=== PATIENT | female | born 1975 | race Caucasian/White ===

== ENCOUNTER 2023-08-17 16:34 | Inpatient (IN) | payer OTHER, SELFPAY ==
--- NOTE | ~2023-08-17 | US_ITS ---
EXAMINATION: NONINVASIVE ASSESSMENT OF THE ARTERIES OF BOTH LOWER EXTREMITIES WITH PVR EXAM AND BILATERAL LOWER EXTREMITY DUPLEX Kenyetta Arroyo MD CLINICAL INFORMATION: Nonhealing foot ulcer TECHNIQUE: Ankle pulse volume recordings, ankle pressure measurements and ankle brachial indices were obtained of the lower extremity arterial system bilaterally in addition to duplex Doppler techniques with wave form analysis and measurement of velocities in the common femoral, profunda femoral, superficial femoral, popliteal and tibial arteries. The study was performed only at rest. COMPARISON: None FINDINGS: a) AT REST: RIGHT LEG: * The right ankle-brachial index is:NONCOMPRESSIBLE 2. Right ankle pressure: Abnormal 3. Right ankle PVR waveform: Abnormal 4. Right direct duplex Doppler findings: Common femoral artery: 85 cm/s, Multiphasic Profunda femoris artery: 73 cm/s, Multiphasic Superficial femoral artery (proximal): 67 cm/s, Multiphasic Superficial femoral artery (mid): 63 cm/s, Multiphasic Superficial femoral artery (distal): 46 cm/s, Multiphasic Proximal Popliteal artery: 78 cm/s, Multiphasic Mid posterior tibial artery: 30 cm/s, Multiphasic LEFT LEG: The left ankle-brachial index is: NONCOMPRESSIBLE 2. Left ankle pressure: Abnormal 3. Left ankle PVR waveform: Abnormal 4. Left direct duplex Doppler findings: Common femoral artery: 95 cm/s, Multiphasic Profunda femoris artery: 57 cm/s, Multiphasic Superficial femoral artery (proximal): 95 cm/s, Multiphasic Superficial femoral artery (mid): 68 cm/s, Multiphasic Superficial femoral artery (distal): 66 cm/s, Multiphasic Proximal Popliteal artery: 84 cm/s, Multiphasic Mid posterior tibial artery: 105 cm/s, Multiphasic US/US arterial duplex LE BI IMPRESSION: RIGHT LEG: No hemodynamically significant stenosis in the right lower extremity by duplex. CHEN cannot be calculated secondary to noncompressible vessels suggesting atherosclerotic calcification. LEFT LEG: No hemodynamically significant stenosis in the right lower extremity by duplex. CHEN cannot be calculated secondary to noncompressible vessels suggesting atherosclerotic calcification.
--- NOTE | ~2023-08-17 | XR_ITS ---
EXAMINATION: XR FOOT, LEFT CLINICAL INFORMATION: Left foot pain COMPARISON: None available. TECHNIQUE: AP, lateral, and oblique views of the left foot. FINDINGS: There is mild pectus cavum. No fractures or dislocations are seen. Vascular calcifications are noted. No soft tissue swelling, fractures or subluxations. XR/XR foot LT 2V IMPRESSION: Mild pectus cavum. No acute finding.
--- NOTE | ~2023-08-17 | US_ITS ---
EXAMINATION: NONINVASIVE ASSESSMENT OF THE ARTERIES OF BOTH LOWER EXTREMITIES WITH PVR EXAM AND BILATERAL LOWER EXTREMITY DUPLEX Kenyetta Arroyo MD CLINICAL INFORMATION: Nonhealing foot ulcer TECHNIQUE: Ankle pulse volume recordings, ankle pressure measurements and ankle brachial indices were obtained of the lower extremity arterial system bilaterally in addition to duplex Doppler techniques with wave form analysis and measurement of velocities in the common femoral, profunda femoral, superficial femoral, popliteal and tibial arteries. The study was performed only at rest. COMPARISON: None FINDINGS: a) AT REST: RIGHT LEG: * The right ankle-brachial index is:NONCOMPRESSIBLE 2. Right ankle pressure: Abnormal 3. Right ankle PVR waveform: Abnormal 4. Right direct duplex Doppler findings: Common femoral artery: 85 cm/s, Multiphasic Profunda femoris artery: 73 cm/s, Multiphasic Superficial femoral artery (proximal): 67 cm/s, Multiphasic Superficial femoral artery (mid): 63 cm/s, Multiphasic Superficial femoral artery (distal): 46 cm/s, Multiphasic Proximal Popliteal artery: 78 cm/s, Multiphasic Mid posterior tibial artery: 30 cm/s, Multiphasic LEFT LEG: The left ankle-brachial index is: NONCOMPRESSIBLE 2. Left ankle pressure: Abnormal 3. Left ankle PVR waveform: Abnormal 4. Left direct duplex Doppler findings: Common femoral artery: 95 cm/s, Multiphasic Profunda femoris artery: 57 cm/s, Multiphasic Superficial femoral artery (proximal): 95 cm/s, Multiphasic Superficial femoral artery (mid): 68 cm/s, Multiphasic Superficial femoral artery (distal): 66 cm/s, Multiphasic Proximal Popliteal artery: 84 cm/s, Multiphasic Mid posterior tibial artery: 105 cm/s, Multiphasic US/US CHEN complete IMPRESSION: RIGHT LEG: No hemodynamically significant stenosis in the right lower extremity by duplex. CHEN cannot be calculated secondary to noncompressible vessels suggesting atherosclerotic calcification. LEFT LEG: No hemodynamically significant stenosis in the right lower extremity by duplex. CHEN cannot be calculated secondary to noncompressible vessels suggesting atherosclerotic calcification.
--- NOTE | 2023-08-17 17:13 | ED_ITS ---
HPI - General Adult General Chief complaint: Skin/Abscess/Foreign Body Stated complaint: ?Cellulitis on toe, on L foot/Sent by provider Time Seen by Provider: 08/17/23 19:42 Source: patient Mode of arrival: ambulatory History of Present Illness HPI narrative: 47-year-old female eating and drinking soda and food from [facility] who presents with having been on 10 days of antibiotics for left 5th toe infection and she saw her primary care doctor today, Dr. Martinez, who states that the infection is not improving and patient was instructed to come in to the emergency room. She otherwise denies any fevers or chills. Related Data Home Medications Medication Instructions Recorded Confirmed aripiprazole 10 mg tablet 10 mg PO BEDTIME 08/17/23 aspirin 81 mg tablet,delayed 81 mg PO DAILY 08/17/23 release atomoxetine 40 mg capsule 40 mg PO DAILY 08/17/23 atorvastatin 80 mg tablet 80 mg PO DAILY 08/17/23 carvedilol 6.25 mg tablet 6.25 mg PO BID 08/17/23 cephalexin 500 mg capsule 500 mg PO TID 08/17/23 clonidine HCl 0.1 mg tablet 0.1 - 0.2 mg PO BEDTIME PRN 08/17/23 insomnia dapagliflozin propanediol 10 mg 10 mg PO DAILY 08/17/23 tablet (Farxiga) doxycycline monohydrate 100 mg 100 mg PO BID 08/17/23 tablet furosemide 20 mg tablet 20 mg PO DAILY 08/17/23 mirtazapine 15 mg tablet 15 mg PO BEDTIME 08/17/23 omeprazole 20 mg capsule,delayed 20 mg PO DAILY 08/17/23 release pregabalin 75 mg capsule 75 mg PO TID 08/17/23 sacubitril 24 mg-valsartan 26 mg 1 tab PO BID 08/17/23 tablet (Entresto) Allergies Allergy/AdvReac Type Severity Reaction Status Date / Time Penicillins [PCN] Allergy Hives Verified 08/17/23 17:15 Review of Systems 2 Review of Systems: Pertinent positives and negatives as stated in HPI [facility] Past Medical History Source: nursing notes reviewed Medical History Mixed hyperlipidemia Mood disorder HFrEF (heart failure with reduced ejection fraction) Non-insulin dependent type 2 diabetes mellitus Social History Social History Advance Directives: No Advance Directives Information Provided: No Physical Exam ED Vital Signs: Vital Signs - 24 hr 08/17/23 17:15 08/17/23 19:42 Temperature 98.0 F 98.0 F Pulse Rate 92 91 Respiratory Rate 16 18 Blood Pressure 118/75 125/81 Pulse Oximetry 100 100 Oxygen Delivery Method Room Air Room Air BMI result Body Mass Index 29.0 VITAL SIGNS: Reviewed. GENERAL: Well developed, well nourished, in no acute distress. HEAD: Normocephalic/atraumatic EYES: PERRLA, EOMI EARS: Ext canals without abnormality NOSE: Nares patent bilateral OROPHARYNX: no oral lesions noted, posterior pharynx clear NECK: Supple, no adenopathy LUNGS: Normal breath sounds. No adventitious sounds or accessory muscle use. SpO2<100> CARDIOVASCULAR: Regular rate and rhythm without noted murmurs ABDOMEN: Soft, non-tender, non-distended with bowel sounds. MUSCULOSKELETAL: No tenderness, deformities, or effusions noted on gross inspection. EXTREMITIES: No cyanosis, clubbing or edema. LEFT FOOT: There is discoloration over the left 5th toe, no obvious nonhealing ulcer, there is mild moisture noted between the toes, there is palpable DP/PT, the foot is otherwise warm SKIN: Inspection of the skin reveals no rashes NEUROLOGIC: Alert and oriented x 4. Strength and sensation to light touch were grossly intact x 4. Course Course Course Narrative: This is an RME: Additional HPI, ROS, PE not included below will be deferred to primary provider. 47 year old female presents w/ left foot pain not improving despite PO atbx ( finished yesterday forgot what she was taking) Plan- labs, imaing Medical Decision Making Medical Decision Making MDM Narrative: 194: 47-year-old female with history and clinical presentation failure of oral antibiotics in the outpatient setting for diabetic left 5th toe infection. 2015: I reviewed all investigations and hematologic indices do not demonstrate a leukocytosis or left shift but patient does have a minor microcytic anemia without any report or evidence bleeding. There is no thrombocytopenia. Chemistry indices are significant for a pseudohyponatremia, otherwise there is no GANGA or electrolyte derangements. There is a hyperglycemia that is likely secondary to patient's current consumption of [employer] meal. CRP is elevated at 1.65. There is no evidence of DKA or HHS. Patient is receiving cefepime and vancomycin. My prelim over review of x-ray is not significant for evidence of osteomyelitis but official read is pending and inpatient hospitalist will follow-up on this official read. I discussed the case with inpatient hospitalist who accepts admission. Differential Diagnosis Differential Diagnoses: The differential diagnosis associated with the presentation includes Please see the discussion above Admission/Observation Consideration of admission/observation: Escalation of care including admission/observation considered Please see the discussion above Consult Healthcare Provider Management of the patient was discussed with: Hospitalist Please see the discussion above Lab Data MDM Lab Attestation statement: I reviewed the patient's lab results. Please see the discussion above 08/17/23 17:43 08/17/23 17:43 Labs: Lab Results 08/17/23 Range/Units 17:43 WBC 5.9 (4.8-10.8) X10*3/uL RBC 4.03 L (4.20-5.50) X10*6/uL Hgb 9.7 L (12.0-16.0) g/dl Hct 30.6 L (37.0-47.0) % MCV 75.9 L (80.0-98.0) fL MCH 24.1 L (27.0-33.0) pg MCHC 31.7 (31.0-35.0) g/dl RDW 17.6 H (11.0-16.0) % Plt Count 263 (160-400) X10*3/uL MPV 10.9 (9.4-12.3) fL Immature Gran % (Auto) 0.2 (0.0-0.4) % Neut % (Auto) 53.0 (45-73) % Lymph % (Auto) 39.8 (20-40) % [place] % (Auto) 5.6 (2-11) % Eos % (Auto) 1.2 (0-4) % Baso % (Auto) 0.2 (0-2) % Lymph # (Auto) 2.3 (1.2-4.9) X10*3/uL [place] # (Auto) 0.3 (0.1-1.2) X10*3/uL Eos # (Auto) 0.1 (0.0-0.4) X10*3/uL Baso # (Auto) 0.0 (0.0-0.2) X10*3/uL Abs Immat Gran (auto) 0.01 (0.00-0.03) X10*3/uL Absolute Neuts (auto) 3.1 (2.0-8.3) x10*3/uL Absolute Nucleated RBC 0.000 (0.0-0.012) X10*3/uL Nucleated RBC % (auto) 0.0 (0.0-0.2) /100WBC ESR 53 H (0-20) MM/HR Sodium 133 L (135-145) mmol/L Potassium 3.6 (3.3-5.1) mmol/L Chloride 102 (96-108) mmol/L Carbon Dioxide 22 (22-29) mmol/L Anion Gap 13 (12-20) BUN 11 (9-16) mg/dL Creatinine 1.03 (0.5-1.4) mg/dL Estim Creat Clear Calc 63.7 Estimated GFR 57 Random Glucose 466 H* (60-115) mg/dL Lactic Acid 3.3 H* (0.5-2.0) mmol/L Calcium 9.4 (8.4-10.2) mg/dL Magnesium 2.1 (1.6-2.6) mg/dL Total Bilirubin 0.3 (0.0-1.0) mg/dL AST 14 (5-31) U/L ALT 11 (0-31) U/L Alkaline Phosphatase 190 H (39-117) U/L C-Reactive Protein 1.65 H (< or = 0.50) mg/dL Total Protein 7.6 (6.5-8.0) g/dL Albumin 3.4 L (3.5-5.0) g/dL Radiology Impression Discussion of test interpretation with radiology: I have reviewed the radiologist's reading. Radiologist Impression: Please see the discussion above External Record Review External record reviewed: Outpatient record, Prior outpatient labs and Prior outpatient radiology Chronic Conditions Patient?s care impacted by: Diabetes and Hypertension Critical Care Time Critical Care Time Critical Care Time: Yes Total Critical Care Time: 45 Attestation: I personally attest to this time spent taking care of the patient. Discharge Plan Discharge Clinical Impression: Osteomyelitis, Infection of toe, Hyperglycemia due to diabetes mellitus Patient Disposition: Admitted As Inpatient
[2023-08-17 17:15] VITALS: BP 118/75; PULSE 92; RESP 16; TEMP 36.7; O2SAT 100; BMI 29.0
[2023-08-17 17:53] LABS: MANUAL DIFF FLAG NO
[2023-08-17 18:03] LABS: Basophils Percent Auto 0.2 % (0-2); Eosinophils Absolute Auto 0.1 X10*3/uL (0.0-0.4); Eosinophils Percent Auto 1.2 % (0-4); Hematocrit 30.6 % (37.0-47.0); Hemoglobin 9.7 g/dl (12.0-16.0); Imm Gran Abs Auto 0.01 X10*3/uL (0.00-0.03); Imm Gran Pct Auto 0.2 % (0.0-0.4); Lymphocytes Absolute Auto 2.3 X10*3/uL (1.2-4.9); Lymphocytes Percent Auto 39.8 % (20-40); Mean Corpuscular HGB Conc 31.7 g/dl (31.0-35.0); Mean Corpuscular Hemoglobin 24.1 pg (27.0-33.0); Mean Corpuscular Volume 75.9 fL (80.0-98.0); Mean Platelet Volume 10.9 fL (9.4-12.3); Monocytes Absolute Auto 0.3 X10*3/uL (0.1-1.2); Monocytes Percent Auto 5.6 % (2-11); Neutrophils Absolute Auto 3.1 x10*3/uL (2.0-8.3); Platelet Count 263 X10*3/uL (160-400); Red Blood Count 4.03 X10*6/uL (4.20-5.50); Red Cell Distribution Width 17.6 % (11.0-16.0); White Blood Count 5.9 X10*3/uL (4.8-10.8)
[2023-08-17 18:11] LABS: Alanine Aminotransferase 11 U/L (0-31); Albumin Level 3.4 g/dL (3.5-5.0); Alkaline Phosphatase 190 U/L (39-117); Anion Gap 13 (12-20); Aspartate Amino Transferase 14 U/L (5-31); Bilirubin Total 0.3 mg/dL (0.0-1.0); Blood Urea Nitrogen 11 mg/dL (9-16); C Reactive Protein 1.65 mg/dL (< or = 0.50); Calcium 9.4 mg/dL (8.4-10.2); Carbon Dioxide 22 mmol/L (22-29); Chloride 102 mmol/L (96-108); Creatinine Clr Calc Pharmacy 63.7; Estimated Glomerular Filt Rate 57; Glucose Random 466 mg/dL (60-115); Lactic Acid 3.3 mmol/L (0.5-2.0); Magnesium 2.1 mg/dL (1.6-2.6); Potassium 3.6 mmol/L (3.3-5.1); Sodium 133 mmol/L (135-145); Total Protein 7.6 g/dL (6.5-8.0)
[2023-08-17 18:40] LABS: Erythrocyte Sedimentation Rate 53 MM/HR (0-20)
[2023-08-17 19:42] VITALS: BP 125/81; PULSE 91; RESP 18; TEMP 36.7; O2SAT 100
[2023-08-17 19:51] LABS: Reflex Lactate? Lactic Acid Added
--- NOTE | 2023-08-17 20:04 | P.HPHOSP_ITS ---
History of Present Illness Date of Service: 08/17/23 Chief Complaint: Foot infection This is a 47-year-old female with pertinent history of congestive heart failure with reduced ejection fraction, mood disorder, pvk-aivsnov-lnjvuhhpy diabetes mellitus who presents to the emergency department for evaluation of left 5th toe infection. Patient states she noticed swelling and redness of her left 5th toe about 10 days prior to presentation. She went to her PCP and was prescribed oral antibiotics. No improvement with oral antibiotics. Continues to be swollen, red. Also has pain when walking. Does report intermittent purulent drainage. No fever or chills. No chest discomfort, palpitations, shortness of breath, abdominal pain, changes in urinary or bowel habits. In the emergency department, x-ray without any acute abnormalities Review of Systems 2 Constitutional: Constitutional: Reports no additional constitutional complaints Cardiovascular: Cardiovascular: Reports no additional cardiovascular complaints Respiratory: Respiratory: Reports no additional respiratory complaints Gastrointestinal: Gastrointestinal: Reports no additional gastrointestinal complaints Genitourinary: Genitourinary: Reports no additional female genitourinary complaints Musculoskeletal: Musculoskeletal: Reports arthralgias and Reports joint swelling [facility] Medical History Mixed hyperlipidemia Mood disorder HFrEF (heart failure with reduced ejection fraction) Non-insulin dependent type 2 diabetes mellitus Pertinent family history: No family history of early CAD Social History Advance Directives: No Advance Directives Information Provided: No Meds Allergies Allergy/AdvReac Type Severity Reaction Status Date / Time Penicillins [PCN] Allergy Hives Verified 08/17/23 17:15 Active Medications: Current Medications Sodium Chloride (Ns) 1,000 mls @ 999 mls/hr IV .Q1H1M SARAH Stop: 08/17/23 20:45 Cefepime HCl 1 gm/ Sodium (Chloride) 50 mls @ 100 mls/hr IV ONCE ONE Stop: 08/17/23 20:17 Vancomycin HCl 1,500 mg/ (Sodium Chloride) 500 mls @ 333.333 mls/hr IV ONCE ONE Stop: 08/17/23 21:31 Pharmacy Consult (Consult Rx Vancomycin Dosing) 1 each MISCELLANE DAILY PRN PRN Reason: Consult order Home Medications Medication Instructions Recorded Confirmed Last Taken Type aripiprazole 10 mg tablet 10 mg PO BEDTIME 08/17/23 08/17/23 08/17/23 History aspirin 81 mg tablet,delayed 81 mg PO DAILY 08/17/23 08/17/23 08/17/23 History release atomoxetine 40 mg capsule 40 mg PO DAILY 08/17/23 08/17/23 08/17/23 History atorvastatin 80 mg tablet 80 mg PO DAILY 08/17/23 08/17/23 08/17/23 History carvedilol 6.25 mg tablet 6.25 mg PO BID 08/17/23 08/17/23 08/17/23 History clonidine HCl 0.1 mg tablet 0.1 - 0.2 mg PO BEDTIME PRN 08/17/23 08/17/23 08/17/23 History insomnia dapagliflozin propanediol 10 mg 10 mg PO DAILY 08/17/23 08/17/23 08/17/23 History tablet (Farxiga) furosemide 20 mg tablet 20 mg PO DAILY 08/17/23 08/17/23 08/17/23 History mirtazapine 15 mg tablet 15 mg PO BEDTIME 08/17/23 08/17/23 08/17/23 History omeprazole 20 mg capsule,delayed 20 mg PO DAILY 08/17/23 08/17/23 08/17/23 History release pregabalin 75 mg capsule 75 mg PO TID 08/17/23 08/17/23 08/17/23 History sacubitril 24 mg-valsartan 26 mg 1 tab PO BID 08/17/23 08/17/23 08/17/23 History tablet (Entresto) Physical Exam 2 Vital Signs and Narrative: Vital Signs: Last Vital Signs Temp 98.0 F 08/17/23 19:42 Pulse 91 08/17/23 19:42 Resp 18 08/17/23 19:42 BP 125/81 08/17/23 19:42 Pulse Ox 100 08/17/23 19:42 O2 Del Method Room Air 08/17/23 19:42 BMI result Body Mass Index 29.0 Middle-aged female lying in bed in no distress Neck supple, no JVD Regular rate and rhythm, S1-S2 heard Regular breath sounds bilaterally, no wheezing or crackles appreciated Abdomen soft nontender, no guarding, no rigidity Patient is awake, alert and oriented to self, place, time and person ; no focal motor deficit Left 5th toe with erythema, warmth and tenderness, nonhealing wound seen Psych: Normal mood No pedal edema Results Labs 08/17/23 17:43 08/17/23 17:43 Labs: Laboratory Results - last 24 hr 08/17/23 17:43 MCV 75.9 L MCH 24.1 L MCHC 31.7 RDW 17.6 H Plt Count 263 MPV 10.9 Immature Gran % (Auto) 0.2 Neut % (Auto) 53.0 Lymph % (Auto) 39.8 [place] % (Auto) 5.6 Eos % (Auto) 1.2 Baso % (Auto) 0.2 Lymph # (Auto) 2.3 [place] # (Auto) 0.3 Eos # (Auto) 0.1 Baso # (Auto) 0.0 Abs Immat Gran (auto) 0.01 Absolute Neuts (auto) 3.1 Absolute Nucleated RBC 0.000 Nucleated RBC % (auto) 0.0 ESR 53 H Anion Gap 13 Estim Creat Clear Calc 63.7 Estimated GFR 57 Random Glucose 466 H* Lactic Acid 3.3 H* Calcium 9.4 Magnesium 2.1 Total Bilirubin 0.3 AST 14 ALT 11 Alkaline Phosphatase 190 H C-Reactive Protein 1.65 H Total Protein 7.6 Albumin 3.4 L Assessment and Plan (1) Infection of toe: Status: Acute (2) Hyperglycemia due to diabetes mellitus: Status: Acute Plan This is a 47-year-old female with pertinent history of congestive heart failure with reduced ejection fraction, mood disorder, kdw-vhyhrye-hwkkcxrhs diabetes mellitus who presents to the emergency department for evaluation of left 5th toe infection. #. Left foot toe cellulitis with nonhealing wound: Will admit patient and initiate empiric IV antibiotics as she failed p.o. antibiotics. Consulting vascular surgery, appreciate assistance. No sepsis. #. Ejm-ayhqiyv-umgklncdc diabetes mellitus with hyperglycemia: Initiating basal plus insulin regimen #. Mood disorder: Continue home mood stabilizers #. congestive heart failure with reduced ejection fraction: Continue Entresto, Lasix and beta-mari. No decompensation during admission. DVT prophylaxis: Lovenox Admit as inpatient and will require two night minimum hospital stay for IV antibiotics Time Spent With Patient Time: Total time managing care of this patient today ____ minutes. Quality Stroke Does the patient have a stroke diagnosis?: No VTE Prior VTE?: No VTE Risk Level:: Medical - moderate - high VTE Device Contraindication: Treatment Not Indicated VTE Drug Contraindication: N/A - Med Ordered
--- NOTE | 2023-08-17 20:26 | PHA.MEDREC ---
Pharmacy Consult ? Medication Reconciliation Pharmacy has completed the medication reconciliation. Patient confirmed medications based on claim history. Luis McwilliamsD
[2023-08-17 20:36] LABS: Beta-Hydroxybutyrate 0.04 mmol/L (0.02-0.27)
[2023-08-17] MEDS: 0.9 % Sodium Chloride 1,000 ML 999 ML IV (20:56)
[2023-08-17] MEDS: cefEPime HCl 1 GM in 0.9 % Sodium Chloride 50 ML IV (20:56)
[2023-08-17] MEDS: Insulin Regular, Human 100 UNIT/ML 3 ML VIAL IVPUSH (20:57)
[2023-08-17 21:05] LABS: ~Lactic Acid-LAB USE ONLY 2.3 mmol/L (0.5-2.0)
--- NOTE | 2023-08-17 21:06 | PC.NURSE ---
critical lab lactic 2.3. MD aware.
[2023-08-17 21:40] VITALS: BP 131/79; PULSE 85; RESP 16; TEMP 36.8; O2SAT 100
[2023-08-17] MEDS: vancomycin HCL 1,000 MG, vancomycin HCL 750 MG in 0.9 % Sodium Chloride 500 ML 267.5 MG IV (21:46)
[2023-08-17] MEDS: Enoxaparin Sodium 40 MG/0.4 ML SYRINGE SUBCUT (21:47)
[2023-08-17] MEDS: Insulin Glargine,Hum.rec.anlog 100 UNIT/ML 10 ML VIAL 15 UNIT SUBCUT (21:48)
--- NOTE | 2023-08-17 21:55 | PHA.PROG ---
Admission Date/Time: August 17, 2023 20:28 Indication: Cellulitis Weight in k.2 kg Adjusted body weight in K.1 kg [place] body weight in K.4 kg Obesity Dosing Indication % IBW: Serum Creatinine - Last 168 Hours 08/17/23 17:43 Creatinine 1.03 Estimated CrCl and GFR - Last 168 Hours 08/17/23 17:43 Estim Creat Clear Calc 63.7 Estimated GFR 57 Vancomycin Loading Dose: 1750 mg (23 mg/kg) Current Vancomycin Dosing Regimen: 750 mg Q12H Date and Time for next Vancomycin Level to be drawn: 08/19 @ 0800 Pharmacist Comments on Vancomycin Plan: Patient received an adequate load dose in the ER on 08/17 @ 2146 Maintenance dose vancomycin 750 mg Q12H is scheduled to start 08/18 @ 1000. Expected AUC 469 with a trough of 15.4 Level is scheduled for prior to the 4th dose Pharmacy will monitor renal function daily Martha Pappas, Nichole Vancomycin dosing will take advantage of [employer] as a clinical decision support tool that uses Bayesian modeling to calculate individual patient's pharmacokinetic parameters and forecast the patient's drug concentration time course with the target goal AUC 24 range of 400 - 600 mg/L/hr.
[2023-08-17] MEDS: Insulin Lispro 100 UNIT/ML 3 ML VIAL SUBCUT (22:00)
[2023-08-17] MEDS: Pregabalin 75 MG CAPSULE PO (22:01)
[2023-08-17] MEDS: ARIPiprazole 10 MG TABLET PO (22:01)
[2023-08-17] MEDS: Mirtazapine 15 MG TABLET PO (22:01)
[2023-08-17 22:06] LABS: Glucose, Whole Blood 156 mg/dL (60-115)
[2023-08-17 22:46] LABS: Reflex Lactate? 2 Y
--- NOTE | 2023-08-17 23:00 | PC.NURSE ---
Patient alert and oriented. Brought in from waiting room. PT was at pcp office and instructed to be seen at ED due to ineffective abx treatment. PT reports being diagnosed with cellutitis and was prescribed 10 days of abx treatment with no resolve. Pt placed on cafeteria monitor. PT is a difficult stick delaying administration of medication. 22 gauge IV access gained in right wrist. Fluids infusing slowly. Call hollis within reach. Plan of care ongoing.
[2023-08-17 23:54] LABS: ~Lactic Acid-LAB USE ONLY 1.9 mmol/L (0.5-2.0)
[2023-08-18] VITALS (9 sets, daily range): BP systolic 137–162; BP diastolic 79–100; PULSE 86–95; RESP 14–20; TEMP 36.2–36.9; O2SAT 99–100
[2023-08-18] MEDS: 0.9 % Sodium Chloride 1,000 ML 999 ML IV (00:28)
[2023-08-18 06:09] LABS: MANUAL DIFF FLAG NO
[2023-08-18 06:12] LABS: Basophils Percent Auto 0.4 % (0-2); Eosinophils Absolute Auto 0.1 X10*3/uL (0.0-0.4); Eosinophils Percent Auto 1.9 % (0-4); Hematocrit 33.6 % (37.0-47.0); Hemoglobin 10.3 g/dl (12.0-16.0); Imm Gran Abs Auto 0.01 X10*3/uL (0.00-0.03); Imm Gran Pct Auto 0.2 % (0.0-0.4); Lymphocytes Absolute Auto 2.7 X10*3/uL (1.2-4.9); Lymphocytes Percent Auto 50.8 % (20-40); Mean Corpuscular HGB Conc 30.7 g/dl (31.0-35.0); Mean Corpuscular Hemoglobin 23.5 pg (27.0-33.0); Mean Corpuscular Volume 76.7 fL (80.0-98.0); Mean Platelet Volume 10.4 fL (9.4-12.3); Monocytes Absolute Auto 0.3 X10*3/uL (0.1-1.2); Monocytes Percent Auto 6.5 % (2-11); Neutrophils Absolute Auto 2.1 x10*3/uL (2.0-8.3); Neutrophils Percent Auto 40.2 % (45-73); Platelet Count 252 X10*3/uL (160-400); Red Blood Count 4.38 X10*6/uL (4.20-5.50); Red Cell Distribution Width 17.4 % (11.0-16.0); White Blood Count 5.3 X10*3/uL (4.8-10.8)
[2023-08-18 06:29] LABS: Creatinine Clr Calc Pharmacy 93.8; Estimated Glomerular Filt Rate > 60
[2023-08-18 06:33] LABS: Anion Gap 13 (12-20); Blood Urea Nitrogen 7 mg/dL (9-16); Calcium 8.6 mg/dL (8.4-10.2); Carbon Dioxide 19 mmol/L (22-29); Chloride 110 mmol/L (96-108); Creatinine Clr Calc Pharmacy 96.6; Estimated Glomerular Filt Rate > 60; Glucose Random 127 mg/dL (60-115); Potassium 3.5 mmol/L (3.3-5.1); Sodium 138 mmol/L (135-145)
[2023-08-18 07:06] LABS: Glucose, Whole Blood 127 mg/dL (60-115)
[2023-08-18] MEDS: Omeprazole 20 MG CAPSULE.DR PO (07:09)
--- NOTE | 2023-08-18 07:21 | HE.PHANOTE ---
RE: jewelo Patient's creatinine improved, changed dose to 1000mg Q12H with predicted AUC 454mg/L, trough of 13.6
--- NOTE | 2023-08-18 08:30 | HO.PM.IMPN ---
Subjective Subjective Date of Service: 08/18/23 Interval History: no changes Physical Exam Vital Signs: Vital Signs: Last Vital Signs Temp 97.7 F 08/18/23 04:10 Pulse 86 08/18/23 04:10 Resp 17 08/18/23 04:19 BP 153/93 H 08/18/23 04:10 Pulse Ox 100 08/18/23 04:10 O2 Del Method Room Air 08/18/23 04:10 BMI result Body Mass Index 29.0 Left 5th toe with erythema, warmth and tenderness, nonhealing wound seen General: AO X 3, no acute distress Resp: CTA bilateral, no accessory muscles used CVS: S1,S2,RRR GI: soft, non tender, non distended Neuro: motor grossly intact, alert Psych: appropriate affect, appropriate insight Objective Data Active Medications Acetaminophen (Acetaminophen 325 Mg Tablet) 650 mg PO Q6H PRN PRN Reason: Pain, Mild (Pain Scale 1-3) Aripiprazole (Aripiprazole 10 Mg Tablet) 10 mg PO BEDTIME [facility] Last Admin: 08/17/23 22:01 Dose: 10 mg Documented By: CANELO Aspirin (Aspirin Enteric Coated 81 Mg Tablet.) 81 mg PO DAILY [facility] Atorvastatin Calcium (Atorvastatin Calcium 80 Mg Tablet) 80 mg PO DAILY [facility] Carvedilol (Carvedilol 6.25 Mg Tablet) 6.25 mg PO BID [facility]; Protocol Clonidine HCl (Clonidine Hcl 0.2 Mg Tablet) 0.2 mg PO BEDTIME PRN; Protocol PRN Reason: insomnia Dextrose (Dextrose 50 % 25 Gm/50 Ml Syringe) 25 gm IVPUSH Q15M PRN; Protocol PRN Reason: per Hypoglycemia Standing Ord. Empagliflozin (Empagliflozin 10 Mg Tablet) 10 mg PO DAILY [facility] Enoxaparin Sodium (Enoxaparin Sodium 40 Mg/0.4 Ml Syringe) 40 mg SUBCUT Q24H [facility] Last Admin: 08/17/23 21:47 Dose: 40 mg Documented By: CANELO Furosemide (Furosemide 20 Mg Tablet) 20 mg PO DAILY [facility]; Protocol Glucose (Glucose Gel 15 Gm Gel..Gram.) 15 gm PO Q15M PRN; Protocol PRN Reason: per Hypoglycemia Standing Ord. Vancomycin HCl 1,000 mg/ (Sodium Chloride) 270 mls @ 270 mls/hr IV Q12H [facility] Insulin Glargine (Insulin Glargine,Hum.Rec.Anlog 100 Unit/Ml 10 Ml Vial) 15 unit SUBCUT BEDTIME [facility] Last Admin: 08/17/23 21:48 Dose: 15 unit Documented By: CANELO Insulin Human Lispro (Insulin Lispro 100 Unit/Ml 3 Ml Vial) 0 unit SUBCUT QIDACHS [facility]; Protocol Last Admin: 08/18/23 07:11 Dose: Not Given Documented By: SOLITARIO Non-Admin Reason: poc 127 Melatonin (Melatonin 3 Mg Tablet) 6 mg PO BEDTIME PRN PRN Reason: Insomnia Mirtazapine (Mirtazapine 15 Mg Tablet) 15 mg PO BEDTIME [facility] Last Admin: 08/17/23 22:01 Dose: 15 mg Documented By: CANELO Non-Formulary Medication (Atomoxetine) 40 mg PO DAILY [facility] Omeprazole (Omeprazole 20 Mg Capsule.Dr) 20 mg PO DAILY@0630 [facility] Last Admin: 08/18/23 07:09 Dose: 20 mg Documented By: CANELO Ondansetron HCl (Ondansetron Hcl 4 Mg/2 Ml Vial) 4 mg IVPUSH Q8H PRN PRN Reason: Nausea and Vomiting Pharmacy Consult (Consult Rx Vancomycin Dosing) 1 each MISCELLANE DAILY PRN PRN Reason: Consult order Pregabalin (Pregabalin 75 Mg Capsule) 75 mg PO TID [facility] Last Admin: 08/17/23 22:01 Dose: 75 mg Documented By: CANELO Sacubitril/Valsartan (Sacubitril/Valsartan 1 Tab Tablet) 1 tab PO BID [facility]; Protocol Sodium Chloride (0.9 % Sodium Chloride Flush 3 Ml Syringe) 3 ml IVFLUSH QSHIFT [facility] Last Admin: 08/18/23 00:29 Dose: Not Given Documented By: CANELO Non-Admin Reason: IV Running Labs 08/18/23 06:02 08/18/23 06:02 Labs: Laboratory Results - last 24 hr 08/17/23 08/17/23 08/17/23 17:43 20:42 21:50 MCV 75.9 L MCH 24.1 L MCHC 31.7 RDW 17.6 H Plt Count 263 MPV 10.9 Immature Gran % (Auto) 0.2 Neut % (Auto) 53.0 Lymph % (Auto) 39.8 [place] % (Auto) 5.6 Eos % (Auto) 1.2 Baso % (Auto) 0.2 Lymph # (Auto) 2.3 [place] # (Auto) 0.3 Eos # (Auto) 0.1 Baso # (Auto) 0.0 Abs Immat Gran (auto) 0.01 Absolute Neuts (auto) 3.1 Absolute Nucleated RBC 0.000 Nucleated RBC % (auto) 0.0 ESR 53 H Anion Gap 13 Estim Creat Clear Calc 63.7 Estimated GFR 57 POC Glucose 156 H Random Glucose 466 H* Lactic Acid 3.3 H* Lactic Acid F/U @ 2Hr 2.3 H* Lactic Acid F/U @ 4Hr Calcium 9.4 Magnesium 2.1 Total Bilirubin 0.3 AST 14 ALT 11 Alkaline Phosphatase 190 H C-Reactive Protein 1.65 H Total Protein 7.6 Albumin 3.4 L Beta-Hydroxybutyrate 0.04 08/17/23 08/18/23 08/18/23 23:40 06:02 06:02 MCV 76.7 L MCH 23.5 L MCHC 30.7 L RDW 17.4 H Plt Count 252 MPV 10.4 Immature Gran % (Auto) 0.2 Neut % (Auto) 40.2 L Lymph % (Auto) 50.8 H [place] % (Auto) 6.5 Eos % (Auto) 1.9 Baso % (Auto) 0.4 Lymph # (Auto) 2.7 [place] # (Auto) 0.3 Eos # (Auto) 0.1 Baso # (Auto) 0.0 Abs Immat Gran (auto) 0.01 Absolute Neuts (auto) 2.1 Absolute Nucleated RBC 0.000 Nucleated RBC % (auto) 0.0 ESR Anion Gap 13 Estim Creat Clear Calc 96.6 93.8 Estimated GFR > 60 POC Glucose Random Glucose Lactic Acid Lactic Acid F/U @ 2Hr Lactic Acid F/U @ 4Hr 1.9 Calcium Magnesium Total Bilirubin AST ALT Alkaline Phosphatase C-Reactive Protein Total Protein Albumin Beta-Hydroxybutyrate 08/18/23 08/18/23 06:02 07:02 MCV MCH MCHC RDW Plt Count MPV Immature Gran % (Auto) Neut % (Auto) Lymph % (Auto) [place] % (Auto) Eos % (Auto) Baso % (Auto) Lymph # (Auto) [place] # (Auto) Eos # (Auto) Baso # (Auto) Abs Immat Gran (auto) Absolute Neuts (auto) Absolute Nucleated RBC Nucleated RBC % (auto) ESR Anion Gap Estim Creat Clear Calc Estimated GFR > 60 POC Glucose 127 H Random Glucose 127 H Lactic Acid Lactic Acid F/U @ 2Hr Lactic Acid F/U @ 4Hr Calcium 8.6 D Magnesium Total Bilirubin AST ALT Alkaline Phosphatase C-Reactive Protein Total Protein Albumin Beta-Hydroxybutyrate Assessment and Plan (1) Hyperglycemia due to diabetes mellitus: Status: Acute Plan 47F PMH DM, chf with reduced ef, mood disorder, presented with non healing left 5th toe infection Left foot toe cellulitis with nonhealing wound due to diabetes Failed outpatient antibiotics IV vanco, vascular eval Diabetes with hyperglycemia Basal bolus insulin Chronic systolic CHF Lasix, Entresto, carvedilol DVT prophylaxis with Lovenox Full code Reason for continued hospitalization: IV antibiotics for infection that failed p.o. antibiotics as outpatient. Time Spent With Patient Time: Total time managing care of this patient today ____ minutes. Quality Stroke Does the patient have a stroke diagnosis?: No VTE Prior VTE?: No VTE Risk Level:: Medical - moderate - high VTE Device Contraindication: Treatment Not Indicated VTE Drug Contraindication: N/A - Med Ordered
[2023-08-18] MEDS: Furosemide 20 MG TABLET PO (09:30)
[2023-08-18] MEDS: Aspirin Enteric Coated 81 MG TABLET.DR PO (09:30)
[2023-08-18] MEDS: 0.9 % Sodium Chloride Flush 3 ML SYRINGE IVFLUSH ×3 (09:30→20:45)
[2023-08-18] MEDS: carvediloL 6.25 MG TABLET PO ×2 (09:30→20:44)
[2023-08-18] MEDS: Atorvastatin Calcium 80 MG TABLET PO (09:30)
[2023-08-18] MEDS: Pregabalin 75 MG CAPSULE PO ×3 (09:30→20:44)
--- NOTE | 2023-08-18 09:30 | PC.NURSE ---
pt is alert and oriented, skin appropriate for ethnicity, respirations even and unlabored, pt presents with a small wound on her left pinky toe, toe is swollen and slightly red in color, pt denies pain at this time, ns on the monitor and and vs stable
[2023-08-18] MEDS: Empagliflozin 10 MG TABLET PO (10:15)
[2023-08-18] MEDS: Sacubitril/Valsartan 24/26 1 TAB TABLET PO ×2 (10:15→20:44)
[2023-08-18] MEDS: vancomycin HCL 1,000 MG in 0.9 % Sodium Chloride 250 ML 270 MG IV ×2 (10:25→22:17)
--- NOTE | 2023-08-18 11:14 | MHC.CM.PN ---
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
--- NOTE | 2023-08-18 12:17 | PC.NURSE ---
report given to biomedical engineering supervisor
--- NOTE | 2023-08-18 12:40 | PM.CNGS ---
History of Present Illness Consult details Consult date: 08/18/23 Reason for consult: wound care Narrative: Very pleasant 47-year-old female presents with nonhealing left 5th toe infection. She had noticed redness and swelling approximately 2 weeks prior. She had presented to her primary care physician and was started on oral antibiotics. She did not note any significant improvement. She became quite concerned about this and it was a source of pain and discomfort for her. She presented to the hospital for evaluation and further treatment. She has a past medical history significant for diabetes and she is a nonsmoker. Review of Systems Review of Systems: Yes all other systems are reviewed and are negative Constitutional: Constitutional: Reports no additional constitutional complaints ENT: Reports Normal hearing present Cardiovascular: Cardiovascular: Denies chest pain, Denies chest pain at rest, Denies chest pain with activity and Denies pedal edema Respiratory: Respiratory: Denies cough Gastrointestinal: Gastrointestinal: Denies abdominal pain Musculoskeletal: Musculoskeletal: Denies abnormal gait, Denies muscle cramps and Denies radiating pain into limb Integumentary/Breasts: Skin/Breast: Denies skin ulcer and Denies wounds Neurologic: Reports Normal hearing present and Denies abnormal gait Psychiatric: Psychiatric: Reports no additional psychiatric complaints PMFSH Past Medical History Medical History Mixed hyperlipidemia Mood disorder HFrEF (heart failure with reduced ejection fraction) Non-insulin dependent type 2 diabetes mellitus Social History Social History Patient Tobacco Use Status: Never used Tobacco Smoked in Last 30 Days: No Use of substances other than those prescribed or required for medical reasons: No Advance Directives: Yes Advance Directives on File: Yes Advance Directives Date on File: 08/18/23 Nutrition Risks: No Nutritional Risk Patient : No service: No Meds Allergies Allergy/AdvReac Type Severity Reaction Status Date / Time Penicillins [PCN] Allergy Hives Verified 08/17/23 17:15 Active Medications: Current Medications Acetaminophen (Acetaminophen 325 Mg Tablet) 650 mg PO Q6H PRN PRN Reason: Pain, Mild (Pain Scale 1-3) Aripiprazole (Aripiprazole 10 Mg Tablet) 10 mg PO BEDTIME [facility] Last Admin: 08/17/23 22:01 Dose: 10 mg Aspirin (Aspirin Enteric Coated 81 Mg Tablet.) 81 mg PO DAILY [facility] Last Admin: 08/18/23 09:30 Dose: 81 mg Atorvastatin Calcium (Atorvastatin Calcium 80 Mg Tablet) 80 mg PO DAILY [facility] Last Admin: 08/18/23 09:30 Dose: 80 mg Carvedilol (Carvedilol 6.25 Mg Tablet) 6.25 mg PO BID [facility]; Protocol Last Admin: 08/18/23 09:30 Dose: 6.25 mg Clonidine HCl (Clonidine Hcl 0.2 Mg Tablet) 0.2 mg PO BEDTIME PRN; Protocol PRN Reason: insomnia Dextrose (Dextrose 50 % 25 Gm/50 Ml Syringe) 25 gm IVPUSH Q15M PRN; Protocol PRN Reason: per Hypoglycemia Standing Ord. Empagliflozin (Empagliflozin 10 Mg Tablet) 10 mg PO DAILY [facility] Last Admin: 08/18/23 10:15 Dose: 10 mg Enoxaparin Sodium (Enoxaparin Sodium 40 Mg/0.4 Ml Syringe) 40 mg SUBCUT Q24H [facility] Last Admin: 08/17/23 21:47 Dose: 40 mg Furosemide (Furosemide 20 Mg Tablet) 20 mg PO DAILY [facility]; Protocol Last Admin: 08/18/23 09:30 Dose: 20 mg Glucose (Glucose Gel 15 Gm Gel..Gram.) 15 gm PO Q15M PRN; Protocol PRN Reason: per Hypoglycemia Standing Ord. Vancomycin HCl 1,000 mg/ (Sodium Chloride) 270 mls @ 270 mls/hr IV Q12H [facility] Last Infusion: 08/18/23 12:12 Dose: Infused Insulin Glargine (Insulin Glargine,Hum.Rec.Anlog 100 Unit/Ml 10 Ml Vial) 15 unit SUBCUT BEDTIME [facility] Last Admin: 08/17/23 21:48 Dose: 15 unit Insulin Human Lispro (Insulin Lispro 100 Unit/Ml 3 Ml Vial) 0 unit SUBCUT QIDACHS [facility]; Protocol Last Admin: 08/18/23 07:11 Dose: Not Given Melatonin (Melatonin 3 Mg Tablet) 6 mg PO BEDTIME PRN PRN Reason: Insomnia Mirtazapine (Mirtazapine 15 Mg Tablet) 15 mg PO BEDTIME [facility] Last Admin: 08/17/23 22:01 Dose: 15 mg Non-Formulary Medication (Atomoxetine) 40 mg PO DAILY [facility] Omeprazole (Omeprazole 20 Mg Capsule.) 20 mg PO DAILY@0630 [facility] Last Admin: 08/18/23 07:09 Dose: 20 mg Ondansetron HCl (Ondansetron Hcl 4 Mg/2 Ml Vial) 4 mg IVPUSH Q8H PRN PRN Reason: Nausea and Vomiting Pharmacy Consult (Consult Rx Vancomycin Dosing) 1 each MISCELLANE DAILY PRN PRN Reason: Consult order Pregabalin (Pregabalin 75 Mg Capsule) 75 mg PO TID [facility] Last Admin: 08/18/23 09:30 Dose: 75 mg Sacubitril/Valsartan (Sacubitril/Valsartan 1 Tab Tablet) 1 tab PO BID [facility]; Protocol Last Admin: 08/18/23 10:15 Dose: 1 tab Sodium Chloride (0.9 % Sodium Chloride Flush 3 Ml Syringe) 3 ml IVFLUSH QSHIFT [facility] Last Admin: 08/18/23 09:30 Dose: 3 ml Home Medications Medication Instructions Recorded Confirmed Last Taken Type aripiprazole 10 mg tablet 10 mg PO BEDTIME 08/17/23 08/17/23 08/17/23 History aspirin 81 mg tablet,delayed 81 mg PO DAILY 08/17/23 08/17/23 08/17/23 History release atomoxetine 40 mg capsule 40 mg PO DAILY 08/17/23 08/17/23 08/17/23 History atorvastatin 80 mg tablet 80 mg PO DAILY 08/17/23 08/17/23 08/17/23 History carvedilol 6.25 mg tablet 6.25 mg PO BID 08/17/23 08/17/23 08/17/23 History clonidine HCl 0.1 mg tablet 0.1 - 0.2 mg PO BEDTIME PRN 08/17/23 08/17/23 08/17/23 History insomnia dapagliflozin propanediol 10 mg 10 mg PO DAILY 08/17/23 08/17/23 08/17/23 History tablet (Farxiga) furosemide 20 mg tablet 20 mg PO DAILY 08/17/23 08/17/23 08/17/23 History mirtazapine 15 mg tablet 15 mg PO BEDTIME 08/17/23 08/17/23 08/17/23 History omeprazole 20 mg capsule,delayed 20 mg PO DAILY 08/17/23 08/17/23 08/17/23 History release pregabalin 75 mg capsule 75 mg PO TID 08/17/23 08/17/23 08/17/23 History sacubitril 24 mg-valsartan 26 mg 1 tab PO BID 08/17/23 08/17/23 08/17/23 History tablet (Entresto) Physical Exam Vital Signs: Vital Signs: Last Vital Signs Temp 97.9 F 08/18/23 09:28 Pulse 89 08/18/23 12:06 Resp 14 08/18/23 12:06 BP 137/83 08/18/23 12:06 Pulse Ox 100 08/18/23 12:06 O2 Del Method Room Air 08/18/23 12:06 BMI result Body Mass Index 29.0 Const: General: cooperative, healthy appearing and comfortable Orientation/consciousness: oriented to person, oriented to place and oriented to time HEENT: Head: Yes normal to inspection Neck: Neck: Yes normal visual inspection Carotids: no bruits Chest: Chest palpation & inspection: normal inspection of the chest Resp: Effort & Inspection: normal respiratory effort and able to speak in complete sentences Auscultation: clear to auscultation bilaterally, no crackles, no rales, no rhonchi and no wheezes Cardio: Rate: regular rate Rhythm: regular rhythm Heart sounds: S1 normal heart sound present and S2 normal heart sound present Bruits: no carotid bruits Peripheral pulses: Peripheral pulses 2+ throughout GI: Inspection: Yes normal to inspection Skin: Other: Left 5th toe nonhealing ulcer with surrounding cellulitis Wounds: no wounds Hair: normal Neuro: General: oriented to person, oriented to place and oriented to time Cranial nerves: Yes CN's II-XII intact bilaterally and Yes Normal hearing present Cognition (Neuro): normal cognition Motor exam (neuro): 5/5 motor strength present throughout Extrem: Other: venous exam: No significant superficial varicosities or spider telangiectasias, minimal edema General: No clubbing, No cyanosis and No edema Psych: Appearance: grossly normal Mental Status: mental status grossly normal Speech and movement: Normal speech and movement present Results Labs 08/18/23 06:02 08/18/23 06:02 Labs: Abnormal lab results 08/17/23 08/17/23 08/17/23 Range/Units 17:43 20:42 21:50 RBC 4.03 L (4.20-5.50) X10*6/uL Hgb 9.7 L (12.0-16.0) g/dl Hct 30.6 L (37.0-47.0) % MCV 75.9 L (80.0-98.0) fL MCH 24.1 L (27.0-33.0) pg MCHC (31.0-35.0) g/dl RDW 17.6 H (11.0-16.0) % Neut % (Auto) (45-73) % Lymph % (Auto) (20-40) % ESR 53 H (0-20) MM/HR Sodium 133 L (135-145) mmol/L Chloride (96-108) mmol/L Carbon Dioxide (22-29) mmol/L BUN (9-16) mg/dL POC Glucose 156 H (60-115) mg/dL Random Glucose 466 H* (60-115) mg/dL Lactic Acid 3.3 H* (0.5-2.0) mmol/L Lactic Acid F/U @ 2Hr 2.3 H* (0.5-2.0) mmol/L Alkaline Phosphatase 190 H (39-117) U/L C-Reactive Protein 1.65 H (< or = 0.50) mg/dL Albumin 3.4 L (3.5-5.0) g/dL 08/18/23 08/18/23 Range/Units 06:02 07:02 RBC (4.20-5.50) X10*6/uL Hgb 10.3 L (12.0-16.0) g/dl Hct 33.6 L (37.0-47.0) % MCV 76.7 L (80.0-98.0) fL MCH 23.5 L (27.0-33.0) pg MCHC 30.7 L (31.0-35.0) g/dl RDW 17.4 H (11.0-16.0) % Neut % (Auto) 40.2 L (45-73) % Lymph % (Auto) 50.8 H (20-40) % ESR (0-20) MM/HR Sodium (135-145) mmol/L Chloride 110 H (96-108) mmol/L Carbon Dioxide 19 L (22-29) mmol/L BUN 7 L (9-16) mg/dL POC Glucose 127 H (60-115) mg/dL Random Glucose 127 H (60-115) mg/dL Lactic Acid (0.5-2.0) mmol/L Lactic Acid F/U @ 2Hr (0.5-2.0) mmol/L Alkaline Phosphatase (39-117) U/L C-Reactive Protein (< or = 0.50) mg/dL Albumin (3.5-5.0) g/dL Short CBC 08/17/23 08/18/23 Range/Units 17:43 06:02 WBC 5.9 5.3 (4.8-10.8) X10*3/uL Hgb 9.7 L 10.3 L (12.0-16.0) g/dl Hct 30.6 L 33.6 L (37.0-47.0) % Plt Count 263 252 (160-400) X10*3/uL BMP 08/17/23 08/18/23 08/18/23 17:43 06:02 06:02 Sodium 133 L 138 Potassium 3.6 3.5 Chloride 102 110 H Carbon Dioxide 22 19 L BUN 11 7 L Creatinine 1.03 0.68 0.70 Calcium 9.4 8.6 D Liver Function 08/17/23 Range/Units 17:43 Total Bilirubin 0.3 (0.0-1.0) mg/dL AST 14 (5-31) U/L ALT 11 (0-31) U/L Alkaline Phosphatase 190 H (39-117) U/L Albumin 3.4 L (3.5-5.0) g/dL All other labs normal. Assessment and Plan (1) Diabetic ulcer of left foot: Qualifiers: Diabetic foot ulcer location: toe Diabetes mellitus type: type 2 Non-pressure ulcer stage: unspecified non-pressure ulcer stage Qualified Code(s): E11.621 - Type 2 diabetes mellitus with foot ulcer; L97.529 - Non-pressure chronic ulcer of other part of left foot with unspecified severity Status: Acute Plan In short patient has nonhealing diabetic foot ulcer. I was unable to appreciate palpable arterial pulses. I have taken the liberty of ordering noninvasive arterial testing. In addition the patient will require antibiotics and further evaluation of that toe. We will continue to follow with you. Thank you for allowing us to assist in her care. If there are any questions or concerns please do not hesitate to contact us. Time Spent With Patient Time: Total time managing care of this patient today ____ minutes. Procedures Date of Service Date of Service: 08/18/23
[2023-08-18 13:11] LABS: Glucose, Whole Blood 116 mg/dL (60-115)
[2023-08-18] MEDS: Acetaminophen 325 MG TABLET 650 MG PO (14:39)
[2023-08-18 16:18] LABS: Glucose, Whole Blood 99 mg/dL (60-115)
[2023-08-18] MEDS: Enoxaparin Sodium 40 MG/0.4 ML SYRINGE SUBCUT (20:44)
[2023-08-18] MEDS: Mirtazapine 15 MG TABLET PO (20:44)
[2023-08-18] MEDS: ARIPiprazole 10 MG TABLET PO (20:44)
[2023-08-18 20:49] LABS: Glucose, Whole Blood 135 mg/dL (60-115)
[2023-08-18] MEDS: Insulin Glargine,Hum.rec.anlog 100 UNIT/ML 10 ML VIAL 15 UNIT SUBCUT (20:53)
[2023-08-19 04:00] VITALS: BP 158/96; PULSE 105; RESP 18; TEMP 36.1; O2SAT 98
[2023-08-19] MEDS: Omeprazole 20 MG CAPSULE.DR PO (05:43)
[2023-08-19 07:51] LABS: Glucose, Whole Blood 96 mg/dL (60-115)
[2023-08-19 08:00] VITALS: BP 123/77; PULSE 96; RESP 18; TEMP 36.3; O2SAT 98
[2023-08-19 09:26] LABS: Hematocrit 33.5 % (37.0-47.0); Hemoglobin 10.5 g/dl (12.0-16.0); Mean Corpuscular HGB Conc 31.3 g/dl (31.0-35.0); Mean Corpuscular Hemoglobin 23.9 pg (27.0-33.0); Mean Corpuscular Volume 76.3 fL (80.0-98.0); Mean Platelet Volume 10.5 fL (9.4-12.3); Platelet Count 283 X10*3/uL (160-400); Red Blood Count 4.39 X10*6/uL (4.20-5.50); Red Cell Distribution Width 17.7 % (11.0-16.0); White Blood Count 6.2 X10*3/uL (4.8-10.8)
[2023-08-19 09:39] LABS: Vancomycin Trough 18.2 mcg/mL (10.0-20.0)
[2023-08-19 09:41] LABS: Anion Gap 15 (12-20); Blood Urea Nitrogen 5 mg/dL (9-16); Calcium 9.4 mg/dL (8.4-10.2); Carbon Dioxide 22 mmol/L (22-29); Chloride 106 mmol/L (96-108); Creatinine Clr Calc Pharmacy 96.6; Estimated Glomerular Filt Rate > 60; Glucose Fasting 85 mg/dL (60-99); Potassium 3.9 mmol/L (3.3-5.1); Sodium 139 mmol/L (135-145)
[2023-08-19] MEDS: carvediloL 6.25 MG TABLET PO (09:42)
[2023-08-19] MEDS: Pregabalin 75 MG CAPSULE PO (09:42)
[2023-08-19] MEDS: Furosemide 20 MG TABLET PO (09:42)
[2023-08-19] MEDS: Aspirin Enteric Coated 81 MG TABLET.DR PO (09:42)
[2023-08-19] MEDS: Sacubitril/Valsartan 24/26 1 TAB TABLET PO (09:42)
[2023-08-19] MEDS: Empagliflozin 10 MG TABLET PO (09:42)
[2023-08-19] MEDS: 0.9 % Sodium Chloride Flush 3 ML SYRINGE IVFLUSH (09:43)
--- NOTE | 2023-08-19 09:57 | HE.PHANOTE ---
RE MALINAO TROUGH WAS 18.2 AFTER THREE DOSES. WILL LOWER DOSE TO 750MG Q12 AND GET A LEVEL AFTER 2 DOSES TO MAKE SURE PT IS NOT SUPRATHERAPUETIC. NEXT LEVEL DUE 08/20 @0800. SUSPECTED AUC 407, TROUGH 12.7 Josh
[2023-08-19] MEDS: vancomycin HCL 750 MG in 0.9 % Sodium Chloride 250 ML 265 MG IV (10:50)
[2023-08-19] MEDS: ondansetron HCL 4 MG/2 ML VIAL IVPUSH (11:01)
--- NOTE | 2023-08-19 11:36 | P.DS_ITS ---
DS: Providers Provider Date of Service: 08/19/23 Date of admission: 08/17/23 20:28 Date of discharge: 08/19/23 Primary care physician: Michael Martinez MD Consults: 08/17/23 20:07 Consult to Vascular Surgery Routine Consulting Provider: [facility] V[facility] Services Reason for consultation: Left 5th toe nonhealing wound Attending physician on discharge: Jake Singer Discharging clinician: Vernell Stephens DS: Diagnosis Discharge Diagnosis (1) Diabetic ulcer of left foot: Status: Acute DS: Summary Hospital Course Hospital Course: From H&P on day of admission This is a 47-year-old female with pertinent history of congestive heart failure with reduced ejection fraction, mood disorder, kwz-dvcllqw-[id number] diabetes mellitus who presents to the emergency department for evaluation of left 5th toe infection. Patient states she noticed swelling and redness of her left 5th toe about 10 days prior to presentation. She went to her PCP and was prescribed oral antibiotics. No improvement with oral antibiotics. Continues to be swollen, red. Also has pain when walking. Does report intermittent purulent drainage. No fever or chills. No chest discomfort, palpitations, shortness of breath, abdominal pain, changes in urinary or bowel habits. In the emergency department, x-ray without any acute abnormalities Left foot toe cellulitis with nonhealing wound: Was started on IV vancomycin. xray showed no evidence of osteomyelitis, ESR was 52. Erythema is improving, there is no leukocytosis and she has remained afebrile. Blood cultures negative. Seen by vascular surgery, lower extremity arterial testing without hemodynamically significant stenosis, no intervention required by vascular, recommend outpatient follow up in two weeks. She will be discharged home to complete 10 days of po antibiotics. Bed-ommnqer-uhjrebvch diabetes mellitus with hyperglycemia: blood sugar was elevated around 400 on arrival. Hba1c was checked and was >14. she states that her PCP has sent two new medications to add to her diabetic regimen but she has not yet picked them up, but she plans to do so upon discharge. Starting insulin was discussed, but she prefers to follow up with her PCP to avoid starting insulin if possible. The importance of good blood sugar control was discussed. she was encouraged to continue checking blood sugar and she will follow up with PCP. Time Spent with Patient Time attestation: Total time managing care of this patient today ____ minutes. Discharge coordination time: Greater than 30 minutes Quality: Safe Use of Opioids Does Pt have an Active Cancer Diagnosis on the Problem List?: No Quality: Stroke Does the patient have a stroke diagnosis?: No Physical Exam 2 Vital Signs: Vital Signs: Last Vital Signs Temp 97.4 F 08/19/23 08:00 Pulse 96 08/19/23 08:00 Resp 18 08/19/23 08:00 BP 123/77 08/19/23 08:00 Pulse Ox 98 08/19/23 08:00 O2 Del Method Room Air 08/19/23 08:00 BMI result Body Mass Index 29.0 Const: General: cooperative, comfortable, no acute distress, alert and awake Nutritional Appearance: average body habitus Orientation/consciousness: p atient oriented x3 Resp: Effort & Inspection: normal respiratory effort, able to speak in complete sentences, no respiratory distress and no use of accessory muscles Cardio: Rate: regular rate GI: Inspection: No distended Palpation (GI): Soft to palpation and nontender Skin: Other: Neuro: General: patient oriented x3, moves all extremities and CN's II-XI intact bilaterally DS: Data Data Completed and Pending Labs on day of discharge: Laboratory Results - last 24 hr 08/18/23 08/18/23 08/18/23 13:07 16:06 20:44 WBC RBC Hgb Hct MCV MCH MCHC RDW Plt Count MPV Absolute Nucleated RBC Nucleated RBC % (auto) Sodium Potassium Chloride Carbon Dioxide Anion Gap BUN Creatinine Estim Creat Clear Calc Estimated GFR POC Glucose 116 H 99 135 H Fasting Glucose Calcium Vancomycin Trough 08/19/23 08/19/23 07:26 08:19 WBC 6.2 RBC 4.39 Hgb 10.5 L Hct 33.5 L MCV 76.3 L MCH 23.9 L MCHC 31.3 RDW 17.7 H Plt Count 283 MPV 10.5 Absolute Nucleated RBC 0.000 Nucleated RBC % (auto) 0.0 Sodium 139 Potassium 3.9 Chloride 106 Carbon Dioxide 22 Anion Gap 15 BUN 5 L Creatinine 0.68 Estim Creat Clear Calc 96.6 Estimated GFR > 60 POC Glucose 96 Fasting Glucose 85 Calcium 9.4 D Vancomycin Trough 18.2 Preliminary micro results at discharge 08/17/23 17:43 Blood Culture - Preliminary Blood - Venous No growth after 24 hours. 08/17/23 17:43 Blood Culture - Preliminary Blood - Venous No growth after 24 hours. Discharge Plan Discharge Anticipated Discharge Date/Time: 08/19/23 12:00 Patient Disposition: Home, Self-Care Discharge Diagnosis: cellulitis toe Referrals: Flaquito Sanchez MD [Physician] - 2 Weeks Michael Martinez MD [Primary Care Provider] - 1 Week Discharge Medications: New doxycycline hyclate 100 mg tablet 100 mg PO BID 8 Days Qty: 16 0RF Continued atorvastatin 80 mg tablet 80 mg PO DAILY clonidine HCl 0.1 mg tablet 0.1 - 0.2 mg PO BEDTIME PRN (Reason: insomnia) carvedilol 6.25 mg tablet 6.25 mg PO BID aspirin 81 mg tablet,delayed release (DR/EC) 81 mg PO DAILY omeprazole 20 mg capsule,delayed release(DR/EC) 20 mg PO DAILY furosemide 20 mg tablet 20 mg PO DAILY mirtazapine 15 mg tablet 15 mg PO BEDTIME aripiprazole 10 mg tablet 10 mg PO BEDTIME atomoxetine 40 mg capsule 40 mg PO DAILY pregabalin 75 mg capsule 75 mg PO TID Farxiga 10 mg tablet 10 mg PO DAILY Entresto 24-26 mg tablet 1 tab PO BID Discharge Orders: Discharge Order (Routine); Ordered 08/19/23 Ordered By: Vernell Stephens Activity on Discharge: As tolerated Stand Alone Forms: Patient Portal Discharge page Care Plan Goals: see below Health Concerns: left 5th toe cellulitis Plan of Treatment: complete course of antibiotics as prescribed Call to schedule follow-up appointment with PCP in the next week or two call to schedule 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
[2023-08-19 11:59] LABS: Glucose, Whole Blood 85 mg/dL (60-115)
[2023-08-19 12:03] LABS: Hemoglobin A1c % > 14.0 % (<6.0)
--- NOTE | 2023-08-19 13:19 | MHC.CM.PN ---
Pt is medically cleared for DC, she is going home, self care.
== END 2023-08-19 13:58 | disposition home or self-care (01) | DRG 383 ==
LOC: HO.ED 20:18 → HO.EDOVER 20:28 → HO.S3 08-18 11:30
PROVIDERS: Internal Medicine; Physician Assistant; Admitting Provider Student in an Organized Health Care Education/Training Program; Emergency Provider Student in an Organized Health Care Education/Training Program; PCP Family Medicine; Visit Provider Physician Assistant Medical
DX: L03.116 Cellulitis of left lower limb (principal); E11.621 Type 2 diabetes mellitus with foot ulcer; L97.529 Non-pressure chronic ulcer of other part of left foot with unspecified severity; I50.22 Chronic systolic (congestive) heart failure; E11.69 Type 2 diabetes mellitus with other specified complication; F39 Unspecified mood [affective] disorder; E11.65 Type 2 diabetes mellitus with hyperglycemia; E78.2 Mixed hyperlipidemia; Z23 Encounter for immunization; Z88.0 Allergy status to penicillin; Z79.82 Long term (current) use of aspirin; Z79.899 Other long term (current) drug therapy
CPT/HCPCS: 36415; 73620; 80048; 80053; 80202; 82010; 82565; 82947; 83036; 83605; 83735; 85025; 85027; 85652; 86140; 87040; 93923; 93925; 99285; J0692; J1650; J2405; J3370

== ENCOUNTER → 2023-08-17 20:28 | Outpatient (BNV) | payer OTHER, SELFPAY | PROVIDERS: Admitting Provider Student in an Organized Health Care Education/Training Program; Emergency Provider Student in an Organized Health Care Education/Training Program; PCP Internal Medicine; Visit Provider Surgery Vascular Surgery | DX: E11.621 Type 2 diabetes mellitus with foot ulcer (principal); L97.529 Non-pressure chronic ulcer of other part of left foot with unspecified severity | CPT/HCPCS: 99222 ==

== ENCOUNTER → 2023-08-17 20:28 | Outpatient (BNV) | payer OTHER, SELFPAY | PROVIDERS: Admitting Provider Student in an Organized Health Care Education/Training Program; Emergency Provider Student in an Organized Health Care Education/Training Program; PCP Internal Medicine; Visit Provider Student in an Organized Health Care Education/Training Program | DX: L08.9 Local infection of the skin and subcutaneous tissue, unspecified (principal); E11.65 Type 2 diabetes mellitus with hyperglycemia | CPT/HCPCS: 99222; 99232; 99239 ==

== ENCOUNTER 2023-09-16 10:49 | Outpatient (AMB) | payer OTHER, SELFPAY ==
--- NOTE | 2023-09-16 10:49 | MHC.OFFVIS ---
Intake Vital Signs 09/16/23 10:53 Height 5 ft 3 in Weight 159 lb BMI 28.2 Intake Visit Reasons: Follow Up Left Foot Ulcer Intake Note: FU left foot ulcer Pt says foot is doing ok she says that she feels like its healing ok. 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 She actually was seen in the hospital where she had this left 5th toe infection. She underwent noninvasive arterial testing was treated with antibiotics. She appears to be doing significantly better. She does have a past medical history significant for diabetes and is a nonsmoker. 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) Patient Tobacco Use Status: Never used Tobacco Advance Directives Date on File: 08/18/23 service: No Review of Systems Const All systems reviewed & are unremarkable except as noted in HPI and below Reports no additional complaints ENT Reports Normal hearing present Card Denies chest pain, Denies chest pain at rest, Denies chest pain with activity and Denies pedal edema Resp Denies cough GI Denies abdominal pain Musc Denies abnormal gait, Denies muscle cramps and Denies radiating pain into limb Skin/Breast Denies skin ulcer and Denies wounds Neuro Reports Normal hearing present and Denies abnormal gait Psych Reports no additional complaints Physical Exam Vital Signs: BMI result Body Mass Index 28.2 Const General: cooperative, healthy appearing and comfortable Orientation/consciousness: oriented to person, oriented to place and oriented to time HEENT Head: Yes normal to inspection Neck Neck: Yes normal visual inspection Carotids: no bruits Chest Chest palpation & inspection: normal inspection of the chest Resp Effort & Inspection: normal respiratory effort and able to speak in complete sentences Auscultation: clear to auscultation bilaterally, no crackles, no rales, no rhonchi and no wheezes Cardio Rate: regular rate Rhythm: regular rhythm Heart sounds: S1 normal heart sound present and S2 normal heart sound present Bruits: no carotid bruits Peripheral pulses: Peripheral pulses 2+ throughout GI Inspection: Yes normal to inspection Skin Other: Left 5th toe ulcer at the base Wounds: no wounds Hair: normal Neuro General: oriented to person, oriented to place and oriented to time Cranial nerves: Yes CN's II-XII intact bilaterally and Yes Normal hearing present Cognition (Neuro): normal cognition Motor exam (neuro): 5/5 motor strength present throughout Extrem Other: venous exam: No significant superficial varicosities or spider telangiectasias, minimal edema General: No clubbing, No cyanosis and No edema Psych Appearance: grossly normal Mental Status: mental status grossly normal Speech and movement: Normal speech and movement present Results Reviewed Results Reviewed: Arterial ultrasound dated 08/18/2023 demonstrates no significant evidence of arterial disease. Assessment & Plan Assessment & Plan (1) Diabetic ulcer of left foot: Code(s): E11.621 - Type 2 diabetes mellitus with foot ulcer; L97.529 - Non-pressure chronic ulcer of other part of left foot with unspecified severity Qualifiers: Diabetic foot ulcer location: toe Diabetes mellitus type: type 2 Non-pressure ulcer stage: unspecified non-pressure ulcer stage Qualified Code(s): E11.621 - Type 2 diabetes mellitus with foot ulcer; L97.529 - Non-pressure chronic ulcer of other part of left foot with unspecified severity Plan: In short patient is doing significantly better in terms of her left foot ulcer. The base of it has some serous drainage and will dress this with alginate. [facility] She will follow up with us in approximately 2-3 weeks time to ensure that the wound continues to progress in the right direction. Thank you for allowing us to assist in her care. If there are questions or concerns please do not hesitate to contact us Coding Level of Care Code Est Pt Level 3 (66341) Diagnoses Diabetic ulcer of toe of left foot associated with type 2 diabetes mellitus, unspecified ulcer stage E11.621; L97.529 Diabetic foot ulcer location: toe Diabetes mellitus type: type 2 Non-pressure ulcer stage: unspecified non-pressure ulcer stage
[2023-09-16 10:53] VITALS: BMI 28.2
== END 2023-09-16 11:15 | disposition home or self-care (01) ==
PROVIDERS: PCP Family Medicine; Visit Provider Surgery Vascular Surgery
DX: E11.621 Type 2 diabetes mellitus with foot ulcer (principal); L97.529 Non-pressure chronic ulcer of other part of left foot with unspecified severity
CPT/HCPCS: 99213

== ENCOUNTER → 2023-09-16 10:49 | Outpatient (BNVA) | payer OTHER, SELFPAY | PROVIDERS: PCP Family Medicine; Visit Provider Surgery Vascular Surgery | DX: E11.621 Type 2 diabetes mellitus with foot ulcer (principal); L97.529 Non-pressure chronic ulcer of other part of left foot with unspecified severity | CPT/HCPCS: 99212 ==

== ENCOUNTER 2023-09-22 15:17 | Emergency (ER) | payer OTHER, SELFPAY ==
--- NOTE | ~2023-09-22 | XR_ITS ---
EXAMINATION: XR FOOT, LEFT CLINICAL INFORMATION: There is a wound fifth toe. Evaluate for osteomyelitis. COMPARISON: X-rays of left foot August 2023 TECHNIQUE: AP, lateral, and oblique views of the left foot. FINDINGS: Fifth toe: mild soft tissue prominence over the distal portion of the fifth toe. No ulceration detected. No bony abnormality. Probable soft tissue dressing over the lateral aspect of the forefoot. There is arterial calcification. The bones joints and soft tissues are otherwise unremarkable. XR/XR foot LT 2V IMPRESSION: 1. Soft tissue prominence over the distal portion of the fifth toe. This could reflect normal variation or mild edema/cellulitis no discrete soft tissue defect/ulceration No radiographic evidence for osteomyelitis. 2. Calcific atherosclerotic disease.
[2023-09-22 15:26] VITALS: BP 145/84; PULSE 112; RESP 16; TEMP 36.5; O2SAT 100; BMI 27.5
--- NOTE | 2023-09-22 15:28 | ED_ITS ---
HPI - Wound/Laceration General Chief Complaint: General Medical Stated Complaint: cellulitis Time Seen by Provider: 09/22/23 17:14 Source: patient and old records reviewed Mode of arrival: ambulatory Limitations: no limitations History of Present Illness HPI narrative: 48 yo female with PMH of DM, CHF, HLD, non healing intermittent L 5th toe ulcer infection followed by vascular surgery - has had arterial testing no hemodynamic testing showing no significant stenosis. Just saw Laura 09/16 wound looked well. Last antibiotics from admission 08/19 and was treated with doxy - she did well with antibiotics. Two days ago she noted a pustule to the left 5th toe. She denies systemic symptoms. The area popped on its own. The toe is mildly red and drained. She states it does look better. Onset (ago): day(s) (2) Extremity Location: left: foot (little toe) Place: home Patient tetanus UTD: Yes Context: other Associated symptoms: none Treatments prior to arrival: bandage Related Data Home Medications Medication Instructions Recorded Confirmed aripiprazole 10 mg tablet 10 mg PO BEDTIME 08/17/23 08/17/23 aspirin 81 mg tablet,delayed 81 mg PO DAILY 08/17/23 08/17/23 release atomoxetine 40 mg capsule 40 mg PO DAILY 08/17/23 08/17/23 atorvastatin 80 mg tablet 80 mg PO DAILY 08/17/23 08/17/23 carvedilol 6.25 mg tablet 6.25 mg PO BID 08/17/23 08/17/23 clonidine HCl 0.1 mg tablet 0.1 - 0.2 mg PO BEDTIME PRN 08/17/23 08/17/23 insomnia dapagliflozin propanediol 10 mg 10 mg PO DAILY 08/17/23 08/17/23 tablet (Farxiga) furosemide 20 mg tablet 20 mg PO DAILY 08/17/23 08/17/23 mirtazapine 15 mg tablet 15 mg PO BEDTIME 08/17/23 08/17/23 omeprazole 20 mg capsule,delayed 20 mg PO DAILY 08/17/23 08/17/23 release pregabalin 75 mg capsule 75 mg PO TID 08/17/23 08/17/23 sacubitril 24 mg-valsartan 26 mg 1 tab PO BID 08/17/23 08/17/23 tablet (Entresto) Previous Rx's Medication Instructions Recorded doxycycline hyclate 100 mg tablet 100 mg PO BID 8 days #16 tabs 08/19/23 cephalexin 500 mg capsule 500 mg PO QID 7 days #28 caps 09/22/23 doxycycline hyclate 100 mg capsule 100 mg PO BID 7 days #14 caps 09/22/23 Allergies Allergy/AdvReac Type Severity Reaction Status Date / Time Penicillins [PCN] Allergy Hives Verified 09/16/23 10:53 Review of Systems 2 Review of Systems: Constitutional : No Fever, No Chills ENT/Mouth : No sore throat, No Rhinorrhea Eyes: No Eye Pain, No Swelling, No Redness Cardiovascular : No Chest Pain, No SOB Respiratory : No Cough, No Sputum Gastrointestinal : No Nausea, No Vomiting, No Diarrhea, No abdominal Pain Genitourinary : No Dysuria, No Hematuria Musculoskeletal : No joint pain, No Myalgias, No Joint Swelling Skin : No Skin Lesions, positive skin rash Neuro : No Weakness, No Numbness, No Headache Psych : No Anxiety, No Depression Heme/Lymph: No Bruising, No Bleeding,No Lymphadenopathy Endocrine : No Polyuria, No Polydipsia All other systems reviewed and are negative [facility] Past Medical History Source: old records reviewed Medical History Mixed hyperlipidemia Mood disorder HFrEF (heart failure with reduced ejection fraction) Non-insulin dependent type 2 diabetes mellitus Social History Household Members: Children Housing: Apartment 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 Oriented X3. No acute distress. Eyes: Pupils equal, round and reactive to light. ENT: Pharynx normal. Neck: Normal inspection. Neck supple. CVS: Normal heart rate and rhythm. Pulses normal. Respiratory: No respiratory distress. Breath sounds normal. Abdomen: Soft and nontender. Skin: Skin warm and dry. Normal skin color. Normal skin turgor. Extremities: No lower extremity edema. L great toe very mildly erythematous 5th toe but there is mild swelling, on dorsum of toe there is very mild yellow ulcer but no fluctuance or drainage noted no purulence area is flat and drained. Neuro: Oriented X 3. No motor deficit. No sensory deficit. Course Course Course Narrative: This is a rapid medical exam. Deferred additional HPI, ROS, PE to primary provider. 48yo female with history of DM, CHF here with complaints of 2 days of redness/swelling to left 5th toe. Not currently on antibiotics. Will obtain labs, x-rays VSS Medications Administered Discontinued Medications Generic Name Dose Route Start Last Admin Trade Name Freq PRN Reason Stop Dose Admin Cefepime HCl 1 gm/ Sodium 50 mls @ 100 mls/hr 09/22/23 17:26 09/22/23 18:44 Chloride IV 09/22/23 17:55 Infused ONCE ONE Infusion Vancomycin HCl 1,000 mg/ 535 mls @ 267.5 mls/hr 09/22/23 17:26 09/22/23 18:45 Vancomycin HCl 750 mg/ Sodium IV 09/22/23 19:25 267.5 mls/hr Chloride ONCE ONE Administration Medical Decision Making Medical Decision Making [facility] Narrative: 48 yo female with PMH of DM, CHF, HLD, non healing intermittent L 5th toe ulcer infection followed by vascular surgery here with mild cellulitis of L 5th toe - no streaking of foot, no systemic symptoms, area that was pustule has since drained. Her inflammatory markers are up at this time will obtain xray and start on IV antibiotics. She is not toxic no systemic symptoms if xray negative will start on oral antibiotics vs admit - patient is not toxic and the toe itself is overall not impressive. Differential Diagnosis Differential Diagnoses: The differential diagnosis associated with the presentation includes cellulitis, osteo, infected ulcer Admission/Observation Consideration of admission/observation: Escalation of care including admission/observation considered does not want to stay in the hospital wants to try oral antibiotics Lab Data [facility] Lab Attestation statement: I reviewed the patient's lab results. 09/22/23 15:52 09/22/23 15:52 Labs: Lab Results 09/22/23 09/22/23 Range/Units 15:50 15:52 WBC 9.8 (4.8-10.8) X10*3/uL RBC 4.38 (4.20-5.50) X10*6/uL Hgb 10.5 L (12.0-16.0) g/dl Hct 34.2 L (37.0-47.0) % MCV 78.1 L (80.0-98.0) fL MCH 24.0 L (27.0-33.0) pg MCHC 30.7 L (31.0-35.0) g/dl RDW 17.0 H (11.0-16.0) % Plt Count 301 (160-400) X10*3/uL MPV 9.5 (9.4-12.3) fL Immature Gran % (Auto) 0.3 (0.0-0.4) % Neut % (Auto) 78.3 H (45-73) % Lymph % (Auto) 18.1 L (20-40) % [place] % (Auto) 2.8 (2-11) % Eos % (Auto) 0.4 (0-4) % Baso % (Auto) 0.1 (0-2) % Lymph # (Auto) 1.8 (1.2-4.9) X10*3/uL [place] # (Auto) 0.3 (0.1-1.2) X10*3/uL Eos # (Auto) 0.0 (0.0-0.4) X10*3/uL Baso # (Auto) 0.0 (0.0-0.2) X10*3/uL Abs Immat Gran (auto) 0.03 (0.00-0.03) X10*3/uL Absolute Neuts (auto) 7.6 (2.0-8.3) x10*3/uL Absolute Nucleated RBC 0.000 (0.0-0.012) X10*3/uL Nucleated RBC % (auto) 0.0 (0.0-0.2) /100WBC ESR 77 H (0-20) MM/HR Sodium 138 (135-145) mmol/L Potassium 4.4 (3.3-5.1) mmol/L Chloride 107 (96-108) mmol/L Carbon Dioxide 22 (22-29) mmol/L Anion Gap 13 (12-20) BUN 9 (9-16) mg/dL Creatinine 0.93 (0.5-1.4) mg/dL Estim Creat Clear Calc 68.0 Estimated GFR > 60 Random Glucose 204 H (60-115) mg/dL Lactic Acid 1.6 (0.5-2.0) mmol/L Calcium 9.3 (8.4-10.2) mg/dL C-Reactive Protein 5.64 H (< or = 0.50) mg/dL Independent Interpretation I performed an independent interpretation of an: Plain X-Ray (no osteo) Radiology Impression Discussion of test interpretation with radiology: I have reviewed the radiologist's reading. External Record Review External record reviewed: Inpatient record Prescription Management I considered prescription management with: Antibiotic Chronic Conditions Patient?s care impacted by: Diabetes Discharge Plan Discharge Clinical Impression: Cellulitis Qualifiers: Site of cellulitis: extremity Site of cellulitis of extremity: lower extremity Laterality: left Qualified Code(s): L03.116 - Cellulitis of left lower limb Patient Disposition: Home, Self-Care Instructions: Cellulitis (ED) Additional Instructions: return for worsening pain, fevers, redness, swelling, yellow drainage or any other concerns. take a probiotic while on antibiotics On doxycycline, do not take pills immediately before going to bed and swallow pills with plenty of water. Avoid direct sunlight, iron, antacids, and Pepto Bismol. Call your provider if you develop new ringing in your ears, new problems hearing, dizziness, difficulty swallowing, rash, abdominal discomfort, nausea, or diarrhea.? On a cephalosporin?antibiotic, softer bowel movements are to be expected. Call your provider if you move your bowels more than 4 times a day, your bowel movements are almost all liquid, or you get a rash.?? Prescriptions: New doxycycline hyclate 100 mg capsule 100 mg PO BID 7 Days Qty: 14 0RF cephalexin 500 mg capsule 500 mg PO QID 7 Days Qty: 28 0RF No Action atorvastatin 80 mg tablet 80 mg PO DAILY clonidine HCl 0.1 mg tablet 0.1 - 0.2 mg PO BEDTIME PRN (Reason: insomnia) carvedilol 6.25 mg tablet 6.25 mg PO BID aspirin 81 mg tablet,delayed release (DR/EC) 81 mg PO DAILY omeprazole 20 mg capsule,delayed release(DR/EC) 20 mg PO DAILY furosemide 20 mg tablet 20 mg PO DAILY mirtazapine 15 mg tablet 15 mg PO BEDTIME aripiprazole 10 mg tablet 10 mg PO BEDTIME atomoxetine 40 mg capsule 40 mg PO DAILY pregabalin 75 mg capsule 75 mg PO TID Farxiga 10 mg tablet 10 mg PO DAILY Entresto 24-26 mg tablet 1 tab PO BID doxycycline hyclate 100 mg tablet 100 mg PO BID 8 Days Qty: 16 0RF
[2023-09-22 15:59] LABS: MANUAL DIFF FLAG NO
[2023-09-22 16:01] LABS: Basophils Percent Auto 0.1 % (0-2); Eosinophils Percent Auto 0.4 % (0-4); Hematocrit 34.2 % (37.0-47.0); Hemoglobin 10.5 g/dl (12.0-16.0); Imm Gran Abs Auto 0.03 X10*3/uL (0.00-0.03); Imm Gran Pct Auto 0.3 % (0.0-0.4); Lymphocytes Absolute Auto 1.8 X10*3/uL (1.2-4.9); Lymphocytes Percent Auto 18.1 % (20-40); Mean Corpuscular HGB Conc 30.7 g/dl (31.0-35.0); Mean Corpuscular Volume 78.1 fL (80.0-98.0); Mean Platelet Volume 9.5 fL (9.4-12.3); Monocytes Absolute Auto 0.3 X10*3/uL (0.1-1.2); Monocytes Percent Auto 2.8 % (2-11); Neutrophils Absolute Auto 7.6 x10*3/uL (2.0-8.3); Neutrophils Percent Auto 78.3 % (45-73); Platelet Count 301 X10*3/uL (160-400); Red Blood Count 4.38 X10*6/uL (4.20-5.50); White Blood Count 9.8 X10*3/uL (4.8-10.8)
[2023-09-22 16:10] LABS: Lactic Acid 1.6 mmol/L (0.5-2.0)
[2023-09-22 16:19] LABS: Anion Gap 13 (12-20); Blood Urea Nitrogen 9 mg/dL (9-16); C Reactive Protein 5.64 mg/dL (< or = 0.50); Calcium 9.3 mg/dL (8.4-10.2); Carbon Dioxide 22 mmol/L (22-29); Chloride 107 mmol/L (96-108); Estimated Glomerular Filt Rate > 60; Glucose Random 204 mg/dL (60-115); Potassium 4.4 mmol/L (3.3-5.1); Sodium 138 mmol/L (135-145)
[2023-09-22 16:38] LABS: Erythrocyte Sedimentation Rate 77 MM/HR (0-20)
[2023-09-22 17:23] VITALS: BP 133/85; PULSE 108; RESP 18; O2SAT 100
[2023-09-22] MEDS: cefEPime HCl 1 GM in 0.9 % Sodium Chloride 50 ML IV (18:08)
--- NOTE | 2023-09-22 18:09 | PC.NURSE ---
delay in vanco administration due to pt only have one access.
--- NOTE | 2023-09-22 18:14 | PC.NURSE ---
pt a&ox4, respirations even and unlabored. pt reports having cellulites to the left 5th toe. pt reports being admitted for 4 days for treatment of the cellulitis and being discharged without any change in infection. pt reports being seen at pcp today who told her to come to the ED for evaluation. IV established and antibiotics administered.
[2023-09-22] MEDS: vancomycin HCL 1,000 MG, vancomycin HCL 750 MG in 0.9 % Sodium Chloride 500 ML 267.5 MG IV (18:45)
[2023-09-22 20:38] VITALS: BP 130/76; PULSE 95; RESP 18; O2SAT 98
[2023-09-22 21:32] VITALS: BP 133/81; PULSE 98; RESP 18; O2SAT 99
== END 2023-09-22 21:51 | disposition home or self-care (01) ==
PROVIDERS: Nurse Practitioner Family; Emergency Provider Emergency Medicine; PCP Family Medicine
DX: L03.032 Cellulitis of left toe (principal); E78.2 Mixed hyperlipidemia; I50.20 Unspecified systolic (congestive) heart failure; E11.8 Type 2 diabetes mellitus with unspecified complications
CPT/HCPCS: 36415; 73620; 80048; 83605; 85025; 85652; 86140; 87040; 96365; 96366; 96367; 99284; J0692; J3370

== ENCOUNTER 2023-10-07 11:27 | Outpatient (AMB) | payer OTHER, SELFPAY ==
[2023-10-07 11:37] VITALS: BMI 27.5
--- NOTE | 2023-10-07 11:37 | MHC.OFFVIS ---
Intake Vital Signs 10/07/23 11:37 Height 5 ft 3 in Weight 155 lb BMI 27.5 Intake Visit Reasons: 3 week wound check Intake Note: 3 week wound check for left foot non-healing ulcer. Pt states that redness and swelling has decreased, pt states for the past 2 days, she has not had to wrap or dress her wound and has no drainage. Left 5th toe was infected and pt was in hospital originally Accompanied by: Self / Same As Patient Allergies Penicillins [PCN] Allergy (Verified 10/07/23 11:40) Hives HPI 3 week wound check HPI Details Very pleasant 48-year-old female presents for follow-up regarding nonhealing left foot ulcer. She actually has been seen in the hospital for left 5th toe infection it appears to have gone on to heal. At that time she had undergone noninvasive testing which was essentially negative. She now presents for routine wound check. 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) Patient Tobacco Use Status: Never used Tobacco Advance Directives Date on File: 08/18/23 service: No Review of Systems Const All systems reviewed & are unremarkable except as noted in HPI and below Reports no additional complaints ENT Reports Normal hearing present Card Denies chest pain, Denies chest pain at rest, Denies chest pain with activity and Denies pedal edema Resp Denies cough GI Denies abdominal pain Musc Denies abnormal gait, Denies muscle cramps and Denies radiating pain into limb Skin/Breast Denies skin ulcer and Denies wounds Neuro Reports Normal hearing present and Denies abnormal gait Psych Reports no additional complaints Physical Exam Vital Signs: BMI result Body Mass Index 27.5 Const General: cooperative, healthy appearing and comfortable Orientation/consciousness: oriented to person, oriented to place and oriented to time HEENT Head: Yes normal to inspection Neck Neck: Yes normal visual inspection Carotids: no bruits Chest Chest palpation & inspection: normal inspection of the chest Resp Effort & Inspection: normal respiratory effort and able to speak in complete sentences Auscultation: clear to auscultation bilaterally, no crackles, no rales, no rhonchi and no wheezes Cardio Rate: regular rate Rhythm: regular rhythm Heart sounds: S1 normal heart sound present and S2 normal heart sound present Bruits: no carotid bruits Peripheral pulses: Peripheral pulses 2+ throughout GI Inspection: Yes normal to inspection Skin Other: Left 5th toe is healed Wounds: no wounds Hair: normal Neuro General: oriented to person, oriented to place and oriented to time Cranial nerves: Yes CN's II-XII intact bilaterally and Yes Normal hearing present Cognition (Neuro): normal cognition Motor exam (neuro): 5/5 motor strength present throughout Extrem Other: venous exam: No significant superficial varicosities or spider telangiectasias, minimal edema General: No clubbing, No cyanosis and No edema Psych Appearance: grossly normal Mental Status: mental status grossly normal Speech and movement: Normal speech and movement present Assessment & Plan Assessment & Plan (1) PAD (peripheral artery disease): Code(s): I73.9 - Peripheral vascular disease, unspecified Plan: Arterial disease seems to be stable. Will schedule for annual surveillance. We did discuss routine risk factor modification. (2) Diabetic ulcer of left foot: Code(s): E11.621 - Type 2 diabetes mellitus with foot ulcer; L97.529 - Non-pressure chronic ulcer of other part of left foot with unspecified severity Qualifiers: Diabetic foot ulcer location: toe Diabetes mellitus type: type 2 Non-pressure ulcer stage: unspecified non-pressure ulcer stage Qualified Code(s): E11.621 - Type 2 diabetes mellitus with foot ulcer; L97.529 - Non-pressure chronic ulcer of other part of left foot with unspecified severity Plan: Wound has gone on to heal. We did discuss foot protection. We also did discuss diabetes control. She will follow up with us and about a year for arterial surveillance. Should there be any interval issues or new wounds appear happy to see her back sooner Orders: Orders US arterial duplex LE BI 364 Days I73.9 - Peripheral vascular disease, unspecified Coding Level of Care Code Est Pt Level 4 (16466) Diagnoses PAD (peripheral artery disease) I73.9 Diabetic ulcer of toe of left foot associated with type 2 diabetes mellitus, unspecified ulcer stage E11.621; L97.529 Diabetic foot ulcer location: toe Diabetes mellitus type: type 2 Non-pressure ulcer stage: unspecified non-pressure ulcer stage
== END 2023-10-07 11:57 | disposition home or self-care (01) ==
PROVIDERS: PCP Family Medicine; Visit Provider Surgery Vascular Surgery
DX: I73.9 Peripheral vascular disease, unspecified (principal); E11.621 Type 2 diabetes mellitus with foot ulcer; L97.529 Non-pressure chronic ulcer of other part of left foot with unspecified severity
CPT/HCPCS: 99213

== ENCOUNTER → 2023-10-07 11:27 | Outpatient (BNVA) | payer OTHER, SELFPAY | PROVIDERS: PCP Family Medicine; Visit Provider Surgery Vascular Surgery | DX: E11.621 Type 2 diabetes mellitus with foot ulcer (principal); L97.529 Non-pressure chronic ulcer of other part of left foot with unspecified severity; I73.9 Peripheral vascular disease, unspecified | CPT/HCPCS: 99212 ==

== ENCOUNTER 2025-03-20 11:02 | Outpatient (AMB) | payer OTHER, SELFPAY ==
--- NOTE | 2025-03-20 07:39 | A.OFFVIS_ITS ---
Vital Signs 03/20/25 11:06 Height 5 ft 3 in Weight 198 lb 6.656 oz BMI 35.1 BP 148/72 H Blood Pressure Location Rt brachial Position Sitting Pulse 91 Pulse Source Pulse Oximeter Pulse Oximetry (%) 98 Oxygen Delivery Method Room Air Intake Visit Reasons: T2DM Intake Note: NEW Patient presents today to established treatment for Type 2 Diabetes Mellitus: Last Diabetic eye exam was on: DUE Last Podiatry exam was on: Patient does not see a Clinical Trainer Most recent HbA1c: >14.8%, 02/22/2025 Referral Notes Random Glucose- 479 mg/dL, 11:14 AM, re-check 427 mg/dL 12:43 PM, 290 mg/dL, re-checked 13:40 PM URINE Ketone Dip Negative Application Technical Designer Required: No Accompanied by: Self / Same As Patient Allergies Penicillins [PCN] Allergy (Verified 03/20/25 11:26) Hives Medication List - Last Reconciled 03/20/25 by Brigid Albarran NP aripiprazole 10 mg PO BEDTIME aspirin 81 mg PO DAILY atomoxetine 40 mg PO DAILY atorvastatin 80 mg PO DAILY blood-glucose sensor (FreeStyle Ramakrishna 3 Plus Sensor device) As directed every 15 days carvedilol 6.25 mg PO BID cephalexin 500 mg PO QID 7 days clonidine HCl 0.1 - 0.2 mg PO BEDTIME PRN dapagliflozin propanediol (Farxiga) 10 mg PO DAILY doxycycline hyclate 100 mg PO BID 8 days doxycycline hyclate 100 mg PO BID 7 days FreeStyle Ramakrishna 3 [place] (blood-glucose,mold breaker,cont) As directed for use with freestyle sensors NS furosemide 20 mg PO DAILY insulin glargine (Lantus Solostar U-100 Insulin) 20 units (0.2 mL) subcut QPM 30 days insulin lispro (Humalog KwikPen (U-100) Insulin) 6 units (0.06 mL) subcut TID 30 days mirtazapine 15 mg PO BEDTIME omeprazole 20 mg PO DAILY pen needle, diabetic As directed four times daily pregabalin 75 mg PO TID sacubitril-valsartan 24-26 mg (Entresto) 1 tab PO BID sitagliptin phosphate (Januvia) 100 mg PO DAILY HPI Comments Details: 49 YO female who is seen in consultation for T2DM at the request of PCP. Her most recent A1c was 12.6% 06/24/2025. She was previously followed by endocrinology in another practice but had not been seen for awhile. At the time of PCP referral 1 month ago she had run out of her medications. Glucose today is 479 and she declines ketone testing of urine. She declines transfer to ER via 911 against medical advise but is willing to take 10 units of short acting insulin. She has agreed to stay in the clinic for observation for two hours. She had had 4 cups of water during I H & P and had insulin given at 11:40 am had 10 units humalog. Over the two hours she drank approx 10 cups of water. She had a bar host with her who was driving her to get her insulin. She was discharged home with a glucose of 290 2 hours later. Initially diagnosed with T2DM: Trulicity caused stomach pain Metformin: was ineffective no side effects that she can recall Was initially started on treatment with: current medication: Glipizide xl 10mg bid Lantus 15 units Farxiga 10 mg Januvia 100 mg She does not test her sugars.Her last home glucose reading a month ago was in t he high 200's. Reports low sugars none Most recent A1C Greater than 14% 2024 Family history of T2DM in mother and father Has retinopathy Has eyes checked yearly, last eye exam was seen and had f/u in one year Has neuropathy on Lyrica, symptoms tingling, burning last foot exam today needs referral for podiatry Has nephropathy, on ARB 09/2023 eGFR>60 Has HLD, on statin. Has CAD. History of non STEMI status post CABG history of AFib sen regularly Followed by vascular surgery in the past for diabetic foot ulcer and currently followed by wound center [facility] Wound care has appt tomorrow ulcer is improving per patient Diet: Had lap band surgery 2002 and is eating pureed food does not have top teeth trys to eat three balanced meals daily she declines consult for bariatric surgeon Weight:stable weight for several months weight before lap band was 155 diabetes education. [facility] Medical History Mixed hyperlipidemia Mood disorder HFrEF (heart failure with reduced ejection fraction) Non-insulin dependent type 2 diabetes mellitus Surgical History (Updated 03/20/25 @ 11:26 by MARISOL Ramos) Hx of heart surgery Family History (Updated 03/20/25 @ 11:29 by MARISOL Ramos) Father Diabetes mellitus HTN (hypertension) Acute respiratory failure with hypoxia Mother Diabetes mellitus Social History Household Members: Children Housing: Apartment Do you presently have 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 or other home services: Yes (KETTLE WORKER) Patient Tobacco Use Status: Never used Tobacco Advance Directives Date on File: 08/18/23 service: No Physical Exam Vital Signs: Last Vital Signs Pulse 91 03/20/25 11:06 BP 148/72 H 03/20/25 11:06 Pulse Ox 98 03/20/25 11:06 Oxygen Delivery Method Room Air 03/20/25 11:06 BMI result Body Mass Index 35.1 Absence of Cushingoid features. Absence of acromegalic features. Neck exam reveals nl size thyroid about 15 gms. No thyroid nodules palpable. No carotid bruits present. Lungs CTA. Heart S1 S2, Reg R/R. No M/R/ G. Skin exam reveals absence of vitiligo or acanthosis nigricans. Abdominal exam reveals Soft NT/ND with NA BS. No organomegaly present. Const Other: Absence of Cushingoid features. Absence of acromegalic features. Neck exam reveals nl size thyroid about 15 gms. No thyroid nodules palpable. Heart S1 S2, Reg R/R. No M/R G. Skin exam reveals absence of vitiligo or acanthosis nigricans. no edema Foot exam deferred. She has extensive wrapping and we will be seeing Wound Center tomorrow. Neck Other: . Extrem Other: Visual exam of foot performed. No ulcerations or open lesions. No onchomycosis, no callouses.Pulses 2 + distally Sensation intact to monofilament exam. Vibratory sensation sensed is intact with 128 Hz tuning fork Office Meds Humalog U-100 Insulin 100 unit/mL subcutaneous solution Performing Provider: Brigid Albarran NP Performing Location: [facility] Endocrinology Administered by: Jessica Ramirez RN on 03/20/25 11:40 Dose Route Admin Location Dispensed Lot Number Expiration Date [facility] Senior Linux Systems Administrator 10 unit subcut Right upper arm 0.1 mL [id number] 10/12/25 1286-4425-55 [employer] Comments: Water provided for pt, encouraged to push fluids. Verbal order given by Brigid Sanchez to give 10 units of insulin lispro. Visually confirmed dosage with Brigid Albarran. Spoke with Elidia and advised insulin given at 1140 and to recheck blood sugar at 1240. Results UR Ketone Dip UR Ketone Dip Negative Last Edit by MARISOL Ramos on 03/20/25 12:16 Results Reviewed Results Reviewed: Laboratory Last Values Glucose (Clinic) 427 mg/dL (60-115) H* 03/20/25 12:43 Ur Ketones (Stick) Negative 03/20/25 12:15 Assessment & Plan Assessment & Plan (1) Non-insulin dependent type 2 diabetes mellitus: Code(s): E11.9 - Type 2 diabetes mellitus without complications Category: Medical Plan: Type 2 diabetic with poor control. She has been taking Lantus we will increase that to 20 units. Start bolus insulin 6 units Humalog before each meal. She was counseled if she skips the meal to skip the insulin Continue Farxiga Continue Januvia Stop glipizide The patient had an opportunity to ask questions regarding treatment plan. The patient expressed understanding and agreement with the above treatment plan. The patient is aware they should contact our office by phone for worsening glucose readings or for any low blood sugars which may warrant a change in diabetes medication. Compliance is encouraged with medications and any followup testing/consults which may have been ordered. She is currently on basal insulin and is aware she needs to rotate sites, use a new needle and do a 2 unit prior. The patient had an opportunity to ask questions regarding treatment plan. The patient expressed understanding and agreement with the above treatment plan. The patient is aware they should contact our office by phone for worsening glucose readings or for any low blood sugars which may warrant a change in diabetes medication. Compliance is encouraged with medications and any followup testing/consults which may have been ordered. The patient was trained on how to insert sensor, how to read arrows, how to respond to alarms, when to test glucose, how to insert. Insertion was done by provider with her permission. She was asked to follow up with Tarsha MARQUES for full training Orders: Orders AMB Ketone Urine Dipstick Today E11.9 - Type 2 diabetes mellitus without complications AMB Insulin Lispro Injection Practice Supplied Today E11.9 - Type 2 diabetes mellitus without complications Referrals Diabetes Education Referral E11.9 - Type 2 diabetes mellitus without complications Medications: New insulin glargine (Lantus Solostar U-100 Insulin) 20 units (0.2 mL) subcut QPM 30 days 6 mL 6RF insulin lispro (Humalog KwikPen (U-100) Insulin) 6 units (0.06 mL) subcut TID 30 days 6 mL 6RF pen needle, diabetic As directed four times daily 200 ea 6RF blood-glucose sensor (FreeStyle Ramakrishna 3 Plus Sensor device) As directed every 15 days 2 ea 11RF Patient Instructions: The patient was counseled to achieve a target A1C of 7% (154 avg). Fasting blood sugars should be 90-130 in the morning and less than 180 two hours after meals. Reviewed the relationship between poor diabetic control and the development of complications. Take 15 carb carbohydrate grams to treat a low sugar (3-4 glucose tablets, half a glass of juice or 15 carbohydrate grams of soft candy such as gummie snacks). Recheck your sugar in 15 minutes and re-treat again with 15 carbohydrate grams if low or still with symptoms. Do not drive a car or operate machinery if you do not know what your blood sugar is, if it is low or in excess of 300. Coding Level of Care Code Est Pt Level 4 (30602) Complex EM visit Add On G2211 Diagnoses Non-insulin dependent type 2 diabetes mellitus E11.9 Time Spent (min) 50 Comment Time spent reviewing labs/provider notes, face to face, chart doc
[2025-03-20 11:06] VITALS: BP 148/72; PULSE 91; O2SAT 98; BMI 35.1
[2025-03-20 11:18] LABS: Glucose, Whole Blood 479 mg/dL (60-115)
--- OUTSIDE RECORDS SUMMARY | 2025-03-20 12:21 | XMS_ITS | Encounter Summary ---
Author Organization [facility] Address [address] [place] [address] Care Team Providers Care Award Clerk Name Role Phone Mandi Newsome MD Primary [...] ed Within the last 3 months, ho sandi many times did you visit the emergency [...] for your loved ones. For example, children's program coordinator or elderly care for an older adult? [...] Care Team (Late st Contact Info) Description 03/21/2025 9:00 AM EDT Clinical Support [facility] [address] [place] [phone] 05/18/2025 10:00 AM EDT Office Visit Adult Medicine [address] [phone] Jennifer Gray PA [address] [place] [address] 05/25/2025 10:45 AM EDT Office Visit [address] [phone] Jennifer Gray PA [address] [place] [address] documented as of this encounter Visit Diagnoses Not on filedocumented in this encounter Additional Health Concerns Infection Onset Date Last Indicated Resolved Time MRSA 01/30/2025 01/30/2025 documented as of this encounter Care Teams Award Clerk Relationship Specialty Start Date End Date Mandi Newsome MD [address] [place] [address] PCP - General Internal Medicine 05/18/22 documented as of this encounter
--- OUTSIDE RECORDS SUMMARY | 2025-03-20 12:21 | XMS_ITS | Encounter Summary ---
Author Organization [facility] Address [address] [place] [address] Care Team Providers Care Children'S Lunchroom Supervisor Name Role Phone Mandi Newsome MD Primary Care Pr ovider Encounter Details Date Type Department Care Team (Late st Contact Info) Description 08/04/2024 10:45 AM EDT Hospital Encounter TH HISTORIC ENCOUNTERS EASTERN CONVERSION ONLY Karuna Ramires MD [address] [place] [address] Social History Tobacco Use Types Packs/Day Years [...] for your loved ones. For example, children's entertainer or elderly care for an older adult? [...] Description 03/21/2025 9:00 AM EDT Clinical Support [facility] [address] [place] [address] 05/18/2025 10:00 AM EDT Office Visit Adult Medicine [address] [phone] Jennifer Gray PA [address] [place] [address] 05/25/2025 10:45 AM EDT Office Visit Adult Medicine [address] [phone] Jennifer Gray PA [address] [place] [address] documented as of this encounter Visit Diagnoses Not on filedocumented in this encounter Additional Health Concerns Infection Onset Date Last Indicated Resolved Time MRSA 01/30/2025 01/30/2025 documented as of this encounter Care Teams Children'S Lunchroom Supervisor Relationship Specialty Start Date End Date Mandi Newsome MD [address] [facility], [place] PCP - General Internal Medicine 05/18/22 documented as of this encounter
--- OUTSIDE RECORDS SUMMARY | 2025-03-20 12:21 | XMS_ITS | Clinical Summary ---
Author Organization [facility] Address [address] [place] [address] Phone Care Team Providers Care Treating And Pumping Supervisor Name Role Phone Mandi Newsome MD Primary Care Pr ovider Allergies Active Allergy Reactions Criticality Noted Date Comments Penicillins 08/19/2024 Dulaglutide 08/19/2024 Medications simethicone (MYLICON) 80 mg chewable tablet Chew 1 tablet (80 mg total) every 6 (six) hours if needed. 024 Active mirtazapine (REMERON) 15 mg tablet Take 1 tablet (15 mg total) by mouth at bedtime. 024 Active cloNIDine (CATAPRES) 0.1 mg tablet Take 1 tablet (0.1 mg total) by mouth. 020 Active atomoxetine (STRATTERA) 40 mg capsule Take 1 capsule (40 mg total) by mouth 1 (one) time each day. 020 Active ammonium lactate (LAC-HYDRIN) 12 % lotion Apply 1 g topically if needed for dry skin or irritation. 023 Active levonorgestreL (MIRENA) 21 mcg/24hr (up to 8 yrs) 52 mg IUD by intrauterine route. In place per patient 12/05/2024 Active alcohol swabs pads, medicated USE ONE PAD THREE TIMES DAILY PRIOR TO CHECKING BLOOD SUGAR 300 each 1 024 Active aspirin 81 mg EC tabletIndications :Atherosclerotic heart disease of [place] coronary artery without angina pectoris TAKE 1 TABLET BY MOUTH EVERY DAY 90 tablet 1 024 Active carvediloL (COREG) 6.25 mg tablet TAKE 1 TABLET BY MOUTH TWICE A DAY WITH MEALS 180 tablet 1 024 Active sacubitriL-valsar angelo (Entresto) 24-26 mg per tablet Take 1 tablet by mouth 2 (two) times a day. 180 tablet 2 025 Active furosemide (LASIX) 20 mg tablet Take 1 tablet (20 mg total) by mouth 1 (one) time each day. 90 tablet 1 025 Active atorvastatin (LIPITOR) 80 mg tabletIndications :Pure hypercholesterole arsenio, unspecified TAKE 1 TABLET BY MOUTH EVERY DAY 90 tablet 025 Active dapagliflozin propanediol (FARXIGA) 10 mg tabletIndications :DM (diabetes mellitus), type 2 with neurological complications (CMS/HCC V24, CMS/HCC V28),Type 2 diabetes mellitus with diabetic microalbuminuria, with long-term current use of insulin (CMS/[facility] V24, CMS/[facility] V28) Take 1 tablet (10 mg total) by mouth 1 (one) time each day. 90 tablet 1 025 Active omeprazole (PriLOSEC) [address] capsuleIndication s:Gastroesophagea l reflux disease without esophagitis Take 1 capsule (20 mg total) by mouth 1 (one) time each day. 90 each 1 025 Active SITagliptin phosphate (Januvia) 100 mg tabletIndications :DM (diabetes mellitus), type 2 with neurological complications (CMS/HCC V24, CMS/HCC V28),Type 2 diabetes mellitus with diabetic microalbuminuria, with long-term current use of insulin (CMS/HCC V24, CMS/HCC V28) Take 1 tablet (100 mg total) by mouth 1 (one) time each day. 90 each 1 025 2024 Active pregabalin (LYRICA) 75 mg capsuleIndication s:Diabetic polyneuropathy associated with type 2 diabetes mellitus (CMS/HCC V24, CMS/HCC V28) Take 1 capsule (75 mg total) by mouth 3 (three) times a day. Max Daily Amount: 225 mg 270 each 025 2024 Active glipiZIDE (GLUCOTROL XL) 10 mg 24 hr tabletIndications :DM (diabetes mellitus), type 2 with neurological complications ([facility] V24, [facility] V28),Type 2 diabetes mellitus with diabetic microalbuminuria, with long-term current use of insulin ([facility] V24, [facility] V28) Take 1 tablet (10 mg total) by mouth 2 (two) times a day. 180 each 1 2024 Active insulin glargine (LANTUS SoloStar) 100 unit/mL (3 mL) injection pen Inject 15 Units under the skin at bedtime. 15 mL 1 Active insulin glargine (Basaglar Tempo Pen U-100 Insulin) 100 unit/mL (3 mL) injection pen Inject 10 Units under the skin. 2024 Discontinued(R eorder) ferrous sulfate 325 mg (65 mg iron) EC tablet Take 1 tablet (325 mg total) by mouth 2 (two) times a day. 2024 Discontinued(T herapy completed) dapagliflozin propanediol (FARXIGA) 10 mg tablet Take 1 tablet (10 mg total) by mouth 1 (one) time each day. 2024 Discontinued(R eorder) atorvastatin (LIPITOR) 80 mg tablet Take 1 tablet (80 mg total) by mouth 1 (one) time each day. 2024 Discontinued omeprazole (PriLOSEC) [address] capsule Take 1 capsule (20 mg total) by mouth 1 (one) time each day. 90 each 1 024 2024 Discontinued(R eorder) glipiZIDE (GLUCOTROL XL) 10 mg 24 hr tabletIndications :Type 2 diabetes mellitus with other diabetic neurological complication ([facility] V24, [facility] V28) TAKE 1 TABLET BY MOUTH EVERY DAY 90 tablet 1 2024 Discontinued(R eorder) pregabalin (LYRICA) 75 mg capsule Take 1 capsule (75 mg total) by mouth 3 (three) times a day. Max Daily Amount: 225 mg 270 each 2024 Discontinued(R eorder) insulin glargine (Basaglar Tempo Pen U-100 Insulin) 100 unit/mL (3 mL) injection penIndications:DM (diabetes mellitus), type 2 with neurological complications ([facility] [place], [facility] V28),Type 2 diabetes mellitus with diabetic microalbuminuria, with long-term current use of insulin ([facility] V24, [facility] V28) Inject 15 Units under the skin at bedtime. 15 mL 1 025 2024 Discontinued glipiZIDE (GLUCOTROL XL) 10 mg 24 hr tabletIndications :DM (diabetes mellitus), type 2 with neurological complications ([facility] V24, [facility] V28),Type 2 diabetes mellitus with diabetic microalbuminuria, with long-term current use of insulin ([facility] V24, [facility] V28) Take 1 tablet (10 mg total) by mouth 2 (two) times a day. 180 each 1 025 2024 Discontinued(R eorder) insulin detemir (Levemir FlexPen) 100 unit/mL (3 mL) injection pen Inject 15 Units under the skin at bedtime. 15 mL 2 025 2024 Discontinued insulin glargine (Lantus U-100 Insulin) 100 unit/mL injection Inject 15 Units under the skin at bedtime. 45 mL 1 025 2024 Discontinued Active Problems Problem Noted Date Diagnosed Date Chronic venous hypertension (idiopathic) with ulcer of left lower extremity (CODE) ([facility], [facility] V28) 03/13/2025 Non-pressure chronic ulcer o f 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 ([facility] V24, [facility] V28) 03/13/2025 Type 2 diabetes mellitus wit h other skin ulcer (CODE) ([facility] V24, [facility] V28) 12/05/2024 Non-pressure chronic ulcer o f left lower leg with fat layer exposed ([facility] V24, [facility] V28) 12/05/2024 Weakness 09/13/2024 Overview (09/13/2024): Patient complains of weakness in the lower extremities with ambulation. It still could be claudication since the [facility] evaluations for lower extremities he could be at the bifurcation of the abdominal aorta. I will check a CPK to ensure that is not a side effect of the statin therapy that she is on Assessment & Plan (09/13/2024 1:47 PM EST): Iron deficiency anemia 06/08/2024 Assessment & Plan (02/22/2025 11:58 AM EDT): Last iron infusion was in August. Not using oral iron supplements. Will update labs Orders: CBC and differential; Future Ferritin; Future Iron and TIBC; Future Adult ADHD 06/05/2024 Diabetic polyneuropathy asso ciated with type 2 diabetes mellitus ([facility] V24, [facility] V28) 06/05/2024 Assessment & Plan (02/22/2025 11:58 AM EDT): Interested in podiatry evaluation for diabetic footcare. Continue pregabalin Orders: Ambulatory referral to Podiatry; Future pregabalin (LYRICA) 75 mg capsule; Take 1 capsule (75 mg total) by mouth 3 (three) times a day. Max Daily Amount: 225 mg Heart failure with improved ejection fraction (HFimpEF) ([facility] V24, [facility] V28) 06/05/2024 Assessment & Plan (09/13/2024 1:47 PM EST): On medical management the patient has good control of the previous ischemic cardiomyopathy. Peripheral artery disease ([facility] V24) 06/05/20 Assessment & Plan (02/22/2025 11:58 AM EDT): She has leg claudication. Not followed by vascular surgery and is referred Orders: Ambulatory referral to Vascular Surgery; Future Cardiomyopathy ([facility] V24, [facility] V28) 2022 Overview (08/19/2024): Last Assessment & Plan: Patient with perioperative congestive heart failure with a marked improvement in overall left ventricular systolic function near normal on most recent echocardiography secondary to both coronary intervention and medical management Urinary incontinence 05/14/2023 Proliferative diabetic retin opathy ([facility] [place], [facility] V28) 09/15/2022 Overview (08/19/2024): Bilateral, Dr. Roper CAD (coronary artery disease) 07/22/2021 Overview (08/19/2024): 06/21 CABG x 3 Last Assessment & Plan: Patient status post multivessel coronary bypass asymptomatic at this time risk factor modification in place. Assessment & Plan (09/13/2024 1:47 PM EST): Patient is status post remote coronary bypass. Asymptomatic. Hypertension is under control. Will going to send her for a lipid profile since I cannot find a recent 1. Orders: Lipid panel with reflex to direct LDL; Future CK; Future PAF (paroxysmal atrial fibri llation) ([facility] V24, [facility] V28) 07/22/2021 Overview (08/19/2024): Last Assessment & Plan: There is a concern of postoperative paroxysmal atrial fibrillation. She has had an event monitor which she had during this episode of presumed syncope she is not returned if we do not have any results we will await those results before any determination of the need for chronic anticoagulation is made. Assessment & Plan (02/22/2025 11:58 AM EDT): Continue carvedilol Assessment & Plan (09/13/2024 1:47 PM EST): Patient had some perioperative atrial fibrillation prolonged monitoring was not performed because she refused to wear the monitor she is no longer anticoagulated no longer on antiarrhythmic Orders: ECG 12 lead Lipid panel with reflex to direct LDL; Future Peripheral neuropathy 06/13/2021 Asthma 06/13/2021 History of non-ST elevation myocardial infarctio n (NSTEMI) 06/04/2021 Gastroesophageal reflux disease 06/22/2019 Assessment & Plan (02/22/2025 11:58 AM EDT): Stable. Continue omeprazole Orders: omeprazole (PriLOSEC) [address] capsule; Take 1 capsule (20 mg total) by mouth 1 (one) time each day. Hyperlipidemia 11/25/2017 Overview (08/19/2024): Last Assessment & Plan: Patient's last LDL cholesterol was 37. This is at goal. Continue with statin as prescribed. Assessment & Plan (02/22/2025 11:58 AM EDT): Continue atorvastatin 80 mg Orders: Lipid panel with reflex to direct LDL; Future Assessment & Plan (09/13/2024 1:47 PM EST): History of hyperlipidemia on high-dose statin therapy will check lipid profile and also CPK Insomnia 04/09/2015 Papanicolaou smear of cervix with low grade squamous intraepithelial lesion (LGSIL) 03/27/2015 Overview (08/19/2024): But negative HPV. Colposcopy biopsies neg 2014, repeat Pap and HPV 12 months. Vitamin D deficiency 08/31/2012 Depression 11/11/2011 Microalbuminuria 01/01/2011 Carpal tunnel syndrome 10/03/2010 DM (diabetes mellitus), type 2 with neurological complications ([facility] V24, [facility] V28) 10/03/2010 Assessment & Plan (02/22/2025 11:58 AM EDT): Her last A1c was 12.6 in June. Her diabetes remains poorly controlled. Currently not following with endocrinology. She does not want to continue coming to [place] for her endocrinology care. She is referred to [facility] per her preference-Dr. Madrigal Will update labs She is to resume Januvia, farxiga daily Increase glipizide to 10 mg twice daily Increase insulin glargine to 15 units nightly Follow-up in 3 months Orders: POC glucose manually resulted dapagliflozin propanediol (FARXIGA) 10 mg tablet; Take 1 tablet (10 mg total) by mouth 1 (one) time each day. Ambulatory referral to Endocrinology; Future SITagliptin phosphate (Januvia) 100 mg tablet; Take 1 tablet (100 mg total) by mouth 1 (one) time each day. insulin glargine (Basaglar Tempo Pen U-100 Insulin) 100 unit/mL (3 mL) injection pen; Inject 15 Units under the skin at bedtime. glipiZIDE (GLUCOTROL XL) 10 mg 24 hr tablet; Take 1 tablet (10 mg total) by mouth 2 (two) times a day. Hemoglobin A1c; Future Microalbumin creatinine urine ratio; Future DM (diabetes mellitus), type 2 with renal complications ([facility] V24, [facility] V28) 10/02/2010 Assessment & Plan (02/22/2025 11:58 AM EDT): Continue medications as above. No microalbuminuria on testing done in June Orders: POC glucose manually resulted dapagliflozin propanediol (FARXIGA) 10 mg tablet; Take 1 tablet (10 mg total) by mouth 1 (one) time each day. Ambulatory referral to Endocrinology; Future SITagliptin phosphate (Januvia) 100 mg tablet; Take 1 tablet (100 mg total) by mouth 1 (one) time each day. insulin glargine (Basaglar Tempo Pen U-100 Insulin) 100 unit/mL (3 mL) injection pen; Inject 15 Units under the skin at bedtime. glipiZIDE (GLUCOTROL XL) 10 mg 24 hr tablet; Take 1 tablet (10 mg total) by mouth 2 (two) times a day. Hemoglobin A1c; Future Microalbumin creatinine urine ratio; Future Sleep apnea 01/23/2010 Essential hypertension, benign 01/12/2007 Overview (08/19/2024): Last Assessment & Plan: Patient's blood pressure today is acceptable with a reading of 132/82. We will continue to monitor this closely. Assessment & Plan (02/22/2025 11:58 AM EDT): Blood pressure is well-controlled. Continue carvedilol 6.25 mg twice daily and Lasix 20 mg daily Orders: Comprehensive metabolic panel; Future Resolved Problems Problem Noted Date Diagnosed Date Resolved Date Non-pressure chronic ulcer o f 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 ([facility] V24, [facility] V28) 01/02/2025 02/22/2025 Absolute anemia 08/04/2024 02/22/2025 Assessment & Plan (02/22/2025 11:58 AM EDT): Orders: CBC and differential; Future Ferritin; Future Iron and TIBC; Future DM type 2 causing eye diseas e ([facility] V24, [facility] V28) 09/15/2022 02/22/2025 Encounters Date Type Department Care Team Description 03/13/2025 10:30 AM EDT Office Visit [facility] [address] [place] [address] [phone] Bautista Aguirre PA Chronic venous hypertension (idiopathic) with ulcer of left lower extremity (CODE) ([facility] V24, [facility] V28) (Primary Dx); Non-pressure chronic ulcer of 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 ([facility] V24, [facility] V28); Type 2 diabetes mellitus with other skin ulcer (CODE) ([facility] V24, [facility] V28) 03/04/2025 Telephone Adult Medicine [address] [phone] Mandi Newsome MD 02/27/2025 3:16 PM EDT - 02/27/2025 11:59 PM EDT Hospital Encounter Radiology Department - [address] [phone] Abnormal mammogram Discharge Disposition: Home or Self Care 02/27/2025 3:16 PM EDT - 02/27/2025 11:59 PM EDT Hospital Encounter Radiology Department - [address] [phone] Abnormal mammogram Discharge Disposition: Home or Self Care 02/27/2025 10:30 AM EDT Office Visit [facility] [address] [place] [address] [phone] Bautista Aguirre PA Type 2 diabetes mellitus with other skin ulcer (CODE) ([facility] V24, [facility] V28) (Primary Dx); Non-pressure chronic ulcer of 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 ([facility] V24, [facility] V28) 02/23/2025 2:59 PM EDT - 02/23/2025 11:59 PM EDT Hospital Encounter Radiology [address] [phone] Breast cancer screening by mammogram Discharge Disposition: Home or Self Care 02/22/2025 9:45 AM EDT Office Visit Adult Medicine [address] [phone] Mandi Newsome MD DM (diabetes mellitus), type 2 with neurological complications ([facility], [facility] V28) (Primary Dx); Type 2 diabetes mellitus with diabetic microalbuminuria, with long-term current use of insulin ([facility] V24, [facility] V28); Diabetic polyneuropathy associated with type 2 diabetes mellitus ([facility] V24, [facility] V28); Essential hypertension, benign; Mixed hyperlipidemia; Iron deficiency anemia, unspecified iron deficiency anemia type; PAF (paroxysmal atrial fibrillation) ([facility] V24, [facility] V28); Need for hepatitis C screening test; Other iron deficiency anemia; Breast cancer screening by mammogram; Peripheral artery disease ([facility] V24); Gastroesophageal reflux disease without esophagitis 02/13/2025 11:00 AM EDT Office Visit [facility] [address] [place] [phone] Bautista Aguirre PA Type 2 diabetes mellitus with other skin ulcer (CODE) ([facility], [facility] V28) (Primary Dx); Non-pressure chronic ulcer of 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 ([facility] V24, [facility] V28) 02/06/2025 11:15 AM EDT Office Visit [facility] [address] [place] [phone] Bautista Aguirre PA Type 2 diabetes mellitus with other skin ulcer (CODE) ([facility], [facility] V28) (Primary Dx); Non-pressure chronic ulcer of 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 ([facility] V24, [facility] V28) 01/30/2025 9:00 AM EDT Office Visit [facility] [address] [place] [phone] Bautista Aguirre PA Type 2 diabetes mellitus with other skin ulcer (CODE) ([facility] V24, [facility] V28) (Primary Dx); Non-pressure chronic ulcer of 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 ([facility] V24, [facility] V28) 01/23/2025 10:00 AM EDT Office Visit [facility] [address] [place] [phone] Bautista Aguirre PA Type 2 diabetes mellitus with other skin ulcer (CODE) ([facility] V24, [facility] V28) (Primary Dx); Non-pressure chronic ulcer of 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 ([facility] V24, [facility] V28) 01/16/2025 10:00 AM EDT Office Visit [facility] [address] [place] [phone] Bautista Aguirre PA Type 2 diabetes mellitus with other skin ulcer (CODE) ([facility] V24, [facility] V28) (Primary Dx); Non-pressure chronic ulcer of 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 ([facility] V24, CMS/HCC V28) 01/15/2025 1:24 PM EDT - 01/15/2025 11:59 PM EDT Hospital Encounter [facility] Ultrasound [address] [place] [phone] Type 2 diabetes mellitus with other skin ulcer (CODE) ([facility], [facility] V28); Non-pressure chronic ulcer of 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 ([facility] V24, [facility] V28) Discharge Disposition: Home or Self Care 01/03/[address] [facility] [address] [place] [phone] Olesya Perkins LPN 01/03/[address] [facility] [address] [place] [phone] Olesya Perkins LPN Arterial ultrasound [facility] appointment 01/02/2025 8:00 AM EST Office Visit [facility] [address] [place] [phone] Bautista Aguirre PA Type 2 diabetes mellitus with other skin ulcer (CODE) ([facility], [facility] V28) (Primary Dx); Non-pressure chronic ulcer of 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 ([facility] V24, [facility] V28) 12/27/2024 10:15 AM EST Office Visit [facility] [address] [place] [phone] Bautista Aguirre PA Type 2 diabetes mellitus with other skin ulcer (CODE) ([facility] V24, [facility] V28) (Primary Dx); Non-pressure chronic ulcer of 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 ([facility] V24, [facility] V28) from Last 3 Months Immunizations Name Administration Dates Next Due H1N1 Inj Preservative Free 10/07/2009 Influenza Quadravalent, MDCK , 0.5ml, preservative free (Flucelvax) 6mo and older 08/17/2023,07/22/2021,07/06/2019 Influenza Quadravalent, MDCK , 0.5ml, with preservative (Flucelvax) 6mo and older 09/14/2022,06/17/2015 Influenza trivalent, 0.5mL, preservative free (Fluarix; FluLaval; Fluzone) ages 6mo and older (Afluria) 3 years and older 08/11/2016,08/25/2013,07/13/2012,08/08,07/31/2008,09/30/2007 Influenza, Unspecified 07/09/2014 PPD Test 11/23/2017,01/12/2012 Pfizer (ages 12 & older) Biv alent, COVID-19 01/28/2024,09/14/2022 Pneumococcal conjugate 20 va lent (Prevnar 20, PCV 20) 2mo and older 09/18/2024 Pneumococcal polysaccharide 23 valent (Pneumovax 23) 2yo and older 09/01/2012 Tdap Tetanus diptheria acell ular pertussis (Boostrix; Adacel) 7yo and older 01/28/2024,03/09/2022,08/22/2009 Zoster recombinant (Shingrix ) 19yo and older 01/28/2024 Surgical History Surgery Date Site/Laterality Comments CORONARY ARTERY BYPASS GRAFT TONSILLECTOMY BREAST UZMA Right COLONOSCOPY 02/14/2024 hemorrhoids; repeat in [address] BREAST REDUCTION Medical History Medical History Date Comments Asthma 2020 CHF (congestive heart failure) [place] [place] [facility]) 2020 DM type 2 causing eye disease [place] [place], [facility] V[facility]) 2021 HFrEF (heart failure with re duced ejection fraction) [place] [place] [facility] [place]) 2020 Non-ST elevation (NSTEMI) my ocardial infarction [place] [place] [facility] [place] 2020 Peripheral neuropathy 2020 Retinopathy due to secondary diabetes [place] [place], [facility] [place] Family History Medical History Relation Name Comments Diabetes Maternal Grandmother Heart disease Maternal Grandmother Diabetes Mother Hypertension Mother hld Mother Diabetes Sister Blindness Neg Hx Breast cancer Neg Hx Cataracts Neg Hx Colon cancer Neg Hx Glaucoma Neg Hx Strabismus Neg Hx Relation Name Status Comments Father Maternal Grandmother Mother Sister Social History Tobacco Use Types Packs/Day Years Used Date Smoking Tobacco: Never Passive Smoke Exposure: Never Smokeless Tobacco: Never Tobacco Cessation:Counseling Given: Not Answered Alcohol Use Standard Drinks/Week Comments Never 0 [...] ed Within the last 3 months, gagandeep w many times did you visit the [...] your loved ones. For example, child care team lead or elderly care for an older adult? [...] AM EDT Sexual Orientation Not on file Obstetrics History Para Term AB IAB SAB Ectopic Multiple Livin g Live Births 3 3 3 3 Date Outcome GA Total Labor Labor/2nd/3rd Weight Sex Type Anes PTL Zahra A1 A5 Name Clin Term Term Term Last Filed Vital Signs Vital Sign Reading Time Taken Comments Blood Pressure 126/69 03/13/2025 10:41 AM EDT Pulse 84 03/13/2025 10:41 AM EDT Temperature 36.1 ??C (97 ??F) 03/13/2025 10:41 AM EDT Respiratory Rate 18 03/13/2025 10:41 AM EDT Oxygen Saturation 100% 03/13/2025 10:41 AM EDT Inhaled Oxygen Concentration - - Weight 89.4 kg (197 lb) 02/22/2025 9:45 AM EDT Height 160 cm (5' 3 ) 02/22/2025 9:45 AM EDT Body Mass Index 34.9 02/22/2025 9:45 AM EDT Plan of Treatment Upcoming Encounters Date Type Department Care Team (Late st Contact Info) Description 03/21/2025 9:00 AM EDT Clinical Support [facility] [address] [place] [address] 05/18/2025 10:00 AM EDT Office Visit Adult Medicine [address] [phone] Jennifer Gray, MARY [address] [place] [address] 05/25/2025 10:45 AM EDT Office Visit Adult Medicine [address] [phone] Jennifer Gray, MARY [address] [place] [address] Health Maintenance Due Date Last Done Comments Diabetes: Annual Foot Exam 1983 Diabetes: Annual Retina Eye Exam 1983 Hepatitis B Vaccines (1 of 3 - 19+ 3-dose series) 1992 HIV Screening 10/09/2022 Zoster Vaccines (2 of 2) 03/24/2024 01/28/2024 Cervical Cancer Screening: Pap Smear 05/22/2024 05/22/2021, 11/10/2019 COVID-19 Vaccine ( season) 2024 01/28/2024, 09/14/2022, 04/01/2021, Additional history exists Influenza Vaccine (Season Ended) 2025 08/17/2023, 09/14/2022, 07/22/2021, Additional history exists Diabetes: Blood Sugar Control Test (HGBA1C) 08/24/2025 02/22/2025, 06/05/2024 Social Influencers of Health Screening 11/21/2025 11/21/2024 Depression Screening 12/05/2025 12/05/2024 Diabetes: Annual Urine Albumin-Creatinine Ratio (uACR) 02/22/2026 02/22/2025 Diabetes: Annual GFR (Glomerular Filtration Rate) 02/22/2026 02/22/2025, 06/05/2024 Hypertension/CHF/CAD Annual BMP Blood Test 02/22/2026 02/22/2025, 06/05/2024 Breast Cancer Screening 02/27/2027 02/28/20, 02/23/2025, 03/27/2023, Additional history exists Cholesterol Screening (Lipid Panel) 02/22/2030 02/22/2025, 09/14/2024 DTaP,Tdap,and Td Vaccines (4 - Td or Tdap) 01/27/2034 01/28/2024, 03/09/2022, 08/22/2009 Colorectal Cancer Screening: Colonoscopy 02/13/2034 02/14/2024 Pneumococcal Vaccine: 50+ Years Completed 09/18/2024, 09/01/2012 Pneumococcal Vaccine: Pediatrics (0 to 5 Years) and At-Risk Patients (6 to 64 Years) Completed 09/18/2024, 09/01/2012 Hepatitis C Screening Completed 02/22/2025 HIB Vaccines Aged Out No longer eligi ble based on patient's age to complete this topic HPV Vaccines Aged Out No longer eligi ble based on patient's age to complete this topic Hepatitis A Vaccines Aged Out No long er eligible based on patient's age to complete this topic IPV Vaccines Aged Out No longer eligi ble based on patient's age to complete this topic MMR Vaccines Aged Out No longer eligi ble based on patient's age to complete this topic Meningococcal ACWY Vaccine Aged Out N o longer eligible based on patient's age to complete this topic Meningococcal B Vaccine Aged Out No l onger eligible based on patient's age to complete this topic RSV Immunization Patients Under 20 months Aged Out No longer eligible based on patient's age to complete this topic Varicella Vaccines Aged Out No longer eligible based on patient's age to complete this topic Goals Goal Patient Goal Type Associated Problems Recent Progress Patient-Stated? Author Decrease Wound Volume by X% by date (in notes) Care Plan Impaired Tissue No change(2024 11:11 AM EDT) Bibiana Alonso RN Patient and Caregiver Understand Wound Care Education Care Plan Impaired Tissue On track( 11:11 AM EDT) Bibiana Alonso RN Wound volume breakdown reduced by X% by week 4 Care Plan Impaired Tissue Bibiana Alonso RN Wound volume breakdown reduced by X% by week 8 Care Plan Impaired Tissue No Bibiana Bryant RN Wound volume breakdown reduced by X% by week 12 Care Plan Impaired Tissue Bibiana Alonso RN Quit using tobacco (cigarettes, smokeless, etc) Care Plan Education needed on impact of smoking on wound No Bibiana Bryant RN Reduce tobacco use (cigarettes, smokeless, etc) Care Plan Education needed on impact of smoking on wound No Bibiana Bryant RN Decrease Wound Volume by X% by date (in notes) Care Plan Education needed on impact of smoking on wound No Bibiana Bryant RN Patient and Caregiver Understand Wound Care Education Care Plan Education needed related to ulceration/compr omised skin integrity. No Bibiana Bryant RN Procedures Procedure Name Priority Date/Time Associated Diagnosis Comments WOUND CARE PROCEDURE Routine 03/13/2025 11:06 AM EDT Chronic venous hypertension (idiopathic) with ulcer of left lower extremity (CODE) ([facility] V24, CMS/[facility] V28) Non-pressure chronic ulcer of 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 (CMS/[facility] V24, CMS/HCC V28) DEBRIDEMENT Routine 03/13/2025 10:30 AM EDT Chronic venous hypertension (idiopathic) with ulcer of left lower extremity (CODE) (CMS/[facility] V24, CMS/[facility] V28) Non-pressure chronic ulcer of 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 (CMS/HCC V24, CMS/HCC V28) US BREAST LIMITED RIGHT Routine 02/27/2025 3:40 PM EDT Abnormal mammogram MG MAMMO DIGITAL DIAGNOSTIC W NETO RIGHT Routine 02/27/2025 3:30 PM EDT Abnormal mammogram DEBRIDEMENT Routine 02/27/2025 10:30 AM EDT Type 2 diabetes mellitus with other skin ulcer (CODE) (CMS/HCC V24, CMS/HCC V28) Non-pressure chronic ulcer of 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 (CMS/HCC V24, CMS/HCC V28) MG MAMMO DIGITAL SCREENING W NETO BILAT Routine 02/23/2025 3:14 PM EDT Breast cancer screening by mammogram MICROALBUMIN CREATININE URINE RATIO Routine 02/22/2025 12:29 PM EDT DM (diabetes mellitus), type 2 with neurological complications (CMS/HCC V24, CMS/HCC V28) Type 2 diabetes mellitus with diabetic microalbuminuria, with long-term current use of insulin (CMS/HCC V24, CMS/HCC V28) CBC WITH AUTO DIFFERENTIAL Routine 02/22/2025 10:45 AM EDT Other iron deficiency anemia HEMOGLOBIN A1C Routine 02/22/2025 10:45 AM EDT DM (diabetes mellitus), type 2 with neurological complications (CMS/HCC V24, CMS/HCC V28) Type 2 diabetes mellitus with stage 3a chronic kidney disease, with long-term current use of insulin (CMS/HCC V24, CMS/HCC V28) HEPATITIS C ANTIBODY Routine 02/22/2025 10:45 AM EDT Need for hepatitis C screening test CBC AND DIFFERENTIAL Routine 02/22/2025 10:45 AM EDT Other iron deficiency anemia FERRITIN Routine 02/22/2025 10:45 AM EDT Other iron deficiency anemia IRON AND TIBC Routine 02/22/2025 10:45 AM EDT Other iron deficiency anemia LIPID PANEL WITH REFLEX TO DIRECT LDL Routine 02/22/2025 10:45 AM EDT Mixed hyperlipidemia COMPREHENSIVE METABOLIC PANEL Routine 02/22/2025 10:45 AM EDT Essential hypertension, benign POC GLUCOSE Routine 02/22/2025 10:36 AM EDT DM (diabetes mellitus), type 2 with neurological complications (CMS/HCC V24, CMS/HCC V28) Type 2 diabetes mellitus with diabetic microalbuminuria, with long-term current use of insulin (CMS/HCC V24, CMS/HCC V28) DEBRIDEMENT Routine 02/13/2025 11:00 AM EDT Type 2 diabetes mellitus with other skin ulcer (CODE) (CMS/HCC V24, CMS/HCC V28) Non-pressure chronic ulcer of 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 (CMS/HCC V24, CMS/HCC V28) DEBRIDEMENT Routine 02/06/2025 11:15 AM EDT Type 2 diabetes mellitus with other skin ulcer (CODE) (CMS/HCC V24, CMS/HCC V28) Non-pressure chronic ulcer of 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 (CMS/HCC V24, CMS/HCC V28) CULTURE WOUND WITH GRAM STAIN Routine 01/30/2025 9:45 AM EDT Type 2 diabetes mellitus with other skin ulcer (CODE) (CMS/HCC V24, CMS/HCC V28) Non-pressure chronic ulcer of 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 (CMS/HCC V24, CMS/HCC V28) DEBRIDEMENT Routine 01/30/2025 9:00 AM EDT Type 2 diabetes mellitus with other skin ulcer (CODE) (CMS/HCC V24, CMS/HCC V28) Non-pressure chronic ulcer of 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 (CMS/HCC V24, CMS/HCC V28) DEBRIDEMENT Routine 01/23/2025 10:00 AM EDT Type 2 diabetes mellitus with other skin ulcer (CODE) (CMS/HCC V24, CMS/HCC V28) Non-pressure chronic ulcer of 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 (CMS/HCC V24, CMS/HCC V28) DEBRIDEMENT Routine 01/16/2025 10:00 AM EDT Type 2 diabetes mellitus with other skin ulcer (CODE) (CMS/HCC V24, CMS/HCC V28) Non-pressure chronic ulcer of 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 (CMS/HCC V24, CMS/HCC V28) VAS US DUPLEX LOWER EXT ARTERY BILAT Routine 01/15/2025 2:32 PM EDT Type 2 diabetes mellitus with other skin ulcer (CODE) (CMS/HCC V24, CMS/HCC V28) Non-pressure chronic ulcer of 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 (CMS/HCC V24, CMS/HCC V28) DEBRIDEMENT Routine 01/02/2025 8:00 AM EST Type 2 diabetes mellitus with other skin ulcer (CODE) (CMS/HCC V24, CMS/HCC V28) Non-pressure chronic ulcer of 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 (CMS/HCC V24, CMS/HCC V28) DEBRIDEMENT Routine 12/27/2024 10:15 AM EST Type 2 diabetes mellitus with other skin ulcer (CODE) (CMS/HCC V24, CMS/HCC V28) Non-pressure chronic ulcer of 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 (CMS/HCC V24, CMS/HCC V28) PAP SMEAR Routine 05/22/2021 from Last 3 Months or Most Recently Relevant to Health Maintenance Results * Wound Care Procedure Diabetic Ulcer Left Pretibial (03/13/2025 11:06 AM EDT) Narrative Edgardo Luo MD - 03/13/2025 11:06 AM EDT MARY Winslow ? 03/13/2025 11:17 AM Wound Care Procedure Diabetic Ulcer Left Pretibial Date/Time: 03/13/2025 11:06 AM Performed by: Ana Brown RN Authorized by: MARY Winslow ??Associated wounds: Wound Venous Ulcer 12/05/24 Pretibial Left Consent: ??Consent obtained: ??Verbal ??Consent given by: ??Patient ??Risks, benefits, and alternatives were discussed: yes ?Risks discussed: ??Pain ??Alternatives discussed: ??Delayed treatment [place] protocol: ??Procedure explained and questions answered to patient or proxy's satisfaction: yes ?Relevant documents present and verified: yes ?Test results available: yes ?Imaging studies available: yes ?Patient identity confirmed: ??Verbally with patient Sedation: ??Sedation type: ??None Anesthesia: ??Anesthesia method: ??None Procedure details: ??Indications: open wounds ?Wound location: ??Leg ??Leg location: ??L lower leg ??Wound age (days): ??>14 Dressing: ??Dressing applied: ??Unna's boot Post-procedure details: ??Procedure completion: ??Tolerated us Bautista HERNANDEZ IN CLINIC/BEDSIDE ORDERABLE S Final Result * Debridement Venous Ulcer Left Pretibial (03/13/2025 10:30 AM EDT) Narrative Edgardo Luo MD - 03/13/2025 10:30 AM EDT MARY Winslow ? 03/13/2025 11:17 AM Debridement Venous Ulcer Left Pretibial Performed by: MARY Winslow Authorized by: MARY Winslow ??Associated wounds: Wound Venous Ulcer 12/05/24 Pretibial Left Consent: ??Consent obtained: ??Verbal ??Consent given by: ??Patient ??Risks discussed: Yes ?? Time out: Immediately prior to the procedure a time out was called ?? Debridement Details: ??Performed by: ??PA ??Type: surgical ?Level: subcutaneous tissue ?Pain control: ??Lidocaine 4% ??Severity of Tissue Pre Debridement: ??Fat layer exposed ??Severity of Tissue Post Debridement: ??Fat layer exposed ??Time taken: ??03/13/2025 10:47 AM ??Length (cm): ??1.1 ??Width (cm): ??0.9 ??Depth (cm): ??0.1 ??Area (cm^2): ??0.99 ??Time taken: ??03/13/2025 10:48 AM ??Length (cm): ??1.1 ??Width (cm): ??0.9 ??Depth (cm): ??0.1 ??Percent Debrided (%): ??100 ??Surface Area (cm^2): ??0.99 ??Area Debrided (cm^2): ??0.99 ??Volume (cm^3): ??0.1 ??Tissue and other material debrided: dermis, epidermis and subcutaneous tissue ?Devitalized tissue debrided: biofilm, exudate, fibrin and slough ?Instrument: ??Curette ??Amount of bleeding: small ?Hemostasis obtained with: ??Pressure and silver nitrate ??Procedural pain: ??0 ??Post-procedural pain: ??0 ??Response to treatment: ??Procedure was tolerated well us Bautista HERNANDEZ IN CLINIC/BEDSIDE ORDERABLE S Final Result * US Breast Limited Right (02/27/2025 3:40 PM EDT) Anatomical Region Laterality Modality Breast Right Ultrasound 02/27/2025 3:32 PM EDT Impressions 02/27/2025 3:56 PM EDT 1. No mammographic evidence of malignancy 2. Scattered fibroglandular tissue ?? Findings and recommendations were conveyed to the patient. ? BI-RADS CATEGORY: 2 - BENIGN RECOMMENDATION: Return to annual mammography. Return to annual mammography. Mammo Location: [facility], [address] [place] [address], [phone], . -------- FINAL REPORT -------- Dictated By: Mandi Desai Dictated Date: 02/27/2025 15:32 ET Assigned Physician: Mandi Desai Reviewed and Electronically Signed By: Mandi Desai Signed Date: 02/27/2025 15:56 ET Workstation ID: [id number] Transcribed By: Self Edit Transcribed Date: 02/27/2025 15:50 ET Narrative 02/27/2025 3:56 PM EDT RIGHTDIGITAL DIAGNOSTIC 3D MAMMOGRAPHY HISTORY: Workup for MLO above the nipple posterior depth asymmetry COMPARISON: Mammogram from 02/23/2025 Technique: Full-field ML, MLO spot compression 3-D FINDINGS: Right breast MLO above the nipple posterior depth asymmetry becomes equal in density on spot compression and is consistent with benign summation of fibroglandular tissue. ??Stable superior breast thickening is present. ??Sonographic evaluation demonstrates no focal abnormality. BREAST DENSITY: B - There are scattered areas of fibroglandular density. EXAM: RIGHT BREAST TARGETED ULTRASOUND EVALUATION TECHNIQUE: Ultrasonographic examination is performed using a ??linear array transducer. Targeted right breast ultrasound from 3:00 to 9:00 of the superior breast to evaluate for area of mammographic concern. Real-time sonographic scanning was also performed by the radiologist FINDINGS: From 3:00 to 9:00, no sonographic evidence of malignancy or other focal abnormalities were identified at the right breast in area of mammographic concern Procedure Note Mandi Desai MD - 02/27/2025 RIGHTDIGITAL DIAGNOSTIC 3D MAMMOGRAPHY HISTORY: Workup for MLO above the nipple posterior depth asymmetry COMPARISON: Mammogram from 02/23/2025 Technique: Full-field ML, MLO spot compression 3-D FINDINGS: Right breast MLO above the nipple posterior depth asymmetry becomes equalin density on spot compression and is consistent with benign summation offibroglandular tissue. Stable superior breast thickening is present.Sonographic evaluation demonstrates no focal abnormality. BREAST DENSITY: B - There are scattered areas of fibroglandular density. EXAM: RIGHT BREAST TARGETED ULTRASOUND EVALUATION TECHNIQUE: Ultrasonographic examination is performed using a linear arraytransducer. Targeted right breast ultrasound from 3:00 to 9:00 of thesuperior breast to evaluate for area of mammographic concern. Real-timesonographic scanning was also performed by the radiologist FINDINGS: From 3:00 to 9:00, no sonographic evidence of malignancy or other focalabnormalities were identified at the right breast in area of mammographicconcern IMPRESSION: 1. No mammographic evidence of malignancy 2. Scattered fibroglandular tissue Findings and recommendations were conveyed to the patient. BI-RADS CATEGORY: 2 - BENIGN RECOMMENDATION: Return to annual mammography. Return to annual mammography. Mammo Location: [facility], [address] [place] [address], [phone], . -------- FINAL REPORT -------- Dictated By: Mandi Desai Dictated Date: 02/27/2025 15:32 ET Assigned Physician: Mandi Desai Reviewed and Electronically Signed By: Mandi Desai Signed Date: 02/27/2025 15:56 ET Workstation ID: [id number] Transcribed By: Self Edit Transcribed Date: 02/27/2025 15:50 ET us Mandi Newsome MD IMG US PROCEDURE S Final Result * MG Mammo Digital Diagnostic w Neto Right (02/27/2025 3:30 PM EDT) Anatomical Region Laterality Modality Breast Right Mammography 02/27/2025 3:32 PM EDT Impressions 02/27/2025 3:56 PM EDT 1. No mammographic evidence of malignancy 2. Scattered fibroglandular tissue ?? Findings and recommendations were conveyed to the patient. ? BI-RADS CATEGORY: 2 - BENIGN RECOMMENDATION: Return to annual mammography. Return to annual mammography. Mammo Location: [facility], [address] [place] [address], [phone], . -------- FINAL REPORT -------- Dictated By: Mandi Desai Dictated Date: 02/27/2025 15:32 ET Assigned Physician: Mandi Desai Reviewed and Electronically Signed By: Mandi Desai Signed Date: 02/27/2025 15:56 ET Workstation ID: [id number] Transcribed By: Self Edit Transcribed Date: 02/27/2025 15:50 ET Narrative 02/27/2025 3:56 PM EDT RIGHTDIGITAL DIAGNOSTIC 3D MAMMOGRAPHY HISTORY: Workup for MLO above the nipple posterior depth asymmetry COMPARISON: Mammogram from 02/23/2025 Technique: Full-field ML, MLO spot compression 3-D FINDINGS: Right breast MLO above the nipple posterior depth asymmetry becomes equal in density on spot compression and is consistent with benign summation of fibroglandular tissue. ??Stable superior breast thickening is present. ??Sonographic evaluation demonstrates no focal abnormality. BREAST DENSITY: B - There are scattered areas of fibroglandular density. EXAM: RIGHT BREAST TARGETED ULTRASOUND EVALUATION TECHNIQUE: Ultrasonographic examination is performed using a ??linear array transducer. Targeted right breast ultrasound from 3:00 to 9:00 of the superior breast to evaluate for area of mammographic concern. Real-time sonographic scanning was also performed by the radiologist FINDINGS: From 3:00 to 9:00, no sonographic evidence of malignancy or other focal abnormalities were identified at the right breast in area of mammographic concern Procedure Note Mandi Desai MD - 02/27/2025 RIGHTDIGITAL DIAGNOSTIC 3D MAMMOGRAPHY HISTORY: Workup for MLO above the nipple posterior depth asymmetry COMPARISON: Mammogram from 02/23/2025 Technique: Full-field ML, MLO spot compression 3-D FINDINGS: Right breast MLO above the nipple posterior depth asymmetry becomes equalin density on spot compression and is consistent with benign summation offibroglandular tissue. Stable superior breast thickening is present.Sonographic evaluation demonstrates no focal abnormality. BREAST DENSITY: B - There are scattered areas of fibroglandular density. EXAM: RIGHT BREAST TARGETED ULTRASOUND EVALUATION TECHNIQUE: Ultrasonographic examination is performed using a linear arraytransducer. Targeted right breast ultrasound from 3:00 to 9:00 of thesuperior breast to evaluate for area of mammographic concern. Real-timesonographic scanning was also performed by the radiologist FINDINGS: From 3:00 to 9:00, no sonographic evidence of malignancy or other focalabnormalities were identified at the right breast in area of mammographicconcern IMPRESSION: 1. No mammographic evidence of malignancy 2. Scattered fibroglandular tissue Findings and recommendations were conveyed to the patient. BI-RADS CATEGORY: 2 - BENIGN RECOMMENDATION: Return to annual mammography. Return to annual mammography. Mammo Location: [facility], [address] [place] [address], [phone], . -------- FINAL REPORT -------- Dictated By: Mandi Desai Dictated Date: 02/27/2025 15:32 ET Assigned Physician: Mandi Desai Reviewed and Electronically Signed By: Mandi Desai Signed Date: 02/27/2025 15:56 ET Workstation ID: [id number] Transcribed By: Self Edit Transcribed Date: 02/27/2025 15:50 ET Mandi Newsome MD IMG BI PROCEDURE S Final Result * Debridement Diabetic Ulcer Left Pretibial (02/27/2025 10:30 AM EDT) Narrative Edgardo Luo MD - 02/27/2025 10:30 AM EDT MARY Winslow ? 02/27/2025 10:56 AM Debridement Diabetic Ulcer Left Pretibial Performed by: MARY Winslow Authorized by: MARY Winslow ??Associated wounds: Wound Diabetic Ulcer 12/05/24 Pretibial Left Consent: ??Consent obtained: ??Verbal ??Consent given by: ??Patient ??Risks discussed: Yes ?? Time out: Immediately prior to the procedure a time out was called ?? Debridement Details: ??Performed by: ??PA ??Type: surgical ?Level: subcutaneous tissue ?Pain control: ??Lidocaine 4% ??Severity of Tissue Pre Debridement: ??Fat layer exposed ??Severity of Tissue Post Debridement: ??Fat layer exposed ??Time taken: ??02/27/2025 10:41 AM ??Length (cm): ??1.1 ??Width (cm): ??0.9 ??Depth (cm): ??0.1 ??Area (cm^2): ??0.99 ??Time taken: ??02/27/2025 10:42 AM ??Length (cm): ??1.1 ??Width (cm): ??0.9 ??Depth (cm): ??0.1 ??Percent Debrided (%): ??100 ??Surface Area (cm^2): ??0.99 ??Area Debrided (cm^2): ??0.99 ??Volume (cm^3): ??0.1 ??Tissue and other material debrided: dermis, epidermis and subcutaneous tissue ?Devitalized tissue debrided: biofilm, exudate, fibrin and slough ?Instrument: ??Curette ??Amount of bleeding: none ?Hemostasis obtained with: ??Not applicable ??Procedural pain: ??0 ??Post-procedural pain: ??0 ??Response to treatment: ??Procedure was tolerated well us Bautista HERNANDEZ IN CLINIC/BEDSIDE ORDERABLE S Final Result * (ABNORMAL) MG Mammo Digital Screening w Neto bilat (02/23/2025 3:14 PM EDT) Anatomical Region Laterality Modality Breast Bilateral Mammography 02/24/2025 4:01 PM EDT Impressions 02/24/2025 4:08 PM EDT Focal asymmetry in the right upper breast. ??Additional evaluation is recommended with spot compression MLO, 4. ??Straight lateral view as well as with ultrasound. ??We will contact the patient for the arrangements. BI-RADS CATEGORY: 0 - INCOMPLETE - NEED ADDITIONAL IMAGING EVALUATION RECOMMENDATION: Additional right breast imaging recommended. Mammo Location: [facility], [address] [place] [address], [phone], . -------- FINAL REPORT -------- Dictated By: Mariah Natarajan Dictated Date: 02/24/2025 16:01 ET Assigned Physician: Mariah Natarajan Reviewed and Electronically Signed By: Mairah Natarajan Signed Date: 02/24/2025 16:08 ET Workstation ID: [id number] Transcribed By: Self Edit Transcribed Date: 02/24/2025 16:01 ET Narrative 02/24/2025 4:08 PM EDT Bilateral screening mammogram. CLINICAL: 49 years old, Female, routine annual exam. COMPARISON: Prior studies, latest from 03/27/2023. ?? TECHNIQUE: Bilateral MLO and CC views were obtained digitally with the 2D C views and 3-D mammogram (digital breast tomosynthesis). Computer-aided detection was utilized in evaluation of this exam (CAD). FINDINGS: There is focal asymmetry in the right upper breast posterior 3rd depth visualized on MLO view only. There is no evidence of other suspicious mass or architectural distortion. ??No worrisome calcifications are evident. ?? BREAST DENSITY: B - There are scattered areas of fibroglandular density. Procedure Note Mariah Naatrajan MD - 02/24/2025 Bilateral screening mammogram. CLINICAL: 49 years old, Female, routine annual exam. COMPARISON: Prior studies, latest from 03/27/2023. TECHNIQUE: Bilateral MLO and CC views were obtained digitally with the 2DC views and 3-D mammogram (digital breast tomosynthesis). Computer-aideddetection was utilized in evaluation of this exam (CAD). FINDINGS: There is focal asymmetry in the right upper breast posterior 3rd depthvisualized on MLO view only. There is no evidence of other suspicious mass or architectural distortion.No worrisome calcifications are evident. BREAST DENSITY: B - There are scattered areas of fibroglandular density. IMPRESSION: Focal asymmetry in the right upper breast. Additional evaluation isrecommended with spot compression MLO, 4. Straight lateral view as wellas with ultrasound. We will contact the patient for the arrangements. BI-RADS CATEGORY: 0 - INCOMPLETE - NEED ADDITIONAL IMAGING EVALUATION RECOMMENDATION: Additional right breast imaging recommended. Mammo Location: [facility], [address] [place] [address], [id number], . -------- FINAL REPORT -------- Dictated By: Mariah Natarajan Dictated Date: 02/24/2025 16:01 ET Assigned Physician: Mariah Natarajan Reviewed and Electronically Signed By: Mariah Natarajan Signed Date: 02/24/2025 16:08 ET Workstation ID: [id number] Transcribed By: Self Edit Transcribed Date: 02/24/2025 16:01 ET Mandi Newsome MD IMG BI PROCEDURE S Final Result * Microalbumin creatinine urine ratio (02/22/2025 12:29 PM EDT) Creatinine, Urine 68.0 mg/dL LAB CHEMISTRY METHOD 02/22/2025 4:12 PM EDT [facility] Microalb, Ur 11.2 0.0 - 29.0 mg/L LAB CHEMISTRY METHOD 02/22/2025 4:12 PM EDT [facility] Microalb/Creat Ratio 16 <30 mg/g creat LAB CHEMISTRY METHOD 02/22/2025 4:12 PM EDT [facility] Urine Urine specimen obtained by clean catch procedure / Unknown Non-blood Collection / Unknown 02/22/2025 12:29 PM EDT 02/22/2025 12:29 PM EDT Mandi Newsome MD LAB URINE ORDERA BLES Final Result Performing Organization Address City/[facility]/ZIP Co de Phone Number [facility] [address] [place] [address], [place] [phone] * Hepatitis C antibody (02/22/2025 10:45 AM EDT) Pathologist [facility] Hepatitis C Antibody Negative Negative LAB CHEMISTRY METHOD 02/22/2025 3:20 PM EDT [facility] Blood Venous blood specimen / Unknown Venipuncture / Unknown 02/22/2025 10:45 AM EDT 02/22/2025 10:45 AM EDT Mandi Newsome MD LAB BLOOD ORDERA BLES Final Result Performing Organization Address City/[facility]/ZIP Co de Phone Number [facility] [address] [place] [address], [place] [phone] * Lipid panel with reflex to direct LDL (02/22/2025 10:45 AM EDT) Cholesterol 137 0 - 200 mg/dL LAB CHEMISTRY METHOD 02/22/2025 1:35 PM EDT [facility] Triglycerides 106 0 - 150 mg/dL LAB CHEMISTRY METHOD 02/22/2025 1:35 PM EDT [facility] HDL 40 >=40 mg/dL LAB CHEMISTRY METHOD 02/22/2025 1:35 PM EDT [facility] LDL Calculated 76 0 - 100 mg/dL LAB CHEMISTRY METHOD 02/22/2025 1:35 PM EDT [facility] VLDL Cholesterol Jonel 21.2 mg/dL LAB CHEMISTRY METHOD 02/22/2025 1:35 PM EDT [facility] Non HDL Chol. (LDL+VLDL) 97 <145 mg/dL LAB CHEMISTRY METHOD 02/22/2025 1:35 PM EDT [facility] Chol/HDL Ratio 3.4 0.0 - 4.4 LAB CHEMISTRY METHOD 02/22/2025 1:35 PM EDT [facility] Blood Venous blood specimen / Unknown Venipuncture / Unknown 02/22/2025 10:45 AM EDT 02/22/2025 10:45 AM EDT Mandi Newsome MD LAB BLOOD ORDERA BLES Final Result [facility] [address] [place] [address], * (ABNORMAL) CBC auto differential (02/22/2025 10:45 AM EDT) WBC 6.4 4.8 - 10.8 K/mcL LAB HEMETOLOGY METHOD 02/22/2025 1:04 PM EDT [facility] RBC 4.50 3.80 - 4.80 M/mcL LAB HEMETOLOGY METHOD 02/22/2025 1:04 PM [facility] Hemoglobin 12.9 11.5 - 16.0 g/dL LAB HEMETOLOGY METHOD 02/22/2025 1:04 PM [facility] Hematocrit 39.0 35.0 - 47.0 % LAB HEMETOLOGY METHOD 02/22/2025 1:04 PM [facility] MCV 86.5 79.0 - 98.0 FL LAB HEMETOLOGY METHOD 02/22/2025 1:04 PM [facility] MCH 28.6 27.0 - 32.0 pcg LAB HEMETOLOGY METHOD 02/22/2025 1:04 PM [facility] MCHC 33.1 32.0 - 37.0 g/dL LAB HEMETOLOGY METHOD 02/22/2025 1:04 [facility] RDW 13.7 11.0 - 15.0 % LAB HEMETOLOGY METHOD 02/22/2025 1:04 [facility] Platelets 191 130 - 400 K/mcL LAB HEMETOLOGY METHOD 02/22/2025 1:04 [facility] MPV 11.5(H) 7.0 - 11.0 FL LAB HEMETOLOGY METHOD 02/22/2025 1:04 [facility] NRBC 0.0 <1.0 % LAB HEMETOLOGY METHOD 02/22/2025 1:04 [facility] NRBC Absolute 0.00 <0.10 K/mcL LAB HEMETOLOGY METHOD 02/22/2025 1:04 [facility] Neutrophils Relative 69.2 % LAB HEMETOLOGY METHOD 02/22/2025 1:04 [facility] Lymphocytes Relative 24.6 % LAB HEMETOLOGY METHOD 02/22/2025 1:04 PM [facility] Monocytes Relative 4.1 % LAB HEMETOLOGY METHOD 02/22/2025 1:04 PM [facility] Eosinophils Relative 1.6 % LAB HEMETOLOGY METHOD 02/22/2025 1:04 PM [facility] Basophils Relative 0.2 % LAB HEMETOLOGY METHOD 02/22/2025 1:04 PM [facility] Immature Granulocytes Relative 0.3 % LAB HEMETOLOGY METHOD 02/22/2025 1:04 PM [facility] Neutrophils Absolute 4.42 1.50 - 7.00 K/mcL LAB HEMETOLOGY METHOD 02/22/2025 1:04 PM [facility] Lymphocytes Absolute 1.57 1.00 - 5.00 K/mcL LAB HEMETOLOGY METHOD 02/22/2025 1:04 PM [facility] Monocytes Absolute 0.26 0.20 - 1.00 K/mcL LAB HEMETOLOGY METHOD 02/22/2025 1:04 PM [facility] Eosinophils Absolute 0.10 0.00 - 0.50 K/mcL LAB HEMETOLOGY METHOD 02/22/2025 1:04 PM [facility] Basophils Absolute 0.01 0.00 - 0.20 K/mcL LAB HEMETOLOGY METHOD 02/22/2025 1:04 PM [facility] Immature Granulocytes Absolute 0.02 0.00 - 0.03 K/mcL LAB HEMETOLOGY METHOD 02/22/2025 1:04 PM [facility] Blood Venous blood specimen / Unknown Venipuncture / Unknown 02/22/2025 10:45 AM EDT 02/22/2025 10:45 AM EDT Mandi Newsome MD LAB BLOOD ORDERA BLES Final Result [facility] [address] [place] [address], * Iron and TIBC (02/22/2025 10:45 AM EDT) Pathologist [facility] Iron 86 40 - 150 mcg/dL LAB CHEMISTRY METHOD 02/22/2025 1:31 PM EDT [facility] TIBC 263 250 - 450 mcg/dL LAB CHEMISTRY METHOD 02/22/2025 1:31 PM EDT [facility] Iron Saturation 33 15 - 50 % LAB CHEMISTRY METHOD 02/22/2025 1:31 PM EDT [facility] Blood Venous blood specimen / Unknown Venipuncture / Unknown 02/22/2025 10:45 AM EDT 02/22/2025 10:45 AM EDT Mandi Newsome MD LAB BLOOD ORDERA BLES Final Result Performing Organization Address [facility] Co de Phone Number [facility] [address] [place] [address], * (ABNORMAL) Hemoglobin A1c (02/22/2025 10:45 AM EDT) [facility] Hemoglobin A1C >14.8(H) <6.5 % LAB CHEMISTRY METHOD 02/22/2025 3:34 PM EDT [facility] Mean Bld Glu Estim. LAB CHEMISTRY METHOD 02/22/2025 3:34 PM EDT [facility] Comment:Unable to calculate due to HgB A1C being outside of the reportable range Blood Venous blood specimen / Unknown Venipuncture / Unknown 02/22/2025 10:45 AM EDT 02/22/2025 10:45 AM EDT Narrative [facility] - 02/22/2025 3:34 PM EDT Verified by repeat analysis us Mandi Newsome MD LAB BLOOD ORDERA BLES Final Result [facility] [address] [place] [address], [place] [phone] * Ferritin (02/22/2025 10:45 AM EDT) [facility] Ferritin 122 8 - 252 ng/mL LAB CHEMISTRY METHOD 02/22/2025 1:31 PM EDT [facility] Blood Venous blood specimen / Unknown Venipuncture / Unknown 02/22/2025 10:45 AM EDT 02/22/2025 10:45 AM EDT Mandi Newsome MD LAB BLOOD ORDERA BLES Final Result Performing Organization Address City/[facility]/ZIP Co de Phone Number [facility] [address] [place] [address], [place] [phone] * (ABNORMAL) Comprehensive metabolic panel (02/22/2025 10:45 AM EDT) [facility] Sodium 137 133 - 145 mmol/L LAB CHEMISTRY METHOD 02/22/2025 1:35 PM EDT [facility] Potassium 4.3 3.5 - 5.5 mmol/L LAB CHEMISTRY METHOD 02/22/2025 1:35 PM EDT [facility] Chloride 105 96 - 110 mmol/L LAB CHEMISTRY METHOD 02/22/2025 1:35 PM EDT [facility] CO2 25 21 - 32 mmol/L LAB CHEMISTRY METHOD 02/22/2025 1:35 PM EDT [facility] Anion Gap 7 3 - 11 LAB CHEMISTRY METHOD 02/22/2025 1:35 PM EDT [facility] Glucose 267(H) 70 - 100 mg/dL LAB CHEMISTRY METHOD 02/22/2025 1:35 PM EDT [facility] BUN 6 5 - 25 mg/dL LAB CHEMISTRY METHOD 02/22/2025 1:35 PM [facility] Creatinine 0.85 0.50 - 1.10 mg/dL LAB CHEMISTRY METHOD 02/22/2025 1:35 PM [facility] eGFR 83 >=60 mL/min/1. 73m2 LAB CHEMISTRY METHOD 02/22/2025 1:35 PM [facility] Comment:Calculation based on the??Chronic Kidney Disease Epidemiology Collaboration (CKD-EPI) equation refit??without adjustment for race. BUN/Creatinine Ratio 7.1 LAB CHEMISTRY METHOD 02/22/2025 1:35 PM [facility] Calcium 8.8 8.5 - 10.5 mg/dL LAB CHEMISTRY METHOD 02/22/2025 1:35 PM [facility] AST (SGOT) 40 10 - 42 unit/L LAB CHEMISTRY METHOD 02/22/2025 1:35 PM [facility] ALT (SGPT) 55 10 - 60 unit/L LAB CHEMISTRY METHOD 02/22/2025 1:35 PM [facility] Alkaline Phosphatase 155(H) 42 - 121 unit/L LAB CHEMISTRY METHOD 02/22/2025 1:35 PM [facility] Total Protein 7.4 6.0 - 8.0 g/dL LAB CHEMISTRY METHOD 02/22/2025 1:35 PM [facility] Albumin 3.4 3.2 - 5.0 g/dL LAB CHEMISTRY METHOD 02/22/2025 1:35 PM [facility] Total Bilirubin 0.7 0.0 - 1.4 mg/dL LAB CHEMISTRY METHOD 02/22/2025 1:35 PM [facility] Blood Venous blood specimen / Unknown Venipuncture / Unknown 02/22/2025 10:45 AM EDT 02/22/2025 10:45 AM EDT Mandi Newsome MD LAB BLOOD ORDERA BLES Final Result [facility] [address] [place] [address], [place] [phone] * (ABNORMAL) POC glucose manually resulted (02/22/2025 10:36 AM EDT) Glucose POC 297(A) 70 - 100 mg/dL Blood Capillary blood specimen / Unknown 02/22/2025 10:36 AM EDT Mandi Newsome MD POINT OF CARE TEST ENTER/EDIT ORDERABLES Final Result * Debridement Diabetic Ulcer Left Pretibial (02/13/2025 11:00 AM EDT) Narrative Edgardo Luo MD - 02/13/2025 11:00 AM EDT MARY Winslow ? 02/13/2025 11:33 AM Debridement Diabetic Ulcer Left Pretibial Performed by: MARY Winslow Authorized by: MARY Winslow ??Associated wounds: Wound Diabetic Ulcer 12/05/24 Pretibial Left Consent: ??Consent obtained: ??Verbal ??Consent given by: ??Patient ??Risks discussed: Yes ?? Time out: Immediately prior to the procedure a time out was called ?? Debridement Details: ??Performed by: ??PA ??Type: surgical ?Level: subcutaneous tissue ?Pain control: ??Lidocaine 4% ??Severity of Tissue Pre Debridement: ??Fat layer exposed ??Severity of Tissue Post Debridement: ??Fat layer exposed ??Time taken: ??02/13/2025 11:11 AM ??Length (cm): ??1.4 ??Width (cm): ??1 ??Depth (cm): ??0.1 ??Area (cm^2): ??1.4 ??Time taken: ??02/13/2025 11:12 AM ??Length (cm): ??1.4 ??Width (cm): ??1 ??Depth (cm): ??0.1 ??Percent Debrided (%): ??100 ??Surface Area (cm^2): ??1.4 ??Area Debrided (cm^2): ??1.4 ??Volume (cm^3): ??0.14 ??Tissue and other material debrided: dermis, epidermis and subcutaneous tissue ?Devitalized tissue debrided: biofilm, fibrin and slough ?Instrument: ??Curette ??Amount of bleeding: none ?Hemostasis obtained with: ??Not applicable ??Procedural pain: ??0 ??Post-procedural pain: ??0 ??Response to treatment: ??Procedure was tolerated well us Bautista HERNANDEZ IN CLINIC/BEDSIDE ORDERABLE S Final Result * Debridement Diabetic Ulcer Left Pretibial (02/06/2025 11:15 AM EDT) Narrative Edgardo Luo MD - 02/06/2025 11:15 AM EDT MARY Winslow ? 02/06/2025 11:48 AM Debridement Diabetic Ulcer Left Pretibial Performed by: MARY Winslow Authorized by: MARY Winslow ??Associated wounds: Wound Diabetic Ulcer 12/05/24 Pretibial Left Consent: ??Consent obtained: ??Verbal ??Consent given by: ??Patient ??Risks discussed: Yes ?? Time out: Immediately prior to the procedure a time out was called ?? Debridement Details: ??Performed by: ??PA ??Type: surgical ?Level: subcutaneous tissue ?Pain control: ??Lidocaine 4% ??Severity of Tissue Pre Debridement: ??Fat layer exposed ??Severity of Tissue Post Debridement: ??Fat layer exposed ??Time taken: ??02/06/2025 11:26 AM ??Length (cm): ??1.9 ??Width (cm): ??1.2 ??Depth (cm): ??0.1 ??Area (cm^2): ??2.28 ??Time taken: ??02/06/2025 11:27 AM ??Length (cm): ??1.9 ??Width (cm): ??1.2 ??Depth (cm): ??0.1 ??Percent Debrided (%): ??100 ??Surface Area (cm^2): ??2.28 ??Area Debrided (cm^2): ??2.28 ??Volume (cm^3): ??0.23 ??Tissue and other material debrided: dermis, epidermis and subcutaneous tissue ?Devitalized tissue debrided: biofilm, exudate, fibrin and slough ?Instrument: ??Curette ??Amount of bleeding: none ?Hemostasis obtained with: ??Not applicable ??Procedural pain: ??0 ??Post-procedural pain: ??0 ??Response to treatment: ??Procedure was tolerated well us Bautista HERNANDEZ IN CLINIC/BEDSIDE ORDERABLE S Final Result * (ABNORMAL) Culture wound with gram stain (01/30/2025 9:45 AM EDT) Culture, Wound Methicillin-Resista nt Staphylococcus aureus(A) KERVIN 02/05/2025 10:42 AM EDT [facility] Comment: The organism value for this result has been updated. These results have been appended to the previously preliminary verified report. Edited result: Previously reported as Staphylococcus aureus on 02/01/2025 at 1025 EDT. Gram Stain Result No polymorphonuclear leukocytes, No epithelial cells, and No organisms noted 02/05/2025 10:42 AM EDT [facility] Swab Structure of left lower limb / Unknown Non-blood Collection / Unknown 01/30/2025 9:45 AM EDT 01/30/2025 4:10 PM EDT Narrative Organism Antibiotic Method Susceptibility Methicillin-Resistant Staphylococcus aureus Benzylpenicillin KERVIN >=0.5 ug/ml: Resistant Methicillin-Resistant Staphylococcus aureus Oxacillin KERVIN >=4 ug/ml: Resistant Methicillin-Resistant Staphylococcus aureus Gentamicin KERVIN <=0.5 ug/ml: Susceptible Methicillin-Resistant Staphylococcus aureus Ciprofloxacin KERVIN >=8 ug/ml: Resistant Methicillin-Resistant Staphylococcus aureus Levofloxacin KERVIN 4 ug/ml: Resistant Methicillin-Resistant Staphylococcus aureus Erythromycin KERVIN >=8 ug/ml: Resistant Methicillin-Resistant Staphylococcus aureus Clindamycin KERVIN <=0.25 ug/ml: Susceptible Methicillin-Resistant Staphylococcus aureus Linezolid KERVIN 2 ug/ml: Susceptible Methicillin-Resistant Staphylococcus aureus Vancomycin KERVIN <=0.5 ug/ml: Susceptible Methicillin-Resistant Staphylococcus aureus Tetracycline KERVIN <=1 ug/ml: Susceptible Methicillin-Resistant Staphylococcus aureus Rifampin KERVIN <=0.5 ug/ml: Susceptible Methicillin-Resistant Staphylococcus aureus Trimethoprim/Sulfamethoxazo le KERVIN >=320 ug/ml: Resistant Bautista HERNANDEZ LAB MICROBIOLOGY - GENERAL ORDERABLES Final Result [facility] [address] [place] [address], * Debridement Diabetic Ulcer Left Pretibial (01/30/2025 9:00 AM EDT) Bautista Reid PA - 01/30/2025 9:00 AM EDT MARY Winslow ? 01/30/2025 10:01 AM Debridement Diabetic Ulcer Left Pretibial Performed by: MARY Winslow Authorized by: MARY Winslow ??Associated wounds: Wound Diabetic Ulcer 12/05/24 Pretibial Left Consent: ??Consent obtained: ??Verbal ??Consent given by: ??Patient ??Risks discussed: Yes ?? Time out: Immediately prior to the procedure a time out was called ?? Debridement Details: ??Performed by: ??PA ??Type: surgical ?Level: subcutaneous tissue ?Pain control: ??Lidocaine 4% ??Severity of Tissue Pre Debridement: ??Fat layer exposed ??Severity of Tissue Post Debridement: ??Fat layer exposed ??Time taken: ??01/30/2025 9:07 AM ??Length (cm): ??1.9 ??Width (cm): ??1.4 ??Depth (cm): ??0.1 ??Area (cm^2): ??2.66 ??Time taken: ??01/30/2025 9:08 AM ??Length (cm): ??1.9 ??Width (cm): ??1.4 ??Depth (cm): ??0.1 ??Percent Debrided (%): ??100 ??Surface Area (cm^2): ??2.66 ??Area Debrided (cm^2): ??2.66 ??Volume (cm^3): ??0.27 ??Tissue and other material debrided: dermis, epidermis and subcutaneous tissue ?Devitalized tissue debrided: biofilm, necrotic debris and slough ?Instrument: ??Curette and forceps ??Amount of bleeding: small ?Hemostasis obtained with: ??Pressure ??Procedural pain: ??0 ??Post-procedural pain: ??0 ??Response to treatment: ??Procedure was tolerated well us Bautista HERNANDEZ IN CLINIC/BEDSIDE ORDERABLE S Final Result * Debridement Diabetic Ulcer Left Pretibial (01/23/2025 10:00 AM EDT) Narrative Edgardo Luo MD - 01/23/2025 10:00 AM EDT MARY Winslow ? 01/23/2025 10:30 AM Debridement Diabetic Ulcer Left Pretibial Performed by: MARY Winslow Authorized by: MARY Winslow ??Associated wounds: Wound Diabetic Ulcer 12/05/24 Pretibial Left Consent: ??Consent obtained: ??Verbal ??Consent given by: ??Patient ??Risks discussed: Yes ?? Time out: Immediately prior to the procedure a time out was called ?? Debridement Details: ??Performed by: ??PA ??Type: surgical ?Level: subcutaneous tissue ?Pain control: ??Lidocaine 4% ??Pain control administration: topical anesthesia ?Severity of Tissue Pre Debridement: ??Fat layer exposed ??Severity of Tissue Post Debridement: ??Fat layer exposed ??Time taken: ??01/23/2025 10:14 AM ??Length (cm): ??1.2 ??Width (cm): ??1.2 ??Depth (cm): ??0.1 ??Area (cm^2): ??1.44 ??Time taken: ??01/23/2025 10:15 AM ??Length (cm): ??1.2 ??Width (cm): ??1.2 ??Depth (cm): ??0.1 ??Percent Debrided (%): ??100 ??Surface Area (cm^2): ??1.44 ??Area Debrided (cm^2): ??1.44 ??Volume (cm^3): ??0.14 ??Tissue and other material debrided: dermis, epidermis and subcutaneous tissue ?Devitalized tissue debrided: biofilm, exudate, fibrin and slough ?Instrument: ??Curette ??Amount of bleeding: small ?Hemostasis obtained with: ??Pressure ??Procedural pain: ??0 ??Post-procedural pain: ??0 ??Response to treatment: ??Procedure was tolerated well us Bautista HERNANDEZ IN CLINIC/BEDSIDE ORDERABLE S Final Result * Debridement Diabetic Ulcer Left Pretibial (01/16/2025 10:00 AM EDT) Narrative Edgardo Luo MD - 01/16/2025 10:00 AM EDT MARY Winslow ? 01/16/2025 10:41 AM Debridement Diabetic Ulcer Left Pretibial Performed by: MAYR Winslow Authorized by: MARY Winslow ??Associated wounds: Wound Diabetic Ulcer 12/05/24 Pretibial Left Consent: ??Consent obtained: ??Verbal ??Consent given by: ??Patient ??Risks discussed: Yes ?? Time out: Immediately prior to the procedure a time out was called ?? Debridement Details: ??Performed by: ??PA ??Type: surgical ?Level: subcutaneous tissue ?Pain control: ??Lidocaine 4% ??Severity of Tissue Pre Debridement: ??Fat layer exposed ??Severity of Tissue Post Debridement: ??Fat layer exposed ??Time taken: ??01/16/2025 9:56 AM ??Length (cm): ??1.5 ??Width (cm): ??1.4 ??Depth (cm): ??0.1 ??Area (cm^2): ??2.1 ??Time taken: ??01/16/2025 9:57 AM ??Length (cm): ??1.5 ??Width (cm): ??1.4 ??Depth (cm): ??0.1 ??Percent Debrided (%): ??100 ??Surface Area (cm^2): ??2.1 ??Area Debrided (cm^2): ??2.1 ??Volume (cm^3): ??0.21 ??Tissue and other material debrided: dermis, epidermis and subcutaneous tissue ?Devitalized tissue debrided: biofilm, exudate, fibrin and slough ?Instrument: ??Curette ??Amount of bleeding: none ?Hemostasis obtained with: ??Not applicable ??Procedural pain: ??0 ??Post-procedural pain: ??0 ??Response to treatment: ??Procedure was tolerated well us Bautista HERNANDEZ IN CLINIC/BEDSIDE ORDERABLE S Final Result * Vascular US duplex lower extremity arteries bilateral (01/15/2025 2:32 PM EDT) Anatomical Region Laterality Modality Vascular, Abdomen Ultrasound 01/16/2025 9:01 AM EDT Impressions 01/16/2025 9:20 AM EDT Heavily calcified calf arteries. ??No significant stenosis or occlusion in the lower extremity arteries. -------- FINAL REPORT -------- Dictated By: TU ACOSTA Dictated Date: 01/16/2025 09:01 ET Assigned Physician: TU ACOSTA Reviewed and Electronically Signed By: TU ACOSTA Signed Date: 01/16/2025 09:20 ET Workstation ID: [id number] Transcribed By: Self Edit Transcribed Date: 01/16/2025 09:01 ET Narrative 01/16/2025 9:20 AM EDT PROCEDURE: VAS US DUPLEX LOWER EXT ARTERY BILAT INDICATION: Nonhealing wound, peripheral vascular disease, diabetes TECHNIQUE: 2-D and color Doppler imaging of the bilateral lower extremity arterial vasculature. COMPARISON: No priors available. FINDINGS: Right lower extremity peak systolic arterial velocities in cm/s as follows: INSPECTOR SHELLS: 81 Prox SFA: 71 Mid SFA: 71 Distal SFA: 59 Popliteus: 85 Anterior tibial: 66 Posterior tibial: 48 Dorsalis pedis: 49 Heavily calcified arteries in the lower leg is limited assessment of the calf arteries. ??Monophasic flow within some of the calf arteries most likely related to intrinsic arterial disease. Left lower extremity peak systolic arterial velocities in cm/s as follows: INSPECTOR SHELLS: 72 Prox SFA: 68 Mid SFA: 63 Distal SFA: 80 Popliteus: 110 Anterior tibial: 92 Posterior tibial: 70 Dorsalis pedis: 85 Heavily calcified arteries in the lower leg is limited assessment of the calf arteries. ??Monophasic flow within some of the calf arteries most likely related to intrinsic arterial disease. Procedure Note Tu Acosta MD - 01/16/2025 PROCEDURE: VAS US DUPLEX LOWER EXT ARTERY BILAT INDICATION: Nonhealing wound, peripheral vascular disease, diabetes TECHNIQUE: 2-D and color Doppler imaging of the bilateral lower extremityarterial vasculature. COMPARISON: No priors available. FINDINGS: Right lower extremity peak systolic arterial velocities in cm/s asfollows: INSPECTOR SHELLS: 81 Prox SFA: 71 Mid SFA: 71 Distal SFA: 59 Popliteus: 85 Anterior tibial: 66 Posterior tibial: 48 Dorsalis pedis: 49 Heavily calcified arteries in the lower leg is limited assessment of thecalf arteries. Monophasic flow within some of the calf arteries mostlikely related to intrinsic arterial disease. Left lower extremity peak systolic arterial velocities in cm/s asfollows: INSPECTOR SHELLS: 72 Prox SFA: 68 Mid SFA: 63 Distal SFA: 80 Popliteus: 110 Anterior tibial: 92 Posterior tibial: 70 Dorsalis pedis: 85 Heavily calcified arteries in the lower leg is limited assessment of thecalf arteries. Monophasic flow within some of the calf arteries mostlikely related to intrinsic arterial disease. IMPRESSION: Heavily calcified calf arteries. No significant stenosis or occlusion inthe lower extremity arteries. -------- FINAL REPORT -------- Dictated By: TU ACOSTA Dictated Date: 01/16/2025 09:01 ET Assigned Physician: TU ACOSTA Reviewed and Electronically Signed By: TU ACOSTA Signed Date: 01/16/2025 09:20 ET Workstation ID: [id number] Transcribed By: Self Edit Transcribed Date: 01/16/2025 09:01 ET us Bautista HERNANDEZ CV VASCULAR PROCEDURES Jannette kraft Result * Debridement Diabetic Ulcer Left Pretibial (01/02/2025 8:00 AM EST) Narrative Edgardo Luo MD - 01/02/2025 8:00 AM EST MARY Winslow ? 01/02/2025 ??9:00 AM Debridement Diabetic Ulcer Left Pretibial Performed by: MARY Winslow Authorized by: MARY Winslow ??Associated wounds: Wound Diabetic Ulcer 12/05/24 Pretibial Left Consent: ??Consent obtained: ??Verbal ??Consent given by: ??Patient ??Risks discussed: Yes ?? Time out: Immediately prior to the procedure a time out was called ?? Debridement Details: ??Performed by: ??PA ??Type: surgical ?Level: subcutaneous tissue ?Pain control: ??Lidocaine 4% ??Severity of Tissue Pre Debridement: ??Fat layer exposed ??Severity of Tissue Post Debridement: ??Fat layer exposed ??Time taken: ??01/02/2025 8:29 AM ??Length (cm): ??1.6 ??Width (cm): ??1.4 ??Depth (cm): ??0.1 ??Area (cm^2): ??2.24 ??Time taken: ??01/02/2025 8:30 AM ??Length (cm): ??1.6 ??Width (cm): ??1.4 ??Depth (cm): ??0.1 ??Percent Debrided (%): ??100 ??Surface Area (cm^2): ??2.24 ??Area Debrided (cm^2): ??2.24 ??Volume (cm^3): ??0.22 ??Tissue and other material debrided: dermis, epidermis and subcutaneous tissue ?Devitalized tissue debrided: biofilm and slough ?Instrument: ??Curette ??Amount of bleeding: small ?Hemostasis obtained with: ??Pressure ??Procedural pain: ??0 ??Post-procedural pain: ??0 ??Response to treatment: ??Procedure was tolerated well us Bautista HERNANDEZ IN CLINIC/BEDSIDE ORDERABLE S Final Result * Debridement Diabetic Ulcer Left Pretibial (12/27/2024 10:15 AM EST) Narrative Edgardo Luo MD - 12/27/2024 10:15 AM EST MARY Winslow ? 12/27/2024 10:41 AM Debridement Diabetic Ulcer Left Pretibial Performed by: MARY Winslow Authorized by: MARY Winslow ??Associated wounds: Wound Diabetic Ulcer 12/05/24 Pretibial Left Consent: ??Consent obtained: ??Verbal ??Consent given by: ??Patient ??Risks discussed: Yes ?? Time out: Immediately prior to the procedure a time out was called ?? Debridement Details: ??Performed by: ??PA ??Type: surgical ?Level: subcutaneous tissue ?Pain control: ??Lidocaine 4% ??Severity of Tissue Pre Debridement: ??Fat layer exposed ??Severity of Tissue Post Debridement: ??Fat layer exposed ??Time taken: ??12/27/2024 10:22 AM ??Length (cm): ??1.4 ??Width (cm): ??1.4 ??Depth (cm): ??0.1 ??Area (cm^2): ??1.96 ??Time taken: ??12/27/2024 10:23 AM ??Length (cm): ??1.4 ??Width (cm): ??1.4 ??Depth (cm): ??0.1 ??Percent Debrided (%): ??100 ??Surface Area (cm^2): ??1.96 ??Area Debrided (cm^2): ??1.96 ??Volume (cm^3): ??0.2 ??Tissue and other material debrided: dermis, epidermis and subcutaneous tissue ?Devitalized tissue debrided: biofilm, exudate, fibrin and slough ?Instrument: ??Curette ??Amount of bleeding: none ?Hemostasis obtained with: ??Not applicable ??Procedural pain: ??0 ??Post-procedural pain: ??0 ??Response to treatment: ??Procedure was tolerated well us Bautista HERNANDEZ IN CLINIC/BEDSIDE ORDERABLE S Final Result * Pap smear (05/22/2021) 05/22/2021 Narrative HISTORICAL TESTING LAB RESULTING AGENCY - 05/26/2021 12:40 PM EDT [id number] THINPREP PAP, IMAGED: NEGATIVE FOR SQUAMOUS INTRAEPITHELIAL LESION AND MALIGNANCY . CLAUDE AMBROSE(ASCP) (CASE ELECTRONICALLY SIGNED 05 26 2021) RESULT OF APTIMA HIGH RISK HPV ASSAY: HIGH RISK HPV: ??NEGATIVE (SEROTYPES 16,18,31,33,35,39,45,51,52,56,58,59,66,68) COMPLETED ON 2021-05-26 ADEQUACY: SATISFACTORY ENDOCERVICAL/TRANSFORMATION ZONE COMPONENT PRESENT. SOURCE: THINPREP PAP HPV ANY DX: ??REFLEX 16 AND 18, CERVICAL, IMAGED CLINICAL INFORMATION: HPV ANY DIAGNOSIS. PAP HX NEG [Z12.4, Z01.419] Millie Ramirez [facility] CYTOLOGY ORDERABLES Final R esult HISTORICAL TESTING LAB RESULTING AGENCY from Last 3 Months or Most Recently Relevant to Health Maintenance Additional Health Concerns Active Problems Noted Date Diagnosed Date Impaired Tissue 12/05/2024 Education needed on impact of smoking on wound 0 12/05/2024 Education needed related to ulceration/compromised skin integrity. 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 Health Care Decision (hx) 04/21/2021 AD LAM DIRECTIVE Health Care Decision (hx) 04/21/2021 AD LAM DIRECTIVE Health Care Decision (hx) 04/21/2021 AD LAM DIRECTIVE Health Care Decision (hx) 04/21/2021 AD LAM DIRECTIVE Health Care Decision (hx) 04/21/2021 AD LAM DIRECTIVE Health Care Decision (hx) 04/21/2021 AD LAM DIRECTIVE Health Care Decision (hx) 04/21/2021 AD LAM DIRECTIVE Health Care Decision (hx) 04/21/2021 AD LAM DIRECTIVE Health Care Decision (hx) 04/21/2021 AD LAM DIRECTIVE Health Care Decision (hx) 04/21/2021 AD LAM DIRECTIVE Health Care Decision (hx) 04/21/2021 AD LAM DIRECTIVE Health Care Decision (hx) 04/21/2021 AD LAM DIRECTIVE Health Care Decision (hx) 04/21/2021 AD LAM DIRECTIVE Health Care Decision (hx) 04/21/2021 AD LAM DIRECTIVE Health Care Decision (hx) 04/21/2021 AD LAM DIRECTIVE Health Care Decision (hx) 04/21/2021 AD LAM DIRECTIVE Health Care Decision (hx) 04/21/2021 AD LAM DIRECTIVE Health Care Decision (hx) 04/21/2021 AD LAM DIRECTIVE Health Care Decision (hx) 04/21/2021 AD LAM DIRECTIVE Health Care Decision (hx) 04/21/2021 AD LAM DIRECTIVE Health Care Decision (hx) 04/21/2021 AD LAM DIRECTIVE Health Care Decision (hx) 04/21/2021 AD LAM DIRECTIVE Health Care Decision (hx) 04/21/2021 AD LAM DIRECTIVE Care Teams Treating And Pumping Supervisor Relationship Specialty Start Date End Date Mandi Newsome MD [address] [place] [address] PCP - General Internal Medicine 05/18/22
--- OUTSIDE RECORDS SUMMARY | 2025-03-20 12:21 | XMS_ITS | Encounter Summary ---
Author Organization [facility] Address [address] [place] [address] Care Team Providers Care Headwaiter/Headwaitress Name Role Phone Mandi Newsome MD Primary [...] for your loved ones. For example, director of child welfare services or elderly care for an older adult? [...] two doses of Feraheme. Patient is primarily [place] speaking but, also speaks good Slovak. Oriented to unit and unit policies/procedures upon [...] Description 03/21/2025 9:00 AM EDT Clinical Support [facility] [address] [place] [address] 05/18/2025 10:00 AM EDT Office Visit Adult Medicine [address] [phone] Jennifer Gray PA [address] [place] [address] 05/25/2025 10:45 AM EDT Office Visit [address] [phone] Jennifer Gray PA [address] [place] [address] documented as of this encounter Visit Diagnoses Diagnosis Other iron deficiency anemias documented in this encounter Additional Health Concerns Infection Onset Date Last Indicated Resolved Time MRSA 01/30/2025 01/30/2025 documented as of this encounter Care Teams Headwaiter/Headwaitress Relationship Specialty Start Date End Date Mandi Newsome MD [address] [place], [place] PCP - General Internal Medicine 05/18/22 documented as of this encounter
--- OUTSIDE RECORDS SUMMARY | 2025-03-20 12:21 | XMS_ITS | Clinical Summary ---
Author Organization [facility] Address [address] [place] [address] Care Team Providers Care Nephrology Nurse Name Role Phone Mandi Newsome MD Primary Care Pr ovider Allergies Active Allergy Reactions Criticality Noted Date Comments Penicillins Hives 08/04/2024 Medications Medication Sig Dispensed Refills Start Date End Date Status aspirin EC 81 MG tablet Take 1 tablet (81 mg total) by mouth daily. 0 Active pregabalin (LYRICA) 75 MG capsule Take 1 capsule (75 mg total) by mouth 2 (two) times a day. 0 Active insulin glargine (LANTUS) injection 100 units/mL Inject 10 Units under the skin every night at bedtime. 0 Active omeprazole (PriLOSEC) 20 MG capsule Take 1 capsule (20 mg total) by mouth daily. 0 Active glipiZIDE (GLUCOTROL) tablet 10 mg Take 1 tablet (10 mg total) by mouth 2 (two) times a day before breakfast and dinner. 0 Active furosemide (LASIX) 20 MG tablet Take 1 tablet (20 mg total) by mouth 2 (two) times a day. 0 Active carvedilol (COREG) 6.25 MG tablet Take by mouth 2 (two) times a day with meals. 0 Active atorvastatin (LIPITOR) tablet 80 mg Take 1 tablet (80 mg total) by mouth daily. 0 Active sacubitril-valsartan (Entresto) 24-26 MG per tablet Take 1 tablet by mouth 2 (two) times a day. 0 Active cloNIDine (CATAPRES) tablet 0.1 mg Take 1 tablet (0.1 mg total) by mouth 2 (two) times a day. 0 Active atomoxetine (STRATTERA) 40 MG capsule Take 1 capsule (40 mg total) by mouth daily. 0 Active mirtazapine (REMERON) 30 MG tablet Take 0.5 tablets (15 mg total) by mouth every night at bedtime. 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 Family History Medical History Relation Name Comments Cardiomyopathy Maternal Aunt Cardiomyopathy Maternal Grandmother Diabetes Maternal Grandmother Hypertension Maternal Grandmother Relation Name Status Comments Maternal Aunt Maternal Grandmother Social History Tobacco Use Types Packs/Day Years Used Date Smoking Tobacco: Never Smokeless Tobacco: Never Alcohol Use Standard Drinks/Week Comments Not Currently 0 (1 standard drink = 0.6 oz pur e alcohol) Sex and Gender Information Value Date Recorded Sex Assigned at Female 08/12/2024 9:07 AM EDT Gender Identity Not on file Sexual Orientation Not on file Job Start Date Occupation Industry Not on file Not on file Not on file Last Filed Vital Signs Vital Sign Reading Time Taken Comments Blood Pressure 111/57 08/22/2024 11:14 AM EDT Pulse 84 08/22/2024 11:14 AM EDT Temperature 36.3 ??C (97.4 ??F) 08/22/2024 11:14 AM E DT Respiratory Rate 16 08/22/2024 11:14 AM EDT Oxygen Saturation 98% 08/22/2024 11:14 AM EDT Inhaled Oxygen Concentration - - Weight 90.3 kg (199 lb) 08/04/2024 11:11 AM EDT Height 160 cm (5' 3 ) 08/04/2024 11:11 AM EDT Body Mass Index 35.25 08/04/2024 11:11 AM EDT Plan of Treatment Health Maintenance Due Date Last Done Comments Hepatitis B Vaccines (1 of 3 - 3-dose series) 1973 Hepatitis C Screening 1973 COVID-19 Vaccine (#1) 03/22/1974 Depression Screening 1985 BMI Counseling 1991 Preventative Health Evaluation 1991 Cervical Cancer Screening (Pap Smear) 1994 Colon Cancer Screening (Colonoscopy) 2018 Breast Cancer Screening (Mammogram) 2023 Shingrix-Zoster Vaccine (2 of 2) 03/24/2024 01/28/2024 Influenza Vaccine (#1) 2024 3, 09/14/2022, 07/22/2021, Additional history exists DTap / Tdap / Td (4 - Td or Tdap) 01/27/2034 01/28/2024, 03/09/2022, 08/22/2009 Pneumococcal Vaccine Aged Out 09/01/2012 No long er eligible based on patient's age to complete this topic RSV Ped < 20 months Aged Out No longe r eligible based on patient's age to complete this topic Care Teams Nephrology Nurse Relationship Specialty Start Date End Date Mandi Newsome MD [address] [place] [address] PCP - General 06/16/24
--- OUTSIDE RECORDS SUMMARY | 2025-03-20 12:21 | XMS_ITS ---
Care Plan Created on: March 20, 2025 Nika Rodriguez : 1975 Sex: Female Author Organization [facility] Address [address] [facility] [place], [place] [address] Phone Care Team Providers Care Outdoor Adventure Guides Name Role Phone Mandi Newsome MD Primary Care Pr ovider Active Problems Problem Noted Date Diagnosed Date Chronic venous hypertension (idiopathic) with ulcer of left lower extremity (CODE) ([facility] V24, [facility] V28) 03/13/2025 Non-pressure chronic ulcer o f 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 ([facility] V24, [facility] V28) 03/13/2025 Type 2 diabetes mellitus wit h other skin ulcer (CODE) ([facility] V24, [facility] V28) 12/05/2024 Non-pressure chronic ulcer o f left lower leg with fat layer exposed ([facility] V24, [facility] V28) 12/05/2024 Weakness 09/13/2024 Overview (09/13/2024): Patient [...] asso ciated with type 2 diabetes mellitus [place] [place] [facility] V28) 06/05/2024 Assessment & Plan (02/22/2025 11:58 AM EDT): Interested in podiatry evaluation for diabetic footcare. Continue pregabalin Orders: Ambulatory referral to Podiatry; Future pregabalin (LYRICA) 75 mg capsule; Take 1 capsule (75 mg total) by mouth 3 (three) times a day. Max Daily Amount: 225 mg Heart failure with improved ejection fraction (HFimpEF) [place] [place] [facility] V28) 06/05/2024 Assessment & Plan (09/13/2024 1:47 PM EST): On medical management the patient has good control of the previous ischemic cardiomyopathy. Peripheral artery disease ([facility] V24) 06/05/20 Assessment & Plan (02/22/2025 11:58 AM EDT): She has leg claudication. Not followed by vascular surgery and is referred Orders: Ambulatory referral to Vascular Surgery; Future Cardiomyopathy [place] [place] [facility] V28) 2022 Overview (08/19/2024): Last Assessment & Plan: Patient with perioperative congestive heart failure with a marked improvement in overall left ventricular systolic function near normal on most recent echocardiography secondary to both coronary intervention and medical management Urinary incontinence 05/14/2023 Proliferative diabetic retin opathy [place] [place] [facility] V28) 09/15/2022 Overview (08/19/2024): Dr. Judson Escobar CAD (coronary artery disease) 07/22/2021 Overview (08/19/2024): [...] CK; Future PAF (paroxysmal atrial fibri llation) ([facility] V24, [facility] V28) 07/22/2021 Overview (08/19/2024): Last Assessment & [...] (diabetes mellitus), type 2 with neurological complications ([facility] V24, [facility] V28) 10/03/2010 Assessment & Plan (02/22/2025 11:58 AM EDT): Her last A1c was 12.6 in June. Her diabetes remains poorly controlled. Currently not following with endocrinology. She does not want to continue coming to [place] for her endocrinology care. She is referred to [facility] per her preference-Dr. Madrigal Will update [...] (diabetes mellitus), type 2 with renal complications ([facility] V24, [facility] V28) 10/02/2010 Assessment & Plan (02/22/2025 [...] left lower leg with fat layer exposed ([facility] V24, 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 V24, [facility] V28) 09/15/2022 02/22/2025 Additional Health Concerns Active Problems Noted Date Diagnosed Date Impaired Tissue 12/05/2024 Education needed on impact of smoking on wound 0 12/05/2024 Education needed related to ulceration/compromised skin integrity. 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 01/30/2025 Goals Goal Patient Goal Type Associated Problems [...] by week 8 Care Plan Impaired Tissue Bibiana Alonso RN Wound volume breakdown reduced by X% by week 12 Care Plan Impaired Tissue Bibiana Alonso RN Quit using tobacco (cigarettes, smokeless, etc) Care Plan Education needed on impact of smoking on wound Bibiana Alonso RN Reduce tobacco use (cigarettes, smokeless, etc) Care Plan Education needed on impact of smoking on wound No Bibiana Bryant RN Decrease Wound Volume by X% by date (in notes) Care Plan Education needed on impact of smoking on wound Bibiana Alonso RN Patient and Caregiver Understand Wound Care Education Care Plan Education needed related to ulceration/compr omised skin integrity. Bibiana Alonso RN Interventions Care Plan Interventions Intervention Entry Date Outcome Provide caregiver with wound care procedure information 12/05/2024 Educate caregiver on proper wound care procedures 12/05/2024 Give provider list of wound care supplies 12/05/2024 Refill wound care supplies 12/05/2024 Send Wound Care Supplies 12/05/2024 Give provider list of wound care supplies 12/05/2024 Refill wound care supplies 12/05/2024 Send Wound Care Supplies 12/05/2024 Provide caregiver with wound care procedure information 12/05/2024 Educate caregiver on proper wound care procedures 12/05/2024 Document patient eligibility for HBO 12/05/2024 Assess patient for HBO treatment 12/05/2024 Record wound depth 12/05/2024 Record total wound area 12/05/2024 Measure wound progress 12/05/2024 Create an action plan identifying patient strengths and supports 12/05/2024 Establish quit date with patient 12/05/2024 Discuss prior cessation attempts 12/05/2024 Discuss preferred method of cessation and plan 12/05/2024 Discuss barriers to smoking cessation 12/05/2024 Discuss smoking status with patient 12/05/2024 Create an action plan identifying patient strengths and supports 12/05/2024 Establish quit date with patient 12/05/2024 Discuss prior cessation attempts 12/05/2024 Discuss preferred method of cessation and plan 12/05/2024 Discuss barriers to smoking cessation 12/05/2024 Discuss smoking status with patient 12/05/2024 Provide caregiver with wound care procedure information 12/05/2024 Educate caregiver on proper wound care procedures 12/05/2024 Document patient eligibility for HBO 12/05/2024 Assess patient for HBO treatment 12/05/2024 Record wound depth 12/05/2024 Record total wound area 12/05/2024 Measure wound progress 12/05/2024 Provide caregiver with wound care procedure information 12/05/2024 Educate caregiver on proper wound care procedures 12/05/2024 Document patient eligibility for HBO 12/05/2024 Assess patient for HBO treatment 12/05/2024 Record wound depth 12/05/2024 Record total wound area 12/05/2024 Measure wound progress 12/05/2024 Provide caregiver with wound care procedure information 12/05/2024 Educate caregiver on proper wound care procedures 12/05/2024 Document patient eligibility for HBO 12/05/2024 Assess patient for HBO treatment 12/05/2024 Record wound depth 12/05/2024 Record total wound area 12/05/2024 Measure wound progress 12/05/2024 Provide caregiver with wound care procedure information 12/05/2024 Educate caregiver on proper wound care procedures 12/05/2024 Give provider list of wound care supplies 12/05/2024 Refill wound care supplies 12/05/2024 Give provider list of wound care supplies 12/05/2024 Refill wound care supplies 12/05/2024 Provide caregiver with wound care procedure information 12/05/2024 Educate caregiver on proper wound care procedures 12/05/2024 Record wound depth 12/05/2024 Record total wound area 12/05/2024 Measure wound progress 12/05/2024 Related Goals and Interventions Goal Associated Intervent ions Decrease Wound Volume by X% by date (in notes) Give provider list of wound care supplie s; Refill wound care supplies; Provide caregiver with wound care procedure information; Educate caregiver on proper wound care procedures; Record wound depth; Record total wound area; Measure wound progress Patient and Caregiver Unders tand Wound Care Education Provide caregiver with wound care proced ure information; Educate caregiver on proper wound care procedures; Give provider list of wound care supplies; Refill wound care supplies Wound volume breakdown reduc ed by X% by week 4 Provide caregiver with wound care proced ure information; Educate caregiver on proper wound care procedures; Document patient eligibility for HBO; Assess patient for HBO treatment; Record wound depth; Record total wound area; Measure wound progress Wound volume breakdown reduc ed by X% by week 8 Provide caregiver with wound care proced ure information; Educate caregiver on proper wound care procedures; Document patient eligibility for HBO; Assess patient for HBO treatment; Record wound depth; Record total wound area; Measure wound progress Wound volume breakdown reduc ed by X% by week 12 Provide caregiver with wound care proced ure information; Educate caregiver on proper wound care procedures; Document patient eligibility for HBO; Assess patient for HBO treatment; Record wound depth; Record total wound area; Measure wound progress Quit using tobacco (cigarett es, smokeless, etc) Create an action plan identifying patien t strengths and supports; Establish quit date with patient; Discuss prior cessation attempts; Discuss preferred method of cessation and plan; Discuss barriers to smoking cessation; Discuss smoking status with patient Reduce tobacco use (cigarett es, smokeless, etc) Create an action plan identifying patien t strengths and supports; Establish quit date with patient; Discuss prior cessation attempts; Discuss preferred method of cessation and plan; Discuss barriers to smoking cessation; Discuss smoking status with patient Decrease Wound Volume by X% by date (in notes) Give provider list of wound care supplie s; Refill wound care supplies; Send Wound Care Supplies; Provide caregiver with wound care procedure information; Educate caregiver on proper wound care procedures; Document patient eligibility for HBO; Assess patient for HBO treatment; Record wound depth; Record total wound area; Measure wound progress Patient and Caregiver Unders tand Wound Care Education Provide caregiver with wound care proced ure information; Educate caregiver on proper wound care procedures; Give provider list of wound care supplies; Refill wound care supplies; Send Wound Care Supplies
[2025-03-20 12:48] LABS: Glucose, Whole Blood 427 mg/dL (60-115)
[2025-03-21 08:24] LABS: Glucose, Whole Blood 290 mg/dL (60-115)
== END 2025-03-20 13:29 | disposition home or self-care (01) ==
LOC: HO.ENCR 11:03
PROVIDERS: PCP Family Medicine; Visit Provider Nurse Practitioner Adult Health
DX: E11.9 Type 2 diabetes mellitus without complications (principal)
CPT/HCPCS: 99214; G2211

== ENCOUNTER → 2025-03-20 11:02 | Outpatient (BNVA) | payer OTHER, SELFPAY | PROVIDERS: PCP Family Medicine; Visit Provider Nurse Practitioner Adult Health | DX: E11.9 Type 2 diabetes mellitus without complications (principal); Z79.4 Long term (current) use of insulin; Z79.899 Other long term (current) drug therapy | CPT/HCPCS: 81002; 82947; 96372; 99212; J1815 ==

== ENCOUNTER 2025-03-23 11:36 | Outpatient (AMB) | payer OTHER, SELFPAY ==
--- NOTE | 2025-03-23 08:54 | A.OFFVIS_ITS ---
Vital Signs 03/23/25 11:41 Height 5 ft 3 in Weight 200 lb 9.93 oz BMI 35.5 BP 138/70 Blood Pressure Location Rt brachial Position Sitting Pulse 102 H Pulse Source Pulse Oximeter Pulse Oximetry (%) 98 Oxygen Delivery Method Room Air Intake Visit Reasons: T2DM Intake Note: NEW Patient presents today to established treatment for Type 2 Diabetes Mellitus: Last Diabetic eye exam was on: DUE Last Podiatry exam was on: Patient does not see a Invasive Cardiovascular Technologist Most recent HbA1c: >14.8%, 02/22/2025 Referral Notes Random Glucose- 151 mg/dL, Today Vibrator Equipment Tester Required: No Accompanied by: Self / Same As Patient Allergies Penicillins (PCN) Allergy (Verified 03/20/25 11:26) Hives HPI Comments Details: 49 YO female who is seen in follow up for T2DM. She was seen as a consult earlier this week with the an elevated glucose to 479. She declined referral to ER by 911 and we treated her with 10 units of insulin. Glucose dropped to 290 several hours later and she was sent home with a prescription for basal bolus insulin. Her most recent A1c was 12.6% 06/24/2025. She was previously followed by endocrinology in another practice but had not been seen for awhile. At the time of PCP referral 1 month ago she had run out of her medications. Initially diagnosed with T2DM: Trulicity caused stomach pain Metformin: was ineffective no side effects that she can recall current medication: Lantus 20 units at HS NovoLog 6 units t.i.d. trys to eat 3 times per day Farxiga 10 mg Januvia 100 mg She does not test her sugars.Her last home glucose reading a month ago was in the high 200's. Reports low sugars none freestyle ramakrishna ordered for patient Most recent A1C Greater than 14% 2024 Family history of T2DM in mother and father Has retinopathy Has eyes checked yearly, last eye exam was seen over past year and had f/u in one year Has neuropathy on Lyrica, symptoms tingling, burning last foot exam today needs referral for podiatry Has nephropathy, on ARB 09/2023 eGFR>60 Has HLD, on statin. Has CAD. History of non STEMI status post CABG history of AFib sen regularly Followed by vascular surgery in the past for diabetic foot ulcer and currently followed by wound center [facility] has appt tomorrow ulcer is improving per patient Diet: Had lap band surgery 2002 and is eating pureed food does not have top teeth trys to eat three balanced meals daily she declines consult for bariatric surgeon Weight:stable weight for several months weight before lap band was 155 No recent diabetes education. [facility] Medical History Mixed hyperlipidemia Mood disorder HFrEF (heart failure with reduced ejection fraction) Non-insulin dependent type 2 diabetes mellitus Surgical History (Updated 03/20/25 @ 11:26 by MARISOL Ramos) Hx of heart surgery Family History (Updated 03/20/25 @ 11:29 by MARISOL Ramos) Father Diabetes mellitus HTN (hypertension) Acute respiratory failure with hypoxia Mother Diabetes mellitus Social History Household Members: Children Housing: Apartment Do you presently have 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 or other home services: Yes (BEHAVIORIST) Patient Tobacco Use Status: Never used Tobacco Advance Directives Date on File: 08/18/23 service: No Physical Exam Vital Signs: Last Vital Signs Pulse 102 H 03/23/25 11:41 BP 138/70 03/23/25 11:41 Pulse Ox 98 03/23/25 11:41 Oxygen Delivery Method Room Air 03/23/25 11:41 BMI result Body Mass Index 35.5 Const Other: Absence of Cushingoid features. Absence of acromegalic features. Neck exam reveals nl size thyroid about 15 gms. No thyroid nodules palpable. Heart S1 S2, Reg R/R. No M/R G. Skin exam reveals absence of vitiligo or acanthosis nigrica ns. No edema Results Reviewed Results Reviewed: Laboratory Last Values Glucose (Clinic) 151 mg/dL (60-115) H 03/23/25 11:44 Assessment & Plan Assessment & Plan (1) Hyperglycemia due to diabetes mellitus: Code(s): E11.65 - Type 2 diabetes mellitus with hyperglycemia Category: Medical Plan: 49-year-old diabetic with poorly controlled diabetes recently started on MDI. She is also on Farxiga and Januvia. She has not been testing her sugars. Her glucose in the office today is 151. This is down from substantial elevation last week. A freestyle Ramakrishna 3 was ordered for the patient. She will follow up with Tarsha MARQUES. Medications: Discontinued doxycycline hyclate Discontinued Reason: No Longer Medically Relevant 100 mg PO BID 8 days 16 tabs 0RF cephalexin Discontinued Reason: No Longer Medically Relevant 500 mg PO QID 7 days 28 caps 0RF doxycycline hyclate Discontinued Reason: No Longer Medically Relevant 100 mg PO BID 7 days 14 caps 0RF Coding Level of Care Code Est Pt Level 4 (51241) Complex EM visit Add On G2211 Diagnoses Hyperglycemia due to diabetes mellitus E11.65 Time Spent (min) 30 Comment Time spent reviewing labs/provider notes, face to face, chart doc
--- OUTSIDE RECORDS SUMMARY | 2025-03-23 11:38 | XMS_ITS | Encounter Summary ---
Author Organization [facility] Address [address] [place] [address] Care Team Providers Care Plant Reliability Engineer Name Role Phone Mandi Newsome MD Primary Care Pr ovid Encounter Details Date Type Department Care Team ([facility] st Contact Info) Description 03/20/2025 Telephone Adult Medicine [facility] [address] [place] [address] Mandi Newsome MD [address] [place] [address] Social History Tobacco Use Types Packs/Day Years [...] on file documented as of this encounter Progress Notes * Lien Davies RN - 03/20/2025 5:29 PM EDT Called and spoke with pt advised of message from pcp * Mandi Newsome MD - 03/20/2025 5:18 PM EDT She can discuss this with the tax associate since they are managing her diabetes, thank you documented in this encounter Plan of Treatment Upcoming Encounters Date Type Department Care Team (Late st Contact Info) Description 03/28/2025 11:30 AM EDT Clinical Support [facility] [address] [place] [address] 05/18/2025 10:00 AM EDT Office Visit Adult Medicine [address] [phone] Jennifer Gray PA [address] [place] [address] 05/25/2025 10:45 AM EDT Office Visit Adult Medicine [address] [phone] Jennifer Gray PA [address] [place] [address] 09/14/2025 11:10 AM EST Office Visit [facility] [address] [place] [address] Dr Padgett [address] [place] [address] Haydee Cates NP [address] [place] [address] Dr Avila [address] [place] [address] documented as of this encounter Goals Goal Patient Goal Type Associated Problems Recent Progress Patient-Stated? Author Decrease Wound Volume by X% by date (in notes) Care Plan Impaired Tissue On track( 9:25 AM EDT) Bibiana Alonso RN Patient and Caregiver Understand Wound Care Education Care Plan Impaired Tissue On track( 025 9:25 AM EDT) No Bibiana Bryant hatchery attendant volume breakdown reduced by X% by week 4 Care Plan Impaired Tissue No Siriat, Bibiana E, hatchery attendant volume breakdown reduced by X% by week [...] of smoking on wound Bibiana Alonso RN Decrease Wound Volume by X% by date (in notes) Care Plan Education needed on impact of smoking on wound Bibiana Alonso RN Patient and Caregiver Understand Wound Care Education Care Plan Education needed related to ulceration/compr omised skin integrity. No Bibiana Bryant RN documented as of this encounter Visit Diagnoses Not on filedocumented in this encounter Additional Health Concerns Active Problems Noted Date Diagnosed Date Impaired Tissue 12/05/2024 Education needed on impact of smoking on wound 0 12/05/2024 Education needed related to ulceration/compromised skin integrity. 12/05/2024 Infection Onset Date Last Indicated Resolved Time MRSA 01/30/2025 01/30/2025 Assessment Noted Time PHQ-9 Depression Total Score: 2 12/05/19 25 12:48 PM EST documented as of this encounter Care Teams Plant Reliability Engineer Relationship Specialty Start Date End Date Mandi Newsome MD [address] [place] [address] PCP - General Internal Medicine 05/18/22 documented as of this encounter
[2025-03-23 11:41] VITALS: BP 138/70; PULSE 102; O2SAT 98; BMI 35.5
[2025-03-23 11:48] LABS: Glucose, Whole Blood 151 mg/dL (60-115)
== END 2025-03-23 12:04 | disposition home or self-care (01) ==
LOC: HO.ENCR 11:36
PROVIDERS: PCP Family Medicine; Visit Provider Nurse Practitioner Adult Health
DX: E11.65 Type 2 diabetes mellitus with hyperglycemia (principal)
CPT/HCPCS: 99214; G2211

== ENCOUNTER → 2025-03-23 11:36 | Outpatient (BNVA) | payer OTHER, SELFPAY | PROVIDERS: PCP Family Medicine; Visit Provider Nurse Practitioner Adult Health | DX: E11.65 Type 2 diabetes mellitus with hyperglycemia (principal); E11.9 Type 2 diabetes mellitus without complications; Z79.4 Long term (current) use of insulin | CPT/HCPCS: 82947; 99212 ==

== ENCOUNTER 2025-04-17 14:46 | Outpatient (AMB) | payer OTHER, SELFPAY ==
--- NOTE | 2025-04-17 15:49 | MHC.AMDMED ---
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 Required: No Accompanied by: Daughter Allergies Penicillins (PCN) Allergy (Verified 03/20/25 11:26) [facility] Comprehensive Diabetes Asmnt Most Recent Diabetes Results: Creatinine, (0.5-1.4) 0.93 mg/dL 09/22/23 BUN, (9-16) 9 mg/dL 09/22/23 Sodium, (135-145) 138 mmol/L 09/22/23 Potassium, (3.3-5.1) 4.4 mmol/L 09/22/23 Chloride, (96-108) 107 mmol/L 09/22/23 Carbon Dioxide, (22-29) 22 mmol/L 09/22/23 Calcium, (8.4-10.2) 9.3 mg/dL 09/22/23 AST, (5-31) 14 U/L 08/17/23 ALT, (0-31) 11 U/L 08/17/23 Total Protein, (6.5-8.0) 7.6 g/dL 08/17/23 Albumin, (3.5-5.0) 3.4 g/dL L 08/17/23 [facility] Medical History Mixed hyperlipidemia Mood disorder HFrEF (heart failure with reduced ejection fraction) Non-insulin dependent type 2 diabetes mellitus Surgical History (Updated 03/20/25 @ 11:26 by MARISOL Ramos) Hx of heart surgery Family History (Updated 03/20/25 @ 11:29 by MARISOL Ramos) Father Diabetes mellitus HTN (hypertension) Acute respiratory failure with hypoxia Mother Diabetes mellitus Social History Household Members: Children Housing: Apartment Do you presently have 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 or other home services: Yes (PERIANESTHESIA NURSE) Patient Tobacco Use Status: Never used Tobacco Advance Directives Date on File: 08/18/23 service: No Assessment & Plan Assessment & Plan (1) Non-insulin dependent type 2 diabetes mellitus: Code(s): E11.9 - Type 2 diabetes mellitus without complications Plan: Diabetes self-management education and support participation record Assessment/scale: 1= needs instructed? 2= needs review? 3= comprehend keep point? 4= demonstrates understanding/ competent? NC= Not Covered Topics Learning Objective: Initial visit Initial or post srvc Initial or post srvc Initial or post srvc Initial or post srvc Initial or post srvc Post srvc Comments Pre Edu-assessment/plan Outcome or reassess Outcome or reassess Outcome or reassess Outcome or reassess Outcome or reassess Outcome or reassess Diabetes pathophysiology 1 Healthy eating 1 Being active 1 Taking medication 1 Monitoring glucose 2 Acute complication 1 Chronic complicated 1 Lifestyle and healthy coping 1 Diabetes distress in support 1 ?Diabetes pathophysiology: ?Defined diabetes med identify own type of diabetes; list 3 options for treating diabetes Healthy eating: ?Described effect of type, amount and ?timing of food on blood glucose; list 3 methods for planning meal Being active: ?State effect of exercise on blood glucose level Taking medication: ?State effect of diabetes medications on diabetes; name diabetes medications taking, action and side effects Monitoring glucose: ?Identify recommended blood glucose targets and personal target Acute complication: ?List symptoms and treatment of hyper and hypoglycemia, DKA, sick day guidelines and guidelines for severe weather or situations of crisis and diabetes supply manage Chronic complication: ?To find the relationship of blood glucose levels to long-term complications of diabetes in screening and preventative measures Lifestyle and healthy coping: ?Described lifestyle and healthy coping strategies to rule out diabetes self-management Diabetes to stress and support: ?Recognize Diabetes to stress and be able to identified support options Learning objectives: The patient was provided with verbal and written education on the following topics as outlined below. The patient met all learning objectives and was able to verbalize understanding and provide teach back of education topics discussed . The patient was provided with the opportunity to ask questions and all questions were answered. Patient Assessment Assess patient education level/literacy/barriers, patient's last A1c on 02/18/2025 14.8 % Patient reports that she eats mostly pureed foods because she is missing top row of teeth. She has gastric band so is unable to take GLP-1s Medications: Farxiga 10 mg daily Januvia 100 mg daily Lantus 20 units daily Humalog 6 units 3 times a day Patient denies missing medications. Patient requested referral to nutrition, message sent to REPORTER to place referral. Patient questions/concerns What is Diabetes? Pathophysiology How the body produces and uses insulin Identify type of DM Risk factors Signs of Diabetes Brief overview of Diabetes Management Monitoring blood sugar Following a meal plan Regular exercise Maintaining a healthy weight Taking medication as needed Members of the care team (PCP, RN, MA, RD, CDE, marketing education teacher) Blood glucose monitoring When/how often to test Target blood sugar ranges Patient uses freestyle Ramakrishna 3+ to review glucose Patient has 8 days worth of glucose data Introduction to Nutrition Importance of healthy diet in managing DM Diet is personalized to individual preference Review patient?s regular diet/food preferences Who prepares meals/does food shopping/ Dining out?/ Barriers? How diet effects glucose Eating 3 balanced meals a day with small, healthy snacks between meals Review food groups Carbohydrates: What is a carbohydrate/Which food/food groups are considered carbohydrates Effect of carbohydrates on blood glucose Portion sizes Reading food labels Basic carb counting (if applicable per nursing assessment) Plate method Meal planning Recommendations: Follow plate method, consistent carbs and read nutritional labels. Smart Goal: Patient will adjust carbohydrate portion to 30-45 g per meal until next visit Educational Materials: The patient was provided with the following written educational materials: Planning Healthy Meals Handout Patient Response to instructions: Comprehension of Instructions: Fair Readiness to make changes: Contemplation How confident they feel about making changes: Positive Portions of this note were created using voice recognition software, please excuse any words or phrases that may have been misinterpreted. Patient Instructions: Include regular daily activity. ADA recommends 30 minutes of exercise 5 days a week. Weight loss talk to PCP or Employment Specialist before starting new plan. Test blood sugar as directed; Fasting and 2hpp largest meal. Watch trends in results. Utilize results and to assess how food, physical activity and medications affect blood sugar results. Bring glucometer or CGM to next visit. Be knowledgeable about diabetes medication, its action, side effects, efficacy, toxicity, prescribed dosage, appropriate timing and frequency of administration, effect of missed and delayed doses and instructions for storage, travel and safety. Problem solving techniques to monitor hypo/hyperglycemia episodes and treatments. Reduce risk reduction behaviors, smoking cessation, regular eye, foot and dental examinations. Coding Level of Care Code Est Pt Level 1 (47811) Diagnoses Non-insulin dependent type 2 diabetes mellitus E11.9
--- OUTSIDE RECORDS SUMMARY | 2025-04-17 17:06 | XMS_ITS | Encounter Summary ---
Author Organization [facility] Address [address] [place] [address] Care Team Providers Care Motor Expert Name Role Phone Mandi Newsome MD Primary Care Pr ovider Encounter Details Date Type Department Care Team (Late st Contact Info) Description 08/04/2024 10:45 AM EDT Hospital Encounter TH HISTORIC ENCOUNTERS EASTERN CONVERSION ONLY Karuna Ramiers MD [address] [place] [address] Social History Tobacco Use Types Packs/Day Years [...] for your loved ones. For example, child center assistant or elderly care for an older adult? [...] 05/18/2025 10:00 AM EDT Office Visit Adult [address] [phone] Jennifer Gray PA [address] [place] [address] 05/25/2025 10:45 AM EDT Office Visit Adult Medicine [address] [phone] Jennifer Gray PA [address] [place] [address] 06/28/2025 1:40 PM EDT Office Visit Obstetrics & Gynecology - [facility] [address] [place] [phone] Ruby Cuello, CNM [address] [place] [address] 09/14/2025 11:10 AM EST Office Visit [facility] [address]gett [address] [place] [address] Haydee Cates NP [address] [facility] [address] Avila [address] [place] [address] 02/28/2026 3:20 PM EDT Appointment Radiology Department - [address] [phone] documented as of this encounter Visit Diagnoses Not on filedocumented in this encounter Additional Health Concerns Infection Onset Date Last Indicated Resolved Time MRSA 01/30/2025 01/30/2025 documented as of this encounter Care Teams Motor Expert Relationship Specialty Start Date End Date Mandi Newsome MD [address] [place] PCP - General Internal Medicine 05/18/22 documented as of this encounter
== END 2025-04-17 15:52 | disposition home or self-care (01) ==
LOC: HO.ENCR 14:46
PROVIDERS: PCP Family Medicine; Visit Provider Registered Nurse Diabetes Educator
DX: E11.9 Type 2 diabetes mellitus without complications (principal)

== ENCOUNTER → 2025-04-17 14:46 | Outpatient (BNVA) | payer OTHER, SELFPAY | PROVIDERS: PCP Family Medicine; Visit Provider Registered Nurse Diabetes Educator | DX: E11.9 Type 2 diabetes mellitus without complications (principal); Z71.3 Dietary counseling and surveillance | CPT/HCPCS: 99211 ==

== ENCOUNTER 2025-04-20 12:46 | Outpatient (AMB) | payer OTHER, SELFPAY ==
--- OUTSIDE RECORDS SUMMARY | 2024-08-04 10:45 | XMS_ITS | Encounter Summary ---
Author Organization [facility] Address [address] [place] [address] Care Team Providers Care Front Desk Supervisor Name Role Phone Mandi Newsome MD Primary Care Pr ovider Encounter Details Date Type Department Care Team (Late st Contact Info) Description 08/04/2024 10:45 AM EDT Hospital Encounter TH HISTORIC ENCOUNTERS EASTERN CONVERSION ONLY Karuna Ramires MD [address] [place] [address] Social History Tobacco Use Types Packs/Day Years [...] care for your loved ones. For example, children's choir director or elderly care for an older [...] 05/18/2025 10:00 AM EDT Office Visit Adult [address] [phone] Jennifer Gray PA [address] [place] [address] 05/25/2025 10:45 AM EDT Office Visit Adult Medicine [address] [phone] Jennifer Gray PA [address] [place] [address] 06/28/2025 1:40 PM EDT Office Visit Obstetrics & Gynecology - [facility] [address] [place] [phone] Ruby Cuello, CNM [address] [place] [address] 09/14/2025 11:10 AM EST Office Visit [facility] - [facility] [address] [place] [address] Haydee Cates NP [address] [facility] [address] [place] [address] 02/28/2026 3:20 PM EDT Appointment Radiology Department - [address] [phone] documented as of this encounter Visit Diagnoses Not on filedocumented in this encounter Additional Health Concerns Infection Onset Date Last Indicated Resolved Time MRSA 01/30/2025 01/30/2025 documented as of this encounter Care Teams Front Desk Supervisor Relationship Specialty Start Date End Date [facility]ome [facility] [address] [facility] [place], [place] PCP - General Internal Medicine 05/18/22 documented as of this encounter
--- NOTE | 2025-04-20 08:40 | A.OFFVIS_ITS ---
Vital Signs 04/20/25 12:58 04/20/25 13:29 Height 5 ft 3 in Weight 220 lb 7.396 oz BMI 39.0 BP 142/82 H 128/78 Blood Pressure Location Rt brachial Rt brachial Position Sitting Sitting Pulse 92 Pulse Source Pulse Oximeter Pulse Oximetry (%) 92 Intake Visit Reasons: T2DM Intake Note: NEW Patient presents today to established treatment for Type 2 Diabetes Mellitus: Last Diabetic eye exam was on: DUE Last Podiatry exam was on: Patient does not see a Bag Bailer Most recent HbA1c: >14.8%, 02/22/2025 Referral Notes Random Glucose- 110 mg/dL, Today L International Trade Analyst Required: No Accompanied by: Self / Same As Patient Allergies Penicillins (PCN) Allergy (Verified 03/20/25 11:26) Hives HPI Comments Details: 49 YO female who is seen in follow up for T2DM. She was seen as an initial consult 03/20/25 with a glucose of 479. She was given point of care insulin and her glucose dropped to a safer level. A freestyle Ramakrishna sensor was ordered which she is now using. She was last seen 03/23/25 for a f/u visit. She was seen 04/17/2025 by Tarsha MARQUES who recommended 3 meals per day with carbs 30-45 g t.i.d. with meals. Her most recent A1c was 12.6% 06/24/2025. She was previously followed by e ndocrinology in another practice but had not been seen for awhile. At the time of PCP referral 1 month ago she had run out of her medications and her A1C was over 14%. She was last seen 04/17/2025 by Tarsha MARQUES who recommended 3 meals per day with carbs 30-45 g She was seen as a consult earlier this week with the an elevated glucose to 479. She declined referral to ER Initially diagnosed with T2DM: Trulicity caused stomach pain Metformin: was ineffective no side effects that she can recall was on trulicity had stomach pain current medication: Lantus 20 units at HS NovoLog 6 units t.i.d. trys to eat 3 times per day Farxiga 10 mg Januvia 100 mg Most recent A1C Greater than 14% 2024 Family history of T2DM in mother and father Has retinopathy but it is stable Has eyes checked yearly, last eye exam 2024 and has scheduled for next year Has neuropathy on Lyrica, symptoms tingling, burning last foot exam today she has referral for [facility]an [facility] instruction [facility] She was seen at the wound center at [facility] for an excoriation on her left leg which is resolving. Has nephropathy, on ARB 09/2023 eGFR>60 Has HLD, on statin. Has CAD. History of non STEMI status post CABG history of AFib sen regularly Followed by vascular surgery in the past for diabetic foot ulcer and currently followed by wound center [facility] Diet: Had lap band surgery 2002 and is eating pureed food does not have top teeth trys to eat three balanced meals daily she declines consult for bariatric surgeon Weight:stable weight for several months walks and uses hand weights at home No recent diabetes education. [facility] Medical History Mixed hyperlipidemia Mood disorder HFrEF (heart failure with reduced ejection fraction) Non-insulin dependent type 2 diabetes mellitus Surgical History (Updated 03/20/25 @ 11:26 by MARISOL Ramos) Hx of heart surgery Family History (Updated 03/20/25 @ 11:29 by MARISOL Ramos) Father Diabetes mellitus HTN (hypertension) Acute respiratory failure with hypoxia Mother Diabetes mellitus Social History Household Members: Children Housing: Apartment Do you presently have 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 or other home services: Yes (BRIGADIER) Patient Tobacco Use Status: Never used Tobacco Advance Directives Date on File: 08/18/23 service: No Physical Exam Vital Signs: Last Vital Signs Pulse 92 04/20/25 12:58 BP 128/78 04/20/25 13:29 Pulse Ox 92 04/20/25 12:58 BMI result Body Mass Index 39.0 Const Other: Absence of Cushingoid features. Absence of acromegalic features. Neck exam reveals nl size thyroid about 15 gms. No thyroid nodules palpable. Heart S1 S2, Reg R/R. No M/R G. Skin exam reveals absence of vitiligo or acanthosis nigricans. No edema Office Procedures Glucose Monitoring Details Details: see hpi 80346 - Glucose monitoring, continuous-physician I&R Procedure code (CPT) selection complete Results Reviewed Results Reviewed: Laboratory Last Values Glucose (Clinic) 110 mg/dL (60-115) 04/20/25 13:02 Assessment & Plan Assessment & Plan (1) Hyperglycemia due to diabetes mellitus: Code(s): E11.65 - Type 2 diabetes mellitus with hyperglycemia Category: Medical Plan: 49-year-old type 2 diabetic with the elevated glucose. Plan is to increase insulin see below for dosing. Add Mounjaro 2.5 mg. Side effects of GLP-1 agonist were reviewed: Nausea, vomiting, diarrhea, headache, dehydration or low blood sugar. Rare acute kidney injury which can result from dehydration. Pancreatitis and gallstones. Contraindicated in MEN or family history of thyroid medullary cancer. She has been on Trulicity in the past which caused stomach pain. She has been on metformin in the past which caused severe diarrhea. She was advised to trial this GLP 1 to see if she is able to tolerate. RTC 3 weeks with me to further adjust insulin Orders: Orders AMB Glucose Monitoring Today E11.9 - Type 2 diabetes mellitus without complications Medications: New tirzepatide (Mounjaro) 2.5 mg (0.5 mL) subcut QWEEK 2 mL 2RF 4 weeks Changed From insulin glargine (Lantus Solostar U-100 Insulin) 20 units (0.2 mL) subcut QPM 30 days 6 mL 6RF To insulin glargine (Lantus Solostar U-100 Insulin) 34 units (0.34 mL) subcut QPM 12 mL 6RF 30 days From insulin lispro (Humalog KwikPen (U-100) Insulin) 6 units (0.06 mL) subcut TID 30 days 6 mL 6RF To insulin lispro (Humalog KwikPen (U-100) Insulin) 10 units for breakfast and supper 6 units for lunch subcutaneously 3 times a day; 6 mL 6RF 30 days Patient Instructions: The patient was counseled to achieve a target A1C of 7% (154 avg). Fasting blood sugars should be 90-130 in the morning and less than 180 two hours after meals. Reviewed the relationship between poor diabetic control and the development of complications. Coding Level of Care Code Est Pt Level 4 (81031) Complex EM visit Add On G2211 Diagnoses Hyperglycemia due to diabetes mellitus E11.65 CPT Codes Details - CPT: 01909 - Glucose monitoring, continuous-physician I&R ([id number]) Time Spent (min) 30 Comment Time spent reviewing labs/provider notes, face to face, chart doc
[2025-04-20 12:58] VITALS: BP 142/82; PULSE 92; O2SAT 92; BMI 39.0
[2025-04-20 13:07] LABS: Glucose, Whole Blood 110 mg/dL (60-115)
[2025-04-20 13:29] VITALS: BP 128/78
== END 2025-04-20 13:32 | disposition home or self-care (01) ==
LOC: HO.ENCR 12:47
PROVIDERS: PCP Family Medicine; Visit Provider Nurse Practitioner Adult Health
DX: E11.65 Type 2 diabetes mellitus with hyperglycemia (principal); Z79.4 Long term (current) use of insulin
CPT/HCPCS: 95251; 99214

== ENCOUNTER → 2025-04-20 12:46 | Outpatient (BNVA) | payer OTHER, SELFPAY | PROVIDERS: PCP Family Medicine; Visit Provider Nurse Practitioner Adult Health | DX: E11.65 Type 2 diabetes mellitus with hyperglycemia (principal); Z79.4 Long term (current) use of insulin | CPT/HCPCS: 82947; 99212 ==

== ENCOUNTER 2025-05-02 12:50 | Outpatient (AMB) | payer OTHER, SELFPAY ==
--- OUTSIDE RECORDS SUMMARY | 2024-08-04 10:45 | XMS_ITS | Encounter Summary ---
Author Organization [facility] Address [address] [place] [address] Care Team Providers Care Assurance Assistant Name Role Phone Mandi Newsome MD Primary Care Pr ovider Encounter Details Date Type Department Care Team (Late st Contact Info) Description 08/04/2024 10:45 AM EDT Hospital Encounter TH HISTORIC ENCOUNTERS EASTERN CONVERSION ONLY Karuna Ramires MD [address] [place] [address] Social History Tobacco Use Types Packs/Day Years Used Date Smoking Tobacco: Never Passive Smoke Exposure: Never Smokeless Tobacco: Never Alcohol Use Standard Drinks/Week Comments Never 0 (1 standard drink = 0.6 oz pur e alcohol) Housing Instability Answer Date Recorde d Are you worried that in the next 2 months you may not have stable housing? No 11/21/2024 Food Access & Nutrition Answer Date Rec orded Do you have access to a vari ety of food including fruits and vegetables? Yes 11/21/2024 Access to Healthcare Answer Date Record ed Within the last 3 months, ho w many times did you visit the emergency department for your medical care? 0 11/21/2024 Health Literacy Answer Date Recorded How often do you need to hav e someone help you when you read instructions, pamphlets, or other written material from your doctor or pharmacy? Sometimes 11/21/2024 Caregiver: How often do you need to have someone help you when you read instructions, pamphlets, or other written material from your doctor or pharmacy? Not on file 11/21/2024 Financial Risk Answer Date Recorded How hard is it for you to pa y for the very basics like food, housing, medical care, and air conditioning / heating? Hard 11/21/2024 Transportation Answer Date Recorded Has the lack of transportati on kept you from meetings, work, or from getting things needed for daily living? No Has the lack of transportati on kept you from medical appointments or from getting medications? No 11/21/2024 Social Isolation Answer Date Recorded How often do you feel lonely or isolated from those around you? Sometimes 11/21/2024 Food Risk Answer Date Recorded Within the past 12 months we worried whether our food would run out before we got money to buy more. Sometimes true 025 Within the past 12 months th e food we bought just didn't last and we didn't have money to get more. Sometimes true 11/21/2024 Dependent Care Answer Date Recorded Do you need help finding or paying for care for your loved ones. For example, child protection specialist or elderly care for an older adult? No 11/21/2024 Education Answer Date Recorded Do you think completing more education or training, like finishing a GED, going to college, or learning a trade, would be helpful for you? Yes 11/21/2024 Employment and Income Answer Date Recor ded During the last four weeks, have you been actively looking for work? No 11/21/2024 Living Situation Answer Date Recorded What is your living situation? 0 11/21/2024 Comments No Sex and Gender Information Value Date Recorded Sex Assigned at Female 01/12/2025 10:09 AM EDT Legal Sex Female 1:56 PM EST Gender Identity Female 01/12/2025 10:09 AM EDT Sexual Orientation Not on file documented as of this encounter Plan of Treatment Upcoming Encounters Date Type Department Care Team (Late st Contact Info) Description 05/18/2025 10:00 AM EDT Office Visit Adult [address] [address] Jennifer Gray PA [address] [place] [address] 05/25/2025 10:45 AM EDT Office Visit Adult Medicine [address] [phone] Jennifer Gray PA [address] [place] [address] 09/14/2025 11:10 AM EST Office Visit [facility] - [facility] [address] [place] [address] Haydee Cates, EDWARD [address] [place] [address] Dr [address] [place] [address] 02/28/2026 3:20 PM EDT Appointment Radiology Department - [address] [phone] documented as of this encounter Visit Diagnoses Not on filedocumented in this encounter Additional Health Concerns Infection Onset Date Last Indicated Resolved Time MRSA 01/30/2025 01/30/2025 documented as of this encounter Care Teams Assurance Assistant Relationship Specialty Start Date End Date Mandi Newsome MD [address] [place], [place] PCP - General Internal Medicine 05/18/22 documented as of this encounter
--- NOTE | 2025-05-02 07:55 | MHC.OFFVIS ---
Vital Signs 05/02/25 13:04 Height 5 ft 3 in Weight 209 lb 7.026 oz BMI 37.1 BP 110/60 Blood Pressure Location Rt brachial Position Sitting Pulse 88 Pulse Source Pulse Oximeter Pulse Oximetry (%) 98 Oxygen Delivery Method Room Air Intake Visit Reasons: T2DM Allergies Penicillins (PCN) Allergy (Verified 03/20/25 11:26) Hives HPI Comments Details: 49 YO female who is seen in follow up for T2DM. She was seen as an initial consult 03/20/25 with a glucose of 479. She was given point of care insulin and her glucose dropped to a safer level. A freestyle Ramakrishna sensor was ordered which she is now using. At her last visit 04/20/25 she was given Mounjaro 2.5mg as a trial. This was not approved by her insurance and she has been taking Ozempic 0.25mg. She has taken tow doses and has had no side effects. She was last seen 03/23/25 for a f/u visit. She was seen 04/17/2025 by Tarsha MARQUES who recommended 3 meals per day with carbs 30-45 g t.i.d. with meals. Her most recent A1c was 12.6% 06/24/2025. She was previously followed by endocrinology in another practice but had not been seen for awhile. At the time of PCP referral 1 month ago she had run out of her medications and her A1C was over 14%. She was last seen 04/17/2025 by Tarsha MARQUES who recommended 3 meals per day with carbs 30-45 g She was seen as a consult earlier this week with the an elevated glucose to 479. She declined referral to ER Initially diagnosed with T2DM: Trulicity caused stomach pain Metformin: was ineffective no side effects that she can recall was on trulicity had stomach pain current medication: Lantus 34 units at HS NovoLog 10-10-6 units t.i.d. trys to eat 3 times per day Farxiga 10 mg Ozempic 2.5mg weekly Dexcom average glucose: 234 14 day continuous glucose monitor report reviewed Glucose Managment indicator 8.9 % Days with CGM data 97 % TIme in ranges: 45 % very high (above 250) 21 % high ?(181-250) 32 % in range ?(70-180] 2 % low (69-55) 0 % ?very low (below 54) Interpretation readings high from supper time through mid morning then dip to 70's pre lunch Most recent A1C Greater than 14% 2024 Family history of T2DM in mother and father Has retinopathy but it is stable Has eyes checked yearly, last eye exam 2024 and has scheduled for next year Has neuropathy on Lyrica, symptoms tingling, burning last foot exam today 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 Has nephropathy, on ARB 09/2023 eGFR>60 Has HLD, on statin. Has CAD. History of non STEMI status post CABG history of AFib sen regularly Followed by vascular surgery in the past for diabetic foot ulcer and was followed by wound center @[facility] for an open wound on her left leg which has almost healed. Diet: Had lap band surgery 2002 and is eating pureed food does not have top teeth trys to eat three balanced meals daily she declines consult for bariatric surgeon Weight:stable weight for several months walks and uses hand weights at home No recent diabetes education. [facility] Medical History Mixed hyperlipidemia Mood disorder HFrEF (heart failure with reduced ejection fraction) Non-insulin dependent type 2 diabetes mellitus Surgical History (Updated 03/20/25 @ 11:26 by MARISOL Ramos) Hx of heart surgery Family History (Updated 03/20/25 @ 11:29 by MARISOL Ramos) Father Diabetes mellitus HTN (hypertension) Acute respiratory failure with hypoxia Mother Diabetes mellitus Social History Household Members: Children Housing: Apartment Do you presently have 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 or other home services: Yes ([employer]) Patient Tobacco Use Status: Never used Tobacco Advance Directives Date on File: 08/18/23 service: No Physical Exam Vital Signs: Last Vital Signs Pulse 88 05/02/25 13:04 BP 110/60 05/02/25 13:04 Pulse Ox 98 05/02/25 13:04 Oxygen Delivery Method Room Air 05/02/25 13:04 BMI result Body Mass Index 37.1 Const Other: Absence of Cushingoid features. Absence of acromegalic features. Neck exam reveals nl size thyroid about 15 gms. No thyroid nodules palpable. Heart S1 S2, Reg R/R. No M/R G. Skin exam reveals absence of vitiligo or acanthosis nigricans. No edema. LEft lower leg wrapped Office Procedures Glucose Monitoring Details Details: See HPI [id number] - Glucose monitoring, continuous-physician I&R Procedure code (CPT) selection complete Assessment & Plan Assessment & Plan (1) Non-insulin dependent type 2 diabetes mellitus: Code(s): E11.9 - Type 2 diabetes mellitus without complications Category: Medical Plan: 49-year-old type 2 diabetic with historically poorly controlled diabetes with a retinopathy and neuropathy. She was recently started on Ozempic 2.5 mg and her sugar average is improving. GMI on sensors 8.9% with lows at lunch time New dosing: Lantus 36 units NovoLog 10 units for breakfast and supper Increase Ozempic to 0.5 mg weekly The patient had an opportunity to ask questions regarding treatment plan. The patient expressed understanding and agreement with the above treatment plan. The patient is aware they should contact our office by phone for worsening glucose readings or for any low blood sugars which may warrant a change in diabetes medication. Compliance is encouraged with medications and any followup testing/consults which may have been ordered. She will follow up with Denia HERNANDEZ in 6 weeks' time. If she needs additional adjustment of insulin she can call the office with her numbers on her freestyle. Orders: Orders AMB Glucose Monitoring Today E11.9 - Type 2 diabetes mellitus without complications Patient Instructions: The patient was counseled to achieve a target A1C of 7% (154 avg). Fasting blood sugars should be 90-130 in the morning and less than 180 two hours after meals. Reviewed the relationship between poor diabetic control and the development of complications. Check your feet daily looking for any signs of infection, drainage, redness, ulceration and seek medical attention if this occurs. Break in shoes gradually and do not wear open-toed shoes or walk stocking footed or barefooted. Coding Level of Care Code Est Pt Level 4 (89409) Complex EM visit Add On G2211 Diagnoses Non-insulin dependent type 2 diabetes mellitus E11.9 CPT Codes Details - CPT: 79600 - Glucose monitoring, continuous-physician I&R ([id number]) Time Spent (min) 30 Comment Time spent reviewing labs/provider notes, face to face, chart doc
[2025-05-02 13:04] VITALS: BP 110/60; PULSE 88; O2SAT 98; BMI 37.1
[2025-05-02 13:13] LABS: Glucose, Whole Blood 103 mg/dL (60-115)
--- OUTSIDE RECORDS SUMMARY | 2025-05-02 13:19 | XMS_ITS | Clinical Summary ---
Author Organization [facility] Address [address] [place] [address] Care Team Providers Care Art Education Professor Name Role Phone Mandi Newsome MD Primary [...] 84 08/22/2024 11:14 AM EDT Temperature 36.3 C (97.4 F) 08/22/2024 11:14 AM EDT Respiratory Rate 16 08/22/2024 11:14 AM EDT [...] of 2) 03/24/2024 01/28/2024 Influenza Vaccine (#1) 2025 3, 09/14/2022, 07/22/2021, Additional history exists DTap / Tdap / Td (4 - Td or Tdap) 01/27/2034 01/28/2024, 03/09/2022, 08/22/2009 Pneumococcal Vaccine Aged Out 09/01/2012 No long er eligible based on patient's age to complete this topic RSV Ped < 20 months Aged Out No longe r eligible based on patient's age to complete this topic Care Teams Art Education Professor Relationship Specialty Start Date End Date Mandi Newsome MD [address] [place] [address] PCP - General 06/16/24
== END 2025-05-02 13:25 | disposition home or self-care (01) ==
LOC: HO.ENCR 12:51
PROVIDERS: PCP Family Medicine; Visit Provider Nurse Practitioner Adult Health
DX: E11.9 Type 2 diabetes mellitus without complications (principal); Z79.4 Long term (current) use of insulin
CPT/HCPCS: 95251; 99214

== ENCOUNTER → 2025-05-02 12:50 | Outpatient (BNVA) | payer OTHER, SELFPAY | PROVIDERS: PCP Family Medicine; Visit Provider Nurse Practitioner Adult Health | DX: E11.9 Type 2 diabetes mellitus without complications (principal) | CPT/HCPCS: 82947; 99212 ==

== ENCOUNTER 2025-06-07 09:59 | Outpatient (AMB) | payer OTHER, SELFPAY ==
--- OUTSIDE RECORDS SUMMARY | 2024-08-04 10:45 | XMS_ITS | Encounter Summary ---
Author Organization [facility] Address [address] [place] [address] Care Team Providers Care Post Tensioning Ironworker Name Role Phone Mandi Newsome MD Primary Care Pr ovider Encounter Details Date Type Department Care Team (Late st Contact Info) Description 08/04/2024 10:45 AM EDT Hospital Encounter TH HISTORIC ENCOUNTERS EASTERN CONVERSION ONLY Karuna Ramires MD [address] [place] [address] Social History Tobacco Use Types Packs/Day Years [...] for your loved ones. For example, child nutrition director or elderly care for an older adult? [...] Care Team (Late st Contact Info) Description 09/14/2025 11:10 AM EST Office Visit [facility] [address] [place] [address] Haydee Cates NP [address] [place] [address] [address] [place] [address] 09/19/2025 11:30 AM EST Office Visit [facility] - [address] [phone] Jennifer Gray PA [address] [place] [address] 02/28/2026 3:20 PM EDT Appointment Radiology Department - [address] [phone] documented as of this encounter Visit Diagnoses Not on filedocumented in this encounter Additional Health Concerns Infection Onset Date Last Indicated Resolved Time MRSA 01/30/2025 01/30/2025 documented as of this encounter Care Teams Post Tensioning Ironworker Relationship Specialty Start Date End Date Mandi Newsome MD [address] [facility] [place], [place] PCP - General Internal Medicine 05/18/22 documented as of this encounter
--- NOTE | 2025-06-07 10:03 | A.OFFVIS_ITS ---
VS Expanded 06/07/25 10:06 06/07/25 14:37 Height 5 ft 3 in 5 ft 3 in Weight 223 lb 8.78 oz 224 lb BMI 39.6 39.7 Intake Visit Reasons: Type 2 dm Allergies Penicillins (PCN) Allergy (Verified 03/20/25 11:26) Hives Nutrition Presentation Details: Pt presents for MNT for T2DM Pt reports doing better with BG since on insulin, no BG download at the time of this appt Pt reports typically having 3 small meals per day but increased appetite at night time, choosing empty calorie options Typical meal intake B/l: boiled eggs, with giraldo/bread, sips on protein shake (premier shake) dinner: mashed potato made with eggs (ice tea flavor sugar free) 10 pm Popsicle darshana /chips food frequency fruits: 0-1/d vexwk protein: eggs/poultry/beef sometimes protein shake dairy: 1-2/d physical activity: ADL etoh/smoking--- NSQ-Fyoypjx-Fm.Jeor Equation Height: 5 ft 3 in Weight: 224 lb Resting Metabolic Rate: 1603.24 Calculated Activity Level: Sedentary Calories Needed to Maintain Weight: 1923.89 Diagnosis Nutrition problem #1: food nutri know defi As related to (etiology) #1: diagnosis As evidenced by (sign/symptom) #1: knowledge deficit of diet [facility] Medical History Mixed hyperlipidemia Mood disorder HFrEF (heart failure with reduced ejection fraction) Non-insulin dependent type 2 diabetes mellitus Surgical History (Updated 03/20/25 @ 11:26 by MARISOL Ramos) Hx of heart surgery Family History (Updated 03/20/25 @ 11:29 by MARISOL Ramos) Father Diabetes mellitus HTN (hypertension) Acute respiratory failure with hypoxia Mother Diabetes mellitus Social History Household Members: Children Housing: Apartment Do you presently have 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) Patient Tobacco Use Status: Never used Tobacco Advance Directives Date on File: 08/18/23 service: No Assessment & Plan Assessment & Plan (1) Hyperglycemia due to diabetes mellitus: Code(s): E11.65 - Type 2 diabetes mellitus with hyperglycemia Category: Medical Plan: Wt: 102 Kg ( 06/25 ) Est kcal needs as per MSJ: 1900 (40% carb, 30% protein/fat) Est fluid needs as per 25-30 ml/d: 3000 Est prot per day as per 1 g/kg bw: 100 Recommend fiber intake : 8-10 g per day and gradually increase to 25-28 g per day for women and 35-38 g for men or as tolerated Recommend sodium intake per day : less than 2300 mg Educated patient on: ( R = reviewed V = verbalizes understanding N/R = needs review N/A = not applicable * Food sources of carbohydrate, adequate serving sizes and its role in various health conditions: R * Differences between complex carbohydrates a simple carbohydrates, role of fiber in diet: R * Lean protein sources of foods: R * Differences between types of fats and role in diet (mono on saturated fat fatty acids, saturated fatty acids, trans fats): R V N/R * Food sources of sodium in salt and healthy modifications for heart health in kidney health: R V N/R * Vitamins and minerals: R V N/R * Healthy plate method concept: R * Physical activity: Benefits a precaution: R V N/R * Hypoglycemia protocol (rule of 15): R V N/R * Dietary prevention of Hyperglycemia: R Patient Instructions: Modify your bedtime snack , working on reducing carbs to 20 g and 20 g of protein as bedtime snack , have water, fruit/herb infused flavor water see list of low carb snack options Coding Level of Care Code Nutr Indiv Intake (02496) Diagnoses Hyperglycemia due to diabetes mellitus E11.65 Time Spent (min) 30
[2025-06-07 10:06] VITALS: BMI 39.6
--- OUTSIDE RECORDS SUMMARY | 2025-06-07 10:28 | XMS_ITS | Clinical Summary ---
Author Organization [facility] Address [address] [place] [address] Care Team Providers Care Blacktop Spreader Name Role Phone Mandi Newsome MD Primary [...] age to complete this topic Care Teams Blacktop Spreader Relationship Specialty Start Date End Date Mandi Newsome MD [address] [place] [address] PCP - General 06/16/24
--- OUTSIDE RECORDS SUMMARY | 2025-06-07 10:28 | XMS_ITS ---
Author Name [facility] Organization Unknown Care Team Organization Name Specialty Phone Email Start Date End Da te [facility] ALEISHA BLANCO Primary [email or web address] 03/08/2023 4 [facility] Jennifer Nicole Primary Care 09/08/2022 4
[2025-06-07 14:37] VITALS: BMI 39.7
== END 2025-06-07 10:59 | disposition home or self-care (01) ==
LOC: HO.ENCR 10:00
PROVIDERS: PCP Family Medicine; Visit Provider Dietitian, Registered
DX: E11.65 Type 2 diabetes mellitus with hyperglycemia (principal)

== ENCOUNTER → 2025-06-07 09:59 | Outpatient (BNVA) | payer OTHER, SELFPAY | PROVIDERS: PCP Family Medicine; Visit Provider Dietitian, Registered | DX: E11.65 Type 2 diabetes mellitus with hyperglycemia (principal) | CPT/HCPCS: 97802 ==

== ENCOUNTER 2025-06-12 13:55 | Outpatient (AMB) | payer OTHER, SELFPAY ==
--- OUTSIDE RECORDS SUMMARY | 2024-08-04 10:45 | XMS_ITS | Encounter Summary ---
Author Organization [facility] Address [address] [place] [address] Care Team Providers Care Boiler Technician Name Role Phone Mandi Newsome MD Primary Care Pr ovider Encounter Details Date Type Department Care Team (Late st Contact Info) Description 08/04/2024 10:45 AM EDT Hospital Encounter TH HISTORIC ENCOUNTERS EASTERN CONVERSION ONLY Karuna Ramires MD [address] [place] [address] Social History Tobacco Use Types Packs/Day Years [...] for your loved ones. For example, child protective investigator or elderly care for an older adult? [...] Care Team (Late st Contact Info) Description 07/05/2025 12:45 PM EDT Clinical Support [facility] [address] [place] [phone] 09/14/2025 11:10 AM EST Office Visit [facility] [address] [place] [address] Haydee Cates NP [address] [place] [address] Dr [address] [place] [address] 09/19/2025 11:30 AM EST Office Visit [facility] - [address] [phone] Jennifer Gray PA [address] [place] [address] 02/28/2026 3:20 PM EDT Appointment Radiology Department - [address] [phone] documented as of this encounter Visit Diagnoses Not on filedocumented in this encounter Additional Health Concerns Infection Onset Date Last Indicated Resolved Time MRSA 01/30/2025 01/30/2025 documented as of this encounter Care Teams Boiler Technician Relationship Specialty Start Date End Date Mandi Newsome MD [address] [place], [place] PCP - General Internal Medicine 05/18/22 documented as of this encounter
[2025-06-12 14:01] VITALS: BP 114/76; PULSE 86; O2SAT 98; BMI 39.0
--- NOTE | 2025-06-12 14:01 | A.OFFVIS_ITS ---
Vital Signs 06/12/25 14:01 Height 5 ft 3 in Weight 220 lb 7.396 oz BMI 39.0 BP 114/76 Blood Pressure Location Lt brachial Position Sitting Pulse 86 Pulse Source Pulse Oximeter Pulse Oximetry (%) 98 Oxygen Delivery Method Room Air Intake Visit Reasons: T2DM Intake Note: Patient present today to follow up on Type 2 Diabetes Mellitus. Last seen by Brigid Albarran on 05/02/2025. Last Diabetic Eye exam: Patient stated she had a visit but dont recal when, has a coming up appt next year Last Podiatry Visit: Does not see a Compliance Paralegal Random Glucose: 76 mg/dL HgA1C: Patient stated she had an A1c done at her PCP, number stated 10.9%, 05/25/2025 Tongue Binder Required: No Accompanied by: Daughter Allergies Penicillins (PCN) Allergy (Verified 06/12/25 14:07) Hives Medication List - Last Reconciled 06/12/25 by MARY Junior aripiprazole 10 mg PO BEDTIME aspirin 81 mg PO DAILY atomoxetine 40 mg PO DAILY atorvastatin 80 mg PO DAILY blood-glucose sensor (FreeStyle Ramakrishna 3 Plus Sensor device) As directed every 15 days carvedilol 6.25 mg PO BID clonidine HCl 0.1 - 0.2 mg PO BEDTIME PRN dapagliflozin propanediol (Farxiga) 10 mg PO DAILY dextrose (TRUEplus Glucose) 15 grams (32 mL) PO Q15M PRN furosemide 20 mg PO DAILY insulin glargine (Lantus Solostar U-100 Insulin) 36 units subcut QPM insulin lispro (Humalog KwikPen (U-100) Insulin) subcutaneously 2 times a day; 5 units before breakfast and supper mirtazapine 15 mg PO BEDTIME omeprazole 20 mg PO DAILY pen needle, diabetic As directed four times daily pregabalin 75 mg PO TID sacubitril-valsartan 24-26 mg (Entresto) 1 tab PO BID tirzepatide (Mounjaro) 2.5 mg (0.5 mL) subcut QWEEK HPI Comments Details: This is my 1st time seeing this 49-year-old female for diabetic management. She was last seen by my colleague on 05/02/2025. She is accompanied by her 2 daughters, Ameena and Janice. She has a family history of type 2 diabetes in her mother and father. My colleague's note reads that she was seen for an initial consult on 03/20/2025 with a POC of 479. She is followed by Tarsha MARQUES. She also saw Brooke Welsh dietitian, recently. Her hemoglobin A1c was 10.6% on 05/29/2025. She has been previously followed by endocrinology at another practice, but she had not been seen for awhile. When her PCP referred her she had run out of her medications, and her A1c was over 14%. I reviewed her CGM data for the past 14 days CGM active 67% Average glucose 175 G UT 7.5% Glucose variability 42.8% Very high 22% High 25% Target range 49% Low 4% Very low 0% She experiences hyperglycemia in the evening, overnight and morning and hypoglycemia in the morning, mid day and late night. She does not have glucose tablets or gel. She treats with juice or candy. She is going to implement some of the changes she discussed with the dietitian. She acknowledges that snacking at night is causing overnight hyperglycemia. Current medication: Lantus 36 units every evening, NovoLog 10 units for breakfast and dinner and Ozempic 0.5 mg weekly and Farxiga 10 mg daily She received a notification from insurance they will stop covering Ozempic in July. She has not lost weight with it. She has gained weight within the last couple of months. Past medication: Trulicity caused stomach pain. Metformin was ineffective but she had no side effects that she can recall. Complications: Retinopathy, neuropathy, nephropathy, coronary artery disease. History of non-STEMI status post CABG. Followed by Cardiology. History of AFib. Followed by vascular surgery in the past for diabetic foot ulcer and is followed by the [facility] for a wound on her right leg. Previous left lower extremity wound healed. History of lap band surgery in 2002. She has hyperlipidemia, on statin. ROS: Constitutional: No fevers or chills Cardiovascular: No chest pain Neurologic: No headache, dizziness, syncope Endocrine: Denies polyuria and polydipsia. Physical exam: Constitutional: Alert, in no distress. Neck: Supple, Full range of motion. No lymphadenopathy. No palpable thyroid masses. Respiratory: Clear to auscultation. Cardiovascular: S1 S2 regular. No murmurs. Extremities: Right lower extremity wrapped with wound dressing in place. Psychiatric: Normal mood and affect [facility] Medical History (Updated 06/12/25 @ 14:13 by MARY Junior) Uncontrolled type 2 diabetes mellitus with hyperglycemia Mixed hyperlipidemia Mood disorder HFrEF (heart failure with reduced ejection fraction) Non-insulin dependent type 2 diabetes mellitus Surgical History (Updated 03/20/25 @ 11:26 by MARISOL Ramos) Hx of heart surgery Family History (Updated 03/20/25 @ 11:29 by MARISOL Ramos) Father Diabetes mellitus HTN (hypertension) Acute respiratory failure with hypoxia Mother Diabetes mellitus Social History Household Members: Children Housing: Apartment Do you presently have 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 or 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) Patient Tobacco Use Status: Never used Tobacco Advance Directives Date on File: 08/18/23 service: No Physical Exam Vital Signs: Last Vital Signs Pulse 86 06/12/25 14:01 BP 114/76 06/12/25 14:01 Pulse Ox 98 06/12/25 14:01 Oxygen Delivery Method Room Air 06/12/25 14:01 BMI result Body Mass Index 39.0 Office Procedures Glucose Monitoring Details Details: See [facility] [address] - Glucose monitoring, continuous-physician I&R Procedure code (CPT) selection complete Results Reviewed Results Reviewed: Laboratory Last Values Glucose (Clinic) 76 mg/dL (60-115) 06/12/25 14:09 Assessment & Plan Assessment & Plan (1) Uncontrolled type 2 diabetes mellitus with hyperglycemia: Code(s): E11.65 - Type 2 diabetes mellitus with hyperglycemia Category: Medical (2) Mixed hyperlipidemia: Code(s): E78.2 - Mixed hyperlipidemia Category: Medical Plan In summary this is a 49-year-old female with uncontrolled type 2 diabetes currently struggling with hypoglycemia and diabetic complications. Ozempic has not resulted in weight loss, and her insurance informed her that they will no longer cover this in July. She does not tolerate Trulicity due to side effects. Trial of Mounjaro 2.5 mg weekly. Advised patient it will require a prior authorization. Reduce Humalog to 5 units before breakfast and supper to decrease hypoglycemia. Continue Lantus 36 units every evening for now. Continue Farxiga 10 mg daily which is also prescribed for her history of heart failure. Written instructions given and reviewed for treatment of hypoglycemia. Glucose gel sent to the pharmacy. Diabetic diet reviewed. Followed by CDE and dietitian. Follow up in 4 weeks for type 2 diabetes. Orders: Orders Alanine Aminotransferase Today MARY Junior E11.65 - Type 2 diabetes mellitus with hyperglycemia Aspartate Amino Transferase Today MARY Junior E11.65 - Type 2 diabetes mellitus with hyperglycemia Lipid Panel Today MARY Junior E11.65 - Type 2 diabetes mellitus with hyperglycemia, E78.5 - Hyperlipidemia, unspecified Creatinine Today MARY Junior E11.65 - Type 2 diabetes mellitus with hyperglycemia, E11.9 - Type 2 diabetes mellitus without complications Microalbumin, Random (w Creat) Today MARY Junior E11.65 - Type 2 diabetes mellitus with hyperglycemia, E11.9 - Type 2 diabetes mellitus without complications AMB Glucose Monitoring Today MARY Junior E11.9 - Type 2 diabetes mellitus without complications Medications: New dextrose (TRUEplus Glucose) until symptoms of low blood sugar are controlled 15 grams (32 mL) PO Q15M PRN 128 mL 3RF hypoglycemia MARY Junior tirzepatide (Mounjaro) for 4 weeks 2.5 mg (0.5 mL) subcut QWEEK 2 mL 0RF MARY Junior Changed From insulin lispro (Humalog KwikPen (U-100) Insulin) 10 units for breakfast and supper 6 units for lunch subcutaneously 3 times a day; 30 days 6 mL 6RF To insulin lispro (Humalog KwikPen (U-100) Insulin) subcutaneously 2 times a day; 5 units before breakfast and supper Brigid Albarran NP From insulin glargine (Lantus Solostar U-100 Insulin) 34 units (0.34 mL) subcut QPM 30 days 12 mL 6RF To insulin glargine (Lantus Solostar U-100 Insulin) 36 units subcut QPM Brigid Albarran NP Discontinued tirzepatide (Mounjaro) Discontinued Reason: Doctor's Order 2.5 mg (0.5 mL) subcut QWEEK 4 weeks 2 mL 2RF blood-glucose,chief innovation officer,cont (FreeStyle Ramakrishna 3 Blairs) Discontinued Reason: Doctor's Order As directed for use with sensor 1 ea 0RF semaglutide (Ozempic) for 4 weeks Discontinued Reason: Doctor's Order 0.25 mg (0.368 mL) subcut QWEEK 28 days 3 mL 3RF Patient Instructions: Start Mounjaro 2.5 mg one week after the last dose of ozempic 0.5 mg week. Reduce Humalog 5 units before breakfast and supper Continue Lantus 36 units every evening Continue Farxiga 10 mg daily If you experience low blood sugar (less than 70), treat this by eating a chewable fruit candy like skittles or jelly beans (about 8 pieces), 4 ounces (1/2 cup) of fruit juice or soda (not diet), 1 tablespoon of honey or 1 glucose gel packet. If your blood sugar is under 50, take double the amount of one of the above. Recheck your blood sugar in 15 minutes. Coding Level of Care Code Est Pt Level 4 (64900) Diagnoses Uncontrolled type 2 diabetes mellitus with hyperglycemia E11.65 Mixed hyperlipidemia E78.2 CPT Codes Details - CPT: 95436 - Glucose monitoring, continuous-physician I&R ([id number])
[2025-06-12 14:13] LABS: Glucose, Whole Blood 76 mg/dL (60-115)
--- OUTSIDE RECORDS SUMMARY | 2025-06-12 14:59 | XMS_ITS | Clinical Summary ---
Author Organization [facility] Address [address] [place] [address] Care Team Providers Care Patient Insurance Clerk Name Role Phone Mandi Newsome MD [...] age to complete this topic Care Teams Patient Insurance Clerk Relationship Specialty Start Date End Date Mandi Newsome MD [address] [place] [address] PCP - General 06/16/24
== END 2025-06-12 14:41 | disposition home or self-care (01) ==
LOC: HO.ENCR 13:56
PROVIDERS: PCP Family Medicine; Visit Provider Physician Assistant Medical
DX: E11.65 Type 2 diabetes mellitus with hyperglycemia (principal); E78.2 Mixed hyperlipidemia

== ENCOUNTER → 2025-06-12 13:55 | Outpatient (BNVA) | payer OTHER, SELFPAY | PROVIDERS: PCP Family Medicine; Visit Provider Physician Assistant Medical | DX: E11.65 Type 2 diabetes mellitus with hyperglycemia (principal); E78.2 Mixed hyperlipidemia; Z83.3 Family history of diabetes mellitus; Z79.4 Long term (current) use of insulin; Z79.84 Long term (current) use of oral hypoglycemic drugs | CPT/HCPCS: 82947; 99212 ==

== ENCOUNTER 2025-06-19 14:21 | Outpatient (AMB) | payer OTHER, SELFPAY ==
--- OUTSIDE RECORDS SUMMARY | 2024-08-04 10:45 | XMS_ITS | Encounter Summary ---
Author Organization [facility] Address [address] [place] [address] Care Team Providers Care Director Of Health Care Marketing Name Role Phone Mandi Newsome MD Primary Care Pr ovider Encounter Details Date Type Department Care Team (Late st Contact Info) Description 08/04/2024 10:45 AM EDT Hospital Encounter TH HISTORIC ENCOUNTERS EASTERN CONVERSION ONLY Karuna Ramires MD [address] [place] [address] Social History Tobacco Use Types Packs/Day Years [...] care for your loved ones. For example, director child abuse therapy or elderly care for an older adult? [...] Description 07/05/2025 12:45 PM EDT Clinical Support [facility] [address] [place] [phone] 09/14/2025 11:10 AM EST Office Visit [facility] [address] [place] [address] Haydee Cates NP [address] [place] [address] [address] [place] [address] 09/19/2025 11:30 AM EST Office Visit Adult [facility] South - [address] [phone] Jennifer Gray PA [address] [place] [address] 02/28/2026 3:20 PM EDT Appointment Radiology Department - [address] [phone] documented as of this encounter Visit Diagnoses Not on filedocumented in this encounter Additional Health Concerns Infection Onset Date Last Indicated Resolved Time MRSA 01/30/2025 01/30/2025 documented as of this encounter Care Teams Director Of Health Care Marketing Relationship Specialty Start Date End Date Mandi Newsome MD [address] [place], [place] PCP - General Internal Medicine 05/18/22 documented as of this encounter
--- NOTE | 2025-06-19 14:56 | A.OFFVIS_ITS ---
Intake Intake Visit Reasons: 60 mins Bridge Welder Required: No Accompanied by: Daughter Allergies Penicillins (PCN) Allergy (Verified 06/12/25 14:07) Blake MELVIN Comprehensive Diabetes Asmnt Most Recent Diabetes Results: 2 Creatinine, (0.5-1.4) 0.93 mg/dL 09/22/23 BUN, (9-16) 9 mg/dL 09/22/23 Sodium, (135-145) 138 mmol/L 09/22/23 Potassium, (3.3-5.1) 4.4 mmol/L 09/22/23 Chloride, (96-108) 107 mmol/L 09/22/23 Carbon Dioxide, (22-29) 22 mmol/L 09/22/23 Calcium, (8.4-10.2) 9.3 mg/dL 09/22/23 AST, (5-31) 14 U/L 08/17/23 ALT, (0-31) 11 U/L 08/17/23 Total Protein, (6.5-8.0) 7.6 g/dL 08/17/23 Albumin, (3.5-5.0) 3.4 g/dL L 08/17/23 [facility] Medical History (Updated 06/12/25 @ 14:13 by MARY Junior) Uncontrolled type 2 diabetes mellitus with hyperglycemia Mixed hyperlipidemia Mood disorder HFrEF (heart failure with reduced ejection fraction) Non-insulin dependent type 2 diabetes mellitus Surgical History (Updated 03/20/25 @ 11:26 by MARISOL Ramos) Hx of heart surgery Family History (Updated 03/20/25 @ 11:29 by MARISOL Ramos) Father Diabetes mellitus HTN (hypertension) Acute respiratory failure with hypoxia Mother Diabetes mellitus Social History Household Members: Children Housing: Apartment Do you presently have 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 or other home services: Yes ([employer]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 to 5 units b.i.d. Suggested to patient she reduce glargine from 36 units to 32 units daily, she continues to experiencing hypoglycemia contact provider or certified adapted physical educator. If hypoglycemia resolves and fasting glucose is greater than 150 mg/dL for 3 days in a row increase glargine to 34 units Patient has had an improvement in overnight glucose, she reports she has changed the type of snack she is eating to lower carb options. Patient was also given low carb snack list at today's visit We reviewed information below on how to treat hypoglycemia: Signs and symptoms of low blood sugar (happen quickly) Each person's reaction to low blood sugar is different. Learn your own signs and symptoms of when your blood sugar is low. Taking time to write these symptoms down may help you learn your own symptoms of when your blood sugar is low. From milder, more common indicators to most severe, signs and symptoms of low blood sugar include: Feeling shaky Being nervous or anxious Sweating, chills and clamminess Irritability or impatience Confusion Fast heartbeat Feeling lightheaded or dizzy Hunger Nausea Color draining from the skin (pallor) Feeling Sleepy Feeling weak or having no energy Blurred/impaired vision Tingling or numbness in the lips, tongue, or cheeks Headaches Coordination problems, clumsiness Hypoglycemia or blood glucose under 70 use the rule of 15's: If you have your blood glucose meter test your blood glucose, if you do not have your meter still follow below instruction: Keep quick-sugar foods with you at all times.? Take 15 grams of fast acting carbohydrates. Examples are 4 ounces of fruit juice or regular soda pop, 8 ounces fat-free milk, 1 tablespoon of table sugar, honey or corn syrup, jam, one miniature box of raisins, 7-8 gumdrops or Life Savers candy, 4 glucose tablets, and glucose gel.? Retest blood glucose in 15 minutes, if blood glucose is still under 80,repeat rule of 15's. If blood glucose is under 50, take 30 grams of fast acting carbohydrates If you are having hypoglycemia, or insulin reaction, more that a few times a week, call MD or certified adapted physical educator F/U BG check Reminded patient that to check finger sticks if symptoms do not match sensor reading. Patient able to insert sensor independently at home without issue.? Portions of this note were created using voice recognition software, please excuse any words or phrases that may have been misinterpreted. Patient Instructions: Contact certified adapted physical educator or provider if hypoglycemia continues Follow-up with certified adapted physical educator in 3 months Coding Level of Care Code Est Pt Level 1 (12021) Diagnoses Non-insulin dependent type 2 diabetes mellitus E11.9
--- OUTSIDE RECORDS SUMMARY | 2025-06-19 15:40 | XMS_ITS | Clinical Summary ---
Author Organization [facility] Address [address] [place] [address] Care Team Providers Care Moss Bleacher Name Role Phone Mandi Newsome MD Primary [...] age to complete this topic Care Teams Moss Bleacher Relationship Specialty Start Date End Date Mandi Newsome MD [address] [place] [address] PCP - General 06/16/24
== END 2025-06-19 15:00 | disposition home or self-care (01) ==
PROVIDERS: PCP Family Medicine; Visit Provider Registered Nurse Diabetes Educator
DX: E11.9 Type 2 diabetes mellitus without complications (principal)

== ENCOUNTER → 2025-06-19 14:21 | Outpatient (BNVA) | payer OTHER, SELFPAY | PROVIDERS: PCP Family Medicine; Visit Provider Registered Nurse Diabetes Educator | DX: E11.9 Type 2 diabetes mellitus without complications (principal) | CPT/HCPCS: 99211 ==

== ENCOUNTER 2025-06-30 11:21 | Emergency (ER) | payer OTHER, SELFPAY ==
--- OUTSIDE RECORDS SUMMARY | 2024-08-04 10:45 | XMS_ITS | Encounter Summary ---
Author Organization [facility] Address [address] [place] [address] Care Team Providers Care Pbx Wire Chief Name Role Phone Mandi Newsome MD Primary Care Pr ovider Encounter Details Date Type Department Care Team (Late st Contact Info) Description 08/04/2024 10:45 AM EDT Hospital Encounter TH HISTORIC ENCOUNTERS EASTERN CONVERSION ONLY Karuna Ramires MD [address] [place] [address] Social History Tobacco Use Types Packs/Day Years [...] for your loved ones. For example, child life therapist or elderly care for an older [...] Date Recorded What is your living situation? 0 05/18/2025 Comments No Sex and Gender Information Value Date Recorded Sex Assigned at Female 01/12/2025 10:09 AM EDT Legal Sex Female 1:56 PM EST Gender Identity Female 01/12/2025 10:09 AM EDT Sexual Orientation Not on file documented as of this encounter Plan of Treatment Upcoming Encounters Date Type Department Care Team (Late st Contact Info) Description 07/06/2025 8:45 AM EDT Clinical Support [facility] [address] [place] [phone] 09/14/2025 11:10 AM EST Office Visit [facility] [address] [place] [phone] Haydee Cates NP [address] [place] [address] [address] [place] [address] 09/19/2025 11:30 AM EST Office Visit [facility] - [address] [phone] Jennifer Gray PA [address] [place] [address] 02/28/2026 3:20 PM EDT Appointment Radiology Department - [address] [phone] documented as of this encounter Visit Diagnoses Not on filedocumented in this encounter Additional Health Concerns Infection Onset Date Last Indicated Resolved Time MRSA 01/30/2025 01/30/2025 documented as of this encounter Care Teams Pbx Wire Chief Relationship Specialty Start Date End Date Mandi Newsome MD [address] [place], [place] PCP - General Internal Medicine 05/18/22 documented as of this encounter
--- OUTSIDE RECORDS SUMMARY | 2024-08-14 14:00 | XMS_ITS | Encounter Summary ---
Author Organization [facility] Address [address] [place] [address] Care Team Providers Care Roundhouse Supervisor Name Role Phone Mandi Newsome MD [...] for your loved ones. For example, child care centre manager or elderly care for an older adult? [...] two doses of Feraheme. Patient is primarily Colombian speaking but, also speaks good Guamanian. Oriented to unit and unit policies/procedures upon [...] Description 07/06/2025 8:45 AM EDT Clinical Support [facility] [address] [place] [phone] 09/14/2025 11:10 AM EST Office Visit [facility] [address] [place] [phone] Haydee Cates NP [address] [place] [address] [address] [place] [phone] 09/19/2025 11:30 AM EST Office Visit [address] [place] [phone] Jennifer Gray PA [address] [place] [address] 02/28/2026 3:20 PM EDT Appointment Radiology Department - [address] [phone] documented as of this encounter Visit Diagnoses Diagnosis Other iron deficiency anemias documented in this encounter Additional Health Concerns Infection Onset Date Last Indicated Resolved Time MRSA 01/30/2025 01/30/2025 documented as of this encounter Care Teams Roundhouse Supervisor Relationship Specialty Start Date End Date Mandi Newsome MD [address] [place], [place] PCP - General Internal Medicine 05/18/22 documented as of this encounter
--- OUTSIDE RECORDS SUMMARY | 2024-08-22 10:47 | XMS_ITS | Encounter Summary ---
Author Organization [facility] Address [address] [place] [address] Care Team Providers Care Electrical Tech/Project Manager Name Role Phone Mandi Newsome MD Primary [...] Record ed Within the last 3 months, gagandeep junior many times did you visit the emergency [...] care for your loved ones. For example, summer child caregiver or elderly care for an older adult? [...] Description 07/06/2025 8:45 AM EDT Clinical Support [facility] [address] [place] [address] 09/14/2025 11:10 AM EST Office Visit [facility] [address] [place] [phone] Haydee Cates NP [address] [place] [address] [address] [place] [address] 09/19/2025 11:30 AM EST Office Visit Adult Medicine [facility] - [address] [phone] Jennifer Gray PA [address] [place] [address] 02/28/2026 3:20 PM EDT Appointment Radiology Department - [address] [phone] documented as of this encounter Visit Diagnoses Not on filedocumented in this encounter Additional Health Concerns Infection Onset Date Last Indicated Resolved Time MRSA 01/30/2025 01/30/2025 documented as of this encounter Care Teams Electrical Tech/Project Manager Relationship Specialty Start Date End Date Mandi Newsome MD [address] [facility], [place] PCP - General Internal Medicine 05/18/22 documented as of this encounter
--- OUTSIDE RECORDS SUMMARY | 2025-06-29 08:00 | XMS_ITS | Encounter Summary ---
Author Organization [facility] Address [address] [place] [address] Care Team Providers Care Document Preparation Specialist Name Role Phone Mandi Newsome MD Primary Care Pr ovider Reason for Visit * Reason Comments Wound Care Encounter Details Date Type Department Care Team (Late st Contact Info) Description 06/29/2025 8:00 AM EDT Office Visit [facility] [address] [place] [phone] Bautista Aguirre PA [address] [place] [address] Chronic venous hypertension (idiopathic) with ulcer of bilateral lower extremity (CMS/HCC V24, CMS/HCC V28) (Primary Dx); Non-pressure chronic ulcer of right lower leg with fat layer exposed (CMS/HCC V24, CMS/HCC V28); Non-pressure chronic ulcer of 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 (CMS/HCC V24, CMS/HCC V28) Social History Tobacco Use Types Packs/Day Years [...] for your loved ones. For example, child development consultant or elderly care for an older adult? [...] Sign Reading Time Taken Comments Blood Pressure 104/60 06/29/2025 8:10 AM EDT Pulse 97 06/29/2025 8:10 AM EDT Temperature 35.8 C (96.5 F) 06/29/2025 8:10 AM EDT Respiratory Rate 18 06/29/2025 8:10 AM EDT Oxygen Saturation 97% 06/29/2025 8:10 AM EDT Inhaled Oxygen Concentration - - Weight - - Height - - Body Mass Index - - documented in this encounter Progress Notes * Ana Brown RN - 06/29/2025 8:00 AM EDT PROVIDER ORDERS Go to ER if you are presenting with fever, chills, increased redness, pain, swelling, warmth aroundwound area and/or foul smelling odor. If you have any questions or concerns, please contact the [facility] at . Follow up(s)/ Referrals: N/A Usp: N/A Additional Orders: Increase protein in your diet to help promote wound healing, Maintain good blood sugar control Lidocaine Orders: Apply Lidocaine 5% Topical Ointment prior to debridements at Wound Care appointments Edema Control: (If your compression wrap(s) feel to tight, please elevate your leg(s) about heart level. If your wrap(s) are becoming painful and/or you loose sensation of toes/ are having toe discoloration (a change from your baseline), please remove / unwrap compression and notify [facility] at . ) Wear own home compression. Apply first thing in the morning prior to getting out of bed, OK to remove at bedtime., Elevate legs above heart level as much as possible, Avoid standing for extended periods of time, Compression Stocking Offloading: N/A Negative Pressure Wound Therapy: (If wound vac is off/non functioning for more than 2 hours, please remove vac dressing, apply a wetto dry dressing and notify your home care agency) N/A Cellular/Tissue Based Products: N/A Bathing / Showering / Hygiene: Ok to shower with dressing on, then change dressing right after. Non-wound Condition/ Other Skin Care: Moisturize skin daily, avoiding wound area Wound Location(s): Wound #1 (Left Anterior Lower Leg): Cleanser: Cleanse with Normal Saline Periwound: N/A Topical: N/A Primary dressing: Medihoney Alginate- cut to fit to wound bed Secondary dressing: Optilock Secure with: 4 conforming gauze roll , Spandage size 5, 1 paper tape Compression Therapy: Compression Stocking Dressing Change Frequency: Daily Wound #2 (Right Lateral Lower Leg): Cleanser: Cleanse with Normal Saline Periwound: N/A Topical: N/A Primary dressing: Medihoney Alginate- cut to fit to wound bed Secondary dressing: Optilock Secure with: 4 conforming gauze roll , Spandage size 5, 1 paper tape Compression Therapy: Compression Stocking Dressing Change Frequency: Daily Wound #3 (Right Medial Lower Leg): Cleanser: Cleanse with Normal Saline Periwound: N/A Topical: N/A Primary dressing: Medihoney Alginate- cut to fit to wound bed Secondary dressing: Optilock Secure with: 4 conforming gauze roll , Spandage size 5, 1 paper tape Compression Therapy: Compression Stocking Dressing Change Frequency: Daily * Shirley Andrew RN - 06/29/2025 8:00 AM EDT Discharge Patient directed to check out at front end alignment specialist and collect visit summary with wound care directions and book follow up as directed. Dressings applied: Wound #1 (Left Anterior Lower Leg): Cleanser: Cleanse with Normal Saline Periwound: N/A Topical: N/A Primary dressing: Medihoney Alginate- cut to fit to wound bed Secondary dressing: Optilock Secure with: 4 conforming gauze roll , Spandage size 5, 1 paper tape Compression Therapy: Compression Stocking Dressing Change Frequency: Daily Dressing technique was demonstrated and explained. Patient questions answered. Pt discharge from wound care center without issue or incidence. documented in this encounter Plan of Treatment Upcoming Encounters Date Type Department Care Team (Late st Contact Info) Description 07/06/2025 8:45 AM EDT Clinical Support [facility] [address] [place] [phone] 09/14/2025 11:10 AM EST Office Visit [facility] [address] [place] [phone] Haydee Cates, EDWARD [address] [facility] [address] [place] [address] 09/19/2025 11:30 AM EST [facility] [address] [phone] Jennifer Gray PA [facility] [place] [address] 02/28/2026 3:20 PM EDT Appointment Radiology Department - [address] [phone] Pending Results Name Type Priority Associated Diagnoses Date /Time Debridement Venous Ulcer Left;Anterior;Lower Leg Procedures Routine Chronic venous hypertension (idiopathic) with ulcer of bilateral lower extremity (CMS/HCC V24, CMS/HCC V28) Non-pressure chronic ulcer of 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 (CMS/HCC V24, CMS/HCC V28) 06/29/2025 8:00 AM EDT Debridement Venous Ulcer Right;Lateral;Lower Leg Procedures Routine Chronic venous hypertension (idiopathic) with ulcer of bilateral lower extremity (CMS/HCC V24, CMS/HCC V28) Non-pressure chronic ulcer of right lower leg with fat layer exposed (CMS/HCC V24, CMS/HCC V28) 06/29/2025 8:00 AM EDT Debridement Venous Ulcer Right;Medial;Lower Leg Procedures Routine Chronic venous hypertension (idiopathic) with ulcer of bilateral lower extremity (CMS/HCC V24, CMS/HCC V28) Non-pressure chronic ulcer of right lower leg with fat layer exposed (CMS/HCC V24, CMS/HCC V28) 06/29/2025 8:00 AM EDT documented as of this encounter Goals Goal Patient Goal Type Associated Problems Recent Progress Patient-Stated? Author Wound volume breakdown reduced by X% by [...] omised skin integrity. No Bibiana Bryant RN Decrease Wound Volume by X% by date (in notes) Care Plan Impaired Tissue Ana Albarado RN Patient and Caregiver Understand Wound Care Education Care Plan Impaired Tissue Ana Albarado RN Wound volume breakdown reduced by X% by week 4 Care Plan Impaired Tissue Ana Albarado RN Wound volume breakdown reduced by X% by week 8 Care Plan Impaired Tissue Ana Albarado RN Wound volume breakdown reduced by X% by week 12 Care Plan Impaired Tissue Ana Albarado RN Quit using tobacco (cigarettes, smokeless, etc) Care Plan Education needed on impact of smoking on wound Ana Albarado RN Reduce tobacco use (cigarettes, smokeless, etc) Care Plan Education needed on impact of smoking on wound Ana Albarado RN Decrease Wound Volume by X% by date (in notes) Care Plan Education needed on impact of smoking on wound Ana Albarado RN Patient and Caregiver Understand Wound Care Education Care Plan Education needed related to ulceration/compr omised skin integrity. No Ana Brown RN documented as of this encounter Procedures Procedure Name Priority Date/Time Associated Diagnosis Comments DEBRIDEMENT Routine 06/29/2025 8:00 AM EDT Chronic venous hypertension (idiopathic) with ulcer of bilateral lower extremity ([facility] V24, [facility]/HCC V28) Non-pressure chronic ulcer of right lower leg with fat layer exposed (CMS/HCC V24, CMS/HCC V28) DEBRIDEMENT Routine 06/29/2025 8:00 AM EDT Chronic venous hypertension (idiopathic) with ulcer of bilateral lower extremity (CMS/HCC V24, CMS/HCC V28) Non-pressure chronic ulcer of right lower leg with fat layer exposed (CMS/HCC V24, CMS/HCC V28) DEBRIDEMENT Routine 06/29/2025 8:00 AM EDT Chronic venous hypertension (idiopathic) with ulcer of bilateral lower extremity (CMS/HCC V24, CMS/HCC V28) Non-pressure chronic ulcer of 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 (CMS/HCC V24, CMS/HCC V28) documented in this encounter Visit Diagnoses Diagnosis Chronic venous hypertension (idiopathic) with ulcer of bilateral lower extremity (CMS/HCC V24, CMS/HCC V28)- Primary Non-pressure chronic ulcer of right lower leg with fat layer exposed (CMS/HCC V24, CMS/HCC V28) Non-pressure chronic ulcer of 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 (CMS/HCC V24, CMS/HCC V28) documented in this encounter Orders General Supply Count Last Ordered Date First Or dered Date WOUND CARE SUPPLIES 1 06/29/2025 documented in this encounter Additional Health Concerns Active Problems Noted Date Diagnosed Date Impaired Tissue 12/05/2024 Education needed on impact of smoking on wound 0 12/05/2024 Education needed related to ulceration/compromised skin integrity. 12/05/2024 Impaired Tissue 06/29/2025 Education needed on impact of smoking on wound 0 06/29/2025 Education needed related to ulceration/compromised skin integrity. 06/29/2025 Infection Onset Date Last Indicated Resolved Time MRSA 01/30/2025 01/30/2025 Assessment Noted Time PHQ-9 Depression Total Score: 0 06/29/20 25 8:09 AM EDT documented as of this encounter Care Teams Document Preparation Specialist Relationship Specialty Start Date End Date Mandi Newsome MD [address] [facility] [place], [place] PCP - General Internal Medicine 05/18/22 documented as of this encounter
--- NOTE | ~2025-06-30 | US_ITS ---
CLINICAL HISTORY: pain Venous duplex ultrasound bilateral lower extremity Comparison: None provided Findings: Examination limited secondary to edema and wounds. The visualized deep veins are fully compressible with normal Doppler color flow and spectral tracings. No popliteal cyst. IMPRESSION: 1. Limited negative for bilateral lower extremity deep vein thrombosis. This document has been electronically signed by: Jaida Wang MD on 06/30/2025 13:32:19
--- NOTE | ~2025-06-30 | XR_ITS ---
CLINICAL HISTORY: overlying wound r o osteo 2 view right tibia-fibula Comparison: None provided Findings No fractures or dislocations. No joint effusion. No significant arthritic change. No radiopaque foreign body. Arterial vascular calcifications are present. IMPRESSION: 1. Normal right tibia-fibula This document has been electronically signed by: Jaida Wang MD on 06/30/2025 14:19:37
[2025-06-30 11:22] VITALS: BP 144/70; PULSE 88; RESP 16; TEMP 36; O2SAT 99; BMI 36.6
--- NOTE | 2025-06-30 11:26 | ED_ITS ---
HPI - General Adult General Chief complaint: Wound/Laceration Stated complaint: both leg pain r more so Time Seen by Provider: 06/30/25 12:48 Source: patient Mode of arrival: ambulatory Limitations: no limitations History of Present Illness ED Provider: EKATERINA MCLEOD PA-C HPI narrative: 49-year-old female with pmhx significant for uncontrolled T2DM, PID, diabetic neuropathy, PAD, diabetic neuropathy, chronic LE wounds presents to the ED for evaluation of right lower leg pain x24 hours. Reports blister to right clemente x2 weeks. She is currently following with wound care at [facility] for this. Reports having debridement performed at clinic yesterday with medihoney dressing applied. Reports throbbing pain localized to area of wound since debridement. She states this typically resolves a few hours after her appointment however it has persisted. Pain is rated 9/10, not relieved with gabapentin or extra strength tylenol. She reports concern for deeper infection that may have been missed by provider yesterday. Denies any other concerns/ complaints. Denies fever, chills, numbness/tingling/weakness of the RLE, discharge or oozing from wound. She has a follow up appointment with wound care in 5 days. Related Data Home Medications ?Medication ?Instructions ?Recorded ?Confirmed aripiprazole 10 mg tablet 10 mg PO BEDTIME 08/17/23 aspirin 81 mg tablet,delayed 81 mg PO DAILY 08/17/23 0 06/12/25 release atomoxetine 40 mg capsule 40 mg PO DAILY 08/17/2306/01 atorvastatin 80 mg tablet 80 mg PO DAILY 08/17/2306/01 carvedilol 6.25 mg tablet 6.25 mg PO BID 08/17/2306/01 clonidine HCl 0.1 mg tablet 0.1 - 0.2 mg PO BEDTIME [place] N 08/17/23 06/12/25 insomnia dapagliflozin propanediol 10 mg 10 mg PO DAILY 3 06/12/25 tablet (Farxiga) furosemide 20 mg tablet 20 mg PO DAILY 08/17/2306/01 mirtazapine 15 mg tablet 15 mg PO BEDTIME 08/17/23 omeprazole 20 mg capsule,delayed 20 mg PO DAILY 10/17/ 23 08/12/25 release pregabalin 75 mg capsule 75 mg PO TID 08/17/23 sacubitril 24 mg-valsartan 26 mg 1 tab PO BID 08/17/23 06/12/25 tablet (Entresto) insulin glargine 100 unit/mL (3 36 unit subcut QPM 10/2506/12/25 mL) subcutaneous pen (Lantus Solostar U-100 Insulin) insulin lispro 100 unit/mL See Rx Instructions subcut BID 06/12/25 06/12/25 subcutaneous pen (Humalog KwikPen (U-100) Insulin) Previous Rx's ?Medication ?Instructions ?Recorded blood-glucose sensor (FreeStyle #2 ea 03/20/25 Ramakrishna 3 Plus Sensor device) pen needle, diabetic 32 gauge x #200 ea 03/20/25/32 dextrose 15 gram/32 mL oral gel 15 g (32 mL) PO Q15M P RN 06/12/25 packet (TRUEplus Glucose) hypoglycemia #128 mL tirzepatide 2.5 mg/0.5 mL 2.5 mg (0.5 mL) subcut QWEEK #2 mL 06/12/25 subcutaneous pen injector (Holaro) oxycodone 5 mg tablet 5 mg PO Q8H PRN pain (scale score 06/30/25 7-10) 2 days #6 tabs Allergies Allergy/AdvReac Type Severity Reaction Status Date / Time Penicillins (PCN) Allergy Hives Verified 06/30/25 11:22 Review of Systems 2 Review of Systems: Yes all other systems are reviewed and are negative PMFSH Past Medical History Attestation statement: The following information was validated with the patient. Source: old records reviewed and nursing notes reviewed Medical History Uncontrolled type 2 diabetes mellitus with hyperglycemia Mixed hyperlipidemia Mood disorder HFrEF (heart failure with reduced ejection fraction) Non-insulin dependent type 2 diabetes mellitus Surgical History Hx of heart surgery Family History Family History Father Diabetes mellitus HTN (hypertension) Acute respiratory failure with hypoxia Mother Diabetes mellitus Social History Social History Household Members: Children Housing: Apartment Do you presently have 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 or other home services: Yes ([employer]ER[employer]) Patient Tobacco Use Status: Never used Tobacco Advance Directives: Yes Advance Directives on File: Yes Advance Directives Date on File: 08/18/23 service: No Physical Exam ED Vital Signs: Vital Signs - 24 hr 06/30/25 11:22 06/30/25 15:11 06/30/25 15:15 Temperature 96.8 F 96.8 F 97.7 F Pulse Rate 88 88 78 Respiratory Rate 16 16 18 Blood Pressure 144/70 H 144/70 H 118/71 Pulse Oximetry 99 99 98 Oxygen Delivery Method Room Air Room Air Room Air BMI result Body Mass Index 36.6 hypertensive, vital signs stable General: Well appearing, in no acute distress. Skin: Warm, dry, intact Head: Normocephalic, atraumatic. EENT: Hearing is intact b/l. Conjunctiva clear. PERRLA. EOM intact. Moist mucous membranes.? Cardiac: Chest wall symmetric. RRR. Lungs: Normal respiratory effort without accessory muscle use. CTA bilaterally Ext: +see photos of anterior right lower leg below. well healing wounds noted to right clemente with good margins, no areas of necrosis, no significant warmth, no expressible discharge, no fluctuance. negative homans sign, no calf tenderness. Neuro: AOx3. Normal speech. Ambulating with steady gait. Course Course Course Narrative: RME, this is a rapid medical exam performed by Carl Childers please refer to primary provider for complete H&P- 49 year old female with a history of diabetes, hypertension, peripheral artery disease, heart failure presents for evaluation of bilateral leg pain. Denies any history of DVT. Plan for basic labs and inflammatory markers. Reevaluation(s) Reevaluation #1: CBC without leukocytosis or left shift. No anemia. H&H stable. Chemistry without acute electrolyte abnormality requiring intervention. No GANGA. Liver function at baseline. ESR consistently elevated however improved from priors. CRP WNL. Venous duplex of right lower extremity does not demonstrate DVT. X- ray of right tib-fib does not demonstrate acute osteomyelitis. > her wounds are well-appearing. There does not appear to be any overt signs of infection that would require treatment with antibiotics. I have suspicion that patient's pain/discomfort is secondary to recent debridement along with new [facility] treatment which is actively treating the wounds. She is provided with a dose of oxycodone in the ED today for pain management and I will send her home with a few tabs for break through pain. She has follow up with wound care later this week. Patient has remained stable throughout ED visit today. Discussed worrisome signs and symptoms and when to return to the ED. All questions answered at this time. Patient is agreeable with disposition and stable for discharge. Medications Administered Discontinued Medications Generic Name Dose Route Start Last Admin Trade Name Ryanq PRN Reason Stop Dose Admin Naloxone HCl 8 mg 06/30/25 15:00 06/30/25 15:16 Naloxone Hcl Nasal Take Home 4 Mg [place] NOSTRILALT 06/30/25 15:01 8 mg ONCE ONE Administration Oxycodone HCl 5 mg 06/30/25 14:58 06/30/25 15:15 Oxycodone Hcl Immed Release 5 Mg Tablet PO 06/30/25 14:59 5 mg ONCE ONE Administration Medical Decision Making Medical Decision Making [facility] Narrative: 49-year-old female with pmhx significant for uncontrolled T2DM, PID, diabetic neuropathy, PAD, diabetic neuropathy, chronic LE wounds presents to the ED for evaluation of right lower leg pain x24 hours. patient is hypertensive, afebrile, she is well appearing and in NAD. please refer to physical exam portion for findings. Differentials include well healing wound, cellulitis, DVT, osteomyelitis, cutaneous blister Plan for screening labs, ultrasound, xr, pain control, and re-evaluation. Differential Diagnosis Differential Diagnoses: The differential diagnosis associated with the presentation includes as above. Admission/Observation not indicated. Lab Data [facility] Lab Attestation statement: I reviewed the patient's lab results. as above. 06/30/25 11:41 06/30/25 11:41 Labs: Lab Results 06/30/25 Range/Units 11:41 WBC 7.1 (4.8-10.8) X10*3/uL RBC 4.68 (4.20-5.50) X10*6/uL Hgb 13.4 D (12.0-16.0) g/dl Hct 39.7 (37.0-47.0) % MCV 84.8 (80.0-98.0) fL MCH 28.6 (27.0-33.0) pg MCHC 33.8 (31.0-35.0) g/dl RDW 12.9 (11.0-16.0) % Plt Count 204 D (160-400) X10*3/uL MPV 10.2 (9.4-12.3) fL Immature Gran % (Auto) 0.3 (0.0-0.4) % Neut % (Auto) 69.1 (45-73) % Lymph % (Auto) 23.3 (20-40) % Anderson % (Auto) 4.7 (2-11) % Eos % (Auto) 2.3 (0-4) % Baso % (Auto) 0.3 (0-2) % Lymph # (Auto) 1.7 (1.2-4.9) X10*3/uL Anderson # (Auto) 0.3 (0.1-1.2) X10*3/uL Eos # (Auto) 0.2 (0.0-0.4) X10*3/uL Baso # (Auto) 0.0 (0.0-0.2) X10*3/uL Abs Immat Gran (auto) 0.02 (0.00-0.03) X10*3/uL Absolute Neuts (auto) 4.9 (2.0-8.3) x10*3/uL Absolute Nucleated RBC 0.000 (0.0-0.012) X10*3/uL Nucleated RBC % (auto) 0.0 (0.0-0.2) /100WBC ESR 29 H (0-20) MM/HR Sodium 141 (135-145) mmol/L Potassium 4.3 (3.3-5.1) mmol/L Chloride 109 H (96-108) mmol/L Carbon Dioxide 23 (22-29) mmol/L Anion Gap 13 (12-20) BUN 16 (9-16) mg/dL Creatinine 0.85 (0.5-1.4) mg/dL Estim Creat Clear Calc 91.5 Estimated GFR > 60 Random Glucose 88 (60-115) mg/dL Calcium 9.1 (8.4-10.2) mg/dL Total Bilirubin 0.5 (0.0-1.0) mg/dL AST 29 (5-31) U/L ALT 21 (0-31) U/L Alkaline Phosphatase 150 H (39-117) U/L C-Reactive Protein 0.45 (< or = 0.50) mg/dL Total Protein 7.6 (6.5-8.0) g/dL Albumin 4.0 (3.5-5.0) g/dL Independent Interpretation I performed an independent interpretation of an: Plain X-Ray Interpretation: xr right tib/fib without osseous erosions venous duplex RLE without dvt Radiology Impression Discussion of test interpretation with radiology: I have reviewed the radiologist's reading. Radiologist Impression: Procedure(s): XR tibia fibula RT 2V Accession Number(s): [id number] cc: Mandi Newsome MD; Ekaterina Mcleod~ CLINICAL HISTORY: overlying wound r o osteo 2 view right tibia-fibula Comparison: None provided Findings No fractures or dislocations. No joint effusion. No significant arthritic change. No radiopaque foreign body. Arterial vascular calcifications are present. IMPRESSION: 1. Normal right tibia-fibula This document has been electronically signed by: Jaida Wang MD on 06/30/2025 14:19:37 Procedure(s): US venous duplex LE BI Accession Number(s): [id number] cc: Ward Childers; Mandi Newsome MD~ CLINICAL HISTORY: pain Venous duplex ultrasound bilateral lower extremity Comparison: None provided Findings: Examination limited secondary to edema and wounds. The visualized deep veins are fully compressible with normal Doppler color flow and spectral tracings. No popliteal cyst. IMPRESSION: 1. Limited negative for bilateral lower extremity deep vein thrombosis. This document has been electronically signed by: Jaida Wang MD on 06/30/2025 13:32:19 External Record Review External record reviewed: Inpatient record Prescription Management I considered prescription management with: Pain Medication Chronic Conditions Patient?s care impacted by: Diabetes Social Determinants Patient?s care significantly limited by Social Determinants of Health including: Other Social Determinant of Health Critical Care Time Critical Care Time Critical Care Time: No Discharge Plan Discharge Clinical Impression: Chronic wound Patient Disposition: Home, Self-Care Additional Instructions: Your blood work today is reassuring. The ultrasound of your right lower leg does not demonstrate clot. The x-ray of your right lower leg does not demonstrate any infection within the bone. Your exam is quite reassuring. Your wound appears to be healing well. Has good margins. There is no active drainage or discharge or signs of active infection. You may take tylenol/motrin at home as needed. I am sending oxycodone, a controlled pain medication, to your pharmacy for you to take for breakthrough pain control. Please use this with caution as opioid pain medications have addictive properties. I have also provided you with Narcan as accidental overdoses on oxycodone can occur. Opioid pain medications can often cause constipation. I recommend taking this with an over the counter laxative and/or stool softener to help move your bowels. Follow up with wound care as scheduled on 06/05/25. Return with any new or worsening symptoms. In the case of an emergency call 911. Prescriptions: New oxycodone 5 mg tablet 5 mg PO Q8H PRN (Reason: pain (scale score 7-10)) 2 Days Qty: 6 0RF Rx Instructions: Partial Fill upon patient request. No Action atorvastatin 80 mg tablet 80 mg PO DAILY clonidine HCl 0.1 mg tablet 0.1 - 0.2 mg PO BEDTIME PRN (Reason: insomnia) carvedilol 6.25 mg tablet 6.25 mg PO BID aspirin 81 mg tablet,delayed release (DR/EC) 81 mg PO DAILY omeprazole 20 mg capsule,delayed release(DR/EC) 20 mg PO DAILY furosemide 20 mg tablet 20 mg PO DAILY mirtazapine 15 mg tablet 15 mg PO BEDTIME aripiprazole 10 mg tablet 10 mg PO BEDTIME atomoxetine 40 mg capsule 40 mg PO DAILY pregabalin 75 mg capsule 75 mg PO TID Farxiga 10 mg tablet 10 mg PO DAILY Entresto 24-26 mg tablet 1 tab PO BID (DME) pen needle, diabetic 32 gauge x /32 needle See Rx Instructions .ROUTE .MEDSUPPLY Qty: 200 6RF Rx Instructions: As directed four times daily (DME) FreeStyle Ramakrishna 3 Plus Sensor Device See Rx Instructions .ROUTE .MEDSUPPLY Qty: 2 11RF Rx Instructions: As directed every 15 days Mounjaro 2.5 mg/0.5 mL pen injector 2.5 mg subcut QWEEK Qty: 2 0RF Rx Instructions: for 4 weeks TRUEplus Glucose 15 gram/32 mL gel in packet 15 g PO Q15M PRN (Reason: hypoglycemia) Qty: 128 3RF Rx Instructions: until symptoms of low blood sugar are controlled insulin glargine [Lantus Solostar U-100 Insulin] 100 unit/mL (3 mL) insulin pen 36 unit subcut QPM insulin lispro [Humalog KwikPen Insulin] 100 unit/mL insulin pen See Rx Instructions subcut BID Rx Instructions: subcutaneously 2 times a day; 5 units before breakfast and supper Referrals: Mandi Newsome MD [Primary Care Provider, Family Practice] Interventions: ED Discharge Assessment Last Done: 06/30/25 15:11 Discharge Date/Time: 06/30/25 15:19 Print Language: Andorran
--- OUTSIDE RECORDS SUMMARY | 2025-06-30 11:41 | XMS_ITS | Clinical Summary ---
Author Organization [facility] [employer] Address [address] [facility] [place], [place] [address] Phone Care Team Providers Care Manager Mental Health Name Role Phone Mandi Newsome MD Primary Care Pr ovider Allergies Active Allergy Reactions Criticality Noted Date Comments Penicillins 08/19/2024 Dulaglutide 08/19/2024 Medications simethicone (MYLICON) 80 mg chewable tablet Chew 1 tablet (80 mg total) every 6 (six) hours if needed. 03/09/20 24 Active mirtazapine (REMERON) 15 mg tablet Take 1 tablet (15 mg total) by mouth at bedtime. 02/23/20 24 Active cloNIDine (CATAPRES) 0.1 mg tablet Take 1 tablet (0.1 mg total) by mouth. 01/25/20 20 Active atomoxetine (STRATTERA) 40 mg capsule Take 1 capsule (40 mg total) by mouth 1 (one) time each day. 12/28/19 20 Active ammonium lactate (LAC-HYDRIN) 12 % lotion Apply 1 g topically if needed for dry skin or irritation. 08/17/20 23 Active levonorgestreL (MIRENA) 21 mcg/24hr (up to 8 yrs) 52 mg IUD by intrauterine route. In place per patient 12/05/2024 Active sacubitriL-valsart an (Entresto) 24-26 mg per tablet Take 1 tablet by mouth 2 (two) times a day. 180 tablet 2 11/22/19 25 Active dapagliflozin propanediol (FARXIGA) 10 mg tabletIndications: DM (diabetes mellitus), type 2 with neurological complications [place] [place] [facility] [place]28),Type 2 diabetes mellitus with diabetic microalbuminuria, with long-term current use of insulin ([facility] [place], [facility] [place]) Take 1 tablet (10 mg total) by mouth 1 (one) time each day. 90 tablet 1 02/23/20 25 Active omeprazole (PriLOSEC) [address] capsuleIndications :Gastroesophageal reflux disease without esophagitis Take 1 capsule (20 mg total) by mouth 1 (one) time each day. 90 each 1 02/23/20 25 Active pregabalin (LYRICA) 75 mg capsuleIndications :Diabetic polyneuropathy associated with type 2 diabetes mellitus ([facility] [place], [facility] [place]) Take 1 capsule (75 mg total) by mouth 3 (three) times a day. 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 -Administer within 15 minutes of a meal Active insulin glargine (LANTUS SoloStar) 100 unit/mL (3 mL) injection pen Inject 36 Units under the skin at bedtime. 05/18/20 25 Active atorvastatin (LIPITOR) 80 mg tabletIndications: Pure hypercholesterolem ia, unspecified TAKE 1 TABLET BY MOUTH EVERY DAY 90 tablet 1 05/22/20 25 Active furosemide (LASIX) 20 mg tablet Take 1 tablet (20 mg total) by mouth 1 (one) time each day. 90 tablet 1 05/22/20 25 Active Active Problems Problem Noted Date Diagnosed Date Chronic venous hypertension (idiopathic) with ulcer of left lower extremity (CODE) ([facility] [place], [facility] [place]) 03/13/2025 Non-pressure chronic ulcer o f 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 ([facility] V24, [facility] V28) 03/13/2025 Type 2 diabetes mellitus wit h other skin ulcer (CODE) ([facility] V24, [facility] V28) 12/05/2024 Non-pressure chronic ulcer o f left lower leg with fat layer exposed ([facility] V24, [facility] V28) 12/05/2024 Weakness 09/13/2024 Overview (09/13/2024): Patient [...] asso ciated with type 2 diabetes mellitus ([facility] [place], [facility] V28) 06/05/2024 Assessment & Plan (02/22/2025 11:58 AM EDT): Interested in podiatry evaluation for diabetic footcare. Continue pregabalin Orders: Ambulatory referral to Podiatry; Future pregabalin (LYRICA) 75 mg capsule; Take 1 capsule (75 mg total) by mouth 3 (three) times a day. Max Daily Amount: 225 mg Heart failure with improved ejection fraction (HFimpEF) ([facility] [place], [facility] V28) 06/05/2024 Assessment & Plan (09/13/2024 1:47 PM EST): On medical management the patient has good control of the previous ischemic cardiomyopathy. Peripheral artery disease ([facility] V24) 06/05/20 Assessment & Plan (02/22/2025 11:58 AM EDT): She has leg claudication. Not followed by vascular surgery and is referred Orders: Ambulatory referral to Vascular Surgery; Future Cardiomyopathy ([facility] [place], [facility] V28) 2022 Overview (08/19/2024): Last Assessment & Plan: Patient with perioperative congestive heart failure with a marked improvement in overall left ventricular systolic function near normal on most recent echocardiography secondary to both coronary intervention and medical management Urinary incontinence 05/14/2023 Proliferative diabetic retin opathy ([facility] V24, [facility] V28) 09/15/2022 Overview (08/19/2024): Bilateral, Dr. Roper [...] CK; Future PAF (paroxysmal atrial fibri llation) ([facility] [place], [facility] V28) 07/22/2021 Overview (08/19/2024): Last Assessment & [...] (diabetes mellitus), type 2 with neurological complications ([facility] V24, [facility] V28) 10/03/2010 Assessment & Plan (02/22/2025 11:58 AM EDT): Her last A1c was 12.6 in June. Her diabetes remains poorly controlled. Currently not following with endocrinology. She does not want to continue coming to [place] for her endocrinology care. She is referred to [facility] per her preference-Dr. Madrigal Will update [...] (diabetes mellitus), type 2 with renal complications ([facility] V24, [facility] V28) 10/02/2010 Assessment & Plan (02/22/2025 11:58 [...] left lower leg with fat layer exposed ([facility] V24, [facility] V28) 01/02/2025 02/22/2025 Absolute anemia 08/04/2024 02/22/2025 Assessment & Plan (02/22/2025 11:58 AM EDT): Orders: CBC and differential; Future Ferritin; Future Iron and TIBC; Future DM type 2 causing eye diseas e ([facility] V24, [facility] V28) 09/15/2022 02/22/2025 Encounters Date Type Department Care Team Description 06/29/2025 8:00 AM EDT Office Visit [facility] [address] [place] [phone] Bautista Aguirre PA Chronic venous hypertension (idiopathic) with ulcer of bilateral lower extremity ([facility] V24, [facility] V28) (Primary Dx); Non-pressure chronic ulcer of right lower leg with fat layer exposed ([facility] V24, [facility] V28); Non-pressure chronic ulcer of 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 ([facility] V24, [facility] V28) 06/12/2025 Telephone [facility] [address] [place] [phone] Ana Brown RN 05/22/2025 Telephone Adult Medicine [address] [phone] Mandi Newsome MD 05/18/2025 10:00 AM EDT Office Visit Adult Medicine [address] [phone] Jennifer Gray PA Annual physical exam (Primary Dx); Type 2 diabetes mellitus with other skin ulcer (CODE) ([facility] V24, [facility] V28); Diabetic polyneuropathy associated with type 2 diabetes mellitus ([facility] V24, [facility] V28); Peripheral artery disease ([facility] V24); Moderate mixed hyperlipidemia not requiring statin therapy; Essential hypertension, benign; 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; Heart failure with improved ejection fraction (HFimpEF) ([facility] V24, [facility] V28); History of non-ST elevation myocardial infarction (NSTEMI); PAF (paroxysmal atrial fibrillation) ([facility] V24, [facility] V28); Gastroesophageal reflux disease, unspecified whether esophagitis present 04/24/2025 Telephone Adult Medicine [address] [phone] Mandi Newsome MD 04/05/2025 11:30 AM EDT Office Visit [facility] [address] [place] [phone] Bautista Aguirre PA Non-pressure chronic ulcer of other part of left lower leg limited to breakdown of skin ([facility] V24, [facility] V28) (Primary Dx); Chronic venous hypertension (idiopathic) with ulcer of left lower extremity (CODE) ([facility] V24, [facility] V28) from Last 3 Months Immunizations Name [...] 11/23/2017,01/12/2012 Pfizer (ages 12 & older) Biv alecamille, COVID-19 01/28/2024,09/14/2022 Pneumococcal conjugate 20 va lent [...] COLONOSCOPY 02/14/2024 hemorrhoids; repeat in 10 years [place] BREAST REDUCTION Medical History Medical History Date Comments Asthma 2020 CHF (congestive heart failure) ([facility] [place], [facility] V28) 2020 DM type 2 causing eye disease ([facility] [place], [facility] V28) 2021 HFrEF (heart failure with re duced ejection fraction) ([facility] [place], [facility] V28) 2020 Non-ST elevation (NSTEMI) my ocardial infarction ([facility] [place], [facility] V28) 2020 Peripheral neuropathy 2020 Retinopathy due to secondary diabetes ([facility] [place], [facility] [place]) Family History Medical History Relation Name [...] for your loved ones. For example, child support officer or elderly care for an older adult? [...] EDT Inhaled Oxygen Concentration - - Weight 97.1 kg (214 lb) 05/18/2025 10:15 AM EDT Height 160 cm (5' 3 ) 05/18/2025 10:15 AM EDT Body Mass Index 37.91 05/18/2025 10:15 AM EDT Plan of Treatment Upcoming Encounters Date Type Department Care Team (Late st Contact Info) Description 07/06/2025 8:45 AM EDT Clinical Support [facility] [address] [place] [phone] 09/14/2025 11:10 AM EST Office Visit [facility] [address] [place] [phone] Haydee Cates NP [address] [place] [address] [address] [place] [phone] 09/19/2025 11:30 AM EST Office Visit Adult Medicine [address] [phone] Jennifer Gray PA [address] [place] [address] 02/28/2026 3:20 PM EDT Appointment Radiology Department - [address] [phone] Health Maintenance Due Date Last Done Comments Diabetes: Annual Foot Exam 1983 Diabetes: Annual Retina Eye Exam 1983 Hepatitis B Vaccines (1 of 3 - 19+ 3-dose series) 1992 HIV Screening 10/09/2022 Zoster Vaccines (2 of 2) 03/24/2024 01/28/2024 Cervical Cancer Screening: Pap Smear 05/22/2024 05/22/2021, 11/10/2019 COVID-19 Vaccine ( season) 2024 01/28/2024, 09/14/2022, 04/01/2021, Additional history exists Influenza Vaccine (#1) 2025 , 09/14/2022, 07/22/2021, Additional history exists Diabetes: Blood Sugar Control Test (HGBA1C) 11/25/2025 05/25/2025, 02/22/2025, 06/05/2024 Diabetes: Annual Urine Albumin-Creatinine Ratio (uACR) 02/22/2026 02/22/2025 Social Influencers of Health Screening 05/18/2026 05/18/2025 Diabetes: Annual GFR (Glomerular Filtration Rate) 05/25/2026 05/25/2025, 02/22/2025, 06/05/2024 Hypertension/CHF/CAD Annual BMP Blood Test 05/25/2026 05/25/2025, 02/22/2025, 06/05/2024 Breast Cancer Screening 02/27/2027 02/28/20, 02/23/2025, 03/27/2023, Additional history exists Cholesterol Screening (Lipid Panel) 02/22/2030 02/22/2025, 09/14/2024 DTaP,Tdap,and Td Vaccines (4 - Td or Tdap) 01/27/2034 01/28/2024, 03/09/2022, 08/22/2009 Colorectal Cancer Screening: Colonoscopy 02/13/2034 02/14/2024 Pneumococcal Vaccine: 50+ Years Completed 09/18/2024, 09/01/2012 Hepatitis C Screening Completed 02/22/2025 Depression Screening Completed 06/29/2025 HIB Vaccines Aged Out No longer eligi [...] week 4 Care Plan Impaired Tissue No Bibiana Bryant [...] ulceration/compr omised skin integrity. Bibiana Alonso RN Decrease Wound Volume by X% by date (in notes) Care Plan Impaired Tissue No Ana Brown RN Patient and Caregiver Understand Wound Care Education Care Plan Impaired Tissue No Ana Brown RN Wound volume breakdown reduced by X% by week 4 Care Plan Impaired Tissue No Ana Brown RN Wound volume breakdown reduced by X% by week 8 Care Plan Impaired Tissue No Ana Brown RN Wound volume breakdown reduced by X% by week 12 Care Plan Impaired Tissue Ana Albarado RN Quit using tobacco (cigarettes, smokeless, etc) Care Plan Education needed on impact of smoking on wound No Ana Brown RN Reduce tobacco use (cigarettes, smokeless, etc) Care Plan Education needed on impact of smoking on wound No Ana Brown RN Decrease Wound Volume by X% by date (in notes) Care Plan Education needed on impact of smoking on wound No Ana Brown RN Patient and Caregiver Understand Wound Care Education Care Plan Education needed related to ulceration/compr omised skin integrity. No Ana Brown RN Procedures Procedure Name Priority Date/Time Associated [...] fat layer exposed (CMS/HCC V24, CMS/HCC V28) BASIC METABOLIC PANEL Routine 05/25/2025 10:29 AM EDT Type 2 diabetes mellitus with other skin ulcer (CODE) (CMS/HCC V24, CMS/HCC V28) HEMOGLOBIN A1C Routine 05/25/2025 10:29 AM EDT Type 2 diabetes mellitus with other skin ulcer (CODE) (CMS/HCC V24, CMS/HCC V28) MG MAMMO DIGITAL DIAGNOSTIC W NETO RIGHT Routine 02/27/2025 3:30 PM EDT Abnormal mammogram MICROALBUMIN CREATININE URINE RATIO Routine 02/22/2025 12:29 PM EDT DM (diabetes mellitus), type 2 with neurological complications (CMS/HCC V24, CMS/HCC V28) Type 2 diabetes mellitus with diabetic microalbuminuria, with long-term current use of insulin (CMS/HCC V24, CMS/HCC V28) HEPATITIS C ANTIBODY Routine 02/22/2025 10:45 AM EDT Need for hepatitis C screening test LIPID PANEL WITH REFLEX TO DIRECT LDL Routine 02/22/2025 10:45 AM EDT Mixed hyperlipidemia PAP SMEAR Routine 05/22/2021 from Last 3 Months or Most Recently Relevant to Health Maintenance Results * (ABNORMAL) Hemoglobin A1c (05/25/2025 10:29 AM EDT) Hemoglobin A1C 10.9(H) <6.5 % LAB CHEMISTRY METHOD 05/25/2025 2:30 PM EDT [facility] Mean Bld Glu Estim. 266 mg/dL LAB CHEMISTRY METHOD 05/25/2025 2:30 PM EDT [facility] Blood Venous blood specimen / Unknown Venipuncture / Unknown 05/25/2025 10:29 AM EDT 05/25/2025 10:29 AM EDT us Jennifer HERNANDEZ LAB BLOOD ORDERABLES Final Re sult [facility] [address] [place] [address], * (ABNORMAL) Basic metabolic panel (05/25/2025 10:29 AM EDT) Sodium 140 133 - 145 mmol/L LAB CHEMISTRY METHOD 05/25/2025 2:10 PM EDT [facility] Potassium 4.1 3.5 - 5.5 mmol/L LAB CHEMISTRY METHOD 05/25/2025 2:10 PM EDT [facility] Chloride 108 96 - 110 mmol/L LAB CHEMISTRY METHOD 05/25/2025 2:10 PM EDT [facility] CO2 24 21 - 32 mmol/L LAB CHEMISTRY METHOD 05/25/2025 2:10 PM EDT [facility] Anion Gap 8 3 - 11 LAB CHEMISTRY METHOD 05/25/2025 2:10 PM EDT [facility] Glucose 149(H) 70 - 100 mg/dL LAB CHEMISTRY METHOD 05/25/2025 2:10 PM EDT [facility] BUN 10 5 - 25 mg/dL LAB CHEMISTRY METHOD 05/25/2025 2:10 PM EDT [facility] Creatinine 0.84 0.50 - 1.10 mg/dL LAB CHEMISTRY METHOD 05/25/2025 2:10 PM EDT [facility] eGFR 84 >=60 mL/min/1. 73m2 LAB CHEMISTRY METHOD 05/25/2025 2:10 PM EDT [facility] Comment:Calculation based on the Chronic Kidney Disease Epidemiology Collaboration (CKD-EPI) equation refit without adjustment for race. BUN/Creatinine Ratio 11.9 LAB CHEMISTRY METHOD 05/25/2025 2:10 PM EDT [facility] Calcium 8.8 8.5 - 10.5 mg/dL LAB CHEMISTRY METHOD 05/25/2025 2:10 PM EDT [facility] Blood Venous blood specimen / Unknown Venipuncture / Unknown 05/25/2025 10:29 AM EDT 05/25/2025 10:29 AM EDT us Jennifer HERNANDEZ LAB BLOOD ORDERABLES Final Re sult [facility] [address] [place] [address], [place] [phone] * MG Mammo Digital Diagnostic w Neto Right (02/27/2025 3:30 PM EDT) Anatomical Region Laterality Modality Breast Right Mammography 02/27/2025 3:32 PM EDT Impressions 02/27/2025 3:56 PM EDT 1. No mammographic evidence of malignancy 2. Scattered fibroglandular tissue Findings and recommendations were conveyed to the patient. BI-RADS CATEGORY: 2 - BENIGN RECOMMENDATION: Return to annual mammography. Return to annual mammography. Mammo Location: [facility], [address] [place] [address], [id number], . -------- FINAL REPORT -------- Dictated By: Mandi Desai Dictated Date: 02/27/2025 15:32 ET Assigned Physician: Mandi Desai Reviewed and Electronically Signed By: Mandi Desai Signed Date: 02/27/2025 15:56 ET Workstation ID: [id number] Transcribed By: Self Edit Transcribed Date: 02/27/2025 [...] consistent with benign summation of fibroglandular tissue. Stable superior breast thickening is present. Sonographic evaluation demonstrates no focal abnormality. BREAST DENSITY: B - There are scattered areas of fibroglandular density. EXAM: RIGHT BREAST TARGETED ULTRASOUND EVALUATION TECHNIQUE: Ultrasonographic examination is performed using a linear array transducer. Targeted right breast ultrasound from [...] mammography. Return to annual mammography. Mammo Location: [facility], [address] [place] [address], [id number], . -------- FINAL REPORT -------- Dictated By: Mandi Desai Dictated Date: 02/27/2025 15:32 ET Assigned Physician: Mandi Desai Reviewed and Electronically Signed By: Mandi Desai Signed Date: 02/27/2025 15:56 ET Workstation ID: [id number] Transcribed By: Self Edit Transcribed Date: 02/27/2025 15:50 ET Mandi Newsome MD IM BI PROCEDURE S Final Result * Microalbumin creatinine urine ratio (02/22/2025 12:29 PM EDT) Creatinine, Urine 68.0 mg/dL LAB CHEMISTRY METHOD 02/22/2025 4:12 PM EDT [facility] Microalb, Ur 11.2 0.0 - 29.0 mg/L LAB CHEMISTRY METHOD 02/22/2025 4:12 PM EDT [facility] Microalb/Creat Ratio 16 <30 mg/g creat LAB CHEMISTRY METHOD 02/22/2025 4:12 PM EDT [facility] Urine Urine specimen obtained by clean catch procedure / Unknown Non-blood Collection / Unknown 02/22/2025 12:29 PM EDT 02/22/2025 12:29 PM EDT us Mandi Newsome MD LAB URINE ORDERA BLES Final Result Performing Organization Address City/[facility]/ZIP Co de Phone Number [facility] [address] [place] [address], [place] [phone] * Hepatitis C antibody (02/22/2025 10:45 AM EDT) [facility] Hepatitis C Antibody Negative Negative LAB CHEMISTRY METHOD 02/22/2025 3:20 PM EDT [facility] Blood Venous blood specimen / Unknown Venipuncture / Unknown 02/22/2025 10:45 AM EDT 02/22/2025 10:45 AM EDT us Mandi Newsome MD LAB BLOOD ORDERA BLES Final Result Performing Organization Address City/[facility]/ZIP Co de Phone Number [facility] [address] [place] [address], [place] [phone] * Lipid panel with reflex to direct LDL (02/22/2025 10:45 AM EDT) [facility] Cholesterol 137 0 - 200 mg/dL LAB CHEMISTRY METHOD 02/22/2025 1:35 PM EDT [facility] Triglycerides 106 0 - 150 mg/dL LAB CHEMISTRY METHOD 02/22/2025 1:35 PM EDT [facility] HDL 40 >=40 mg/dL LAB CHEMISTRY METHOD 02/22/2025 1:35 PM EDT [facility] LDL Calculated 76 0 - 100 mg/dL LAB CHEMISTRY METHOD 02/22/2025 1:35 PM EDT [facility] VLDL Cholesterol Jonel 21.2 mg/dL LAB CHEMISTRY METHOD 02/22/2025 1:35 PM EDT [facility] Non HDL Chol. (LDL+VLDL) 97 <145 mg/dL LAB CHEMISTRY METHOD 02/22/2025 1:35 PM EDT [facility] Chol/HDL Ratio 3.4 0.0 - 4.4 LAB CHEMISTRY METHOD 02/22/2025 1:35 PM EDT [facility] Blood Venous blood specimen / Unknown Venipuncture / Unknown 02/22/2025 10:45 AM EDT 02/22/2025 10:45 AM EDT Mandi Newsome MD LAB BLOOD ORDERA BLES Final Result [facility] [address] [place] [address], [place] [phone] * Pap smear (05/22/2021) 05/22/2021 Narrative HISTORICAL TESTING LAB RESULTING AGENCY - 05/26/2021 12:40 PM EDT [id number] THINPREP PAP, IMAGED: NEGATIVE FOR SQUAMOUS INTRAEPITHELIAL LESION AND MALIGNANCY . CLAUDE AMBROSE(ASCP) (CASE ELECTRONICALLY SIGNED 05 26 2021) RESULT OF APTIMA HIGH RISK HPV ASSAY: HIGH RISK HPV: NEGATIVE (SEROTYPES 16,18,31,33,35,39,45,51,52,56,58,59,66,68) COMPLETED ON 2021-05-26 ADEQUACY: SATISFACTORY ENDOCERVICAL/TRANSFORMATION ZONE COMPONENT PRESENT. SOURCE: THINPREP PAP HPV ANY DX: REFLEX 16 AND 18, CERVICAL, IMAGED CLINICAL INFORMATION: HPV ANY DIAGNOSIS. PAP HX NEG [Z12.4, Z01.419] us Millie Ramirez CNM LAB CYTOLOGY ORDERABLES Final R esult HISTORICAL [...] integrity. 06/29/2025 Infection Onset Date Last Indicated MRSA 01/30/2025 01/30/2025 Insurance [facility] Advance Directives Documents on File Type Date Recorded Patient [place] Expl anation Health Care Decision (hx) 04/21/2021 [...] (hx) 04/21/2021 AD LAM DIRECTIVE Care Teams Manager Mental Health Relationship Specialty Start Date End Date Mandi Newsome MD [address] [facility], [place] PCP - General Internal Medicine 05/18/22
--- OUTSIDE RECORDS SUMMARY | 2025-06-30 11:41 | XMS_ITS ---
Care Plan Created on: June 30, 2025 Nika Rodriguez : 1975 Sex: Female Author Organization [facility] [place] Address [address] [facility] [place], [place] [address] Phone Care Team Providers Care Airline Counter Agent Name Role Phone Mandi Newsome MD Primary Care Pr ovider Active Problems Problem Noted Date Diagnosed Date Chronic venous hypertension (idiopathic) with ulcer of left lower extremity (CODE) ([facility] V24, [facility] V28) 03/13/2025 Non-pressure chronic ulcer o f 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 ([facility] V24, [facility] V28) 03/13/2025 Type 2 diabetes mellitus wit h other skin ulcer (CODE) ([facility] V24, [facility] V28) 12/05/2024 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 Continue pregabalin Orders: Ambulatory referral to Podiatry; Future pregabalin (LYRICA) 75 mg capsule; Take 1 capsule (75 mg total) by mouth 3 (three) times a day. Max Daily Amount: 225 mg Heart failure with improved ejection fraction (HFimpEF) ([facility] V24, [facility] V28) 06/05/2024 Assessment & Plan (09/13/2024 1:47 PM EST): On medical management the patient has good control of the previous ischemic cardiomyopathy. Peripheral artery disease ([facility] V24) 06/05/20 Assessment & Plan (02/22/2025 11:58 AM EDT): She has leg claudication. Not followed by vascular surgery and is referred Orders: Ambulatory referral to Vascular Surgery; Future Cardiomyopathy ([facility] V[facility], [facility] V28) 2022 Overview (08/19/2024): Last Assessment & Plan: Patient with perioperative congestive heart failure with a marked improvement in overall left ventricular systolic function near normal on most recent echocardiography secondary to both coronary intervention and medical management Urinary incontinence 05/14/2023 Proliferative diabetic retin opathy ([facility] V24, [facility] V28) 09/15/2022 Overview (08/19/2024): Dr. Judson [...] CK; Future PAF (paroxysmal atrial fibri llation) ([facility] V24, [facility] V28) 07/22/2021 Overview (08/19/2024): Last Assessment [...] (diabetes mellitus), type 2 with neurological complications ([facility] V24, [facility] V28) 10/03/2010 Assessment & Plan (02/22/2025 11:58 AM EDT): Her last A1c was 12.6 in June. Her diabetes remains poorly controlled. Currently not following with endocrinology. She does not want to continue coming to [place] for her endocrinology care. She is referred to [facility] per her preference-Dr. Madrigal Will update [...] (diabetes mellitus), type 2 with renal complications ([facility] V24, [facility] V28) 10/02/2010 Assessment & Plan [...] left lower leg with fat layer exposed ([facility] V24, [facility] V28) 01/02/2025 02/22/2025 Absolute anemia 08/04/2024 02/22/2025 Assessment & Plan (02/22/2025 11:58 AM EDT): Orders: CBC and differential; Future Ferritin; Future Iron and TIBC; Future DM type 2 causing eye diseas e ([facility] V24, [facility] V28) 09/15/2022 02/22/2025 Additional Health Concerns [...] needed related to ulceration/compr omised skin integrity. Ana Albarado, RN Interventions Care Plan Interventions Intervention Entry Date Outcome Provide caregiver with wound care procedure information 06/29/2025 Educate caregiver on proper wound care procedures 06/29/2025 Give provider list of wound care supplies 06/29/2025 Refill wound care supplies 06/29/2025 Send Wound Care Supplies 06/29/2025 Give provider list of wound care supplies 06/29/2025 Refill wound care supplies 06/29/2025 Send Wound Care Supplies 06/29/2025 Provide caregiver with wound care procedure information 06/29/2025 Educate caregiver on proper wound care procedures 06/29/2025 Document patient eligibility for HBO 06/29/2025 Assess patient for HBO treatment 06/29/2025 Record wound depth 06/29/2025 Record total wound area 06/29/2025 Measure wound progress 06/29/2025 Create an action plan identifying patient strengths and supports 06/29/2025 Establish quit date with patient 06/29/2025 Discuss prior cessation attempts 06/29/2025 Discuss preferred method of cessation and plan 06/29/2025 Discuss barriers to smoking cessation 06/29/2025 Discuss smoking status with patient 06/29/2025 Create an action plan identifying patient strengths and supports 06/29/2025 Establish quit date with patient 06/29/2025 Discuss prior cessation attempts 06/29/2025 Discuss preferred method of cessation and plan 06/29/2025 Discuss barriers to smoking cessation 06/29/2025 Discuss smoking status with patient 06/29/2025 Provide caregiver with wound care procedure information 06/29/2025 Educate caregiver on proper wound care procedures 06/29/2025 Document patient eligibility for HBO 06/29/2025 Assess patient for HBO treatment 06/29/2025 Record wound depth 06/29/2025 Record total wound area 06/29/2025 Measure wound progress 06/29/2025 Provide caregiver with wound care procedure information 06/29/2025 Educate caregiver on proper wound care procedures 06/29/2025 Document patient eligibility for HBO 06/29/2025 Assess patient for HBO treatment 06/29/2025 Record wound depth 06/29/2025 Record total wound area 06/29/2025 Measure wound progress 06/29/2025 Provide caregiver with wound care procedure information 06/29/2025 Educate caregiver on proper wound care procedures 06/29/2025 Document patient eligibility for HBO 06/29/2025 Assess patient for HBO treatment 06/29/2025 Record wound depth 06/29/2025 Record total wound area 06/29/2025 Measure wound progress 06/29/2025 Provide caregiver with wound care procedure information 06/29/2025 Educate caregiver on proper wound care procedures 06/29/2025 Give provider list of wound care supplies 06/29/2025 Refill wound care supplies 06/29/2025 Send Wound Care Supplies 06/29/2025 Give provider list of wound care supplies 06/29/2025 Refill wound care supplies 06/29/2025 Send Wound Care Supplies 06/29/2025 Provide caregiver with wound care procedure information 06/29/2025 Educate caregiver on proper wound care procedures 06/29/2025 Document patient eligibility for HBO 06/29/2025 Assess patient for HBO treatment 06/29/2025 Record wound depth 06/29/2025 Record total wound area 06/29/2025 Measure wound progress 06/29/2025 Provide caregiver with wound care procedure information [...] Goals and Interventions Goal Associated Intervent ions Wound volume breakdown reduc ed by X% [...] wound care supplies; Send Wound Care Supplies Decrease Wound Volume by X% by date [...] wound care supplies; Send Wound Care Supplies Wound volume breakdown reduc ed by X% [...]
--- OUTSIDE RECORDS SUMMARY | 2025-06-30 11:41 | XMS_ITS | Clinical Summary ---
Author Organization [facility] Address [address] [place] [address] Care Team Providers Care Plant Operations Coordinator Name Role Phone Mandi Newsome MD Primary [...] age to complete this topic Care Teams Plant Operations Coordinator Relationship Specialty Start Date End Date Mandi Newsome MD [address] [place] [address] PCP - General 06/16/24
[2025-06-30 11:45] LABS: MANUAL DIFF FLAG NO
[2025-06-30 11:47] LABS: Hematocrit 39.7 % (37.0-47.0); Hemoglobin 13.4 g/dl (12.0-16.0); Imm Gran Abs Auto 0.02 X10*3/uL (0.00-0.03); Imm Gran Pct Auto 0.3 % (0.0-0.4); Lymphocytes Absolute Auto 1.7 X10*3/uL (1.2-4.9); Mean Corpuscular HGB Conc 33.8 g/dl (31.0-35.0); Mean Corpuscular Hemoglobin 28.6 pg (27.0-33.0); Mean Corpuscular Volume 84.8 fL (80.0-98.0); NRBC Abs Auto 0.000 X10*3/uL (0.0-0.012); NRBC Pct Auto 0.0 /100WBC (0.0-0.2); Platelet Count 204 X10*3/uL (160-400); Red Blood Count 4.68 X10*6/uL (4.20-5.50); White Blood Count 7.1 X10*3/uL (4.8-10.8)
[2025-06-30 12:02] LABS: Alanine Aminotransferase 21 U/L (0-31); Albumin Level 4.0 g/dL (3.5-5.0); Alkaline Phosphatase 150 U/L (39-117); Anion Gap 13 (12-20); Aspartate Amino Transferase 29 U/L (5-31); Blood Urea Nitrogen 16 mg/dL (9-16); Calcium 9.1 mg/dL (8.4-10.2); Carbon Dioxide 23 mmol/L (22-29); Chloride 109 mmol/L (96-108); Creatinine Clr Calc Pharmacy 91.5; Estimated Glomerular Filt Rate > 60; Potassium 4.3 mmol/L (3.3-5.1); Sodium 141 mmol/L (135-145); Total Protein 7.6 g/dL (6.5-8.0)
[2025-06-30 15:11] VITALS: BP 144/70; PULSE 88; RESP 16; TEMP 36; O2SAT 99
[2025-06-30 15:15] VITALS: BP 118/71; PULSE 78; RESP 18; TEMP 36.5; O2SAT 98
[2025-06-30] MEDS: oxyCODONE HCl Immed Release 5 MG TABLET PO (15:15)
[2025-06-30] MEDS: Naloxone HCl Nasal TAKE HOME 4 MG SPRAY 8 MG NOSTRILALT (15:16)
== END 2025-06-30 15:19 | disposition home or self-care (01) ==
PROVIDERS: Physician Assistant; Emergency Provider Emergency Medicine; PCP Family Medicine
DX: S81.801A Unspecified open wound, right lower leg, initial encounter (principal); S81.802A Unspecified open wound, left lower leg, initial encounter; R60.0 Localized edema; M79.605 Pain in left leg; M79.604 Pain in right leg; E11.9 Type 2 diabetes mellitus without complications; X58.XXXA Exposure to other specified factors, initial encounter; Y93.9 Activity, unspecified; Y92.9 Unspecified place or not applicable; Y99.8 Other external cause status; Z79.899 Other long term (current) drug therapy; Z79.4 Long term (current) use of insulin
CPT/HCPCS: 36415; 73590; 80053; 85025; 85652; 86140; 93970; 99283; 99284

== ENCOUNTER → 2025-06-30 11:28 | Outpatient (BNV) | payer OTHER, SELFPAY | PROVIDERS: Emergency Provider Emergency Medicine; PCP Family Medicine; Visit Provider Radiology Diagnostic Radiology | DX: M79.604 Pain in right leg (principal); M79.605 Pain in left leg; S81.801A Unspecified open wound, right lower leg, initial encounter | CPT/HCPCS: 73590; 93970 ==

== ENCOUNTER 2025-10-19 10:21 | Outpatient (AMB) | payer OTHER, SELFPAY ==
--- OUTSIDE RECORDS SUMMARY | 2024-08-04 09:45 | XMS_ITS | Encounter Summary ---
Author Organization [facility] Address [address] [place] [address] Care Team Providers Care Manager Validation Name Role Phone Mandi Newsome MD Primary Care Pr ovider Encounter Details Date Type Department Care Team (Late st Contact Info) Description 08/04/2024 10:45 AM EDT Hospital Encounter TH HISTORIC ENCOUNTERS EASTERN CONVERSION ONLY Karuna Ramires MD [address] [place] [address] Social History Tobacco Use Types Packs/Day Years Used Date Smoking Tobacco: Never Passive Smoke Exposure: Never Smokeless Tobacco: Never Alcohol Use Standard Drinks/Week Comments Never 0 (1 standard drink = 0.6 oz pur e alcohol) Housing Instability Answer Date Recorde d Are you worried that in the next 2 months you may not have stable housing? No 05/18/2025 Food Access & Nutrition Answer Date Rec orded Do you have access to a vari ety of food including fruits and vegetables? Yes 05/18/2025 Access to Healthcare Answer Date Record ed Within the last 3 months, ho w many times did you visit the emergency department for your medical care? 0 11/21/2024 Health Literacy Answer Date Recorded How often do you need to hav e someone help you when you read instructions, pamphlets, or other written material from your doctor or pharmacy? Sometimes 05/18/2025 Caregiver: How often do you need to have someone help you when you read instructions, pamphlets, or other written material from your doctor or pharmacy? Not on file 05/18/2025 Financial Risk Answer Date Recorded How hard is it for you to pa y for the very basics like food, housing, medical care, and air conditioning / heating? Somewhat hard 05/18/2025 Transportation Answer Date Recorded Has the lack of transportati on kept you from meetings, work, or from getting things needed for daily living? No Has the lack of transportati on kept you from medical appointments or from getting medications? No 05/18/2025 Social Isolation Answer Date Recorded How often do you feel lonely or isolated from those around you? Sometimes 05/18/2025 Food Risk Answer Date Recorded Within the past 12 months we worried whether our food would run out before we got money to buy more. Sometimes true 025 Within the past 12 months th e food we bought just didn't last and we didn't have money to get more. Never true 05/18/2025 Dependent Care Answer Date Recorded Do you need help finding or paying for care for your loved ones. For example, child and adolescent therapist or elderly care for an older adult? No 05/18/2025 Education Answer Date Recorded Do you think completing more education or training, like finishing a GED, going to college, or learning a trade, would be helpful for you? No 05/18/2025 Employment and Income Answer Date Recor ded During the last four weeks, have you been actively looking for work? No 05/18/2025 Living Situation Answer Date Recorded What is your living situation? Unrecognized valu e 05/18/2025 Comments No Sex and Gender Information Value Date Recorded Sex Assigned at Female 01/12/2025 10:09 AM EDT Legal Sex Female 1:56 PM EST Gender Identity Female 01/12/2025 10:09 AM EDT Sexual Orientation Not on file documented as of this encounter Plan of Treatment Upcoming Encounters Date Type Department Care Team (Late st Contact Info) Description 10/30/2025 10:45 AM EST Clinical Support [facility] [address] [place] [address] 11/02/2025 11:30 AM EST Office Visit Adult Medicine [address] [phone] Jennifer Gray PA [address] [place] [address] 11/28/2025 1:30 PM EST Ancillary Procedure [facility] Cardiology [facility] - [address] [place] [address] 12/12/2025 11:30 AM EST Office Visit [facility] Cardiology [facility] - [address] [place] [address] Haydee Cates NP [address] [place] [address] [address] [place] [phone] 02/28/2026 3:20 PM EDT Appointment Radiology Department [address] [phone] documented as of this encounter Visit Diagnoses Not on filedocumented in this encounter Additional Health Concerns Infection Onset Date Last Indicated Resolved Time MRSA 01/30/2025 07/13/2025 documented as of this encounter Care Teams Manager Validation Relationship Specialty Start Date End Date Mandi Newsome MD [address] [place], [place] PCP - General Internal Medicine 05/18/22 documented as of this encounter
--- OUTSIDE RECORDS SUMMARY | 2024-08-14 13:00 | XMS_ITS | Encounter Summary ---
Author Organization [facility] Address [address] [place] [address] Care Team Providers Care Sand Screener Operator Name Role Phone Mandi Newsome MD Primary Care Pr ovider Encounter Details Date Type Department Care Team (Latest Contact Info) Description 08/14/2024 2:00 PM EDT Hospital Encounter TH HISTORIC ENCOUNTERS EASTERN CONVERSION ONLY Other iron deficiency anemias Social History Tobacco Use Types Packs/Day Years [...] your loved ones. For example, director child or elderly care for an older adult? [...] on file documented as of this encounter Last Filed Vital Signs Vital Sign Reading Time Taken Comments Blood Pressure - - Pulse - - Temperature - - Respiratory Rate - - Oxygen Saturation - - Inhaled Oxygen Concentration - - Weight 90.3 kg (199 lb) 08/04/2024 11:11 AM EDT Height 160 cm (5' 3 ) 08/04/2024 11:11 AM EDT Body Mass Index 35.25 08/04/2024 11:11 AM EDT documented in this encounter Progress Notes * Historical, Notes Results - 08/14/2024 2:25 PM EDT 1425- Patient arrives, ambulatory to unit accompanied by her friend for her first of two doses of Feraheme. Patient is primarily [place] speaking but, also speaks good Bhutanese. Oriented to unit and unit policies/procedures upon arrival. She reports having an IV iron infusion many years ago and remembers tolerating it well. She did not receive any education from the provider. Thorough education onmedication explained to patient including side effects, schedule and administration. All questions addressed to patient's apparent satisfaction. Offered a printed handout on drug but patient politelydeclined. Treatment plan reviewed and medication released from plan to pharmacy. While awaiting medi cation to be mixed, all new patient charting completed. Patient reports a history of a bleeding ulcer in the past. She is awaiting GI follow up to possibly do another endoscopy. She denies any signs of active bleeding. Her only complaint is mild fatigue. Of note, patient has an extensive cardiac history. 1444- Peripheral IV established without difficulty and once verified, NS flush bag hung. Feraheme ready and hung, programmed to infuse over 30 minutes. Advised patient of signs/symptoms of infusion reaction to be aware of. The call hollis is near by. 1547- Patient completed the remainder of the infusion and a 30 minute observation period without any difficulty. She is feeling well for discharge. Peripheral IV removed, pressure dressing applied tosite. Next appointment booked, printed and given to patient. She left the unit stable, ambulatory wi thout question or concerns accompanied by her friend to the car. documented in this encounter Plan of Treatment Upcoming Encounters Date Type Department Care Team (Late st Contact Info) Description 10/30/2025 10:45 AM EST Clinical Support [facility] [address] [place] [address] 11/02/2025 11:30 AM EST Office Visit Adult Medicine [address] [phone] Jennifer Gray PA [address] [place] [address] 11/28/2025 1:30 PM EST Ancillary Procedure [facility] Cardiology [facility] [address] [place] [address] 12/12/2025 11:30 AM EST Office Visit [facility] Cardiology [facility] [address] [place] [phone] Haydee Cates, EDWARD [address] [place] [address] [address] [place] [phone] 02/28/2026 3:20 PM EDT Appointment Radiology Department - [address] [address] documented as of this encounter Visit Diagnoses Diagnosis Other iron deficiency anemias documented in this encounter Additional Health Concerns Infection Onset Date Last Indicated Resolved Time MRSA 01/30/2025 07/13/2025 documented as of this encounter Care Teams Sand Screener Operator Relationship Specialty Start Date End Date Mandi Newsome MD [address] [place], [place] PCP - General Internal Medicine 05/18/22 documented as of this encounter
--- OUTSIDE RECORDS SUMMARY | 2024-08-22 09:47 | XMS_ITS | Encounter Summary ---
Author Organization [facility] Address [address] [place] [address] Care Team Providers Care Licensed Physical Therapy Assistant Name Role Phone Mandi Newsome MD Primary Care Pr ovider Encounter Details Date Type Department Care Team (Late st Contact Info) Description 08/22/2024 10:47 AM EDT Hospital Encounter TH HISTORIC ENCOUNTERS EASTERN CONVERSION ONLY Social History Tobacco Use Types Packs/Day Years [...] for your loved ones. For example, children's ministry director or elderly care for an older [...] Progress Notes * Historical, Notes Results - 08/22/2024 11:26 AM EDT 1126- Patient arrives, ambulatory to unit accompanied by her friend for her second and final dose of Feraheme. She reports tolerating the first dose without any difficulty. She continues to feel fatigued but denies any other symptoms of anemia. She has no questions or concerns for this nurse. Treatment plan reviewed and medication released from plan to pharmacy. Peripheral IV established without difficulty and once verified, NS flush bag hung. Patient remains comfortable in recliner with call hollis in reach. 1209- Feraheme hung, programmed to infuse over 30 minutes. Reminded patient of signs/symptoms of infusion reaction to be aware of. The call hollis remains in reach. 1305- Patient completed the remainder of the infusion and an observation period without any difficulty. She is feeling well for discharge. Peripheral IV removed, pressure dressing applied to site. Nofurther appointments booked as the order is now complete. Patient has a follow up visit in place with her PCP in September. She left the unit stable, ambulatory without question or concerns accompanied by her friend to the car. documented in this encounter Plan of Treatment Upcoming Encounters Date Type Department Care Team (Late st Contact Info) Description 10/30/2025 10:45 AM EST Clinical Support [facility] [address] [place] [phone] 11/02/2025 11:30 AM EST Office Visit Adult Medicine [address] [phone] Jennifer Gray PA [address] [place] [address] 11/28/2025 1:30 PM EST Ancillary Procedure [facility] Cardiology [facility] [address] [facility] [address] [place] [phone] 12/12/2025 11:30 AM EST Office Visit [facility] [address] [place] [phone] Haydee Cates, EDWARD [address] [place] [address] [address] [place] [phone] 02/28/2026 3:20 PM EDT Appointment Radiology Department [address] [phone] documented as of this encounter Visit Diagnoses Not on filedocumented in this encounter Additional Health Concerns Infection Onset Date Last Indicated Resolved Time MRSA 01/30/2025 07/13/2025 documented as of this encounter Care Teams Licensed Physical Therapy Assistant Relationship Specialty Start Date End Date Mandi Newosme MD [address] [place], [place] PCP - General Internal Medicine 05/18/22 documented as of this encounter
--- OUTSIDE RECORDS SUMMARY | 2025-10-18 11:15 | XMS_ITS | Encounter Summary ---
Author Organization [facility] Address [address] [place] [address] Care Team Providers Care Dental Specialist Name Role Phone Mandi Newsome MD Primary Care Pr ovider Reason for Visit * Reason Comments Wound Care Encounter Details Date Type Department Care Team (Late st Contact Info) Description 10/18/2025 11:15 AM EST Office Visit [facility] [address] [place] [phone] Bautista Aguirre PA [address] [place] [address] Chronic venous hypertension (idiopathic) with ulcer of right lower extremity (CODE) ([facility] V24, [facility] V28) (Primary Dx); Non-pressure chronic ulcer of other part of right lower leg with fat layer exposed ([facility] V24, [facility] V28) Social History Tobacco Use Types Packs/Day [...] Sign Reading Time Taken Comments Blood Pressure 114/42 10/18/2025 9:16 AM EST Pulse 91 10/18/2025 9:16 AM EST Temperature 36.4 C (97.6 F) 10/18/2025 9:16 AM EST Respiratory Rate 16 10/18/2025 9:16 AM EST Oxygen Saturation 100% 10/18/2025 9:16 AM EST Inhaled Oxygen Concentration - - Weight - - Height - - Body Mass Index - - documented in this encounter Progress Notes * Ana Brown RN - 10/18/2025 11:15 AM EST PROVIDER ORDERS Go to ER if you are presenting with fever, chills, increased redness, pain, swelling, warmth aroundwound area and/or foul smelling odor. If you have any questions or concerns, please contact the [facility] [place] at . Follow up(s)/ Referrals: N/A Usp: [...] please remove / unwrap compression and notify [facility] at . ) Unna boot to right lower extremity, Tubigrip to left lower extremity. Apply first thing in the morning prior to getting out of bed, OK to remove at bedtime. Ensure tubigrip extends from just behind the toes to about 2 finger widths below the knee., Wear own home compression. Apply first thing in the morning prior to getting out of bed, OK to remove at bedtime., Elevate legs above heart level as much as possible, Avoid standing for extended periods of time -Wear your own compression stocking to the left leg every day from morning until night. Wounds willreoccur if compression is not worn. Offloading: N/A Negative Pressure Wound Therapy: (If wound vac is off/non functioning for more than 2 hours, please remove vac dressing, apply a wetto dry dressing and notify your home care agency) N/A Cellular/Tissue Based Products: N/A Bathing / Showering / Hygiene: May shower with protection but DO NOT get wound dressing(s) wet. Protect dressing(s) with water repellant cover ( for example- large plastic bag or cast bag) and then may take shower. Non-wound Condition/ Other Skin Care: Moisturize skin daily, avoiding wound area Wound Location(s): Wound #1 (Right Lateral Lower Leg): Cleanser: Cleanse with Normal Saline Periwound: Apply Zinc Oxide to lilli wound and to excoriated areas Topical: N/A Primary dressing: Hydrofera Blue- cut to fit to wound bed (if classic type, moisten with saline andsqueeze out excess prior to apply to wound bed) Secondary dressing: Exudry Secure with: 4 conforming gauze roll , 1 paper tape Compression Therapy: Unna boot to right lower extremity Dressing Change Frequency: Once each week ( if dressing has not been changed in 10 days call Wound Care Center [phone]) After 1 week take off unna boot and dressing then apply: Wound #1 (Right lateral lower leg): Cleanser: Cleanse with Normal Saline Periwound: Apply Zinc Oxide to lilli wound Topical: N/A Primary dressing: Hydrofera Blue- cut to fit to wound bed (if classic type, moisten with saline andsqueeze out excess prior to apply to wound bed) Secondary dressinx4 woven gauze (non-sterile) Secure with: 3 conforming gauze roll, 1 paper tape Compression Therapy: Tubigrip F Dressing Change Frequency: Every Other Day * Serenity Urias RN - 10/18/2025 11:15 AM EST Discharge Patient directed to check out at front worker and collect visit summary with wound care directions and book follow up as directed. Dressings applied: Wound Location(s): Wound #1 (Right Lateral Lower Leg): Cleanser: Cleanse with Normal Saline Periwound: Apply Zinc Oxide Primary dressing: Hydrofera Blue- cut to fit to wound bed Secondary dressing: Exudry Secure with: 4 conforming gauze roll , 1 paper tape Compression Therapy: Unna boot to right lower extremity Wound #2 (Right Medial Lower Leg): Wound is healed Dressing technique was demonstrated and explained. Patient questions answered. Pt departed from wound care center without issue or incidence. documented in this encounter Plan of Treatment Upcoming Encounters Date Type Department Care Team (Late st Contact Info) Description 10/30/2025 10:45 AM EST Clinical Support [facility] [address] [place] [address] 11/02/2025 11:30 AM EST Office Visit Adult Medicine [address] [phone] Jennifer Gray PA [address] [place] [address] 11/28/2025 1:30 PM EST Ancillary Procedure [facility] Cardiology [facility] [address] [address] 12/12/2025 11:30 AM EST Office Visit [facility] Cardiology [facility] [address] [place] [phone] Haydee Cates NP [address] [place] [address] [address] [place] [address] [place] [address] 02/28/2026 3:20 PM EDT Appointment Radiology Department - [address] [phone] Pending Results Name Type Priority Associated Diagnoses Date /Time Wound Care Procedure Venous Ulcer Leg Right;Lower;Anterior Procedures Routine Chronic venous hypertension (idiopathic) with ulcer of right lower extremity (CODE) ([facility] V24, [facility] V28) Non-pressure chronic ulcer of other part of right lower leg with fat layer exposed ([facility] V24, [facility] V28) 10/18/2025 9:27 AM EST Debridement Venous Ulcer Right;Lower;Anterior Leg Procedures Routine Chronic venous hypertension (idiopathic) with ulcer of right lower extremity (CODE) ([facility] V24, [facility] V28) Non-pressure chronic ulcer of other part of right lower leg with fat layer exposed ([facility] V24, [facility] V28) 10/18/2025 11:15 AM EST documented as of this encounter Goals Goal [...] date (in notes) Care Plan Impaired Tissue Improving( 9:52 AM EST) No Ana Brown RN Patient and Caregiver Understand Wound Care Education Care Plan Impaired Tissue On track( 9:52 AM EST) Ana Albarado, STEPH Note: 08/02/25- pt states she was using mupirocin this past week instead of the hydrofera blue Wound volume breakdown reduced by X% by week 4 Care Plan Impaired Tissue No Ana Brown, car repairer helper volume breakdown reduced by X% by week 8 Care Plan Impaired Tissue No Ana Brown RN Wound volume breakdown reduced by X% by week 12 Care Plan Impaired Tissue No Ana Brown RN Quit using tobacco (cigarettes, smokeless, etc) [...] Priority Date/Time Associated Diagnosis Comments DEBRIDEMENT Routine 10/18/2025 11:15 AM EST Chronic venous hypertension (idiopathic) with ulcer of right lower extremity (CODE) (CMS/H[facility] V24, [facility]/H[facility] V28) Non-pressure chronic ulcer of other part of right lower leg with fat layer exposed ([facility] V24, [facility] V28) WOUND CARE PROCEDURE Routine 10/18/2025 9:[address] Chronic venous hypertension (idiopathic) with ulcer of right lower extremity (CODE) (CMS/HCC V24, [facility] V28) Non-pressure chronic ulcer of other part of right lower leg with fat layer exposed (CMS/H[facility] V24, [facility] V28) documented in this encounter Visit Diagnoses Diagnosis Chronic venous hypertension (idiopathic) with ulcer of right lower extremity (CODE) (CMS/HCC V24, CMS/HCC V28)- Primary Non-pressure chronic ulcer of other part of right lower leg with fat layer exposed (CMS/HCC V24, [facility]/H[facility] V28) documented in this encounter Orders General Supply Count Last Ordered Date First Or dered Date WOUND CARE SUPPLIES 1 10/18/2025 documented in this encounter Additional Health Concerns [...] Last Indicated Resolved Time MRSA 01/30/2025 07/13/2025 Assessment Noted Time PHQ-9 Depression Total Score: 0 06/29/20 25 8:09 AM EDT documented as of this encounter Care Teams Dental Specialist Relationship Specialty Start Date End Date Mandi Newsome MD [address] [facility], [place] PCP - General Internal Medicine 05/18/22 documented as of this encounter
--- NOTE | 2025-10-19 10:24 | A.OFFVIS_ITS ---
Vital Signs 10/19/25 10:27 Height 5 ft 5 in Weight 212 lb 1.355 oz BMI 35.3 BP 132/64 Blood Pressure Location Lt brachial Position Sitting Pulse 88 Pulse Source Pulse Oximeter Pulse Oximetry (%) 98 Oxygen Delivery Method Room Air Intake Visit Reasons: DM Intake Note: Patient present today to follow up on Type 2 Diabetes Mellitus. Last Diabetic Eye exam: Is seen in [facility] and was referred to [facility] for surgery on right eye, follow up is next month. Reports she currently is unable to see in that eye. Last Podiatry Visit: Does not see a Brake Repair Mechanic Random Glucose: 125 mg/dL HgA1C: 8.7% 10/19/2025 Painter Set Required: No Accompanied by: Self / Same As Patient Allergies Penicillins (PCN) Allergy (Verified 10/19/25 10:27) Hives Medication List - Last Reconciled 10/19/25 by MARY Junior aripiprazole 10 mg PO BEDTIME aspirin 81 mg PO DAILY atomoxetine 40 mg PO DAILY atorvastatin 80 mg PO DAILY blood-glucose sensor (FreeStyle Ramakrishna 3 Plus Sensor device) As directed every 15 days carvedilol 6.25 mg PO BID clonidine HCl 0.1 - 0.2 mg PO BEDTIME PRN dapagliflozin propanediol (Farxiga) 10 mg PO DAILY dextrose (TRUEplus Glucose) 15 grams (32 mL) PO Q15M PRN furosemide 20 mg PO DAILY insulin glargine (Lantus Solostar U-100 Insulin) 30 units subcut QPM insulin lispro (Humalog KwikPen (U-100) Insulin) subcutaneously 2 times a day; 3 units before breakfast and 5 units before supper mirtazapine 15 mg PO BEDTIME omeprazole 20 mg PO DAILY oxycodone 5 mg PO Q8H PRN 2 days pen needle, diabetic As directed four times daily pregabalin 75 mg PO TID sacubitril-valsartan 24-26 mg (Entresto) 1 tab PO BID tirzepatide (Mounjaro) 5 mg (0.5 mL) subcut QWEEK HPI Comments Details: This is a 49-year-old female here for diabetic management. She has a family history of type 2 diabetes in her mother and father. She is followed by Tarsha MARQUES and sees Brooke Welsh, dietitian. Patient says she was diagnosed with glaucoma of the right eye after a month ago when she developed vision changes in her right eye. It was like she was looking through a screen. Seen [facility] and referred to [facility]. She had surgery there for glaucoma. She can see movements in front of her eye, but otherwise vision is very limited. She has a follow up appointment on Wednesday. Hemoglobin A1c down to 8.7% down from 10.6% on 05/29/2025. I reviewed her CGM data for the past 14 days on her phone Average glucose 188 G DC 7.8% Glucose variability 42.8% Very high 17% High 37% Target range 46% Low 0% Very low 0% During the day her blood sugars are in target. She has hyperglycemia 6pm until 6 am. She has occasional low in 60s during the days when she does not eat a lot. Interval weight loss of 8 lb since switching to Mounjaro. Current medication: Lantus 32 units every evening, Humalog 5 units for breakfast and dinner and Mounjaro 2.5 mg weekly and Farxiga 10 mg daily Past medication: Trulicity caused stomach pain. Metformin was ineffective but she had no side effects that she can recall. Ozempic discontinued since she did not have weight loss and her insurance stopped covering it. Complications: Retinopathy, neuropathy, nephropathy, coronary artery disease. History of non-STEMI status post CABG. Followed by Cardiology. History of AFib. Followed by vascular surgery in the past for diabetic foot ulcer and is followed by [facility] for a wound on her right leg. Previous left lower extremity wound healed. Patient says the wound on the right lower leg is also improving. History of lap band surgery in 2002. She has hyperlipidemia, on statin. ROS: Constitutional: No fevers or chills Eyes: See HPI Cardiovascular: No chest pain Neurologic: No headache, dizziness, syncope Gastrointestinal: No abdominal pain, vomiting, constipation, blood in stools. Endocrine: Denies polyuria and polydipsia. Physical exam: Constitutional: Alert, in no distress. Neck: Supple, Full range of motion. No lymphadenopathy. No palpable thyroid masses. Respiratory: Clear to auscultation. Cardiovascular: S1 S2 regular. No murmurs. Extremities: Right lower extremity wrapped with wound dressing in place. Compression dressing on left lower extremity as well. Psychiatric: Normal mood and affect [facility] Medical History (Updated 10/19/25 @ 11:15 by MARY Junior) Glaucoma, right eye Uncontrolled type 2 diabetes mellitus with hyperglycemia Mixed hyperlipidemia Mood disorder HFrEF (heart failure with reduced ejection fraction) Non-insulin dependent type 2 diabetes mellitus Surgical History (Updated 10/19/25 @ 10:28 by MARISOL Winn) Hx of eye surgery Hx of heart surgery Family History Father Diabetes mellitus HTN (hypertension) Acute respiratory failure with hypoxia Mother Diabetes mellitus Social History Household Members: Children Housing: Apartment Do you presently have 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 or other home services: Yes (NUCLEAR TECHNICIAN) Patient Tobacco Use Status: Never used Tobacco Advance Directives Date on File: 08/18/23 service: No Physical Exam Vital Signs: Last Vital Signs Pulse 88 10/19/25 10:27 BP 132/64 10/19/25 10:27 Pulse Ox 98 10/19/25 10:27 Oxygen Delivery Method Room Air 10/19/25 10:27 BMI result Body Mass Index 35.3 Office Procedures Glucose Monitoring Details Details: See [facility] [address] - Glucose monitoring, continuous-physician I&R Procedure code (CPT) selection complete Results AMB Hemoglobin A1c AMB Hemoglobin A1c 8.7 % Last Edit by MARISOL Winn on 10/19/25 10:51 Results Reviewed Results Reviewed: Laboratory Last Values Glucose (Clinic) 125 mg/dL (60-115) H 10/19/25 10:34 Assessment & Plan Assessment & Plan (1) Uncontrolled type 2 diabetes mellitus with hyperglycemia: Code(s): E11.65 - Type 2 diabetes mellitus with hyperglycemia Category: Medical (2) Mixed hyperlipidemia: Code(s): E78.2 - Mixed hyperlipidemia Category: Medical (3) Glaucoma, right eye: Code(s): H40.9 - Unspecified glaucoma Category: Medical Plan In summary this is a 49-year-old female with uncontrolled type 2 diabetes with improved glycemic control. Increase Mounjaro to 5 mg weekly. Side effects reviewed. Reduce Humalog to 3 units before breakfast and continue 5 units before dinner. If blood sugar is <100, do not use Humalog Decrease Lantus to 30 units nightly. Continue Farxiga 10 mg daily which is also prescribed for her history of heart failure. Continue statin for hyperlipidemia. Check lipid profile. Written instructions given and reviewed for treatment of hypoglycemia. Diabetic diet reviewed. Followed by CDE and dietitian. She will sign a release for the records from [facility]. Follow up in 4 weeks for type 2 diabetes. Orders: Orders AMB Hemoglobin A1c Today E11.65 - Type 2 diabetes mellitus with hyperglycemia AMB Glucose Monitoring Today E11.9 - Type 2 diabetes mellitus without complications Medications: New tirzepatide (Mounjaro) 5 mg (0.5 mL) subcut QWEEK 2 mL 2RF Discontinued tirzepatide (Mounjaro) for 4 weeks Discontinued Reason: Doctor's Order 2.5 mg (0.5 mL) subcut QWEEK 2 mL 2RF Patient Instructions: Reduce Lantus from 32 units to 30 units every evening. Increase Mounjaro to 5 mg weekly. Continue Farxiga 10 mg daily If blood sugar is <100, do not use Humalog. Otherwise Administer Humalog 3 units before breakfast and 5 units before dinner. If you experience low blood sugar (under 70), treat this by eating a chewable fruit candy like skittles or jelly beans (about 8 pieces), 4 ounces (1/2 cup) of fruit juice or soda (not diet), 1 tablespoon of honey or 4 glucose tablets. If your blood sugar is under 50, take double the amount of one of the above. Recheck your blood sugar in 15 minutes. Coding Level of Care Code Est Pt Level 4 (55777) Diagnoses Uncontrolled type 2 diabetes mellitus with hyperglycemia E11.65 Mixed hyperlipidemia E78.2 Glaucoma, right eye H40.9 CPT Codes Details - CPT: 37408 - Glucose monitoring, continuous-physician I&R ([id number])
[2025-10-19 10:27] VITALS: BP 132/64; PULSE 88; O2SAT 98; BMI 35.3
[2025-10-19 10:39] LABS: Glucose, Whole Blood 125 mg/dL (60-115)
--- OUTSIDE RECORDS SUMMARY | 2025-10-19 11:46 | XMS_ITS | Encounter Summary ---
Author Organization [employer] [facility] Address [address] [facility] [address] [place] [address] Phone Care Team Providers Care Runner Worker Name Role Phone Mandi Newsome MD Primary Care Pr ovider Reason for Visit * Reason Onset Date Comments Advice on Treatment Plan 10/16/2025 This pt was scheduled today for a 1-day pressure check. Called pt and they state that their transport is unavailable to help them today and that there is no way for her to get to [place]. Pt says their intensive care nurse is putting in a transportation request but that won't be for a day or two. Pt wants to know whether she should get her eye pressure checked somewhere locally or come into [place] when her transport is approved. Can you advise the pt on what to do? Thank you! Encounter Details Date Type Department Care Team (Late st Contact Info) Description 10/16/2025 Telephone [facility] Comprehensive Ophthalmology Service [address] [place] [address] Latha Smith MD [address] [place] [address] [email or web address] Advice on Treatment Plan (This pt was scheduled today for a 1-day pressure check. Called pt and they state that their transport is unavailable to help them today and that there is no way for her to get to [place]. Pt says their intensive care nurse is putting in a transportation request but that won't be for a day or two. Pt wants to know whether she should get her eye pressure checked somewhere locally or come into [place] when her transport is approved. Can you advise the pt on what to do? Thank you!) Social History Tobacco Use Types Packs/Day Years Used Date Smoking Tobacco: Never Smokeless Tobacco: Never Alcohol Use Standard Drinks/Week Comments Never 0 (1 standard drink = 0.6 oz pur e alcohol) Education Answer Date Recorded Are you interested in more education? Not on stalin e 09/24/2025 Are you concerned about learning? Not on file 09/24/2025 No 09/24/2025 No 09/24/2025 Food Answer Date Recorded Within the past 6 months we worried whether our food would run out before we got money to buy more. Never True 09/24/2025 Within the past 6 months the food we bought just didn't last and we didn't have enough money to get more. Never True Residential Stability Answer Date Recor ded What is your housing situation today? I have bernie sing 09/24/2025 How many times have you move d in the past 12 months? Zero (I did not move) 09/24/2025 Paying for Meds Answer Date Recorded Do you have trouble paying for medicines? No 09/24/2025 Paying Utility Bills Answer Date Record ed Do you have trouble paying your heating or elect ricity bill? No 09/24/2025 Transportation Answer Date Recorded Has the lack of transportati on kept you from medical appointments or from getting medications? No 09/24/2025 Digital Access Answer Date Recorded No 09/24/2025 Yes 09/24/2025 Do you have reliable internet access at home? Ye s 09/24/2025 Do you have a device (e.g., phone, tablet, computer) with a working camera? Yes 09/24/2025 Intimate Partner Violence Answer Date R ecorded Are you denied basic needs s uch as food, clothing, or medical care? No 09/25/2025 In the past 12 months have y ou been in a relationship with a person who hurts, threatens, or tries to control you? No 09/25/2025 Are you denied basic needs s uch as food, clothing, or medical care? No 09/25/2025 In the past 12 months have y ou been in a relationship with a person who hurts, threatens, or tries to control you? No 09/25/2025 Comments No Sex and Gender Information Value Date Recorded Sex Assigned at Female 09/24/2025 10:54 AM EST Legal Sex Female 10:51 AM EST Gender Identity Female 09/24/2025 10:54 AM EST Sexual Orientation Straight 09/24/2025 10 :54 AM EST documented as of this encounter Progress Notes * Vernon Andujar - 10/18/2025 1:47 PM EST Pt has been seen. documented in this encounter Plan of Treatment Upcoming Encounters Date Type Department Care Team (Late st Contact Info) Description 10/22/2025 11:20 AM EST Office Visit [facility] Glaucoma Service [address] [place] [id number] Latha Smith MD [address] [place] [address] [email or web address] documented as of this encounter Goals Goal Patient Goal Type Associated Problems Recent Progress Patient-Stated? Author Autogenera jess Goal Care Plan Autogenerated Problem No Ploly Kohli RN documented as of this encounter Visit Diagnoses Not on filedocumented in this encounter Additional Health Concerns Active Problems Noted Date Diagnosed Date Autogenerated Problem 09/25/2025 documented as of this encounter Care Teams Runner Worker Relationship Specialty Start Date End Date Mandi Newsome MD [address] [place] [address] PCP - General 09/24/25 documented as of this encounter Additional Source Comments The information contained in this document represents components of the legal health record. It is not the complete legal health record.[facility]
--- OUTSIDE RECORDS SUMMARY | 2025-10-19 11:46 | XMS_ITS | Encounter Summary ---
Author Organization [employer] [facility] Prior to 09/01/2024 Address [address] [place] [address] Care Team Providers Care Jigger Crown Pouncing Machine Operator Name Role Phone Michael Martinez MD Primary Care Provider Ethel Cuenca DNP Unavailable [phone] Yan Handy MD Unavailable Shree Castro MD Unavailable Mandi Newsome MD Primary Care Provider + Haydee Cates NP Unavailable [phone] Encounter Details Date Type Department Care Team Description 03/17/2021 Refill Adult Medicine [address] [phone] Nubia Lopez PA [address] [place] [address] [phone] Social History Tobacco Use Types Packs/Day Years Used Date Smoking Tobacco: Never Smokeless Tobacco: Never Alcohol Use Standard Drinks/Week Comments No 0 (1 standard drink = 0.6 oz pur e alcohol) Sex Assigned at Date Recorded Not on file Job Start Date Occupation Industry Not on file Not on file Not on file COVID-19 Exposure Response Date Recorded In the last month, have you been in contact with someone who was confirmed or suspected to have Coronavirus / COVID-19? No / Unsure 03/14/2021 10:53 AM EDT documented as of this encounter Plan of Treatment Not on file documented as of this encounter Visit Diagnoses Not on filedocumented in this encounter Care Teams Jigger Crown Pouncing Machine Operator Relationship Specialty Start Date End Date Michael Martinez MD PCP - General Internal Medicine 10/16/11 05/17/22 Mandi Newsome MD [address] [place] [address] PCP - General Internal Medicine 05/18/22 Ethel Avilez DNP Specialist Cardiology 06/03/21 08/03/21 Yan Handy MD Specialist Cardiology 08/04/21 08/04/21 Shree Castro MD [address] [place] [address] [address] [place] [address] Scientific Programmer Analyst Cardiovascular Disease 09/08/21 Haydee Cates NP [address] [place] [address] Nurse Practitioner Cardiology 04/28/22 documented as of this encounter
--- OUTSIDE RECORDS SUMMARY | 2025-10-19 11:47 | XMS_ITS | Encounter Summary ---
Author Organization [facility] Address [address] [place] [address] Care Team Providers Care Trigonometry Tutor Name Role Phone Mandi Newsome MD Primary Care Pr ovider Reason for Visit * Reason Onset Date Comments PT 1 10/16/2025 Call Received 10/16/2025 Encounter Details Date Type Department Care Team (Late st Contact Info) Description 10/16/2025 Telephone Adult Medicine [address] [phone] Mandi Newsome MD [address] [place] [address] Social History Tobacco Use Types Packs/Day Years [...] for your loved ones. For example, child day care center worker or elderly care for an older adult? [...] as of this encounter Progress Notes * Margarette Angeles MA - 10/16/2025 3:36 PM EST Pt-1 submitted Tracking # [id number] [facility] 1 visit per week x 1 yr Pt will have escort with her. Pt's name on PT-1 is Colon-Ferrell. * Denia Fitzgerald - 10/16/2025 3:18 PM EST Patient states she had a call from [employer] about the PT 1 that was ordered, caller states they needher id #? Her [facility] ID was entered in the PT 1 message earlier. Please call her back if more information is needed. * Denia Fitzgerald - 10/16/2025 9:10 AM EST PT-1 Request [facility] [employer] Medicaid [employer] new provider or submitter number is [id number] Verify and document patients [place] Health insurance ID # (NOT [facility] ID): [id number] Payor: [employer] PLAN / Plan: [employer] MEDICAID / Product Type: *No Product type* / Patient mailing address: [address] [place] [phone] (home) [phone] (work) Pt. demographics verified? yes If not accurate, update registration. Is this a NEW request or a RENEWAL? New request Name of treating facility: [facility] Name (first & last) of treating provider? required : Latha Smith What is the medical reason why the patient is seeing the above provider? Medical appointments Address/Zip code for treating provider: [address] [place] [address] Phone # for treating provider: [phone] Is the provider in the [facility] network (do they accept [place] Health insurance)? yes What specialtly is this provider? Ophthalmology When is the visit scheduled for? TBD How often you will be seeing this particular provider? weekly Do you have friends or family who can transport you to this visit? no If yes, do not complete request. Is there anything stopping you from using public transportation? If yes, explain: yes, has to travel to [place], no vision in R eye Is there a medical reason (diagnosis) why you are unable to use public transportation? If yes, explain: No Does patient carry self-administered oxygen? no Does patient require door through door or room to room service( ex: member cannot ambulate or wait independently outside their home/facility for transportation. no Is this is for an Adult Day Program or Suboxone clinic No If yes to above what is arrival time and what is departure time If yes to above how many days a week? Do you need a wheelchair van? no If you use a wheelchair what is the height, width & length of the wheelchair? Do you need an escort to accompany you? If yes, explain why. yes Will you have an alternative pick-up address? no Do you have a service animal? no PT DOES NOT NEED RELEASE OF INFORMATION SIGNED documented in this encounter Plan of Treatment Upcoming Encounters Date Type Department Care Team (Late st Contact Info) Description 10/30/2025 10:45 AM EST Clinical Support [facility] [address] [place] [address] 11/02/2025 11:30 AM EST Office Visit Adult Medicine [address] [phone] Jennifer Gray PA [address] [place] [address] 11/28/2025 1:30 PM EST Ancillary Procedure [facility] Cardiology [facility] [address] [facility] [address] [place] [address] 12/12/2025 11:30 AM EST Office Visit [facility] Cardiology [facility] [address] [place] [phone] Haydee Cates NP [address] [place] [address] [address] [place] [address] 02/28/2026 3:20 PM EDT Appointment Radiology Department - [address] [phone] documented as of this encounter Goals Goal [...] Plan Impaired Tissue Improving( 9:52 AM EST) Ana Albarado RN Patient and Caregiver Understand Wound Care Education Care Plan Impaired Tissue On track( 9:52 AM EST) Ana Albarado RN Note: 08/02/25- pt states she was using [...] ulceration/compr omised skin integrity. Ana Albarado, RN documented as of this encounter Visit [...] documented as of this encounter Care Teams Trigonometry Tutor Relationship Specialty Start Date End Date Mandi Newsome MD [address] [facility] [place] PCP - General Internal Medicine 05/18/22 documented as of this encounter
--- OUTSIDE RECORDS SUMMARY | 2025-10-19 11:47 | XMS_ITS | Encounter Summary ---
Author Organization [facility] [facility] Prior to 09/01/2024 Address [address] [place] [address] Care Team Providers Care Educational Administration Teacher Name Role Phone Michael Martinez MD Primary Care Provider Ethel Cuenca DNP Unavailable [phone] Yan Handy MD Unavailable [phone] Shree Castro MD Unavailable [phone] Mandi Newsome MD Primary Care Provider + Haydee Cates NP Unavailable [phone] Encounter Details Date Type Department Care Team Description 12/10/2019 Release of Information Medical Records [address] [place] [phone] Abstract, Provider Social History Tobacco Use Types Packs/Day Years Used Date Smoking Tobacco: Never Smokeless Tobacco: Never Alcohol Use Standard Drinks/Week Comments No 0 (1 standard drink = 0.6 oz pur e alcohol) Sex Assigned at Date Recorded Not on file Job Start Date Occupation Industry Not on file Not on file Not on file documented as of this encounter Plan of Treatment Not on file documented as of this encounter Visit Diagnoses Not on filedocumented in this encounter Care Teams Educational Administration Teacher Relationship Specialty Start Date End Date Michael Martinez MD PCP - General Internal Medicine 10/16/11 05/17/22 Mandi Newsome MD [address] [place] [address] [phone] PCP - General Internal Medicine 05/18/22 Ethel Avilez DNP Specialist Cardiology 06/03/21 08/03/21 Yan Handy MD Specialist Cardiology 08/04/21 08/04/21 Shree Castro MD [address] [place] [address] [address] [place] [address] Cargo Operations Agent Cardiovascular Disease 09/08/21 Haydee Cates, EDWARD [address] [place] [address] Nurse Practitioner Cardiology 04/28/22 documented as of this encounter
--- OUTSIDE RECORDS SUMMARY | 2025-10-19 11:47 | XMS_ITS | Encounter Summary ---
Author Organization [facility] Prior to 09/01/2024 Address [address] [place] [address] Care Team Providers Care Gear Shaver Set Up Operator Name Role Phone Shree Castro MD Unavailable [phone] Mandi Newsome MD Primary Care Provider + Haydee Cates NP Unavailable [phone] Encounter Details Date Type Department Care Team Description 12/07/2022 Refill Adult Medicine [address] [address] Michael Martinez MD Social History Tobacco Use Types Packs/Day Years Used Date Smoking Tobacco: Never Smokeless Tobacco: Never Alcohol Use Standard Drinks/Week Comments No 0 (1 standard drink = 0.6 oz pur e alcohol) Sex Assigned at Date Recorded Not on file Job Start Date Occupation Industry Not on file Not on file Not on file documented as of this encounter Miscellaneous Notes * Telephone Encounter - Betty Laughlin M.A. - 12/08/2022 9:39 AM EST Last office visit 11/05/22 Next office visit 05/10/23 Lab Results Component Value Date NA 139 04/28/2022 K 4.4 04/28/2022 CO2 25 04/28/2022 CL 106 04/28/2022 BUN 11 04/28/2022 CREAT 0.74 04/28/2022 GLU 256 04/28/2022 CA 9.0 04/28/2022 GFR > 60 04/28/2022 documented in this encounter Plan of Treatment Not on file documented as of this encounter Visit Diagnoses Not on filedocumented in this encounter Care Teams Gear Shaver Set Up Operator Relationship Specialty Start Date End Date Mandi Newsome MD [address] [place] [address] PCP - General Internal Medicine 05/18/22 Shree Castro MD [address] [place] [address] [place] [address] Patient Support Specialist Cardiovascular Disease 09/08/21 Haydee Cates NP [address] [place] [address] Nurse Practitioner Cardiology 04/28/22 documented as of this encounter
--- OUTSIDE RECORDS SUMMARY | 2025-10-19 11:47 | XMS_ITS | Encounter Summary ---
Author Organization [facility] Prior to 09/01/2024 Address [address] [place] [address] Care Team Providers Care Atg Architect Name Role Phone Michael Martinez MD Primary Care Provider Ethel Cuenca DNP Unavailable [phone] Yan Handy MD Unavailable [phone] Shree Castro MD Unavailable [phone] Mandi Newsome MD Primary Care Provider + Haydee Cates ENAMEL DIPPER Unavailable [phone] Encounter Details Date Type Department Care Team Description 04/19/2021 [facility] Medical Records [address] [place] [id number] [place] [address] Social History Tobacco Use Types Packs/Day Years [...] or suspected to have Coronavirus / COVID-19? Unable to assess 04/07/2021 7:51 AM EDT documented as of this encounter Plan of Treatment Not on file documented as of this encounter Procedures Procedure Name Priority Date/Time Associated Diagnosis Comments OUTSIDE CARDIAC CATH Routine 04/21/2021 OUTSIDE ECHO Routine 04/21/2021 OUTSIDE EKG Routine 04/19/2021 OUTSIDE PLAIN FILM Routine 04/19/2021 documented in this encounter Results * OUTSIDE ECHO (04/21/2021) Provider Abstract CARDIOLOGY * OUTSIDE CARDIAC CATH (04/21/2021) Provider Abstract CARDIOLOGY * OUTSIDE PLAIN FILM (04/19/2021) Provider Abstract RADIOLOGY * OUTSIDE EKG (04/19/2021) Provider Abstract CARDIOLOGY documented in this encounter Visit Diagnoses Not on filedocumented in this encounter Care Teams Atg Architect Relationship Specialty Start Date End Date Michael Martinez MD PCP - General Internal Medicine 10/16/11 05/17/22 Mandi Newsome MD [address] [place] [address] PCP - General Internal Medicine 05/18/22 Ethel Avilez DNP Specialist Cardiology 06/03/21 08/03/21 Yan Handy MD Specialist Cardiology 08/04/21 08/04/21 Shree Castro MD [address] [place] [address] [address] [place] [address] Automobile Mechanic Helper Cardiovascular Disease 09/08/21 Haydee Cates NP [address] [place] [address] Nurse Practitioner Cardiology 04/28/22 documented as of this encounter
--- OUTSIDE RECORDS SUMMARY | 2025-10-19 11:47 | XMS_ITS | Encounter Summary ---
Author Organization [facility] Prior to 09/01/2024 Address [address] [place] [address] Care Team Providers Care President & Ceo Name Role Phone Michael Martinez MD Primary Care Provider Ethel Cuenca DNP Unavailable [phone] Yan Handy MD Unavailable Shree Castro MD Unavailable Mandi Newsome MD Primary Care Provider + Haydee Cates NP Unavailable Reason for Visit * Reason Comments E-prescribe Rx Request Encounter Details Date Type Department Care Team Description 01/20/2020 Refill Adult Medicine [address] [address] Michael Martinez MD E-prescribe Rx Request Social History Tobacco Use Types Packs/Day Years [...] encounter Miscellaneous Notes * Telephone Encounter - Rosa Isela Connors M.A. - 01/22/2020 2:44 PM EDT Lab Results Component Value Date CHOL 144 06/29/2019 LDL 93 06/29/2019 HDL 35 06/29/2019 TRIG 81 06/29/2019 SGOT 14 06/29/2019 SGPT 16 06/29/2019 Lab Results Component Value Date NA 135 11/10/2019 K 3.7 11/10/2019 CO2 25 11/10/2019 CL 102 11/10/2019 BUN 14 11/10/2019 CREAT 0.96 11/10/2019 GLU 276 11/10/2019 CA 9.2 11/10/2019 GFR > 60 11/10/2019 * Telephone Encounter - Jigna Quintana - 01/22/2020 2:33 PM EDT Patient would like script to be: E-PRESCRIBED/FAXED TO PHARMACY WHEN WAS THE PATIENT'S LAST APPOINTMENT IN ADULT MEDICINE? 07/06/19 WHEN WAS THE LAST TIME THE PATIENT SAW THEIR PCP? NEVER Does patient have an upcoming appointment? NO (THE MEDICATION REQUESTED IS ON THE MED LIST ABOVE) All of the medications requested were on the CURRENT MEDS list Did you check the Pharmacy information above?: YES Patient wants: 30 -day supply Is this a mail order prescription request ? NO If the refill is from a FAXED refill request what is the RX # listed on the fax? N/A Patients current insurance carrier is: Payor: [employer] FFS / Plan: [employer] / Product Type: MEDICAID RISK documented in this encounter Plan of Treatment Not on file documented as of this encounter Visit Diagnoses Not on filedocumented in this encounter Care Teams President & Ceo Relationship Specialty Start Date End Date Michael Martinez MD PCP - General Internal Medicine 10/16/11 05/17/22 Mandi Newsome MD [address] [place] [address] PCP - General Internal Medicine 05/18/22 Ethel Avilez DNP Specialist Cardiology 06/03/21 08/03/21 Yan Handy MD Specialist Cardiology 08/04/21 08/04/21 Shree Castro MD [address] [place] [address] [address] [place] [address] Handbag Designer Cardiovascular Disease 09/08/21 Haydee Cates NP [address] [place] [address] Nurse Practitioner Cardiology 04/28/22 documented as of this encounter
--- OUTSIDE RECORDS SUMMARY | 2025-10-19 11:47 | XMS_ITS | Encounter Summary ---
Author Organization [employer] [facility] Prior to 09/01/2024 Address [address] [place] [address] Care Team Providers Care Director Education Name Role Phone Michael Martinez MD Primary Care Provider Ethel Cuenca DNP Unavailable [phone] Yan Handy MD Unavailable [phone] Shree Castro MD Unavailable [phone] Mandi Newsome MD Primary Care Provider + Haydee Cates NP Unavailable Reason for Visit * Reason Onset Date Comments refill request 06/23/2019 Encounter Details Date Type Department Care Team Description 06/23/2019 Refill Adult Medicine [address] [address] Michael Martinez MD refill request Social History Tobacco Use Types Packs/Day Years [...] Encounter - Rosa Isela Connors M.A. - 06/23/2019 3:31 PM EDT Filled 06-23-19 w/5 refills * Telephone Encounter - Rosalia Welsh - 06/23/2019 2:17 PM EDT Patient would like script to be: E-PRESCRIBED/FAXED TO PHARMACY WHEN WAS THE PATIENT'S LAST APPOINTMENT IN ADULT MEDICINE? 06-22-19 WHEN WAS THE LAST TIME THE PATIENT SAW THEIR PCP? 07-23-14 Does patient have an upcoming appointment? 07-06-19 (THE MEDICATION REQUESTED IS ON THE MED [...] N/A Patients current insurance carrier is: Payor: [employer] FFS / Plan: [employer] / Product Type: MEDICAID RISK documented in this encounter Plan of Treatment Not on file documented as of this encounter Visit Diagnoses Not on filedocumented in this encounter Care Teams Director Education Relationship Specialty Start Date End Date Michael Martinez MD PCP - General Internal Medicine 10/16/11 05/17/22 Mandi Newsome MD [address] [place] [address] PCP - General Internal Medicine 05/18/22 Ethel Avilez DNP Specialist Cardiology 06/03/21 08/03/21 Yan Handy MD Specialist Cardiology 08/04/21 08/04/21 Shree Castro MD [address] [place] [address] [address] [place] [address] Gas Scrubber Operator Cardiovascular Disease 09/08/21 Haydee Cates NP [address] [place] [address] Nurse Practitioner Cardiology 04/28/22 documented as of this encounter
--- OUTSIDE RECORDS SUMMARY | 2025-10-19 11:47 | XMS_ITS | Encounter Summary ---
Author Organization [employer] [facility] Address [address] [facility] [address] [place] [address] Phone Care Team Providers Care Bottom Scrubber Name Role Phone Mandi Newsome MD Primary Care Pr ovider Encounter Details Date Type Department Care Team ([facility] st Contact Info) Description 10/17/2025 Telephone [facility] [address] [address] [email or web address] Social History Tobacco Use Types Packs/Day Years [...] as of this encounter Progress Notes * Marcella Calvo - 10/17/2025 2:50 PM EST Called pt back to reschedule apt w/ Dr. Smith documented in this encounter Plan of Treatment Upcoming Encounters Date Type Department Care Team (Late st Contact Info) Description 10/22/2025 11:20 AM EST Office Visit [facility] [address] [place] [address] Latha Smith MD [address] [place] [phone] [email or web address] documented as of this encounter Goals Goal Patient Goal Type Associated Problems Recent Progress Patient-Stated? Author Autogenera jess Goal Care Plan Autogenerated Problem No Polly Kohli RN documented as of this encounter Visit Diagnoses Not on filedocumented in this encounter Additional Health Concerns Active Problems Noted Date Diagnosed Date Autogenerated Problem 09/25/2025 documented as of this encounter Care Teams Bottom Scrubber Relationship Specialty Start Date End Date Mandi Newsome MD [address] [place] [phone] PCP - General 09/24/25 documented as of this encounter Additional Source Comments The information contained in this document represents components of the legal health record. It is not the complete legal health record.[facility]
--- OUTSIDE RECORDS SUMMARY | 2025-10-19 11:47 | XMS_ITS | Encounter Summary ---
Author Organization [facility] Prior to 09/01/2024 Address [address] [place] [address] Care Team Providers Care Tumbler Machine Operator Helper Name Role Phone Shree Castro MD Unavailable [phone] Mandi Newsome MD Primary Care Provider + Haydee Cates NP Unavailable [phone] Encounter Details Date Type Department Care Team Description 07/02/2022 Pt. Non Urgent Medical Question OBGYN - [address] [facility] [address] [place] [id number] Ruby Cuello CNM [address] [place] [address] Social History Tobacco Use Types Packs/Day Years Used Date Smoking Tobacco: Never Smokeless Tobacco: Never Alcohol Use Standard Drinks/Week Comments No 0 (1 standard drink = 0.6 oz pur e alcohol) Sex Assigned at Date Recorded Not on file Job Start Date Occupation Industry Not on file Not on file Not on file COVID-19 Exposure Response Date Recorded In the last 10 days, have yo u been in contact with someone who was confirmed or suspected to have Coronavirus/COVID-19? No / Unsure 07/01/2022 10:52 AM EDT documented as of this encounter Plan of Treatment Not on file documented as of this encounter Visit Diagnoses Not on filedocumented in this encounter Care Teams Tumbler Machine Operator Helper Relationship Specialty Start Date End Date Mandi Newsome MD [address] [place] [address] PCP - General Internal Medicine 05/18/22 Shree Castro MD [address] [place] [address] [address] [place] [address] Tank Truck Mechanic Cardiovascular Disease 09/08/21 Haydee Cates, EDWARD [address] [place] [address] Nurse Practitioner Cardiology 04/28/22 documented as of this encounter
--- OUTSIDE RECORDS SUMMARY | 2025-10-19 11:47 | XMS_ITS | Encounter Summary ---
Author Organization [facility] Prior to 09/01/2024 Address [address] [place] [address] Care Team Providers Care Pipe Joints Supervisor Name Role Phone Michael Martinez MD Primary Care Provider Ethel Cuenca DNP Unavailable [phone] Yan Handy MD Unavailable [phone] Shree Castro MD Unavailable [phone] Mandi Newsome MD Primary Care Provider + Haydee Cates NP Unavailable Encounter Details Date Type Department Care Team Description 04/21/2021 [facility] Medical Records [address] [place] [address] Shree Castro MD [address] [place] [address] [address] [place], [place] [id number] Social History Tobacco Use Types Packs/Day Years [...] on filedocumented in this encounter Care Teams Pipe Joints Supervisor Relationship Specialty Start Date End Date Michael Martinez MD PCP - General Internal Medicine 10/16/11 05/17/22 Mandi Newsome MD [address] [place] [address] PCP - General Internal Medicine 05/18/22 Ethel Avilez DNP Specialist Cardiology 06/03/21 08/03/21 Yan Handy MD Specialist Cardiology 08/04/21 08/04/21 Shree Castro MD [address] [place] [address] [place] [address] Bow Stapler Cardiovascular Disease 09/08/21 Haydee Cates NP [address] [place] [id number] Nurse Practitioner Cardiology 04/28/22 documented as of this encounter
--- OUTSIDE RECORDS SUMMARY | 2025-10-19 11:47 | XMS_ITS | Clinical Summary ---
Author Organization [facility] Address [address] [place] [phone] Phone Care Team Providers Care Convention Manager Name Role Phone Mandi Newsome MD Primary Care Pr ovider Allergies Active Allergy Reactions Criticality Noted Date Comments Penicillins Hives 09/24/2025 Medications aspirin 81 MG EC tablet Take 1 tablet by mouth every morning. Active atomoxetine (STRATTERA) 40 MG capsule Take 1 capsule by mouth every morning. Active FREESTYLE YAYA 3 PLUS SENSOR Esha TAKE DIRECTED EVERY 15 DAYS Active carvedilol (COREG) 6.25 MG tablet Take 6.25 mg by mouth 2 (two) times a day with meals. Active cloNIDine HCL (CATAPRES) 0.1 MG tablet TAKE ONE TO TWO (1-2) TABLETS BY MOUTH AT BEDTIME, NEEDED FOR SLEEP Active furosemide (LASIX) 20 MG tablet Take 1 tablet by mouth every morning. 025 Active hydrOXYzine (VISTARIL) 25 MG capsule TAKE 1 CAPSULE BY MOUTH EVERY DAY NEEDED FOR ANXIETY Active LANTUS SOLOSTAR U-100 INSULIN 100 unit/mL (3 mL) InPn injection pen Active mirtazapine (REMERON) 30 MG tablet take 1 tablet by mouth everyday at bedtime Active omeprazole (PRILOSEC) 20 MG capsule Take 1 capsule by mouth every morning. Active pregabalin (LYRICA) 75 MG capsule Active MURTAZA 2ND GEN PEN NEEDLE 32 gauge x 32 Ndle 4 (four) times a day. Active ENTRESTO 49-51 mg per tablet Take 1 tablet by mouth 2 (two) times a day. Active MOUNJARO 2.5 mg/0.5 mL PnIj subcutaneous pen INJECT 2.5 MG SUBCUTANEOUSLY EVERY WEEK FOR 4 WEEKS Active prednisoLONE acetate (PRED FORTE) 1 % ophthalmic suspension Place 1 drop into the right eye Every two hours. 10 mL 2 Active dorzolamide-jaspreet oloL (COSOPT) 22.3-6.8 mg/mL ophthalmic solution Place 1 drop into the right eye 2 (two) times a day. 10 mL 12 Active brimonidine (ALPHAGAN) 0.2 % ophthalmic solution Place 1 drop into the right eye 2 (two) times a day. 5 mL 12 Active latanoprost (XALATAN) 0.005 % ophthalmic solution Place 1 drop into the right eye nightly at bedtime. 2.5 mL 12 Active brimonidine (ALPHAGAN) 0.2 % ophthalmic solution 2024 Discontinued dorzolamide-jaspreet oloL (COSOPT) 22.3-6.8 mg/mL ophthalmic solution 2024 Discontinued latanoprost (XALATAN) 0.005 % ophthalmic solution 2024 Discontinued acetaZOLAMIDE (DIAMOX) 500 mg capsule Take 1 capsule (500 mg total) by mouth 2 (two) times a day. 60 capsule 1 2024 Discontinued brimonidine (ALPHAGAN) 0.2 % ophthalmic solution Place 1 drop into each eye 2 (two) times a day. 5 mL 11 2024 Discontinued dorzolamide-jaspreet oloL (COSOPT) 22.3-6.8 mg/mL ophthalmic solution Place 1 drop into each eye 2 (two) times a day. 10 mL 11 025 2024 Discontinued(R eorder) latanoprost (XALATAN) 0.005 % ophthalmic solution Place 1 drop into each eye nightly at bedtime. 2.5 mL 11 025 2024 Discontinued moxifloxacin (VIGAMOX) 0.5 % ophthalmic solution Place 1 drop into the right eye 4 (four) times a day. 3 mL 025 2024 Discontinued Active Problems Problem Noted Date Diagnosed Date CHF (congestive heart failure) 09/25/2025 Diabetes 09/25/2025 Hypertension 09/25/2025 Anxiety 09/25/2025 Encounters Date Type Department Care Team Description 10/17/2025 Telephone [facility] [address] [place] [id number] Marcella Calvo 10/16/2025 Telephone [facility] Comprehensive Ophthalmology [facility] [address] [place] [address] Latha Smith MD Advice on Treatment Plan (This pt was scheduled today for a 1-day pressure check. Called pt and they state that their transport is unavailable to help them today and that there is no way for her to get to [place]. Pt says their childcare center administrator is putting in a transportation request but that won't be for a day or two. Pt wants to know whether she should get her eye pressure checked somewhere locally or come into [place] when her transport is approved. Can you advise the pt on what to do? Thank you!) 10/15/2025 9:40 AM EST Office Visit [facility] [address] [place] [phone] Latha Smith MD NVG (neovascular glaucoma), right, stage unspecified (Primary Dx) 10/09/2025 9:10 AM EST Office Visit [facility] [address] [place] [address] Latha Smith MD NVG (neovascular glaucoma), right, stage unspecified (Primary Dx) 10/01/2025 9:40 AM EST Office Visit [facility] [address] [place] [phone] Latha Smith MD NVG (neovascular glaucoma), right, stage unspecified (Primary Dx) 09/26/2025 1:00 PM EST Office Visit [facility] [address] [place] [phone] Phillip Selby MD Postoperative eye state (Primary Dx) 09/25/2025 5:09 PM EST Anesthesia Event [address] PERIOP DEPT [address] [place] [address] Brett Nieto MD, Jennifer Cornelius MD 09/25/2025 5:01 PM EST - 09/25/2025 6:21 PM EST Surgery [address] PERIOP DEPT [address] [place] [phone] Latha Smith MD INSERTION GLAUCOMA VALVE 09/25/2025 11:37 AM EST - 09/25/2025 7:25 PM EST Hospital Encounter [address] PERIOP DEPT [address] [place] [phone] Latha Smith MD Discharge Disposition: Home or Self Care 09/25/2025 9:30 AM EST Office Visit [facility] [address] [place] [phone] Phillip Selby MD NVG (neovascular glaucoma), right, stage unspecified (Primary Dx) 09/25/2025 Procedure Pass [address] PERIOP DEPT [address] [place] [phone] 09/25/2025 Prep for Surgery [facility] [address] [place] [phone] Phillip Selby MD NVG (neovascular glaucoma), right, stage unspecified (Primary Dx) 09/24/2025 3:30 PM EST Office Visit [facility]ina [facility] [address] [place] [address] [facility], MD Kaye Parker, Joe Pritchard MD Stable proliferative diabetic retinopathy of both eyes associated with type 2 diabetes mellitus (Primary Dx); Neovascular glaucoma of right eye, indeterminate stage 09/24/2025 10:54 AM EST - 09/24/2025 4:53 PM EST Emergency [facility] Emergency Department [address] [place] [address] Vee Liu MD Discharge Disposition: Home or Self Care 09/24/2025 Ophth Exam [facility] Emergency Department [address] [place] [address] Vee Liu MD from Last 3 Months Immunizations No known immunizations Family History Medical History Relation Comments Glaucoma Neg Hx Social History Tobacco Use Types Packs/Day Years Used Date Smoking Tobacco: Never Smokeless Tobacco: Never Tobacco Cessation:Counseling Given: [...] Orientation Straight 09/24/2025 10 :54 AM EST Last Filed Vital Signs Vital Sign Reading Time Taken Comments Blood Pressure 117/90 09/25/2025 7:15 PM EST Pulse 92 09/25/2025 7:15 PM EST Temperature 36.1 C (97 F) 09/25/2025 7:00 PM EST Respiratory Rate 16 09/25/2025 4:16 PM EST Oxygen Saturation 94% 09/25/2025 7:00 PM EST Inhaled Oxygen Concentration - - Weight 97.5 kg (215 lb) 09/25/2025 4:16 PM EST Height 160 cm (5' 3 ) 09/25/2025 4:16 PM EST Body Mass Index 38.09 09/25/2025 4:16 PM EST Plan of Treatment Upcoming Encounters Date Type Department Care Team (Late st Contact Info) Description 10/22/2025 11:20 AM EST Office Visit [facility] [address] [place] [phone] Latha Smith MD [address] [place] [phone] [email or web address]. [facility] Health Maintenance Due Date Last Done Comments BLOOD PRESSURE 1973 DEPRESSION SCREENING 1985 HEPATITIS C SCREENING 1991 HIV ONE-TIME SCREENING (18-65 YEARS) 1991 PNEUMOCOCCAL VACCINES (50+ years) (1 of 2 - PCV) 1992 COLOGUARD 2018 COLONOSCOPY 2018 COLORECTAL CANCER SCREENING 2018 FIT TEST 2018 FOBT 2018 SIGMOIDOSCOPY 2018 VIRTUAL COLONOSCOPY 2018 RSV VACCINE (1 - Risk 50-74 years 1-dose series) 2023 ZOSTER VACCINES (1 of 2) 2023 PAP SMEAR 05/22/2024 05/22/2021 INFLUENZA VACCINE (#1) 2025 08/11/2016 COVID-19 VACCINE (1 - 2024- season) 2025 HEMOGLOBIN A1C 11/25/2025 05/25/2025 LIPID PANEL 10/10/2026 10/10/2025, 02/22/2025 DIABETIC EYE EXAM 10/15/2026 10/15/2025, , 10/15/2025, Additional history exists MAMMOGRAM 02/23/2027 02/23/2025 Adult Td,Tdap Booster 01/27/2034 01/28/2024 , 03/09/2022, 08/22/2009 SMOKING STATUS SCREENING (Once After 26 Yrs) Completed 10/01/2025 HEPATITIS A VACCINES Aged Out No long er eligible based on patient's age to complete this topic HIB VACCINES Aged Out No longer eligi ble based on patient's age to complete this topic MENINGOCOCCAL VACCINES (ACWY) Aged Out No longer eligible based on patient's age to complete this topic MENINGOCOCCAL VACCINES (B) Aged Out N o longer eligible based on patient's age to complete this topic Goals Goal Patient Goal Type Associated Problems Recent Progress Patient-Stated? Author Autogenera jess Goal Care Plan Autogenerated Problem No Polly Kohli RN Medical Devices Implanted Type Area Epoxy Coatings Installer Device Identifier Shelf Expiration Date Model / Serial / Lot Graft Allograft 9mm Tanzgraft Spilt Thickness [place] - [id number] Implanted:Qty: 1 on 09/25/2025 by Latha Smith MD at [facility] Right: Eye CORNEAGEN 06/26/2027 [id number] / / [id number] Valve Glaucoma [id number] Ahmed Flexible Plate Silicone Adult - [id number] Implanted:Qty: 1 on 09/25/2025 by Latha Smith MD at [facility] Right: Eye [facility] 05/04/2027 7 / [id number] / Procedures Procedure Name Priority Date/Time Associated Diagnosis Comments WASHOUT ANTERIOR CHAMBER 09/25/2025 5:13 PM EST NVG (neovascular glaucoma), right, stage unspecified VT AQUEOUS SHUNT EXTRAOC EQUAT PLATE RSVR W/GRAFT 09/25/2025 5:13 PM EST NVG (neovascular glaucoma), right, stage unspecified PERIPHERAL BLOCK EYE Routine 09/25/2025 5:09 PM EST POCT GLUCOSE Routine 09/25/2025 4:22 PM EST INTRAVITREAL INJECTION, PHARMACOLOGIC AGENT - OU - BOTH EYES Routine 09/24/2025 4:30 PM EST Stable proliferative diabetic retinopathy of both eyes associated with type 2 diabetes mellitus FUNDUS PHOTOS - OU - BOTH EYES STAT 09/24/2025 3:44 PM EST OCT, RETINA - OU - BOTH EYES Routine 09/24/2025 3:44 PM EST Stable proliferative diabetic retinopathy of both eyes associated with type 2 diabetes mellitus from Last 3 Months Results * Eye Block (09/25/2025 5:09 PM EST) Narrative Brett Nieto MD, TERESA - 09/25/2025 5:09 PM EST Brett Nieto MD, TERESA 09/25/2025 5:12 PM EYE BLOCK PROCEDURE NOTE: Start time: 09/25/2025 5:09 PM End time: 09/25/2025 5:09 PM Reason for Block: primary anesthetic and post-procedure pain management plan discussed with surgeon and patient Anesthesiologist: Brett Nieto MD, TERESA Performed: anesthesiologist B[place] protocol checklist completed and placed in chart. Patient Monitoring: ASA monitors applied during procedure: yes Vital signs recorded in nursing flowsheet during procedure: yes Eye Block: Block Type: single injection Block Laterality: right Block Location: extraconal Patient Position: supine Prep: povidone-iodine 7.5% surgical scrub Technique: Inferolateral approach Needle: Needle Type: peribulbar Needle Gauge: 25 Assessment: Injection Assessment: negative aspiration for heme Complications: Complications observed: no Notes: Pt tolerated procedure well. No apparent complications. vss Brett Nieto MD, TERESA VT ANESTHESIA Final R esult * POCT Glucose (09/25/2025 4:22 PM EST) Glucose 96 70 - 99 mg/dL 10/03/2025 12:11 PM EST [facility] Blood (Blood) 09/25/2025 4:2 2 PM EST 09/25/2025 4:24 PM EST Latha Smith MD LAB POCT DOCKED DEVICE UNSOL ICTED RESULTS Final Result Performing Organization Address City/State/[facility] de Phone Number [facility] [address] * Intravitreal Injection, Pharmacologic Agent - OU - Both Eyes (09/24/2025 4:30 PM EST) Anatomical Region Laterality Modality Head Other Narrative 09/24/2025 4:30 PM EST Table formatting from the original result was not included. Injection Information Timeout performed: Yes. Right Eye Injection Medication: 1.25 mg bevacizumab 1.25 mg/0.05 mL Route: Intravitreal, Site: Right Eye [facility]: 58617-479-87, Lot: [id number], Expiration date: 01/07/2026, Waste: 0 mL Left Eye Injection Medication: 1.25 mg bevacizumab 1.25 mg/0.05 mL Route: Intravitreal, Site: Left Eye NDC: 83643-516-54, Lot: [id number], Expiration date: 01/07/2026, Waste: 0 mL Notes Vitreoretinal Procedure Note Date: 09/24/2025 Pre op Diagnosis: 1. Choroidal neovascular membrane both eyes Post-op diagnosis: same Provider: Britney Beebe MD Procedure: 1. Intravitreal Injection OU1.0mg/0.1ml Vancomycin, 5mcg/0.1ml Amphotericin, 5mcg/0.1ml Amphotericin, 100mcg/0.1ml Voriconazole, ceftaz 2.0mg/0.1mL, Foscarnet 2400mcg/0.1mL, Gancyclovir, Avastin, and Eylea Anesthesia: 1. Topical 0.5% Proparacaine 2. Subconjunctival 2% lidocaine Complications: None Procedure: After the risks, benefits, alternatives and techniques were discussed with the patient, all questions were answered and informed consent was signed. Proparacaine was instilled onto the ocular surface followed by 4% topical lidocaine on cotton tip then by subconjunctival 2% lidocaine. The eye was prepped in the usual fashion for this procedure. Once analgesia was achieved a lid speculum was placed. Calipers were used to ely 3.5 mm posterior to the limbus inferotemporally . A drop of povidone was placed on the surface. A 30g needle was used to inject OU1.0mg/0.1ml Vancomycin, 5mcg/0.1ml Amphotericin, 5mcg/0.1ml Amphotericin, 100mcg/0.1ml Voriconazole, ceftaz 2.0mg/0.1mL, Foscarnet 2400mcg/0.1mL, Gancyclovir, Avastin, and Eylea intravitreally. Speculum was removed. Vision was CF and the optic nerve perfused. The patient tolerated the procedure well and there were no complications. ? RD precautions reviewed.?? ? Patient was discharged home in stable condition, they will follow up tomorrow in clinic Vitreoretinal Procedure Note Date: 09/24/2025 Pre op Diagnosis: 1. Choroidal neovascular membrane both eyes Post-op diagnosis: same Provider: Britney Beebe MD Procedure: 1. Intravitreal Injection OU1.0mg/0.1ml Vancomycin, 5mcg/0.1ml Amphotericin, 5mcg/0.1ml Amphotericin, 100mcg/0.1ml Voriconazole, ceftaz 2.0mg/0.1mL, Foscarnet 2400mcg/0.1mL, Gancyclovir, Avastin, and Eylea Anesthesia: 1. Topical 0.5% Proparacaine 2. Subconjunctival 2% lidocaine Complications: None Procedure: After the risks, benefits, alternatives and techniques were discussed with the patient, all questions were answered and informed consent was signed. Proparacaine was instilled onto the ocular surface followed by 4% topical lidocaine on cotton tip then by subconjunctival 2% lidocaine. The eye was prepped in the usual fashion for this procedure. Once analgesia was achieved a lid speculum was placed. Calipers were used to ely 3.5 mm posterior to the limbus inferotemporally . A drop of povidone was placed on the surface. A 30g needle was used to inject OU1.0mg/0.1ml Vancomycin, 5mcg/0.1ml Amphotericin, 5mcg/0.1ml Amphotericin, 100mcg/0.1ml Voriconazole, ceftaz 2.0mg/0.1mL, Foscarnet 2400mcg/0.1mL, Gancyclovir, Avastin, and Eylea intravitreally. Speculum was removed. Vision was CF and the optic nerve perfused. The patient tolerated the procedure well and there were no complications. ? RD precautions reviewed.?? ? Patient was discharged home in stable condition, they will follow up tomorrow in clinic Vitreoretinal Procedure Note Date: 09/24/2025 Pre op Diagnosis: 1. Choroidal neovascular membrane both eyes Post-op diagnosis: same Provider: Britney Beebe MD Procedure: 1. Intravitreal Injection OU1.0mg/0.1ml Vancomycin, 5mcg/0.1ml Amphotericin, 5mcg/0.1ml Amphotericin, 100mcg/0.1ml Voriconazole, ceftaz 2.0mg/0.1mL, Foscarnet 2400mcg/0.1mL, Gancyclovir, Avastin, and Eylea Anesthesia: 1. Topical 0.5% Proparacaine 2. Subconjunctival 2% lidocaine Complications: None Procedure: After the risks, benefits, alternatives and techniques were discussed with the patient, all questions were answered and informed consent was signed. Proparacaine was instilled onto the ocular surface followed by 4% topical lidocaine on cotton tip then by subconjunctival 2% lidocaine. The eye was prepped in the usual fashion for this procedure. Once analgesia was achieved a lid speculum was placed. Calipers were used to ely 3.5 mm posterior to the limbus inferotemporally . A drop of povidone was placed on the surface. A 30g needle was used to inject OU1.0mg/0.1ml Vancomycin, 5mcg/0.1ml Amphotericin, 5mcg/0.1ml Amphotericin, 100mcg/0.1ml Voriconazole, ceftaz 2.0mg/0.1mL, Foscarnet 2400mcg/0.1mL, Gancyclovir, Avastin, and Eylea intravitreally. Speculum was removed. Vision was CF and the optic nerve perfused. The patient tolerated the procedure well and there were no complications. ? RD precautions reviewed.?? ? Patient was discharged home in stable condition, they will follow up tomorrow in clinic Britney Beebe MD OPHTHALMOLOGY PROCEDURES Final Result * Fundus Photos - OU - Both Eyes (09/24/2025 3:44 PM EST) Anatomical Region Laterality Modality Head Photography Narrative 09/25/2025 8:56 AM EST OD: NVD, PRP OS: NVD, PRP Nohemi Corrigan MD, PhD Vee Liu MD OPHTHALMOLOGY IMAGING [facility] al Result * OCT, RETINA - OU - BOTH EYES - [place] (09/24/2025 3:44 PM EST) Narrative HARMONY - 09/25/2025 12:16 PM EST OD: ERM, scattered atrophy, no IRF OS: ERM, scattered atrophy, no IRF Britney Beebe MD OPHTHALMOLOGY IMAGING Fi nal Result HARMONY from Last 3 Months Additional Health Concerns Active Problems Noted Date Diagnosed Date Autogenerated Problem 09/25/2025 Insurance [employer] [address] [place] [address]Shopitize [facility] [address] [place] [address] [employer] Advance Directives For more information, please contact: [phone] (9AM - 5PM [facility], Wednesday-Wednesday) Documents on File Type Date Recorded Patient Broke Worker Expl anation Healthcare Proxy 09/26/2025 4:31 PM Care Teams Convention Manager Relationship Specialty Start Date End Date Mandi Newsome MD [address] [place] [phone] PCP - General 09/24/25 Additional Source Comments The information contained in this document represents components of the legal health record. It is not the complete legal health record.[facility]
--- OUTSIDE RECORDS SUMMARY | 2025-10-19 11:47 | XMS_ITS | Encounter Summary ---
Author Organization [facility] Prior to 09/01/2024 Address [address] [place] [address] Care Team Providers Care Dial Brusher Name Role Phone Michael Martinez MD Primary Care Provider Ethel Cuenca DNP Unavailable [phone] Yan Handy MD Unavailable Shree Castro MD Unavailable Mandi Newsome MD Primary Care Provider + Haydee Cates NP Unavailable [phone] Encounter Details Date Type Department Care Team Description 06/10/2021 Telephone Cardio PVC [address] [facility] [address] [place] [address] Ethel Avilez DNP [address] [facility] [place] [address] Social History Tobacco Use Types Packs/Day Years [...] have Coronavirus / COVID-19? No / Unsure 06/05/2021 12:55 PM EDT documented as of this encounter Miscellaneous Notes * Telephone Encounter - Ethel Avilez DNP,DIPLOMA MAKER - 07/11/2021 12:54 PM EDT Thank you for the update. She ended up back at [facility] and had her CABG given further drop in LVEF. * Telephone Encounter - MARY Banks - 07/11/2021 12:53 PM EDT FYMinoo, patient no-showed to appointment with me at the end of June. Will be seeing PCP 07/22/2021 for hospital follow-up. * Telephone Encounter - Ethel Avilez DNP, FNP - 06/11/2021 7:13 AM EDT Thank you! * Telephone Encounter - MARY Banks - 06/10/2021 6:55 PM EDT Janette, Patient was previously on lisinopril years ago. At recent visits we had several discussions about starting lisinopril for hypertension and renal protection. Lisinopril 2.5 mg p.o. daily was started during our appointment on 03/14/2021. She was advised to return in 4 weeks. She had telehealth visit with colleague on 04/07/2021 and it was documented that patient continue lisinopril. However, apparently this was discontinued from med list when she saw [facility] on 05/22/2021. I will discuss with her at upcoming appointment why she discontinued. MARY Banks * Telephone Encounter - Ethel Avilez DNP, FNP - 06/10/2021 3:41 PM EDT Good afternoon, Nubia Mena is coming to see you in a couple weeks. She has ischemic cardiomyopathy and diabetes. It does not appear as though she is on an ROSA or ARB at this time. Would you consider starting one at your visit? Her renal function and blood pressure seem to supported when she was in to see me last, but I do not know why she is not taking one Thank you for your help. documented in this encounter Plan of Treatment Not on file documented as of this encounter Visit Diagnoses Not on filedocumented in this encounter Care Teams Dial Brusher Relationship Specialty Start Date End Date Michael Martinez MD PCP - General Internal Medicine 10/16/11 05/17/22 Mandi Newsome MD [address] [place] [phone] PCP - General Internal Medicine 05/18/22 Ethel Avilez DNP Specialist Cardiology 06/03/21 08/03/21 Yan Handy MD Specialist Cardiology 08/04/21 08/04/21 Shree Castro MD [address] [place] [address] [address] [place] [address] Strain Technician Cardiovascular Disease 09/08/21 Haydee Cates NP [address] [place] [phone] Nurse Practitioner Cardiology 04/28/22 documented as of this encounter
--- OUTSIDE RECORDS SUMMARY | 2025-10-19 11:48 | XMS_ITS | Encounter Summary ---
Author Organization [facility] Prior to 09/01/2024 Address [address] [place] [address] Care Team Providers Care Financial Auditor Name Role Phone Michael Martinez MD Primary Care Provider Ethel Cuenca DNP Unavailable [phone] Yan Handy MD Unavailable Shree Castro MD Unavailable [phone] Mandi Newsome MD Primary Care Provider + Haydee Cates NP Unavailable [phone] Reason for Visit * Reason Onset Date Comments Stress Test 10/13/2012 Encounter Details Date Type Department Care Team Description 10/13/2012 Telephone Adult [address] [address] Fanny Hu APRN Stress Test Social History Tobacco Use Types Packs/Day Years [...] encounter Miscellaneous Notes * Telephone Encounter - Fanny Hu APRN - 10/17/2012 12:20 PM EST Ok to cancel referral. I will send msg to patient as well. * Telephone Encounter - Ainsley Palma - 10/13/2012 11:21 AM EST You requested a stress test for this patient She canceled the test twice I spoke with her today andshe wanted me to ask you if you felt this was necessary as she is feeling much better Please advise documented in this encounter Plan of Treatment Not on file documented as of this encounter Visit Diagnoses Not on filedocumented in this encounter Care Teams Financial Auditor Relationship Specialty Start Date End Date Michael Martinez MD PCP - General Internal Medicine 10/16/11 05/17/22 Mandi Newsome MD [address] [place] [phone] PCP - General Internal Medicine 05/18/22 Ethel Avilez DNP Specialist Cardiology 06/03/21 08/03/21 Yan Handy MD Specialist Cardiology 08/04/21 08/04/21 Shree Castro MD [address] [place] [address] [address] [place] [address] Collection Supervisor Cardiovascular Disease 09/08/21 Haydee Cates NP [address] [place] [phone] Nurse Practitioner Cardiology 04/28/22 documented as of this encounter
--- OUTSIDE RECORDS SUMMARY | 2025-10-19 11:48 | XMS_ITS | Encounter Summary ---
Author Organization [facility] Prior to 09/01/2024 Address [address] [place] [address] Care Team Providers Care Biometrics Head Name Role Phone Michael Martinez MD Primary Care Provider Shree Callaway MD Unavailable [phone] Mandi Newsome MD Primary Care Provider + Haydee Cates NP Unavailable [phone] Reason for Visit * Reason Onset Date Comments APPOINTMENT 04/29/2022 Return in about 4 weeks (around 05/27/2022) with Shaila for FU. Encounter Details Date Type Department Care Team Description 04/29/2022 Telephone Cardio PVC [facility] [address] [place] [address] Haydee Cates NP [address] [place] [address] Dr Avila [address] [place] [address] [phone] APPOINTMENT (Return in about 4 weeks (around 05/27/2022) with Sahila for FU. ) Social History Tobacco Use Types Packs/Day Years [...] suspected to have Coronavirus/COVID-19? No / Unsure 04/28/2022 8:45 AM EDT documented as of this encounter Miscellaneous Notes * Telephone Encounter - Ailyn Blessing - 04/29/2022 2:05 PM EDT Return in about 4 weeks (around 05/27/2022) for FU w/AB. No appts avail at this time- LillyA documented in this encounter Plan of Treatment Not on file documented as of this encounter Visit Diagnoses Not on filedocumented in this encounter Care Teams Biometrics Head Relationship Specialty Start Date End Date Audrey Martinez-MD Shekhar PCP - General Internal Medicine 10/16/11 05/17/22 Mandi Newsome MD [address] [place] [address] PCP - General Internal Medicine 05/18/22 Shree Castro MD [address] [place] [address] [place] [address] Senior Communications Engineer Cardiovascular Disease 09/08/21 Haydee Cates NP [address] [place] [address] Nurse Practitioner Cardiology 04/28/22 documented as of this encounter
--- OUTSIDE RECORDS SUMMARY | 2025-10-19 11:48 | XMS_ITS | Encounter Summary ---
Author Organization [facility] Prior to 09/01/2024 Address [address] [place] [address] Care Team Providers Care Unarmed Security Guard Name Role Phone Michael Martinez MD Primary Care Provider Shree Callaway MD Unavailable [phone] Mandi Newsome MD Primary Care Provider + Haydee Cates NP Unavailable [phone] Encounter Details Date Type Department Care Team Description 12/25/2021 Home Health Certification Medical Records [address] [place] [address] [address] [place] [address] Social History Tobacco Use Types Packs/Day Years [...] have Coronavirus / COVID-19? Unable to assess 12/10/2021 8:39 AM EST documented as of this encounter Plan of Treatment Not on file documented as of this encounter Visit Diagnoses Not on filedocumented in this encounter Care Teams Unarmed Security Guard Relationship Specialty Start Date End Date Michael Martinez MD PCP - General Internal Medicine 10/16/11 05/17/22 Mandi Newsome MD [address] [place] [address] PCP - General Internal Medicine 05/18/22 Shree Castro MD [address] [place] [address] [address] [place] [address] Teleservices Representative Cardiovascular Disease 09/08/21 Haydee Cates NP [address] [place] [address] Nurse Practitioner Cardiology 04/28/22 documented as of this encounter
--- OUTSIDE RECORDS SUMMARY | 2025-10-19 11:48 | XMS_ITS | Encounter Summary ---
Author Organization [facility] Prior to 09/01/2024 Address [address] [place] [address] Care Team Providers Care Children Teacher Name Role Phone Michael Martinez MD Primary Care Provider Shree Callaway MD Unavailable [phone] Mandi Newsome MD Primary Care Provider + Haydee Cates NP Unavailable [phone] Reason for Visit * Reason Comments E-prescribe Rx Request Encounter Details Date Type Department Care Team Description 03/09/2022 Refill Adult Medicine [address] [address] Michael Martinez MD E-prescribe Rx Request Social [...] suspected to have Coronavirus/COVID-19? No / Unsure 03/09/2022 10:57 AM EDT documented as of this encounter Miscellaneous Notes * Telephone Encounter - Rosa Isela Connors M.A. - 03/11/2022 9:33 AM EDT Lab Results Component Value Date NA 134 03/09/2022 K 4.8 03/09/2022 CO2 26 03/09/2022 CL 102 03/09/2022 BUN 15 03/09/2022 CREAT 0.65 03/09/2022 GLU 119 03/09/2022 CA 9.5 03/09/2022 GFR > 60 03/09/2022 VASU 03/09/22 NOV 06/09/22 * Telephone Encounter - Olga Guerrero - 03/10/2022 1:35 PM EDT Patient would like script to be: E-PRESCRIBED/FAXED TO PHARMACY WHEN WAS THE PATIENT'S LAST APPOINTMENT IN ADULT MEDICINE? 03/09/22 WHEN WAS THE LAST TIME THE PATIENT SAW THEIR PCP? 12/10/21 Does patient have an upcoming appointment? Yes 06/09/22 (THE MEDICATION REQUESTED IS ON THE MED LIST ABOVE) All of the medications requested were on the CURRENT MEDS list Did you check the Pharmacy information above?: YES Patient wants: 90 -day supply Is this a mail order prescription request ? NO If the refill is from a FAXED refill request what is the RX # listed on the fax? N/A Patients current insurance carrier is: Payor: [employer] FFS / Plan: Answer[employer]To [employer]IANCE / Product Type: MEDICAID RISK documented in this encounter Plan of Treatment Not on file documented as of this encounter Visit Diagnoses Not on filedocumented in this encounter Care Teams Children Teacher Relationship Specialty Start Date End Date Michael Martinez MD PCP - General Internal Medicine 10/16/11 05/17/22 Mandi Newsome MD [address] [place] [address] PCP - General Internal Medicine 05/18/22 Shree Castro MD [address] [place] [address] [address] [place] [address] Refining Equipment Operator Cardiovascular Disease 09/08/21 Haydee Cates NP [address] [place] [address] Nurse Practitioner Cardiology 04/28/22 documented as of this encounter
--- OUTSIDE RECORDS SUMMARY | 2025-10-19 11:48 | XMS_ITS | Encounter Summary ---
Author Organization [facility] Prior to 09/01/2024 Address [address] [place] [address] Care Team Providers Care Electricity Trader Name Role Phone Michael Martinez MD Primary Care Provider Shree Callaway MD Unavailable [phone] Mandi Newsome MD Primary Care Provider + Haydee Cates NP Unavailable [phone] Encounter Details Date Type Department Care Team Description 01/26/2022 Piece Goods Clerk Report Medical Records [address] [place] [address] Cristino Foss Np Social History Tobacco Use Types Packs/Day Years [...] on filedocumented in this encounter Care Teams Electricity Trader Relationship Specialty Start Date End Date Michael Martinez MD PCP - General Internal Medicine 10/16/11 05/17/22 Mandi Newsome MD [address] [place] [address] PCP - General Internal Medicine 05/18/22 Shree Castro MD [address] [place] [address] [address] [place] [address] Engineering Program Manager Cardiovascular Disease 09/08/21 Haydee Cates, EDWARD [address] [place] [address] Nurse Practitioner Cardiology 04/28/22 documented as of this encounter
--- OUTSIDE RECORDS SUMMARY | 2025-10-19 11:48 | XMS_ITS | Encounter Summary ---
Author Organization [facility] Prior to 09/01/2024 Address [address] [place] [address] Care Team Providers Care Patient Access Registrar Name Role Phone Michael Matrinez MD Primary Care Provider Shree Callaway MD Unavailable [phone] Mandi Newsome MD Primary Care Provider + Haydee Cates NP Unavailable [phone] Encounter Details Date Type Department Care Team Description 12/29/2021 Media Reconciliation Specialist Report Medical Records [address] [place] [address] Surgery, [facility] Cardiac Social History Tobacco Use Types Packs/Day Years [...] on filedocumented in this encounter Care Teams Patient Access Registrar Relationship Specialty Start Date End Date Michael Martinez MD PCP - General Internal Medicine 10/16/11 05/17/22 Mandi Newsome MD [address] [place] [address] PCP - General Internal Medicine 05/18/22 Shree Castro MD [address] [place] [address] DR[address] [place] [address] B2B Sales Representative Cardiovascular Disease 09/08/21 Haydee Cates NP [address] [place] [address] Nurse Practitioner Cardiology 04/28/22 documented as of this encounter
--- OUTSIDE RECORDS SUMMARY | 2025-10-19 11:48 | XMS_ITS | Encounter Summary ---
Author Organization [facility] Prior to 09/01/2024 Address [address] [place] [address] Care Team Providers Care Deputy Of Counter Intelligence Name Role Phone Michael Martinez MD Primary Care Provider Shree Callaway MD Unavailable [phone] Mandi Newsome MD Primary Care Provider + Haydee Cates NP Unavailable [phone] Reason for Visit * Reason Onset Date Comments Mychart Rx Refill 12/05/2021 Encounter Details Date Type Department Care Team Description 12/05/2021 Pt. Non Urgent Medic al Question Adult [address] [address] Michael Martinez MD Social History Tobacco Use [...] encounter Miscellaneous Notes * Telephone Encounter - Rosamaria Mathew M.A. - 12/05/2021 7:57 AM ESTFrom: Gabriela Michael To: Diony Martinez Sent: 12/05/2021 1:17 AM EST Subject: Medication RX I need new Rx send to the pharmacy for Carvedilol my manpower development specialist increase it to 6.125 mg, I also need asprin 81. Please thank you.. documented in this encounter Plan of Treatment Not on file documented as of this encounter Visit Diagnoses Not on filedocumented in this encounter Care Teams Deputy Of Counter Intelligence Relationship Specialty Start Date End Date Michael Martinez MD PCP - General Internal Medicine 10/16/11 05/17/22 Mandi Newsome MD [address] [place] [phone] PCP - General Internal Medicine 05/18/22 Shree Castro MD [address] [place] [address] [place] [address] Critical Power Technician Cardiovascular Disease 09/08/21 Haydee Cates NP [address] [place] [address] Nurse Practitioner Cardiology 04/28/22 documented as of this encounter
--- OUTSIDE RECORDS SUMMARY | 2025-10-19 11:48 | XMS_ITS | Encounter Summary ---
Author Organization [facility] Prior to 09/01/2024 Address [address] [place] [address] Care Team Providers Care Yard Spotter Name Role Phone Michael Martinez MD Primary Care Provider Ethel Cuenca DNP Unavailable [phone] Yan Handy MD Unavailable Shree Castro MD Unavailable Mandi Newsome MD Primary Care Provider + Haydee Cates NP Unavailable Reason for Visit * Reason Onset Date Comments TEST RESULTS 07/10/2014 Encounter Details Date Type Department Care Team Description 07/10/2014 Telephone Adult [address] [phone] Michael Martinez MD TEST RESULTS Social History Tobacco Use Types Packs/Day Years [...] encounter Miscellaneous Notes * Telephone Encounter - Michael Martinez - 07/10/2014 12:35 PM EDT My chart messge was sent. Her diabetes and cholesterol doing great. * Telephone Encounter - Millie Acosta - 07/10/2014 11:44 AM EDT Inform patient: ANY URGENT OR ABNORMAL RESULTS WIILL RESULT IN A CALL BACK TO THE PATIENT KARLEE. Type of test: :Bloodwork Date test was performed: 07/07/14 Where was the test performed: [facility] Who ordered this test?: Dr Martinez Is the doctor here today?: YES Can the message wait until the doctor returns?: NO IF PATIENT'S PCP IS NOT IN INSTRUCT PATIENT THAT THEY WILL RECEIVE A CALL BACK WHEN THE PCP IS IN THE OFFICE NEXT. documented in this encounter Plan of Treatment Not on file documented as of this encounter Visit Diagnoses Not on filedocumented in this encounter Care Teams Yard Spotter Relationship Specialty Start Date End Date Michael Martinez MD PCP - General Internal Medicine 10/16/11 05/17/22 Mandi Newsome MD [address] [place] [address] PCP - General Internal Medicine 05/18/22 Ethel Avilez DNP Specialist Cardiology 06/03/21 08/03/21 Yan Handy MD Specialist Cardiology 08/04/21 08/04/21 Shree Castro MD [address] [place] [address] [address] [place] [address] Account Executive Cardiovascular Disease 09/08/21 Haydee Cates NP [address] [place] [address] Nurse Practitioner Cardiology 04/28/22 documented as of this encounter
--- OUTSIDE RECORDS SUMMARY | 2025-10-19 11:48 | XMS_ITS | Encounter Summary ---
Author Organization [facility] Prior to 09/01/2024 Address [address] [place] [address] Care Team Providers Care Associate Broker Name Role Phone Michael Martinez MD Primary Care Provider Ethel Cuenca DNP Unavailable [phone] Yan Handy MD Unavailable Shree Castro MD Unavailable Mandi Newsome MD Primary Care Provider + Haydee Cates NP Unavailable Reason for Visit * Reason Comments E-prescribe Rx Request Encounter Details Date Type Department Care Team Description 05/08/2019 Refill Adult Medicine [address] [address] Fanny Hu APRN E-prescribe Rx Request Social History Tobacco Use [...] Encounter - Rosa Isela Connors M.A. - 05/09/2019 1:14 PM EDT Faxed to pharmacy * Telephone Encounter - Ailyn Lazo - 05/09/2019 9:26 AM EDT Last ov 02/15/2018 Pended 30 day Lab Results Component Value Date NA 136 11/23/2017 K 4.3 11/23/2017 CO2 22.9 11/23/2017 CL 101 11/23/2017 BUN 14 11/23/2017 CREAT 0.8 11/23/2017 GLU 258 11/23/2017 CA 8.9 11/23/2017 GFR > 60 11/23/2017 documented in this encounter Plan of Treatment Not on file documented as of this encounter Visit Diagnoses Not on filedocumented in this encounter Care Teams Associate Broker Relationship Specialty Start Date End Date Michael Martinez MD PCP - General Internal Medicine 10/16/11 05/17/22 Mandi Newsome MD [address] [place] [address] PCP - General Internal Medicine 05/18/22 Ethel Avilez DNP Specialist Cardiology 06/03/21 08/03/21 Yan aHndy MD Specialist Cardiology 08/04/21 08/04/21 Shree Castro MD [address] [place] [address] [place] [address] Director Of Labor Relations Cardiovascular Disease 09/08/21 Haydee Cates NP [address] [place] [address] Nurse Practitioner Cardiology 04/28/22 documented as of this encounter
--- OUTSIDE RECORDS SUMMARY | 2025-10-19 11:48 | XMS_ITS | Encounter Summary ---
Author Organization [facility] Prior to 09/01/2024 Address [address] [place] [address] Care Team Providers Care Keeper Helper Name Role Phone Shree Castro MD Unavailable [phone] Mandi Newsome MD Primary Care Provider + Haydee Cates NP Unavailable [phone] Encounter Details Date Type Department Care Team Description 03/20/2024 Pt. Non Urgent Medical Question Cardio PVC [facility] [address] [place] [phone] Shree Castro MD [address] [facility] [address] [facility] [address] [place], [place] [phone] Social History Tobacco Use Types Packs/Day Years [...] encounter Miscellaneous Notes * Telephone Encounter - Shree Castro MD - 03/28/2024 6:31 PM EDT Letter sent documented in this encounter Plan of Treatment Not on file documented as of this encounter Visit Diagnoses Not on filedocumented in this encounter Care Teams Keeper Helper Relationship Specialty Start Date End Date Mandi Newsome MD [address] [place] [address] PCP - General Internal Medicine 05/18/22 Shree Castro MD [address] [place] [address] [address] [place] [address] Belting Inspector Cardiovascular Disease 09/08/21 Haydee Cates NP [address] [place] [address] Nurse Practitioner Cardiology 04/28/22 documented as of this encounter
--- OUTSIDE RECORDS SUMMARY | 2025-10-19 11:48 | XMS_ITS | Encounter Summary ---
Author Organization [facility] Prior to 09/01/2024 Address [address] [place] [address] Care Team Providers Care Certified First Assistant Name Role Phone Michael Martinez MD Primary Care Provider Ethel Cuenca DNP Unavailable [phone] Yan Handy MD Unavailable [phone] Shree Castro MD Unavailable [phone] Mandi Newsome MD Primary Care Provider + Haydee Cates NP Unavailable Encounter Details Date Type Department Care Team Description 04/08/2015 Hereditary Cancer Qu iz Results Medical Records [address] [place] [address] Abstract, Provider Social History Tobacco Use Types [...] on filedocumented in this encounter Care Teams Certified First Assistant Relationship Specialty Start Date End Date Michael Martinez MD PCP - General Internal Medicine 10/16/11 05/17/22 Mandi Newsome MD [address] [place] [phone] PCP - General Internal Medicine 05/18/22 Ethel Avilez DNP Specialist Cardiology 06/03/21 08/03/21 Yan Handy MD Specialist Cardiology 08/04/21 08/04/21 Shree Castro MD [address] [place] [address] [address] [place] [address] Hydraulic Punch Press Operator Cardiovascular Disease 09/08/21 Haydee Cates, EDWARD [address] [place] [address] Nurse Practitioner Cardiology 04/28/22 documented as of this encounter
--- OUTSIDE RECORDS SUMMARY | 2025-10-19 11:48 | XMS_ITS | Encounter Summary ---
Author Organization [facility] Prior to 09/01/2024 Address [address] [place] [address] Care Team Providers Care Supervisor Sample Name Role Phone Michael Martinez MD Primary Care Provider Shree Callaway MD Unavailable [phone] Mandi Newsome MD Primary Care Provider + Haydee Cates NP Unavailable [phone] Encounter Details Date Type Department Care Team Description 12/22/2021 Certified Orthotic Fitter Report Medical Records [address] [place] [address] Surgery, [facility] Cardiac Social History Tobacco Use Types [...] on filedocumented in this encounter Care Teams Supervisor Sample Relationship Specialty Start Date End Date Michael Martinez MD PCP - General Internal Medicine 10/16/11 05/17/22 Mandi Newsome MD [address] [place] [address] PCP - General Internal Medicine 05/18/22 Shree Castro MD [address] [place] [address] [address] [place] [address] Marsh Buggy Operator Cardiovascular Disease 09/08/21 Haydee Cates NP [address] [place] [address] Nurse Practitioner Cardiology 04/28/22 documented as of this encounter
--- OUTSIDE RECORDS SUMMARY | 2025-10-19 11:48 | XMS_ITS | Encounter Summary ---
Author Organization [facility] Prior to 09/01/2024 Address [address] [place] [address] Care Team Providers Care Industrial Designer Name Role Phone Michael Martinez MD Primary Care Provider Ethel Cuenca DNP Unavailable [phone] Yan Handy MD Unavailable Shree Castro MD Unavailable [phone] Mandi Newsome MD Primary Care Provider + Haydee Cates NP Unavailable [phone] Encounter Details Date Type Department Care Team Description 05/25/2013 Sap Grc Security Report Medical Records [address] [place] [address] [facility], [address] [phone] Social History Tobacco Use Types Packs/Day Years [...] on filedocumented in this encounter Care Teams Industrial Designer Relationship Specialty Start Date End Date Michael Martinez MD PCP - General Internal Medicine 10/16/11 05/17/22 Mandi Newsome MD [address] [place] [address] [phone] PCP - General Internal Medicine 05/18/22 Ethel Avilez DNP Specialist Cardiology 06/03/21 08/03/21 Yan Handy MD Specialist Cardiology 08/04/21 08/04/21 Shree Castro MD [address] [place] [address] [address] [place] [address] Supervisor Shellfish Farming Cardiovascular Disease 09/08/21 Haydee Cates, EDWARD [address] [place] [address] Nurse Practitioner Cardiology 04/28/22 documented as of this encounter
--- OUTSIDE RECORDS SUMMARY | 2025-10-19 11:48 | XMS_ITS | Encounter Summary ---
Author Organization [facility] Prior to 09/01/2024 Address [address] [place] [address] Care Team Providers Care Museum Attendant Name Role Phone Michael Martinez MD Primary Care Provider Shree Callaway MD Unavailable [phone] Mandi Newsome MD Primary Care Provider + Haydee Cates NP Unavailable [phone] Encounter Details Date Type Department Care Team Description 01/05/2022 Wildlife Refuge Manager Report Medical Records [address] [place] [address] Surgery, [facility] Cardiac Social History Tobacco Use Types Packs/Day [...] on filedocumented in this encounter Care Teams Museum Attendant Relationship Specialty Start Date End Date Michael Martinez MD PCP - General Internal Medicine 10/16/11 05/17/22 Mandi Newsome MD [address] [place] [address] PCP - General Internal Medicine 05/18/22 Shree Castro MD [address] [place] [address] DR[address] [place] [address] Graduate Rn Cardiovascular Disease 09/08/21 Haydee Cates NP [address] [place] [address] Nurse Practitioner Cardiology 04/28/22 documented as of this encounter
--- OUTSIDE RECORDS SUMMARY | 2025-10-19 11:48 | XMS_ITS | Encounter Summary ---
Author Organization [facility] Prior to 09/01/2024 Address [address] [place] [address] Care Team Providers Care Wrapper Stemmer Hand Name Role Phone Michael Martinez MD Primary Care Provider Shree Callaway MD Unavailable [phone] Mandi Newsome MD Primary Care Provider + Haydee Cates NP Unavailable [phone] Encounter Details Date Type Department Care Team Description 01/19/2022 Train Attendant Report Medical Records [address] [place] [address] Surgery, [facility] Cardiac Social History Tobacco Use Types Packs/Day [...] on filedocumented in this encounter Care Teams Wrapper Stemmer Hand Relationship Specialty Start Date End Date Michael Martinez MD PCP - General Internal Medicine 10/16/11 05/17/22 Mandi Newsome MD [address] [place] [address] [phone] PCP - General Internal Medicine 05/18/22 Shree Castro MD [address] [place] [address] [place] [phone] Seafood And Service Meat Manager Cardiovascular Disease 09/08/21 Haydee Cates, EDWARD [address] [place] [address] Nurse Practitioner Cardiology 04/28/22 documented as of this encounter
--- OUTSIDE RECORDS SUMMARY | 2025-10-19 11:48 | XMS_ITS | Encounter Summary ---
Author Organization [facility] Prior to 09/01/2024 Address [address] [place] [address] Care Team Providers Care Advice Clerk Name Role Phone Michael Martinez MD Primary Care Provider Shree Callaway MD Unavailable Mandi Newsome MD Primary Care Provider + Haydee Cates NP Unavailable Reason for Visit * Reason Onset Date Comments Faxed Order 11/14/2021 Order #[id number] Encounter Details Date Type Department Care Team Description 11/14/2021 Telephone Adult [address] [address] Michael Martinez MD Faxed Order (Order #[id number]) Social History Tobacco Use Types Packs/Day Years [...] encounter Miscellaneous Notes * Telephone Encounter - Olga Guerrero - 11/14/2021 3:02 PM EST Faxed order from [facility]. Order #[id number]. Please sign, date, and fax back. documented in this encounter Plan of Treatment Not on file documented as of this encounter Visit Diagnoses Not on filedocumented in this encounter Care Teams Advice Clerk Relationship Specialty Start Date End Date Michael Martinez MD PCP - General Internal Medicine 10/16/11 05/17/22 Mandi Newsome MD [address] [place] [address] PCP - General Internal Medicine 05/18/22 Shree Catsro MD [address] [place] [address] [address] [place] [address] Reel Blade Bender Furnace Tender Cardiovascular Disease 09/08/21 Haydee Cates NP [address] [place] [address] Nurse Practitioner Cardiology 04/28/22 documented as of this encounter
--- OUTSIDE RECORDS SUMMARY | 2025-10-19 11:48 | XMS_ITS | Encounter Summary ---
Author Organization [facility] Prior to 09/01/2024 Address [address] [place] [address] Care Team Providers Care Health Counselor Name Role Phone Michael Martinez MD Primary Care Provider Shree Callaway MD Unavailable [phone] Mandi Newsome MD Primary Care Provider + Haydee Cates NP Unavailable [phone] Encounter Details Date Type Department Care Team Description 02/23/2022 Engine Builder Report Medical Records [address] [place] [address] Surgery, [facility] Cardiac Social History Tobacco Use Types [...] on filedocumented in this encounter Care Teams Health Counselor Relationship Specialty Start Date End Date Michael Martinez MD PCP - General Internal Medicine 10/16/11 05/17/22 Mandi Newsome MD [address] [place] [address] [phone] PCP - General Internal Medicine 05/18/22 Shree Castro MD [address] [place] [address] [place] [address] [phone] Ski Technician Cardiovascular Disease 09/08/21 Haydee Cates, EDWARD [address] [place] [address] Nurse Practitioner Cardiology 04/28/22 documented as of this encounter
--- OUTSIDE RECORDS SUMMARY | 2025-10-19 11:48 | XMS_ITS | Encounter Summary ---
Author Organization [facility] Prior to 09/01/2024 Address [address] [place] [address] Care Team Providers Care Christmas Tree Grader Name Role Phone Michael Martinez MD Primary Care Provider Ethel Cuenca DNP Unavailable [phone] Yan Handy MD Unavailable Shree Castro MD Unavailable [phone] Mandi Newsome MD Primary Care Provider + Haydee Cates NP Unavailable Reason for Visit * Reason Comments E-prescribe Rx Request Encounter Details Date Type Department Care Team Description 02/17/2021 Refill Adult Medicine [address] [phone] Nubia Lopez PA [address] [place] [address] [phone] E-prescribe Rx Request Social History Tobacco Use [...] have Coronavirus / COVID-19? No / Unsure 01/28/2021 1:43 PM EDT documented as of this encounter Miscellaneous Notes * Telephone Encounter - Janett Calhoun M.A. - 02/18/2021 2:47 PM EDT Lab Results Component Value Date HGBA1C 11.8 01/23/2021 MALBUR 86.0 01/23/2021 MALBCR 16.2 01/23/2021 CHOL 153 01/23/2021 LDL 93 01/23/2021 HDL 40 01/23/2021 TRIG 101 01/23/2021 GLU 252 01/23/2021 CREAT 1.00 01/23/2021 * Telephone Encounter - Demar Kessler - 02/17/2021 12:36 PM EDT Patient would like script to be: E-PRESCRIBED/FAXED TO PHARMACY WHEN WAS THE PATIENT'S LAST APPOINTMENT IN ADULT MEDICINE? 01/22/2021 WHEN WAS THE LAST TIME THE PATIENT SAW THEIR PCP? 09/30/2020 Does patient have an upcoming appointment? Yes 02/21/2021 (THE MEDICATION REQUESTED IS ON THE MED [...] N/A Patients current insurance carrier is: Payor: [employer] / Plan: [employer] / Product Type: MEDICAID RISK documented in this encounter Plan of Treatment Not on file documented as of this encounter Visit Diagnoses Not on filedocumented in this encounter Care Teams Christmas Tree Grader Relationship Specialty Start Date End Date Michael Martinez MD PCP - General Internal Medicine 10/16/11 05/17/22 Mandi Newsome MD [address] [place] [address] PCP - General Internal Medicine 05/18/22 Ethel Avilez DNP Specialist Cardiology 06/03/21 08/03/21 Yan Handy MD Specialist Cardiology 08/04/21 08/04/21 Shree Castro MD [address] [place] [address] [address] [place] [address] Head Nurse Cardiovascular Disease 09/08/21 Haydee Cates NP [address] [place] [address] Nurse Practitioner Cardiology 04/28/22 documented as of this encounter
--- OUTSIDE RECORDS SUMMARY | 2025-10-19 11:48 | XMS_ITS | Encounter Summary ---
Author Organization [facility] Prior to 09/01/2024 Address [address] [place] [address] Care Team Providers Care Crm Architect Name Role Phone Michael Martinez MD Primary Care Provider Shree Callaway MD Unavailable [phone] Mandi Newsome MD Primary Care Provider + Hyadee Cates NP Unavailable [phone] Encounter Details Date Type Department Care Team Description 03/09/2022 Telephone OBN - [address] [place] [id number] Brandon Mcdaniel [facility] [address] [place] [address] Social History Tobacco Use Types Packs/Day Years [...] on filedocumented in this encounter Care Teams Crm Architect Relationship Specialty Start Date End Date Michael Martinez MD PCP - General Internal Medicine 10/16/11 05/17/22 Mandi Newsome MD [address] [place] [address] PCP - General Internal Medicine 05/18/22 Shree Castro MD [address] [place] [address] [place] [address] Clinical Research Technician Cardiovascular Disease 09/08/21 Haydee Cates NP [address] [place] [address] Nurse Practitioner Cardiology 04/28/22 documented as of this encounter
--- OUTSIDE RECORDS SUMMARY | 2025-10-19 11:48 | XMS_ITS | Encounter Summary ---
Author Organization [employer] [facility] Prior to 09/01/2024 Address [address] [place] [address] Care Team Providers Care Conveyor Feeder Name Role Phone Michael Martinez MD Primary Care Provider Ethel Cuenca DNP Unavailable [phone] Yan Handy MD Unavailable Shree Castro MD Unavailable Mandi Newsome MD Primary Care Provider + Haydee Cates NP Unavailable [phone] Reason for Visit * Reason Comments E-prescribe Rx Request Encounter Details Date Type Department Care Team Description 08/24/2020 Refill Adult Medicine [address] [address] Michael Martinez MD E-prescribe Rx Request Social [...] Encounter - Rosa Isela Connors M.A. - 08/26/2020 11:40 AM EDT Lab Results Component Value Date CHOL 144 06/29/2019 LDL 93 06/29/2019 HDL 35 06/29/2019 TRIG 81 06/29/2019 SGOT 14 06/29/2019 SGPT 16 06/29/2019 * Telephone Encounter - Zuri Chow - 08/24/2020 8:11 AM EDT Patient would like script to be: E-PRESCRIBED/FAXED TO PHARMACY WHEN WAS THE PATIENT'S LAST APPOINTMENT IN ADULT MEDICINE? 03/21/2020 WHEN WAS THE LAST TIME THE PATIENT SAW THEIR PCP? Same as above Does patient have an upcoming appointment? No-[facility] to refill request. Appt due (THE MEDICATION REQUESTED IS ON THE MED [...] N/A Patients current insurance carrier is: Payor: [employer] [facility] / Plan: [facility] / Product Type: MEDICAID RISK documented in this encounter Plan of Treatment Not on file documented as of this encounter Visit Diagnoses Not on filedocumented in this encounter Care Teams Conveyor Feeder Relationship Specialty Start Date End Date Michael Martinez MD PCP - General Internal Medicine 10/16/11 05/17/22 Mandi Newsome MD [address] [place] [address] PCP - General Internal Medicine 05/18/22 Ethel Avilez DNP Specialist Cardiology 06/03/21 08/03/21 Yan Handy MD Specialist Cardiology 08/04/21 08/04/21 Shree Castro MD [address] [place] [address] [address] [place] [address] Certified Personal Finance Counselor Cardiovascular Disease 09/08/21 Haydee Cates, EDWARD [address] [place] [address] Nurse Practitioner Cardiology 04/28/22 documented as of this encounter
--- OUTSIDE RECORDS SUMMARY | 2025-10-19 11:48 | XMS_ITS | Encounter Summary ---
Author Organization [facility] Prior to 09/01/2024 Address [address] [place] [address] Care Team Providers Care Workers Compensation Defense Attorney Name Role Phone Michael Martinez MD Primary Care Provider Shree Callaway MD Unavailable [phone] Mandi Newsome MD Primary Care Provider + Haydee Cates NP Unavailable Encounter Details Date Type Department Care Team Description 12/01/2021 Auto Inspector Report Medical Records [address] [place] [address] Nancy Mclaughlin MD Social History Tobacco Use Types Packs/Day [...] on filedocumented in this encounter Care Teams Workers Compensation Defense Attorney Relationship Specialty Start Date End Date Michael Martinez MD PCP - General Internal Medicine 10/16/11 05/17/22 Mandi Newsome MD [address] [place] [address] [phone] PCP - General Internal Medicine 05/18/22 Shree Castro MD [address] [place] [address] [address] [place], [place] [phone] Informatics Nurse Cardiovascular Disease 09/08/21 Haydee Cates, EDWARD [address] [place] [address] Nurse Practitioner Cardiology 04/28/22 documented as of this encounter
--- OUTSIDE RECORDS SUMMARY | 2025-10-19 11:48 | XMS_ITS | Encounter Summary ---
Author Organization [facility] Prior to 09/01/2024 Address [address] [place] [address] Care Team Providers Care Natural Resources Manager Name Role Phone Michael Martinez MD Primary Care Provider Ethel Cuenca DNP Unavailable [phone] Yan Handy MD Unavailable [phone] Shree Castro MD Unavailable [phone] Mandi Newsome MD Primary Care Provider + Haydee Cates NP Unavailable [phone] Encounter Details Date Type Department Care Team Description 02/07/2013 Resistance Machine Welder Setter Report Medical Records [address] [place] [address] Ward Mccormack MD Social History Tobacco Use Types Packs/Day [...] on filedocumented in this encounter Care Teams Natural Resources Manager Relationship Specialty Start Date End Date Michael Martinez MD PCP - General Internal Medicine 10/16/11 05/17/22 Mandi Newsome MD [address] [place] [address] [phone] PCP - General Internal Medicine 05/18/22 Ethel Avilez DNP Specialist Cardiology 06/03/21 08/03/21 Yan Handy MD Specialist Cardiology 08/04/21 08/04/21 Shree Castro MD [address] [place] [address] [address] [place] [address] Toll Collector Cardiovascular Disease 09/08/21 Haydee Cates NP [address] [place] [address] Nurse Practitioner Cardiology 04/28/22 documented as of this encounter
--- OUTSIDE RECORDS SUMMARY | 2025-10-19 11:48 | XMS_ITS | Encounter Summary ---
Author Organization [facility] Prior to 09/01/2024 Address [address] [place] [address] Care Team Providers Care Diplomatic Officer Name Role Phone Michael Martinez MD Primary Care Provider Shree Callaway MD Unavailable [phone] Mandi Newsome MD Primary Care Provider + Haydee Cates NP Unavailable [phone] Encounter Details Date Type Department Care Team Description 12/08/2021 Director Of Events Report Medical Records [address] [place] [address] Surgery, [facility] Cardiac Social History Tobacco Use Types [...] on filedocumented in this encounter Care Teams Diplomatic Officer Relationship Specialty Start Date End Date Michael Martinez MD PCP - General Internal Medicine 10/16/11 05/17/22 Mandi Newsome MD [address] [place] [address] PCP - General Internal Medicine 05/18/22 Shree Castro MD [address] [place] [address] DR[address] [place] [address] Particleboard Factory Worker Cardiovascular Disease 09/08/21 Haydee Cates NP [address] [place] [address] Nurse Practitioner Cardiology 04/28/22 documented as of this encounter
--- OUTSIDE RECORDS SUMMARY | 2025-10-19 11:48 | XMS_ITS | Encounter Summary ---
Author Organization [facility] Prior to 09/01/2024 Address [address] [place] [address] Care Team Providers Care Transitions Rn Care Coordinator Name Role Phone Michael Martinez MD Primary Care Provider Ethel Cuenca DNP Unavailable [phone] Yan Handy MD Unavailable [phone] Shree Castro MD Unavailable [phone] Mandi Newsome MD Primary Care Provider + Haydee Cates NP Unavailable [phone] Encounter Details Date Type Department Care Team Description 12/09/2012 Platform Supervisor Report Medical Records [address] [place] [address] London Fair MD [address] [place] [address] [place] [address] [phone] Social History Tobacco Use Types Packs/Day Years [...] on filedocumented in this encounter Care Teams Transitions Rn Care Coordinator Relationship Specialty Start Date End Date Michael Martinez MD PCP - General Internal Medicine 10/16/11 05/17/22 Mandi Newsome MD [address] [place] [address] [phone] PCP - General Internal Medicine 05/18/22 Ethel Avilez DNP Specialist Cardiology 06/03/21 08/03/21 Yan Handy MD Specialist Cardiology 08/04/21 08/04/21 Shree Castro MD [address] [place] [address] [place] [address] Validation Software Facilitator Cardiovascular Disease 09/08/21 Haydee Cates, EDWARD [address] [place] [address] [phone] Nurse Practitioner Cardiology 04/28/22 documented as of this encounter
--- OUTSIDE RECORDS SUMMARY | 2025-10-19 11:48 | XMS_ITS | Encounter Summary ---
Author Organization [facility] Prior to 09/01/2024 Address [address] [place] [address] Care Team Providers Care Director Foundation Name Role Phone Michael Martinez MD Primary Care Provider Shree Callaway MD Unavailable [phone] Mandi Newsome MD Primary Care Provider + Haydee Cates NP Unavailable [phone] Encounter Details Date Type Department Care Team Description 02/10/2022 Home Health Certification Medical Records [address] [place] [id number] [place] [address] [address] [place] [address] Social History Tobacco Use Types Packs/Day Years [...] filedocumented in this encounter Care Teams Director Foundation Relationship Specialty Start Date End Date Michael Martinez MD PCP - General Internal Medicine 10/16/11 05/17/22 Mandi Newsome MD [address] [place] [address] PCP - General Internal Medicine 05/18/22 Shree Castro MD [address] [place] [address] DR[address] [place] [address] Managed Services Consultant Cardiovascular Disease 09/08/21 Haydee Cates, EDWARD [address] [place] [address] Nurse Practitioner Cardiology 04/28/22 documented as of this encounter
--- OUTSIDE RECORDS SUMMARY | 2025-10-19 11:48 | XMS_ITS | Encounter Summary ---
Author Organization [facility] Prior to 09/01/2024 Address [address] [place] [address] Care Team Providers Care Mail Distributor Name Role Phone Michael Martinez MD Primary Care Provider Ethel Cuenca DNP Unavailable [phone] Yan Handy MD Unavailable [phone] Shree Castro MD Unavailable [phone] Mandi Newsome MD Primary Care Provider + Haydee Cates NP Unavailable [phone] Encounter Details Date Type Department Care Team Description 04/05/2019 Release of Information Medical Records [address] [place] [address] Abstract, Provider Social History Tobacco Use Types [...] on filedocumented in this encounter Care Teams Mail Distributor Relationship Specialty Start Date End Date Michael Martinez MD PCP - General Internal Medicine 10/16/11 05/17/22 Mandi Newsome MD [address] [place] [address] [phone] PCP - General Internal Medicine 05/18/22 Ethel Avilez DNP Specialist Cardiology 06/03/21 08/03/21 Yan Handy MD Specialist Cardiology 08/04/21 08/04/21 Shree Castro MD [address] [place] [address] [address] [place] [address] Trash Hauler Cardiovascular Disease 09/08/21 Haydee Cates, EDWARD [address] [place] [address] Nurse Practitioner Cardiology 04/28/22 documented as of this encounter
--- OUTSIDE RECORDS SUMMARY | 2025-10-19 11:48 | XMS_ITS | Encounter Summary ---
Author Organization [facility] Prior to 09/01/2024 Address [address] [place] [address] Care Team Providers Care Fountain Jerk Name Role Phone Michael Martinze MD Primary Care Provider Shree Callaway MD Unavailable [phone] Mandi Newsome MD Primary Care Provider + Haydee Cates NP Unavailable [phone] Encounter Details Date Type Department Care Team Description 01/01/2022 Signal Inspector Report Medical Records [address] [place] [address] Po Roth MD Social History Tobacco Use Types Packs/Day [...] on filedocumented in this encounter Care Teams Fountain Jerk Relationship Specialty Start Date End Date Michael Martinez MD PCP - General Internal Medicine 10/16/11 05/17/22 Mandi Newsome MD [address] [place] [address] [phone] PCP - General Internal Medicine 05/18/22 Shree Castro MD [address] [place] [address] [address] [place] [address] Mobile Lounge Driver Or Operator Cardiovascular Disease 09/08/21 Haydee Cates NP [address] [place] [address] Nurse Practitioner Cardiology 04/28/22 documented as of this encounter
--- OUTSIDE RECORDS SUMMARY | 2025-10-19 11:48 | XMS_ITS | Encounter Summary ---
Author Organization [facility] [facility] Prior to 09/01/2024 Address [address] [place] [address] Care Team Providers Care Director Mortgage Name Role Phone Michael Martinez MD Primary Care Provider Ethel Cuenca DNP Unavailable [phone] Yan Handy MD Unavailable [phone] Shree Castro MD Unavailable [phone] Mandi Newsome MD Primary Care Provider + Haydee Cates NP Unavailable [phone] Encounter Details Date Type Department Care Team Description 05/10/2014 Automotive Specialty Technician Report Medical Records [address] [place] [address] London Fair MD [address] [place] [address] [place] [address] [phone] Social History Tobacco Use Types Packs/Day Years [...] filedocumented in this encounter Care Teams Director Mortgage Relationship Specialty Start Date End Date Michael Martinez MD PCP - General Internal Medicine 10/16/11 05/17/22 Mandi Newsome MD [address] [place] [address] PCP - General Internal Medicine 05/18/22 Ethel Avilez DNP Specialist Cardiology 06/03/21 08/03/21 Yan Handy MD Specialist Cardiology 08/04/21 08/04/21 Shree Castro MD [address] [place] [address] [place] [address] Garden Labourer Cardiovascular Disease 09/08/21 Haydee Cates, EDWARD [address] [place] [address] [phone] Nurse Practitioner Cardiology 04/28/22 documented as of this encounter
--- OUTSIDE RECORDS SUMMARY | 2025-10-19 11:48 | XMS_ITS | Clinical Summary ---
Author Organization [facility] Prior to 09/01/2024 Address [address] [place] [address] Care Team Providers Care Paper Guillotine Operator Name Role Phone Shree Castro MD Unavailable [phone] Mandi Newsome MD Primary Care Provider + Haydee Cates NP Unavailable [phone] Allergies Active Allergy Reactions Severity Noted Date Comments Penicillins 07/22/2021 Dulaglutide 03/16/2022 Abdominal pain Medications Medication Sig Dispensed Refills Start Date End Date Status Levonorgestrel (MIRENA IU) by Intrauterine route. 0 Active clonidine (CATAPRES) 0.1 MG tablet 1-2 tablet at bedtime 0 0 Active atomoxetine (STRATTERA) 40 MG capsule Take 1 Cap by mouth daily. 0 0 Active ammonium lactate (LAC-HYDRIN) 12 % lotion Apply 1 g topically as needed for Dry Skin. 400 mL 2 3 Active Sacubitril-Valsartan (Entresto) 24-26 MG Tab TAKE 1 TABLET BY MOUTH TWICE A DAY 180 Tablet 2 4 Active simethicone (MYLICON) 80 MG chewable tablet TAKE 1 TABLET BY MOUTH 3 TIMES DAILY NEEDED FOR FLATULENCE. 90 Tablet 2 4 Active mirtazapine (REMERON) 15 MG tablet TAKE 1 TABLET BY MOUTH EVERYDAY AT BEDTIME 0 4 Active pregabalin (LYRICA) 75 MG capsuleIndications:DM (diabetes mellitus), type 2 with neurological complications (HCC) Take 1 capsule by mouth three times daily 270 Capsule 1 4 Active carvedilol (COREG) 6.25 MG tablet TAKE 1 TABLET BY MOUTH TWICE A DAY WITH MEALS 180 Tablet 4 Active Incontinence Supply Disposable (Prevail Bladder Control Pads) MiscIndications:Urinary incontinence, unspecified type,Type 2 diabetes mellitus with microalbuminuria, without long-term current use of insulin (HCC) 1 Each by Does not apply route 5 times daily. MARCUS-99 5/day 150/month with 11 refills 150 Each 11 4 Active Alcohol Swabs Pads Use one pad three times daily prior to checking blood sugar 100 Each 4 Active glipiZIDE (GLUCOTROL) 10 MG 24 hr tabletIndications:DM (diabetes mellitus), type 2 with neurological complications (HCC) TAKE 1 TABLET BY MOUTH EVERY DAY 90 Tablet 1 4 Active Dapagliflozin Propanediol (Farxiga) 10 MG TabIndications:DM (diabetes mellitus), type 2 with neurological complications (HCC) Take 1 Tablet by mouth daily. 90 Tablet 1 4 Active omeprazole (PRILOSEC) 20 MG capsule Take 1 Capsule by mouth every morning (before breakfast). 90 Capsule 1 4 Active FreeStyle Lancets MiscIndications:DM (diabetes mellitus), type 2 with neurological complications (HCC) Inject 1 Device into the skin 3 times daily. 300 Each 1 4 Active Glucose Blood (FREESTYLE LITE) Strip USE to check glucose every morning 100 Strip 4 4 Active Insulin Glargine w/ Trans Port 100 UNIT/ML Solution Pen-injector Inject 10 Units into the skin at bedtime. 6 mL 1 4 Active glucose monitoring kit (FREESTYLE) monitoring kit Use to check glucose every morning 1 Kit 0 4 Active Ferrous Sulfate 324 (65 Fe) MG Tab ECIndications:Iron deficiency anemia, unspecified iron deficiency anemia type Take 1 Tablet by mouth 2 times daily. 180 Tablet 1 4 Active docusate sodium (COLACE) 100 MG capsuleIndications:Iron deficiency anemia, unspecified iron deficiency anemia type Take 1 Capsule by mouth 2 times daily for 180 days. 180 Capsule 4 Active Insulin Pen Needle (B-D ULTRAFINE III SHORT PEN) 31G X 8 MM Misc Use once daily with insulin pen 100 Each 1 4 Active Blood Glucose Monitoring Suppl (ONE TOUCH ULTRA 2) w/Device Kit DX E11.29 E11.49 1 Kit 0 4 Active ONE TOUCH ULTRASOFT LANCETS Misc 1 Each by Does not apply route 3 times daily. DX E11.49 E11.29 300 Each 5 4 Active glucose blood test strips (ASCENSIA AUTODISC ,ONE TOUCH ULTRA TEST ) strip Apply 1 Strip topically 3 times daily. DX E11.29 E11.49 300 Each 5 4 Active Continuous Glucose Manager Unit (FreeStyle Ramakrishna 2 [place]) DeviceIndications:Type 2 diabetes mellitus with diabetic microalbuminuria, without long-term current use of insulin (HCC) 1 Device by Does not apply route continuous. 1 Each 0 4 Active Continuous Glucose Sensor (FreeStyle Ramakrishna 2 Sensor) MiscIndications:Type 2 diabetes mellitus with diabetic microalbuminuria, without long-term current use of insulin (HCC) 1 Each by Does not apply route every 14 days. 2 Each 11 4 Active aspirin (Aspirin Low Dose) 81 MG EC tabletIndications:Cook ry artery disease involving [place] coronary artery of k[place]enai heart, unspecified whether angina present Take 1 Tablet by mouth daily. 90 Tablet 0 4 Active atorvastatin (LIPITOR) 80 MG tabletIndications:Pure hypercholesterolemia TAKE 1 TABLET BY MOUTH EVERY DAY 90 Tablet 1 4 Active furosemide (LASIX) 20 MG tabletIndications:Essent ial hypertension, benign Take 1 Tablet by mouth daily. 90 Tablet 0 4 Active Active Problems Patient Care Coordination No te Formatting of this note is d ifferent from the original. Checking Your Blood Sugars Please check your blood sugars every day. Please check your sugars at the following times of day: before breakfast Your Blood Sugar Goals Pre Meal: 90-130 2 hours after meals: 110-160 Bedtime: 110-150 Use the Results Bring your glucometer to every appointment Write your fingerstick blood sugars down on a log sheet or record book. Bring them to your appointment Look for patterns in the numbers. The results help you and your provider make decisions about your diabetes treatment plan. Your Results and your Goals Your Result / Date of Completion Your Goal / How Often to Assess Component Value Date HGBA1C 6.2 07/07/2014 Less than 7%--- 2-4 times per year BP Readings from Last 1 Encounters: 07/23/14 138/90 Less than 130/80--- once per year Component Value Date LDL 94 07/07/2014 LDL less than 100--- once per year Component Value Date MALBUR 32.4 07/07/2014 Less than 30--- once per year Wt Readings from Last 1 Encounters: 07/23/14 166 lb 6.4 oz (75.479 kg) Your goal weight by next visit: 166 --- reassess 2-4 times a year Health Maintenance Due Topic Date Due Mammogram 02/28/2011 Diabetes: Annual Foot Exam 09/01/2013 Baseline Health Exam 40-64 2013 Diabetes: Annual Eye Exam 11/17/2013 Diabetes: Annual Care Plan 02/23/2014 Adult Immunization: Influenza For High Risk Patients 07/02/2014 Your Action Plan Check blood glucose as directed and write down all results. Check feet for sores every day Increase physical activity Contact me if you experience any barriers to care such as inability to purchase your medication, difficulty getting to your appointments or difficulty understanding your care plan Please get your yearly flu shot When to Call your Healthcare Provider If your blood sugar falls below 70 and you do not know why or you become unconscious If you are sick and unable to take liquids because or nausea or vomiting If you have a fever over 101 If your blood sugar is 300 or higher on greater than 3 separate occasions during the same week If you are just unsure what to do Educational Resources [place] [employer] (www.diabetes.org) Centers for Disease Control and Prevention (www.cdc.gov/diabetes) This care plan was created in collaboration with Nika Rodriguez on 07/23/2014 Problem Noted Date Iron deficiency anemia 06/08/2024 PAD (peripheral artery disease) 06/05/20 24 Heart failure with improved ejection fra ction (HFimpEF) 06/05/2024 Diabetic polyneuropathy associated with type 2 diabetes mellitus 06/05/2024 Adult ADHD 06/05/2024 Cardiomyopathy 08/26/2023 Last Assessment & Plan: Patient with perioperative congestive heart failure with a marked improvement in overall left ventricular systolic function near normal on most recent echocardiography secondary to both coronary intervention and medical management Urinary incontinence 05/14/2023 DM type 2 causing eye disease 09/15/2022 Proliferative diabetic retinopathy 09/15 Overview: Bilateral, Dr. Roper CAD (coronary artery disease) 07/22/2021 Overview: 06/21 CABG x 3 Last Assessment & Plan: Patient status post multivessel coronary bypass asymptomatic at this time risk factor modification in place. PAF (paroxysmal atrial fibrillation) Last Assessment & Plan: There is a concern of postoperative paroxysmal atrial fibrillation. She has had an event monitor which she had during this episode of presumed syncope she is not returned if we do not have any results we will await those results before any determination of the need for chronic anticoagulation is made. Asthma 06/13/2021 History of gastric stapling 06/13/2021 Peripheral neuropathy 06/13/2021 History of non-ST elevation myocardial i nfarction (NSTEMI) 06/04/2021 Gastroesophageal reflux disease 06/22/20 Hyperlipidemia 11/25/2017 Last Assessment & Plan: Patient's last LDL cholesterol was 37. This is at goal. Continue with statin as prescribed. Insomnia 04/09/2015 Papanicolaou smear of cervix with low grade squamous intraepithelial lesion (LGSIL) 03/27/2015 Overview: But negative HPV. Colposcopy biopsies neg 2014, repeat Pap and HPV 12 months. Vitamin D deficiency 08/31/2012 Depression 11/11/2011 Microalbuminuria 01/01/2011 DM (diabetes mellitus), type 2 with neur ological complications 10/03/2010 Carpal tunnel syndrome 10/03/2010 DM (diabetes mellitus), type 2 with fiordaliza l complications 10/02/2010 Sleep Apnea, minimal 01/23/2010 Essential hypertension, benign 01/12/200 7 Last Assessment & Plan: Patient's blood pressure today is acceptable with a reading of 132/82. We will continue to monitor this closely. Resolved Problems Problem Noted Date Resolved Date S/P CABG x 3 07/22/2021 08/12/2021 Last Assessment & Plan: Patient is status post coronary bypass for multivessel coronary disease is asymptomatic at this time with no indication that the chest discomfort that she is experiencing is anything more than musculoskeletal. Prescribed modifications are being adjusted and treated she has been doing well. Patient specifically states that the chest discomfort that led to her coronary bypass is no longer an issue HFrEF (heart failure with reduced ejection fract ion) 07/08/2021 06/05/2024 Last Assessment & Plan: Patient with post bypass cardiomyopathic process which is most likely ischemic in its etiology. Ejection fraction has improved. Symptomatically doing well on goal- directed therapy no evidence of third space volume. We will plan on repeating an echocardiogram in 6 months to assess EF. No changes in therapy at this time. No evidence of orthostasis on exam on medical management Hyperlipidemia LDL goal < 100 11/11/2011 Overview: IMO update Group B Streptococcus maribel r, +RV culture, currently 07/07/2011 08/20/2011 Overview: Positive from [facility] on 06/22/11 Polyhydramnios, antepartum complication 05/05/20 11 08/20/2011 Overview: Being monitored at [facility]. Consider amniocentesis for fluid removal only if labor becomes and issue. Supervision of other normal 12/30/2010 08/20/2011 Overview: [facility] delivery unless Being monitored by [facility] for , antepartum surveillance Diabetes being managed by Dr. Kong at [facility]. Signed tubal papers in case delivery, but she is still uncertain as to whether she would want tubal. History of one delivery at 35 weeks. IMO update Advanced maternal age, antepartum condition or c omplication 11/07/2008 07/02/2009 Overview: Nuchal lucency and first trim labs show risk of Down's in the normal range (1:1537) Will need second trim AFP. Supervision of other normal 11/07/2008 07/02/2009 Overview: [facility] or [facility] delivery [place]. First trimester nuchal lucency with [facility] - done consult with [facility] - done Diabetic - monitored by Dr. Ramos, Dr. Ewing. Eye appt 02/07. 24 hour urine done. PIH labs done Hypertension - Dr Escamilla EKG, ? Echocardiogram echocardiogram at 22 to 24 weeks. Antepartum testing twice weekly from 32 weeks IMO update DIABETES MELLITUS TYPE II- 01/12/200710/02 Immunizations Name Administration Dates Next Due COVID-19 (Moderna) 04/01/2021,03/05/2021 COVID-19 (Moderna) PT Reported 03/05/2021 Covid-19 Bivalent (Pfizer) 09/14/2022 Covid-19 Pfizer Omicron (Pt Reported)-Comirnaty 01/28/2024 Flu (Generic) 07/22/2021 Influenza (> 6 Months) 06/17/2015,2012,07/13/2012,2008,07/31/2008,09/30/2007 Influenza (>6 Months) Split Preservative Free 08/11/2016 Influenza Flu (PT Reported) 07/09/2014 Influenza H1N1 Pandemic Flu Vaccine 10/07/2009 Influenza Vaccine-preservati ve Free-quadrivalent 4 Years 08/17/2023,07/22/2021,07/06/2019 Influenza Vaccine-quadrivale nt 4 Years Plus 09/14/2022,06/17/2015 PPD-RBMG 11/23/2017, 2(Deferred: Contraindication - given and documneted prior),01/12/2012 Pneumoccoccal(Adult) Polysac charide PPSV23 09/01/2012 Shingrix (Recombinant zoster vaccine) 01/28/2024 Tdap 01/28/2024,03/09/2022,08/22/2009 Family History Medical History Relation Name Comments No Known Problems Father Diabetes Maternal Grandmother NH Maternal Grandmother Diabetes Mother Hypercholesterolemia Mother Hypertension Mother No Known Problems Paternal Grandfather No Known Problems Paternal Grandmother Diabetes Sister 1 Diabetes Sister 2 Blindness Negative Hx CA Breast Negative Hx CA Ovarian Negative Hx Cancer of the Breast Negative Hx Cancer of the Colon Negative Hx Cataract Negative Hx Glaucoma Negative Hx Macular Degeneration Negative Hx Strabismus Negative Hx Relation Name Status Comments Father Maternal Grandfather Maternal Grandmother Alive Mother Alive Paternal Grandfather Paternal Grandmother Sister 1 Sister 2 Social History Tobacco Use Types Packs/Day Years [...] Sign Reading Time Taken Comments Blood Pressure 114/64 06/23/2024 4:06 PM EDT Pulse 84 06/23/2024 4:06 PM EDT Temperature 36.4 C (97.5 F) 06/23/2024 4:06 PM EDT Respiratory Rate 14 06/23/2024 4:06 PM EDT Oxygen Saturation 98% 06/23/2024 4:06 PM EDT Inhaled Oxygen Concentration - - Weight 90.1 kg (198 lb 9.6 oz) 06/23/2024 4:06 P M EDT Height 160 cm (5' 3 ) 06/23/2024 4:06 PM EDT Body Mass Index 35.18 06/23/2024 4:06 PM EDT Plan of Treatment Health Maintenance Due Date Last Done Comments DIABETES: ANNUAL EYE EXAM 09/02/20232021, 09/02/2022 (External Completion), 03/12/2022, Additional history exists SHINGLES VACCINE (2 of 2) 03/24/2024 01/28/2024 MAMMOGRAM 03/27/2024 03/27/2023, 03/01, 05/02/2019, Additional history exists DIABETES: ANNUAL FOOT EXAM 05/14/202405/14 (Completed), 06/05/2021, 06/22/2019 (Completed), Additional history exists DIABETES/HEART DISEASE: ANNUAL CHOLESTEROL (LDL) 08/17/2024 08/17/2023, 03/09/2022, 2021, Additional history exists DIABETES: BLOOD SUGAR CONTROL TEST (HGBA1C) 09/05/2024 06/05/2024, 08/17/2023, 03/09/2022, Additional history exists BMI CHECK/ADVISE 11/01/2024 06/23/2024, (Completed), 04/01/2022, Additional history exists DEPRESSION SCREENING/FOLLOWUP 11/01/2024 06/05/2024, 03/09/2022, 05/26/2021, Additional history exists SOCIAL NEEDS SCREENING 11/01/2024 12/14/2022, 2021 BASELINE HEALTH EXAM 40-64 05/14/202505/14, 11/25/2017, 04/09/2015, Additional history exists DIABETES: ANNUAL URINE PROTEIN TEST (MICROALBUMIN) 06/05/2025 06/05/2024, 08/17/2023, 2021, Additional history exists Covid-19 Vaccine ( season) 2025 01/28/2024, 09/14/2022, 09/14/2022, Additional history exists INFLUENZA (#1) 2025 08/17/2023, 09/01, 07/22/2021, Additional history exists CERVICAL CANCER SCREENING 05/22/20262020, 11/10/2019, 03/11/2015, Additional history exists Postponed from 05/22/2024 (Other Circumstances) DTAP/TDAP/TD (4 - Td or Tdap) 01/27/2034 01/28/2024, 03/09/2022, 08/22/2009 COLON CANCER SCREENING 02/13/2034 02/14/2024 PNEUMOCOCCAL VACCINE FOR HIGH RISK PATIENTS (#2) 2038 09/01/2012 HEPATITIS C SCREENING Completed 06/05/2024 Care Teams Paper Guillotine Operator Relationship Specialty Start Date End Date Mandi Newsome MD [address] [place] [id number] PCP - General Internal Medicine 05/18/22 Shree Castro MD [address] [place] [address] [address] [place] [address] Forming Operator Cardiovascular Disease 09/08/21 Haydee Cates NP [address] [place] [address] [phone] Nurse Practitioner Cardiology 04/28/22
--- OUTSIDE RECORDS SUMMARY | 2025-10-19 11:48 | XMS_ITS | Encounter Summary ---
Author Organization [employer] [facility] Prior to 09/01/2024 Address [address] [place] [address] Care Team Providers Care Prison Guard Name Role Phone Michael Martinez MD Primary Care Provider Ethel Cuenca DNP Unavailable [phone] Yan Handy MD Unavailable [phone] Shree Castro MD Unavailable [phone] Mandi Newsome MD Primary Care Provider + Haydee Cates NP Unavailable [phone] Encounter Details Date Type Department Care Team Description 03/17/2013 [facility] Medical Records [address] [place] [id number] London Fair MD [address] [place] [address] [place] [address] [phone] Social History Tobacco Use Types Packs/Day Years [...] on filedocumented in this encounter Care Teams Prison Guard Relationship Specialty Start Date End Date Michael Martinez MD PCP - General Internal Medicine 10/16/11 05/17/22 Mandi Newsome MD [address] [place] [id number] PCP - General Internal Medicine 05/18/22 Ethel Avilez DNP Specialist Cardiology 06/03/21 08/03/21 Yan Handy MD Specialist Cardiology 08/04/21 08/04/21 Shree Castro MD [address] [place] [address] [address] [place] [address] Reimbursement Manager Cardiovascular Disease 09/08/21 Haydee Cates NP [address] [place], [place] [phone] Nurse Practitioner Cardiology 04/28/22 documented as of this encounter
--- OUTSIDE RECORDS SUMMARY | 2025-10-19 11:49 | XMS_ITS | Encounter Summary ---
Author Organization [employer] [facility] Prior to 09/01/2024 Address [address] [place] [address] Care Team Providers Care Public Health Nurse Name Role Phone Michael Martinez MD Primary Care Provider Shree Callaway MD Unavailable [phone] Mandi Newsome MD Primary Care Provider + Haydee Cates NP Unavailable [phone] Encounter Details Date Type Department Care Team Description 08/08/2021 Hospital Medical Records [address] [place] [address] Social History Tobacco Use Types Packs/Day Years [...] have Coronavirus / COVID-19? No / Unsure 07/22/2021 10:33 AM EDT documented as of this encounter Plan of Treatment Not on file documented as of this encounter Visit Diagnoses Not on filedocumented in this encounter Care Teams Public Health Nurse Relationship Specialty Start Date End Date Michael Martinez MD PCP - General Internal Medicine 10/16/11 05/17/22 Mandi Newsome MD [address] [place] [address] PCP - General Internal Medicine 05/18/22 Shree Castro MD [address] [place] [address] [address] [place] [address] Media Consultant Cardiovascular Disease 09/08/21 Haydee Cates NP [address] [place] [address] Nurse Practitioner Cardiology 04/28/22 documented as of this encounter
--- OUTSIDE RECORDS SUMMARY | 2025-10-19 11:49 | XMS_ITS | Encounter Summary ---
Author Organization [employer] [facility] Prior to 09/01/2024 Address [address] [place] [address] Care Team Providers Care Cafeteria Operator Name Role Phone Michael Martinez MD Primary Care Provider Shree Callaway MD Unavailable [phone] Mandi Newsome MD Primary Care Provider + Haydee Cates NP Unavailable [phone] Encounter Details Date Type Department Care Team Description 10/03/2021 Hospital Medical Records [address] [place] [address] Social History Tobacco Use Types Packs/Day Years [...] have Coronavirus / COVID-19? No / Unsure 2021 9:41 AM EST documented as of this encounter Plan of Treatment Not on file documented as of this encounter Procedures Procedure Name Priority Date/Time Associated Diagnosis Comments OUTSIDE ECHO Routine 10/05/[address] Routine 10/03/2021 documented in this encounter Results * OUTSIDE ECHO (10/05/2021) Provider Abstract CARDIOLOGY * OUTSIDE CT (10/03/2021) Provider Abstract RADIOLOGY documented in this encounter Visit Diagnoses Not on filedocumented in this encounter Care Teams Cafeteria Operator Relationship Specialty Start Date End Date Michael Martinez MD PCP - General Internal Medicine 10/16/11 05/17/22 Mandi Newsome MD [address] [place] [address] [phone] PCP - General Internal Medicine 05/18/22 Shree Castro MD [address] [place] [address] [place] [phone] Chemist Helper Cardiovascular Disease 09/08/21 Haydee Cates NP [address] [place] [address] Nurse Practitioner Cardiology 04/28/22 documented as of this encounter
--- OUTSIDE RECORDS SUMMARY | 2025-10-19 11:49 | XMS_ITS | Encounter Summary ---
[facility] Address [address] [place] [address] Care Team Providers Care Credit Historian Name Role Phone Michael Martinez MD Primary Care Provider Shree Callaway MD Unavailable [phone] Mandi Newsome MD Primary Care Provider + Haydee Cates NP Unavailable [phone] Encounter Details Date Type Department Care Team Description 08/13/2021 Machine Made Shoe Unit Worker Report Medical Records [address] [place] [address] Trina Caceres Social History Tobacco Use Types Packs/Day Years [...] have Coronavirus / COVID-19? No / Unsure 08/12/2021 10:40 AM EDT documented as of this encounter Plan of Treatment Not on file documented as of this encounter Visit Diagnoses Not on filedocumented in this encounter Care Teams Credit Historian Relationship Specialty Start Date End Date Michael Martinez MD PCP - General Internal Medicine 10/16/11 05/17/22 Mandi Newsome MD [address] [place] [address] [phone] PCP - General Internal Medicine 05/18/22 Shree Castro MD [address] [place] [address] [address] [place] [address] Applications Tester Cardiovascular Disease 09/08/21 Haydee Cates, EDWARD [address] [place] [address] Nurse Practitioner Cardiology 04/28/22 documented as of this encounter
--- OUTSIDE RECORDS SUMMARY | 2025-10-19 11:49 | XMS_ITS | Encounter Summary ---
Author Organization [facility] Prior to 09/01/2024 Address [address] [place] [address] Care Team Providers Care Baking Factory Worker Name Role Phone Shree Castro MD Unavailable [phone] Mandi Newsome MD Primary Care Provider + Haydee Cates NP Unavailable [phone] Encounter Details Date Type Department Care Team Description 08/18/2023 Telephone Adult Medicine [address] [address] Mandi Newsome MD [address] [place] [address] [phone] Social History Tobacco Use Types Packs/Day Years [...] suspected to have Coronavirus/COVID-19? No / Unsure 08/17/2023 11:26 AM EDT documented as of this encounter Miscellaneous Notes * Telephone Encounter - Sigrid Martinez - 08/19/2023 2:00 PM EDT Pt informed of below. * Telephone Encounter - Sigrid Martinez - 08/18/2023 3:53 PM EDT Message left for patient to return my call. When pt calls back please forward call to ex [phone] Sigrid Clinical staff please advise pt of result note below and also close Result note thanks. Mandi Newsome MD 08/18/2023 ??3:35 PM EDT Please ??call patient to provide information below: With an A1c of greater than 14.8, your diabetes is poorly controlled. ??You need to see an plate glass polisher and a referral has been placed for you. ??Please continue with your Farxiga as prescribed. ??I have sent you 2 new medications called ??glipizide which you should take every morning with your breakfast and Sitagliptin which you should take every day to help improve your diabetes. ??As soon as you get an appointment with an plate glass polisher, please follow-up with them thanks documented in this encounter Plan of Treatment Not on file documented as of this encounter Visit Diagnoses Not on filedocumented in this encounter Care Teams Baking Factory Worker Relationship Specialty Start Date End Date Mandi Newsome MD [address] [place] [id number] PCP - General Internal Medicine 05/18/22 Shree Castro MD [address] [place] [address] [address] [place] [address] Cnc Operator Machinist Cardiovascular Disease 09/08/21 Haydee Cates NP [address] [place] [address] Nurse Practitioner Cardiology 04/28/22 documented as of this encounter
--- OUTSIDE RECORDS SUMMARY | 2025-10-19 11:49 | XMS_ITS | Encounter Summary ---
Author Organization [facility] Prior to 09/01/2024 Address [address] [place] [address] Care Team Providers Care Boring Machine Operator Helper Name Role Phone Michael Martinez MD Primary Care Provider Shree Callaway MD Unavailable [phone] Mandi Newsome MD Primary Care Provider + Haydee Cates NP Unavailable [phone] Encounter Details Date Type Department Care Team Description 08/05/2021 Medical Assistant Prn Report Medical Records [address] [place] [address] Trina Caceres Social History Tobacco Use Types [...] on filedocumented in this encounter Care Teams Boring Machine Operator Helper Relationship Specialty Start Date End Date Michael Martinez MD PCP - General Internal Medicine 10/16/11 05/17/22 Mandi Newsome MD [address] [place] [address] [phone] PCP - General Internal Medicine 05/18/22 Shree Castro MD [address] [place] [address] [address] [place] [address] Airport Tower Controller Cardiovascular Disease 09/08/21 Haydee Cates, EDWARD [address] [place] [address] Nurse Practitioner Cardiology 04/28/22 documented as of this encounter
--- OUTSIDE RECORDS SUMMARY | 2025-10-19 11:49 | XMS_ITS | Encounter Summary ---
Author Organization [facility] Prior to 09/01/2024 Address [address] [place] [address] Care Team Providers Care Tower Hand Name Role Phone Michael Martinez MD Primary Care Provider Shree Callaway MD Unavailable [phone] Mandi Newsome MD Primary Care Provider + Haydee Cates NP Unavailable [phone] Encounter Details Date Type Department Care Team Description 10/13/2021 Hospital Medical Records [address] [place] [address] Social History Tobacco Use Types Packs/Day Years [...] on filedocumented in this encounter Care Teams Tower Hand Relationship Specialty Start Date End Date Michael Martinez MD PCP - General Internal Medicine 10/16/11 05/17/22 Mandi Newsome MD [address] [place] [address] PCP - General Internal Medicine 05/18/22 Shree Castro MD [address] [place] [address] [address] [place] [address] Log Haul Chain Feeder Cardiovascular Disease 09/08/21 Haydee Cates NP [address] [place] [address] Nurse Practitioner Cardiology 04/28/22 documented as of this encounter
--- OUTSIDE RECORDS SUMMARY | 2025-10-19 11:49 | XMS_ITS | Encounter Summary ---
[facility]24 Address [address] [place] [address] Care Team Providers Care Sports Broadcaster Name Role Phone Michael Martinez MD Primary Care Provider Shree Callaway MD Unavailable [phone] Mandi Newsome MD Primary Care Provider + Haydee Cates NP Unavailable [phone] Encounter Details Date Type Department Care Team Description 10/06/2021 Hospital Medical Records [address] [place] [address] Lance Ramos Social History Tobacco Use Types Packs/Day Years [...] on filedocumented in this encounter Care Teams Sports Broadcaster Relationship Specialty Start Date End Date Michael Martinez MD PCP - General Internal Medicine 10/16/11 05/17/22 Mandi Newsome MD [address] [place] [address] [phone] PCP - General Internal Medicine 05/18/22 Shree Castro MD [address] [place] [address] [address] [place] [address] Process Project Engineer Cardiovascular Disease 09/08/21 Haydee Cates NP [address] [place] [address] Nurse Practitioner Cardiology 04/28/22 documented as of this encounter
--- OUTSIDE RECORDS SUMMARY | 2025-10-19 11:49 | XMS_ITS | Encounter Summary ---
[facility] Prior to 09/01/[facility]24 Address [address] [place] [address] Care Team Providers Care Assisted Living Manager Name Role Phone Michael Martinez MD Primary Care Provider Shree Callaway MD Unavailable [phone] Mandi Newsome MD Primary Care Provider + Haydee Cates NP Unavailable [phone] Encounter Details Date Type Department Care Team Description 2021 Pt. Non Urgent Medical Question Cardio PVC [address] [facility] [address] [place] [address] Ethel Avilez, DNP [address] [facility] [place] [address] Ischemic cardiomyopathy (Primary Dx) Social History Tobacco Use Types Packs/Day Years [...] AM EST documented as of this encounter Miscellaneous Notes * Telephone Encounter - Leti Fofana C.M.A. - 09/23/2021 8:41 AM ESTFrom: Nika Rodriguez To: Idania Avilez Sent: 2021 5:07 PM EST Subject: Question regarding BLOOD TEST PANEL - BMP I'm OK thanks to God. I had the blood pressure high today cause I had to go fasting for some blood work. My blood pressure being fine. Tomorrow I got to [facility] to have my chest wound dressing change they check my Bp too. documented in this encounter Plan of Treatment Not on file documented as of this encounter Visit Diagnoses Diagnosis Ischemic cardiomyopathy- Primary Other specified forms of chronic ischemic heart disease documented in this encounter Care Teams Assisted Living Manager Relationship Specialty Start Date End Date Michael Martinez MD PCP - General Internal Medicine 10/16/11 05/17/22 Mandi Newsome MD [address] [place] [address] PCP - General Internal Medicine 05/18/22 Shree Castro MD [address] [place] [address] [place] [address] Malt House Kiln Operator Cardiovascular Disease 09/08/21 Haydee Cates NP [address] [place] [address] Nurse Practitioner Cardiology 04/28/22 documented as of this encounter
--- OUTSIDE RECORDS SUMMARY | 2025-10-19 11:49 | XMS_ITS | Encounter Summary ---
Author Organization [facility] Prior to 09/01/[facility]24 Address [address] [place] [address] Care Team Providers Care Skeins Yarn Examiner Name Role Phone Michael Martinez MD Primary Care Provider Shree Callaway MD Unavailable [phone] Mandi Newsome MD Primary Care Provider + Haydee Cates NP Unavailable [phone] Reason for Visit * Reason Onset Date Comments Faxed Order 11/10/2021 order # [id number] Encounter Details Date Type Department Care Team Description 11/10/2021 [place] Adult [address] [address] Michael Martinez MD Faxed Order (order # [id number]) Social History Tobacco Use Types Packs/Day Years [...] * Telephone Encounter - Olga Guerrero - 11/24/2021 10:15 AM EST Second Request. Order # [id number] * Telephone Encounter - Mandy Melvin - 11/10/2021 1:05 PM EST Faxed order received from [facility] order # [id number]. Order placed in Dr. Castellanos's bin. Please review, sign, date, and fax back to [phone]. documented in this encounter Plan of Treatment Not on file documented as of this encounter Visit Diagnoses Not on filedocumented in this encounter Care Teams Skeins Yarn Examiner Relationship Specialty Start Date End Date Michael Martinez MD PCP - General Internal Medicine 10/16/11 05/17/22 Mandi Newsome MD [address] [place] [address] [phone] PCP - General Internal Medicine 05/18/22 Shree Castro MD [address] [place] [address] [place] [address] Interventional Nurse Cardiovascular Disease 09/08/21 Haydee Cates NP [address] [place] [address] Nurse Practitioner Cardiology 04/28/22 documented as of this encounter
--- OUTSIDE RECORDS SUMMARY | 2025-10-19 11:49 | XMS_ITS | Encounter Summary ---
Author Organization [facility] Prior to 09/01/2024 Address [address] [place] [address] Care Team Providers Care Director Craft Center Name Role Phone Michael Martinez MD Primary Care Provider Shree Callaway MD Unavailable [phone] Mandi Newsome MD Primary Care Provider + Haydee Cates NP Unavailable [phone] Encounter Details Date Type Department Care Team Description 09/02/2021 Experimental Mechanic Electrical Report Medical Records [address] [place] [address] Abstract, Provider Social History Tobacco Use Types [...] filedocumented in this encounter Care Teams Director Craft Center Relationship Specialty Start Date End Date Michael Martinez MD PCP - General Internal Medicine 10/16/11 05/17/22 Mandi Newsome MD [address] [place] [address] PCP - General Internal Medicine 05/18/22 Shree Castro MD [address] [place] [address] [address] [place] [address] Procedures Analyst Cardiovascular Disease 09/08/21 Haydee Cates NP [address] [place] [address] Nurse Practitioner Cardiology 04/28/22 documented as of this encounter
--- OUTSIDE RECORDS SUMMARY | 2025-10-19 11:49 | XMS_ITS | Encounter Summary ---
Author Organization [facility] Address [address] [facility] [address] [place] [address] Phone Care Team Providers Care Medical I D Sales Name Role Phone Mandi Newsome MD Primary Care Pr ovider Encounter Details Date Type Department Care Team ([facility] st Contact Info) Description 09/24/2025 Ophth Exam [facility] Emergency Department [address] [place] [address] Vee Liu MD [address] [place] [address] [email or web address] Social History Tobacco Use Types Packs/Day Years [...] Visit [facility] [address] [place] [address] Latha Smith MD [address] [place] [address] [email or web address] [email or web address] documented as of this encounter Visit Diagnoses Not on filedocumented in this encounter Care Teams Medical I D Sales Relationship Specialty Start Date End Date Mandi Newsome MD [address] [place] [phone] PCP - General 09/24/25 documented as of this encounter Additional Source Comments The information contained in this document represents components of the legal health record. It is not the complete legal health record.[facility]
--- OUTSIDE RECORDS SUMMARY | 2025-10-19 11:49 | XMS_ITS ---
Care Plan Created on: October 19, 2025 Nika Rodriguez : 1975 Sex: Female Author Organization [facility] Address [address] [facility] [place], [place] [address] Phone Care Team Providers Care Bit Tapper Name Role Phone Mandi Newsome MD Primary Care Pr ovider Active Problems Problem Noted Date Diagnosed Date Chronic venous hypertension (idiopathic) with ulcer of left lower extremity (CODE) 03/13/2025 Assessment & Plan (07/18/2025 5:10 PM EDT): [facility] Oxy[facility]one 5 mg to use nightly as needed for severe pain sent. 30 tablets sent. No controlled substance contract is indicated. This is unlikely to be refilled. She will continue with wound care visits and has an appointment tomorrow. She will complete doxycycline course. May need a different antibiotic based on wound cultures that were recently obtained. Will defer changes to wound care given she has an appointment tomorrow Orders: oxyCODONE (ROXICODONE) 5 mg immediate release tablet; Take 1 tablet (5 mg total) by mouth at bedtime as needed for severe pain. Max Daily Amount: 5 mg Type 2 diabetes mellitus with other skin ulcer ( CODE) 12/05/2024 Assessment & Plan (07/18/2025 5:10 PM EDT): As above Orders: oxyCODONE (ROXICODONE) 5 mg immediate release tablet; Take 1 tablet (5 mg total) by mouth at bedtime as needed for severe pain. 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 Continue pregabalin Orders: Ambulatory referral to Podiatry; Future pregabalin (LYRICA) 75 mg capsule; Take 1 capsule (75 mg total) by mouth 3 (three) times a day. Max Daily Amount: 225 mg Heart failure with improved ejection fraction (H FimpEF) 06/05/2024 Assessment & Plan (10/11/2025 11:40 AM EST): Patient has history of HFrEF-improved EF on last echocardiogram to 60%. She denies any clinical symptoms of heart failure except for the fact that she still has some leg edema although this has improved since her last visit. At the last visit we increased her Entresto. She remains on carvedilol, Farxiga and furosemide. Her labs have been stable. We will add a low-dose spironolactone. She has been asked to repeat labs in 1 week. We briefly discussed the possibility of CardioMEMS in the future however given her recent eye surgeries we will hold off on any procedures. She remains stable. Patient advised to seek emergency medical attention by calling 911 if they were to develop severe dyspnea, chest pain that did not resolve with rest or nitroglycerin, or if they were to faint. I've asked the patient to call if they develop worsening symptoms of heart failure such as increased shortness of breath, new or worsening cough, increased swelling in the legs or ankles, or weight gain of more than 2 pounds in one day or 4 pounds in one week. Assessment & Plan (09/14/2025 1:03 PM EST): Patient has history of HFrEF-improved EF on last echocardiogram to 60%. She denies any clinical symptoms of heart failure however on physical examination she appears to have moderate peripheral edema. I reviewed her medical therapies and we will increase her Entresto to 49/51 mg twice daily. I have asked her to obtain labs in 1 week. She will remain on carvedilol, Farxiga and Lasix as prescribed. Her last creatinine was 0.84 with a potassium of 4.1. Her potassium level and creatinine remained stable at next lab work I will add spironolactone 25 mg once a day. If she continues to have leg edema we will have to increase her diuretics. She would likely benefit from CardioMEMS implant for close hemodynamic monitoring. Assessment & Plan (09/13/2024 1:47 PM EST): On medical management the patient has good control of the previous ischemic cardiomyopathy. Peripheral artery disease 06/05/2024 Assessment & Plan (10/11/2025 11:40 AM EST): Patient continues to follow with vascular. Assessment & Plan (02/22/2025 11:58 AM EDT): She has leg claudication. Not followed by vascular surgery and is referred Orders: Ambulatory referral to Vascular Surgery; Future Cardiomyopathy 08/26/2023 Overview (08/19/2024): Last Assessment & Plan: Patient with perioperative congestive heart failure with a marked improvement in overall left ventricular systolic function near normal on most recent echocardiography secondary to both coronary intervention and medical management Urinary incontinence 05/14/2023 Proliferative diabetic retinopathy 09/15/2022 Overview (08/19/2024): Bilateral, Dr. Roper CAD (coronary artery disease) 07/22/2021 Overview (09/14/2025): 06/21 CABG x 3 Assessment & Plan (10/11/2025 11:40 AM EST): She has history of multivessel coronary artery disease status post bypass surgery as outlined in detailed above. She denies any exertional symptoms. She continues on cardioprotective medical therapy with aspirin, beta-mari and statin. I have reviewed with the patient the importance of a heart healthy lifestyle which includes eating a low-fat low-salt diet, getting regular exercise, maintaining a healthy weight, not smoking, and following up with routine medical care. Assessment & Plan (09/14/2025 1:03 PM EST): She has history of multivessel coronary artery disease status post bypass surgery as outlined in detailed above. She denies any exertional symptoms. She continues on cardioprotective medical therapy with aspirin, beta-mari and statin. I have reviewed with the patient the importance of a heart healthy lifestyle which includes eating a low-fat low-salt diet, getting regular exercise, maintaining a healthy weight, not smoking, and following up with routine medical care. Assessment & Plan (09/13/2024 1:47 PM EST): Patient is status post remote coronary bypass. Asymptomatic. Hypertension is under control. Will going to send her for a lipid profile since I cannot find a recent 1. Orders: Lipid panel with reflex to direct LDL; Future CK; Future PAF (paroxysmal atrial fibrillation) 07/22/2021 Overview (08/19/2024): Last Assessment & Plan: There is a concern of postoperative paroxysmal atrial fibrillation. She has had an event monitor which she had during this episode of presumed syncope she is not returned if we do not have any results we will await those results before any determination of the need for chronic anticoagulation is made. Assessment & Plan (09/14/2025 1:03 PM EST): Patient has previous history of paroxysmal atrial fibrillation in postoperative setting. No known recurrence. She is not on anticoagulation. Assessment & Plan (02/22/2025 11:58 AM EDT): [...] 1 (one) time each day. Hyperlipidemia 11/25/2017 Assessment & Plan (10/11/2025 11:40 AM EST): Continue with atorvastatin 80 mg. Assessment & Plan (07/18/2025 5:10 PM EDT): Continue atorvastatin 80 mg Assessment & Plan (02/22/2025 11:58 AM EDT): [...] (diabetes mellitus), type 2 with neurological complications 10/03/2010 Assessment & Plan (02/22/2025 11:58 AM EDT): Her last A1c was 12.6 in June. Her diabetes remains poorly controlled. Currently not following with endocrinology. She does not want to continue coming to [place] for her endocrinology care. She is referred to [facility] per her preference-Dr. Madrigal Will update labs [...] DM (diabetes mellitus), type 2 with renal compli cations 10/02/2010 Assessment & Plan (07/18/2025 5:10 PM EDT): Continue follow-up with [facility] endocrinology. Continue Mounjaro 2.5 mg weekly, insulin Lantus 34 units nightly and lispro 5 units twice daily Orders: Hemoglobin A1c; Future Assessment & Plan (02/22/2025 11:58 AM EDT): [...] to monitor this closely. Assessment & Plan (10/11/2025 11:40 AM EST): Patient's blood pressure today 90/66. She denies any lightheadedness or dizziness. Assessment & Plan (02/22/2025 11:58 AM EDT): Blood pressure is well-controlled. Continue carvedilol 6.25 mg twice daily and Lasix 20 mg daily Orders: Comprehensive metabolic panel; Future Resolved Problems Problem Noted Date Diagnosed Date Resolved Date Non-pressure chronic ulcer o f 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 03/13/2025 Non-pressure chronic ulcer o f 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 01/02/2025 Absolute anemia 08/04/2024 02/22/2025 Assessment & Plan (02/22/2025 11:58 AM EDT): Orders: CBC and differential; Future Ferritin; Future Iron and TIBC; Future DM type 2 causing eye disease 09/15/2022 02/22/2025 Additional Health Concerns Active Problems Noted Date Diagnosed Date Impaired Tissue 12/05/2024 Education needed on impact of smoking on wound 0 12/05/2024 Education needed related to ulceration/compromised skin integrity. 12/05/2024 Impaired Tissue 06/29/2025 Education needed on impact of smoking on wound 0 06/29/2025 Education needed related to ulceration/compromised skin integrity. 06/29/2025 Infection Onset Date Last Indicated MRSA 01/30/2025 07/13/2025 Goals Goal Patient Goal Type Associated Problems [...] Care Plan Impaired Tissue On track( 025 9:52 AM EST) No Ana Brown RN Note: 08/02/25- pt states she was [...] impact of smoking on wound No Ana Brown, RN Reduce tobacco use (cigarettes, smokeless, etc) Care Plan Education needed on impact of smoking on wound No Ana Brown, RN Decrease Wound Volume by X% by date (in notes) Care Plan Education needed on impact of smoking on wound No Ana Brown, RN Patient and Caregiver Understand Wound Care Education Care Plan Education needed related to ulceration/compr omised skin integrity. No Ana Brown RN Interventions Care Plan Interventions Intervention Entry [...]
--- OUTSIDE RECORDS SUMMARY | 2025-10-19 11:49 | XMS_ITS | Encounter Summary ---
Author Organization [facility] Prior to 09/01/2024 Address [address] [place] [address] Care Team Providers Care Fire Officer Name Role Phone Michael Martinez MD Primary Care Provider Shree aCllaway MD Unavailable [phone] Mandi Newsome MD Primary Care Provider + Haydee Cates NP Unavailable [phone] Encounter Details Date Type Department Care Team Description 10/04/2021 Hospital Medical Records [address] [place] [address] Reece Mayberry MD [address] [place] [address] Dr Av[address] [place] [address] Social History Tobacco Use Types Packs/Day Years [...] on filedocumented in this encounter Care Teams Fire Officer Relationship Specialty Start Date End Date Michael Martinez MD PCP - General Internal Medicine 10/16/11 05/17/22 Mandi Newsome MD [address] [place] [address] PCP - General Internal Medicine 05/18/22 Shree Castro MD [address] [place] [address] [address] [place] [address] Tire Duster Cardiovascular Disease 09/08/21 Haydee Cates NP [address] [place] [address] Nurse Practitioner Cardiology 04/28/22 documented as of this encounter
--- OUTSIDE RECORDS SUMMARY | 2025-10-19 11:49 | XMS_ITS | Encounter Summary ---
[facility] to [facility]24 Address [address] [place] [address] Care Team Providers Care Loadmaster Name Role Phone Michael Martinez MD Primary Care Provider Shree Callaway MD Unavailable [phone] Mandi Newsome MD Primary Care Provider + Haydee Cates NP Unavailable [phone] Encounter Details Date Type Department Care Team Description 10/03/2021 Hospital Medical Records [address] [place] [address] Reece Fitzgerald MD Social History Tobacco Use Types Packs/Day [...] on filedocumented in this encounter Care Teams Loadmaster Relationship Specialty Start Date End Date Michael Martinez MD PCP - General Internal Medicine 10/16/11 05/17/22 Mandi Newsome MD [address] [place] [address] PCP - General Internal Medicine 05/18/22 Shree Castro MD [address] [place] [address] [address] [place] [address] Outside Sales Account Manager Cardiovascular Disease 09/08/21 Haydee Cates NP [address] [place] [address] Nurse Practitioner Cardiology 04/28/22 documented as of this encounter
--- OUTSIDE RECORDS SUMMARY | 2025-10-19 11:49 | XMS_ITS | Encounter Summary ---
Author Organization [facility] Prior to 09/01/2024 Address [address] [place] [address] Care Team Providers Care Medicinal Chemist Name Role Phone Michael Martinez MD Primary Care Provider Shree Callaway MD Unavailable [phone] Mandi Newsome MD Primary Care Provider + Haydee Cates NP Unavailable [phone] Encounter Details Date Type Department Care Team Description 11/10/2021 Immigration Case Manager Report Medical Records [address] [place] [address] Surgery, [facility] Cardiac Social History Tobacco Use Types [...] on filedocumented in this encounter Care Teams Medicinal Chemist Relationship Specialty Start Date End Date Michael Martinez MD PCP - General Internal Medicine 10/16/11 05/17/22 Mandi Newsome MD [address] [place] [address] [phone] PCP - General Internal Medicine 05/18/22 Shree Castro MD [address] [place] [address] [place] [address] [id number] Layer Off Cardiovascular Disease 09/08/21 Haydee Cates, EDWARD [address] [place] [address] Nurse Practitioner Cardiology 04/28/22 documented as of this encounter
--- OUTSIDE RECORDS SUMMARY | 2025-10-19 11:49 | XMS_ITS | Encounter Summary ---
Author Organization [facility] Prior to 09/01/2024 Address [address] [place] [address] Care Team Providers Care Correction Warden Name Role Phone Shree Castro MD Unavailable [phone] Mandi Newsome MD Primary Care Provider + Haydee Cates NP Unavailable [phone] Encounter Details Date Type Department Care Team Description 08/19/2023 Telephone Adult Medicine [address] [address] Mandi Newsome MD [address] [place] [address] [phone] Social History Tobacco Use Types Packs/Day Years [...] Telephone Encounter - Sigrid Martinez - 08/19/2023 2:01 PM EDT Images from the original note were not included. Message left for patient to return my call. When pt calls back please forward call to ex [phone] Sigrid Clinical staff please advise pt of result note below and also close Result note thanks. Mandi Newsome MD 08/18/2023 ??5:49 PM EDT Please provide message to patient below: Your vitamin D levels are normal. ??You can continue a daily vitamin D supplement. ??Given your elevated alkaline phosphatase level, I recommend obtaining an ultrasound to evaluate your gallbladder to make sure that that is normal and you do not have any gallstones. ??This has been ordered for you. ??Please contact the radiology department to schedule an appointment Mandi Newsome MD [place] [address] Pool I sent her blood work for additional testing for vitamin D deficiency. ??Once that result is back, I will send her the right dosing for vitamin D. ??Thank you ?? documented in this encounter Plan of Treatment Not on file documented as of this encounter Visit Diagnoses Not on filedocumented in this encounter Care Teams Correction Warden Relationship Specialty Start Date End Date Mandi Newsome MD [address] [place] [address] PCP - General Internal Medicine 05/18/22 Shree Castro MD [address] [place] [address] [place] [address] Associate Material Handler Cardiovascular Disease 09/08/21 Haydee Cates NP [address] [place] [address] Nurse Practitioner Cardiology 04/28/22 documented as of this encounter
--- OUTSIDE RECORDS SUMMARY | 2025-10-19 11:49 | XMS_ITS | Encounter Summary ---
Author Organization [facility] Prior to 09/01/2024 Address [address] [place] [address] Care Team Providers Care Special Service Representative Name Role Phone Shree Castro MD Unavailable [phone] Mandi Newsome MD Primary Care Provider + Haydee Cates NP Unavailable [phone] Encounter Details Date Type Department Care Team Description 02/17/2024 Orders Only Medical Records [address] [place] [address] Samuel Remy DO [address] [place] [address] [address] [facility] [place] [address] Social History Tobacco Use Types Packs/Day Years [...] Name Priority Date/Time Associated Diagnosis Comments OUTSIDE COLONOSCOPY Routine 02/14/2024 documented in this encounter Results * OUTSIDE COLONOSCOPY (02/14/2024) Samuel Remy DO RADIOLOGY documented in this encounter Visit Diagnoses Not on filedocumented in this encounter Care Teams Special Service Representative Relationship Specialty Start Date End Date Mandi Newsome MD [address] [place] [address] PCP - General Internal Medicine 05/18/22 Shree Castro MD [address] [place] [address] [address] [place] [address] Content Coordinator Cardiovascular Disease 09/08/21 Haydee Cates NP [address] [place] [address] Nurse Practitioner Cardiology 04/28/22 documented as of this encounter
--- OUTSIDE RECORDS SUMMARY | 2025-10-19 11:49 | XMS_ITS | Encounter Summary ---
Author Organization [facility] Prior to 09/01/2024 Address [address] [place] [address] Care Team Providers Care Clinical Laboratory Technologist Name Role Phone Michael Martinez MD Primary Care Provider Shree Callaway MD Unavailable [phone] Mandi Newsome MD Primary Care Provider + Haydee Cates NP Unavailable [phone] Reason for Visit * Reason Onset Date Comments Faxed Order 10/30/2021 Order #[id number] Encounter Details Date Type Department Care Team Description 10/30/2021 Telephone Adult [address] [address] Michael Martinez MD Faxed Order (Order #[id number]) Social History Tobacco Use Types Packs/Day Years [...] * Telephone Encounter - Olga Guerrero - 10/30/2021 2:44 PM EST Faxed orders from [facility] Order #[id number]. Please sign, date, and fax. documented in this encounter Plan of Treatment Not on file documented as of this encounter Visit Diagnoses Not on filedocumented in this encounter Care Teams Clinical Laboratory Technologist Relationship Specialty Start Date End Date Michael Martinez MD PCP - General Internal Medicine 10/16/11 05/17/22 Mandi Newsome MD [address] [place] [address] PCP - General Internal Medicine 05/18/22 Shree Castro MD [address] [place] [address] [address] [place] [address] Layout Technician Cardiovascular Disease 09/08/21 Haydee Cates NP [address] [place] [address] Nurse Practitioner Cardiology 04/28/22 documented as of this encounter
--- OUTSIDE RECORDS SUMMARY | 2025-10-19 11:49 | XMS_ITS | Encounter Summary ---
Author Organization [facility] Prior to 09/01/2024 Address [address] [place] [address] Care Team Providers Care Wind Science And Planning Name Role Phone Michael Martinez MD Primary Care Provider Shree Callaway MD Unavailable [phone] Mandi Newsome MD Primary Care Provider + Haydee Cates NP Unavailable [phone] Encounter Details Date Type Department Care Team Description 10/15/2021 Agricultural Extension Specialist Report Medical Records [address] [place] [phone] Abstract, Provider Social History Tobacco Use Types [...] on filedocumented in this encounter Care Teams Wind Science And Planning Relationship Specialty Start Date End Date Michael Martinez MD PCP - General Internal Medicine 10/16/11 05/17/22 Mandi Newsome MD [address] [place] [address] PCP - General Internal Medicine 05/18/22 Shree Castro MD [address] [place] [address] [address] [place] [address] Estimating Manager Cardiovascular Disease 09/08/21 Haydee Cates NP [address] [place] [address] Nurse Practitioner Cardiology 04/28/22 documented as of this encounter
--- OUTSIDE RECORDS SUMMARY | 2025-10-19 11:49 | XMS_ITS | Encounter Summary ---
Author Organization [facility] Prior to 09/01/2024 Address [address] [place] [address] Care Team Providers Care Procurement Clerk Name Role Phone Michael Martinez MD Primary Care Provider Shree Callaway MD Unavailable [phone] Mandi Newosme MD Primary Care Provider + Haydee Cates NP Unavailable [phone] Encounter Details Date Type Department Care Team Description 08/29/2021 Plaster Helper Report Medical Records [address] [place] [address] Surgery, [facility] Cardiac Social History Tobacco Use Types [...] on filedocumented in this encounter Care Teams Procurement Clerk Relationship Specialty Start Date End Date Michael Martinez MD PCP - General Internal Medicine 10/16/11 05/17/22 Mandi Newsome MD [address] [place] [address] [phone] PCP - General Internal Medicine 05/18/22 Shree Castro MD [address] [place] [address] DRIVE [address] [place] [address] Pharmacy Sales Assistant Cardiovascular Disease 09/08/21 Haydee Cates NP [address] [place] [address] Nurse Practitioner Cardiology 04/28/22 documented as of this encounter
--- OUTSIDE RECORDS SUMMARY | 2025-10-19 11:49 | XMS_ITS | Encounter Summary ---
Author Organization [facility] Prior to 09/01/2024 Address [address] [place] [address] Care Team Providers Care Control Panel Operator Crude Unit Name Role Phone Shree Castro MD Unavailable [phone] Mandi Newsome MD Primary Care Provider + Haydee Cates NP Unavailable [phone] Reason for Visit * Reason Onset Date Comments Medication 02/11/2024 Encounter Details Date Type Department Care Team Description 02/11/2024 Refill Gastroenterology - [place] [address] [facility] [address] [place] [id number] Samuel Remy DO [address] [facility] [address] [facility] [place] [address] Medication Social History Tobacco Use Types Packs/Day Years [...] on filedocumented in this encounter Care Teams Control Panel Operator Crude Unit Relationship Specialty Start Date End Date Mandi Newsome MD [address] [place] [address] PCP - General Internal Medicine 05/18/22 Shree Castro MD [address] [place] [address] DRIVE [address] [place] [address] Commercial Front Load Driver Cardiovascular Disease 09/08/21 Haydee Cates, EDWARD [address] [place] [address] Nurse Practitioner Cardiology 04/28/22 documented as of this encounter
--- OUTSIDE RECORDS SUMMARY | 2025-10-19 11:49 | XMS_ITS | Encounter Summary ---
Author Organization [facility] [place] [facility] Prior to 09/01/2024 Address [address] [place] [address] Care Team Providers Care Software Programmer Name Role Phone Michael Martinez MD Primary Care Provider Shree Callaway MD Unavailable [phone] Mandi Newsome MD Primary Care Provider + Haydee Cates NP Unavailable [phone] Reason for Visit * Reason Comments E-prescribe Rx Request Encounter Details Date Type Department Care Team Description 09/15/2021 Refill Adult Medicine [address] [address] Indigo Diallo PA-C [address] [place] [address] [phone] E-prescribe Rx Request Social History Tobacco Use [...] have Coronavirus / COVID-19? No / Unsure 09/09/2021 12:51 PM EST documented as of this encounter Miscellaneous Notes * Telephone Encounter - Rosa Isela Connors M.A. - 09/16/2021 1:55 PM EST Lab Results Component Value Date NA 141 05/27/2021 K 3.9 05/27/2021 CO2 25 05/27/2021 CL 108 05/27/2021 BUN 10 05/27/2021 CREAT 0.53 05/27/2021 GLU 86 05/27/2021 CA 9.2 05/27/2021 GFR > 60 05/27/2021 VASU 08/12/21 NOV 09/22/21 * Telephone Encounter - Rosa Elena Clark - 09/16/2021 9:42 AM EST Patient would like script to be: E-PRESCRIBED/FAXED TO PHARMACY ?? WHEN WAS THE PATIENT'S LAST APPOINTMENT IN ADULT MEDICINE? 08/12/21 ?? WHEN WAS THE LAST TIME THE PATIENT SAW THEIR PCP? 07/22/21 ?? Does patient have an upcoming appointment? Yes 09/22/21 ?? (THE MEDICATION REQUESTED IS ON THE MED LIST ABOVE) All of the medications requested were on the CURRENT MEDS list ?? Did you check the Pharmacy information above?: YES ?? Patient wants: 90 -day supply ?? Is this a mail order prescription request ? NO ?? If the refill is from a FAXED refill request what is the RX # listed on the fax? N/A ?? Patients current insurance carrier is: Payor: [email or web address] FFS / Plan: [employer] / Product Type: MEDICAID RISK ?? documented in this encounter Plan of Treatment Not on file documented as of this encounter Visit Diagnoses Not on filedocumented in this encounter Care Teams Software Programmer Relationship Specialty Start Date End Date Michael Martinez MD PCP - General Internal Medicine 10/16/11 05/17/22 Mandi Newsome MD [address] [place] [address] PCP - General Internal Medicine 05/18/22 Shree Castro MD [address] [place] [address] [place] [address] Electronics Parts Sales Representative Cardiovascular Disease 09/08/21 Haydee Cates NP [address] [place] [address] Nurse Practitioner Cardiology 04/28/22 documented as of this encounter
--- OUTSIDE RECORDS SUMMARY | 2025-10-19 11:49 | XMS_ITS | Encounter Summary ---
Author Organization [facility] Prior to 09/01/2024 Address [address] [place] [address] Care Team Providers Care Hospice Massage Therapist Name Role Phone Michael Martinez MD Primary Care Provider Shree Callaway MD Unavailable [phone] Mandi Newsome MD Primary Care Provider + Haydee Cates NP Unavailable [phone] Encounter Details Date Type Department Care Team Description 08/29/2021 Retail Special Event Associate Report Medical Records [address] [place] [phone] Abstract, Provider Social History Tobacco Use Types [...] on filedocumented in this encounter Care Teams Hospice Massage Therapist Relationship Specialty Start Date End Date Michael Martinez MD PCP - General Internal Medicine 10/16/11 05/17/22 Mandi Newsome MD [address] [place] [address] PCP - General Internal Medicine 05/18/22 Shree Castro MD [address] [place] [address] [address] [place] [address] Planned Giving Officer Cardiovascular Disease 09/08/21 Haydee Cates NP [address] [place] [address] Nurse Practitioner Cardiology 04/28/22 documented as of this encounter
--- OUTSIDE RECORDS SUMMARY | 2025-10-19 11:49 | XMS_ITS | Encounter Summary ---
Author Organization [facility] Prior to 09/01/2024 Address [address] [place] [address] Care Team Providers Care Aviation Technical Systems Specialist Name Role Phone Michael Martinez MD Primary Care Provider Shree Callaway MD Unavailable [phone] Mandi Newsome MD Primary Care Provider + Haydee Cates NP Unavailable [phone] Encounter Details Date Type Department Care Team Description 11/04/2021 SCAN Medical Records [address] [place] [address] Abstract, Provider Social History Tobacco Use Types [...] Name Priority Date/Time Associated Diagnosis Comments OUTSIDE LAB Routine 11/04/2021 documented in this encounter Results * OUTSIDE LAB (11/04/2021) Provider Abstract LAB documented in this encounter Visit Diagnoses Not on filedocumented in this encounter Care Teams Aviation Technical Systems Specialist Relationship Specialty Start Date End Date Michael Martinez MD PCP - General Internal Medicine 10/16/11 05/17/22 Mandi Newsome MD [address] [place] [address] PCP - General Internal Medicine 05/18/22 Shree Castro MD [address] [place] [address] [address] [place] [address] Accident Examiner Cardiovascular Disease 09/08/21 Haydee Cates NP [address] [place] [address] Nurse Practitioner Cardiology 04/28/22 documented as of this encounter
--- OUTSIDE RECORDS SUMMARY | 2025-10-19 11:49 | XMS_ITS | Encounter Summary ---
Author Organization [facility] Prior to 09/01/2024 Address [address] [place] [address] Care Team Providers Care Research Laboratory Manager Name Role Phone Michael Martinez MD Primary Care Provider Shree Callaway MD Unavailable [phone] Mandi Newsome MD Primary Care Provider + Haydee Cates NP Unavailable [phone] Reason for Visit * Reason Onset Date Comments Faxed Order 10/30/2021 Order #[id number] Encounter Details Date Type Department Care Team Description 10/30/2021 Telephone Adult [address] [address] Michael Martinez MD Faxed Order (Order #[id number]) Social History Tobacco Use Types Packs/Day Years [...] Telephone Encounter - Olga Guerrero - 10/30/2021 2:32 PM EST Faxed order from [facility]. Order #[id number]. Please sign, date, and fax back. documented in this encounter Plan of Treatment Not on file documented as of this encounter Visit Diagnoses Not on filedocumented in this encounter Care Teams Research Laboratory Manager Relationship Specialty Start Date End Date Michael Martinez MD PCP - General Internal Medicine 10/16/11 05/17/22 Mandi Newsome MD [address] [place] [address] PCP - General Internal Medicine 05/18/22 Shree Castro MD [address] [place] [address] [address] [place] [address] Sharepoint Designer Developer Cardiovascular Disease 09/08/21 Haydee Cates NP [address] [place] [address] Nurse Practitioner Cardiology 04/28/22 documented as of this encounter
--- OUTSIDE RECORDS SUMMARY | 2025-10-19 11:49 | XMS_ITS | Clinical Summary ---
Author Organization [place] [facility] Address [address] [facility], [place] [address] Phone Care Team Providers Care Setup Operator Name Role Phone Mandi Newsome MD Primary Care Pr ovider Allergies Active Allergy Reactions Criticality Noted Date Comments Penicillins 08/19/2024 Dulaglutide 08/19/2024 Medications mirtazapine (REMERON) 15 mg tablet Take 1 [...] route. In place per patient 12/05/2024 Active dapagliflozin propanediol (FARXIGA) 10 mg tabletIndications :DM (diabetes mellitus), type 2 with neurological complications (CMS/HCC V24, CMS/[facility] V28),Type 2 diabetes mellitus with diabetic microalbuminuria, with long-term current use of insulin ([facility] V24, [facility] V28) Take 1 tablet (10 mg total) by mouth 1 (one) time each day. 90 tablet 1 025 Active carvediloL (COREG) 6.25 mg tablet TAKE 1 TABLET BY MOUTH TWICE A DAY WITH FOOD 180 tablet 1 025 Active alcohol swabs pads, medicated USE ONE PAD THREE TIMES DAILY PRIOR TO CHECKING BLOOD SUGAR 300 each 1 025 Active insulin lispro 100 unit/mL injection Inject 5 Units under the skin 2 (two) times a day before meals. -Administer within 15 minutes of a meal Active insulin glargine (LANTUS SoloStar) 100 unit/mL (3 mL) injection pen Inject 34 Units under the skin at bedtime. 025 Active atorvastatin (LIPITOR) 80 mg tabletIndications :Pure hypercholesterole arsenio, unspecified TAKE 1 TABLET BY MOUTH EVERY DAY 90 tablet 1 025 Active furosemide (LASIX) 20 mg tablet Take 1 tablet (20 mg total) by mouth 1 (one) time each day. 90 tablet 1 025 Active tirzepatide (Mounjaro) 2.5 mg/0.5 mL injection Inject 0.5 mL (2.5 mg total) under the skin every 7 (seven) days. Active sacubitriL-valsar angelo (ENTRESTO) 49-51 mg per tablet Take 1 tablet by mouth 2 (two) times a day. 60 each 2 025 Active omeprazole (PriLOSEC) [address] capsuleIndication s:Gastroesophagea l reflux disease without esophagitis Take 1 capsule (20 mg total) by mouth 1 (one) time each day. 90 each 1 025 Active pregabalin (LYRICA) 75 mg capsuleIndication s:Diabetic polyneuropathy associated with type 2 diabetes mellitus ([facility] V24, [facility] V28) Take 1 capsule (75 mg total) by mouth 3 (three) times a day. 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 90 tablet Active spironolactone (ALDACTONE) 25 mg tablet Take 1 tablet (25 mg total) by mouth 1 (one) time each day. 90 each 1 025 Active simethicone (MYLICON) 80 mg chewable tablet Chew 1 tablet (80 mg total) every 6 (six) hours if needed. 024 2024 Discontinued(D iscontinued by another clinician) omeprazole (PriLOSEC) [address] capsuleIndication s:Gastroesophagea l reflux disease without esophagitis Take 1 capsule (20 mg total) by mouth 1 (one) time each day. 90 each 1 025 2024 Discontinued(R eorder) pregabalin (LYRICA) 75 mg capsuleIndication s:Diabetic polyneuropathy associated with type 2 diabetes mellitus ([facility] V24, [facility] V28) Take 1 capsule (75 mg total) by mouth 3 (three) times a day. 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 Max Daily Amount: 5 mg 30 tablet 025 2024 Discontinued(D iscontinued by another clinician) Active Problems Problem Noted Date Diagnosed Date Chronic venous hypertension (idiopathic) with ulcer of left lower extremity (CODE) 03/13/2025 Assessment & Plan (07/18/2025 5:10 PM EDT): [facility] Oxy[facility]one 5 mg to [...] does not want to continue coming to [place] for her endocrinology care. She is referred to [facility] per her preference-Dr. Madrigal Will update [...] (07/18/2025 5:10 PM EDT): Continue follow-up with [facility] endocrinology. Continue Mounjaro 2.5 mg weekly, insulin [...] type 2 causing eye disease 09/15/2022 02/22/2025 Encounters Date Type Department Care Team Description 10/18/2025 11:15 AM EST Office Visit [facility] [address] [place] [phone] Bautista Aguirre PA Chronic venous hypertension (idiopathic) with ulcer of right lower extremity (CODE) ([facility] V24, [facility] V28) (Primary Dx); Non-pressure chronic ulcer of other part of right lower leg with fat layer exposed (CMS/HCC V24, CMS/HCC V28) 10/16/2025 Telephone Adult Medicine [address] [phone] Mandi Newsome MD 10/11/2025 10:40 AM EST Office Visit [facility] [place] [address] [facility] [address] [phone] Haydee Cates NP Heart failure with improved ejection fraction (HFimpEF) (CMS/HCC V24, CMS/HCC V28) (Primary Dx); Essential hypertension, benign; Coronary artery disease involving coronary bypass graft of marshall heart without angina pectoris; Moderate mixed hyperlipidemia not requiring statin therapy; Peripheral artery disease (CMS/HCC V24) 10/11/2025 9:15 AM EST Office Visit [facility] [address] [place] [phone] Edgardo Luo MD Chronic venous hypertension (idiopathic) with ulcer of right lower extremity (CODE) (CMS/HCC V24, CMS/HCC V28) (Primary Dx); Non-pressure chronic ulcer of other part of right lower leg with fat layer exposed (CMS/HCC V24, CMS/HCC V28); Non-pressure chronic ulcer right lower leg, limited to breakdown skin (CMS/HCC V24, CMS/HCC V28) 09/21/2025 9:00 AM EST Office Visit [facility] [address] [place] [phone] Edgardo Luo MD Chronic venous hypertension (idiopathic) with ulcer of right lower extremity (CODE) (CMS/HCC V24, CMS/HCC V28) (Primary Dx); Non-pressure chronic ulcer of other part of right lower leg with fat layer exposed (CMS/HCC V24, CMS/HCC V28); Non-pressure chronic ulcer right lower leg, limited to breakdown skin (CMS/HCC V24, CMS/HCC V28) 09/14/2025 11:10 AM EST Office Visit [facility] [address] [phone] Haydee Cates, EDWARD Coronary artery disease involving coronary bypass graft of marshall heart without angina pectoris (Primary Dx); PAF (paroxysmal atrial fibrillation) ([facility]/HCC V24, CMS/HCC V28); Heart failure with improved ejection fraction (HFimpEF) (CMS/HCC V24, CMS/HCC V28) 09/13/2025 9:15 AM EST Office Visit [facility] [address] [place] [phone] Edgardo Luo MD Chronic venous hypertension (idiopathic) with ulcer of right lower extremity (CODE) (CMS/HCC V24, CMS/HCC V28) (Primary Dx); Non-pressure chronic ulcer of other part of right lower leg with fat layer exposed (CMS/HCC V24, CMS/HCC V28) 09/06/2025 8:30 AM EST Office Visit [facility] [address] [place] [phone] Edgardo Luo MD Chronic venous hypertension (idiopathic) with ulcer of right lower extremity (CODE) (CMS/HCC V24, CMS/HCC V28) (Primary Dx); Non-pressure chronic ulcer of other part of right lower leg with fat layer exposed (CMS/HCC V24, CMS/HCC V28) 08/31/2025 10:30 AM EDT Office Visit [facility] [address] [place] [phone] Bautista Aguirre PA Chronic venous hypertension (idiopathic) with ulcer of right lower extremity (CODE) (CMS/HCC V24, CMS/HCC V28) (Primary Dx); Non-pressure chronic ulcer of other part of right lower leg with fat layer exposed (CMS/HCC V24, CMS/HCC V28) 08/24/2025 10:30 AM EDT Office Visit [facility] [address] [place] [phone] Bautista Aguirre PA Chronic venous hypertension (idiopathic) with ulcer of bilateral lower extremity (CODE) (CMS/HCC V24, CMS/HCC V28) (Primary Dx); Non-pressure chronic ulcer of other part of right lower leg with fat layer exposed (CMS/HCC V24, CMS/HCC V28); Non-pressure chronic ulcer of other part of left lower leg limited to breakdown of skin (CMS/HCC V24, CMS/HCC V28) 08/17/2025 10:00 AM EDT Office Visit [facility] [address] [place] [phone] Bautista Aguirre PA Chronic venous hypertension (idiopathic) with ulcer of bilateral lower extremity (CODE) (CMS/HCC V24, CMS/HCC V28) (Primary Dx); Non-pressure chronic ulcer of other part of right lower leg with fat layer exposed (CMS/HCC V24, CMS/HCC V28); Non-pressure chronic ulcer of other part of left lower leg limited to breakdown of skin (CMS/HCC V24, CMS/HCC V28) 08/09/2025 9:30 AM EDT Office Visit [facility] [address] [place] [phone] Edgardo Luo MD Chronic venous hypertension (idiopathic) with ulcer of bilateral lower extremity (CODE) ([facility] V24, CMS/HCC V28) (Primary Dx); Non-pressure chronic ulcer of other part of right lower leg with fat layer exposed ([facility] V24, CMS/HCC V28); Non-pressure chronic ulcer of other part of left lower leg limited to breakdown of skin (CMS/HCC V24, CMS/HCC V28) 08/02/2025 11:30 AM EDT Office Visit [facility] [address] [place] [phone] Bautista Aguirre PA Chronic venous hypertension (idiopathic) with ulcer of bilateral lower extremity (CMS/HCC V24, [facility] V28) (Primary Dx); Non-pressure chronic ulcer of right lower leg with fat layer exposed (CMS/HCC V24, CMS/HCC V28); Non-pressure chronic ulcer of other part of left lower leg limited to breakdown of skin (CMS/HCC V24, CMS/HCC V28) 07/26/2025 11:00 AM EDT Office Visit [facility] [address] [place] [phone] Bautista Aguirre PA Chronic venous hypertension (idiopathic) with ulcer of bilateral lower extremity ([facility] V24, CMS/HCC V28) (Primary Dx); Non-pressure chronic ulcer of right lower leg with fat layer exposed (CMS/HCC V24, CMS/HCC V28); Non-pressure chronic ulcer of 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 ([facility] V24, CMS/HCC V28) from Last 3 Months Immunizations Immunization Administration Dates Next Due H1N1 Inj Preservative Free 10/07/2009 HepB-CpG (Heplisav-B) 18yo and older 08/08/2025 Influenza Quadravalent, MDCK , 0.5ml, preservative free (Flucelvax) 6mo and older 08/17/2023,07/22/2021,07/06/2019 Influenza Quadravalent, MDCK , 0.5ml, with preservative (Flucelvax) 6mo and older 09/14/2022,06/17/2015 Influenza trivalent, 0.5mL, preservative free (Fluarix; FluLaval; Fluzone) ages 6mo and older (Afluria) 3 years and older 08/11/2016,08/25/2013,07/13/2012,08/08,07/31/2008,09/30/2007 Influenza trivalent, recombi nant, 0.5mL, preservative free (Flublok) 9yo and older 08/08/2025 Influenza, Unspecified 07/09/2014 PPD Test 11/23/2017,01/12/2012 Pfizer [...] COLONOSCOPY 02/14/2024 hemorrhoids; repeat in 10 years [place] BREAST REDUCTION Medical History Medical History Date Comments Asthma 2020 CHF (congestive heart failure) ([facility] V24, [facility] V28) 2020 DM type 2 causing eye disease ([facility] V24, [facility] V28) 2021 HFrEF (heart failure with re duced ejection fraction) ([facility] V24, [facility] V28) 2020 Non-ST elevation (NSTEMI) my ocardial infarction ([facility] V24, [facility] V28) 2020 Peripheral neuropathy 2020 Retinopathy due to secondary diabetes ([facility] V 24, [facility] V28) Family History Medical History Relation Name [...] care for your loved ones. For example, early childhood teacher assistant or elderly care for an older [...] EST Inhaled Oxygen Concentration - - Weight 97.7 kg (215 lb 4.8 oz) 10/11/2025 10:45 AM EST Height 160 cm (5' 3 ) 10/11/2025 10:45 AM EST Body Mass Index 38.14 10/11/2025 10:45 AM EST Plan of Treatment Upcoming Encounters Date Type Department Care Team (Late st Contact Info) Description 10/30/2025 10:45 AM EST Clinical Support [facility] [address] [place] [phone] 11/02/2025 11:30 AM EST Office Visit Adult Medicine [address] [phone] Jennifer Gray PA [address] [place] [address] 11/28/2025 1:30 PM EST Ancillary Procedure [facility] [address] [place] [phone] 12/12/2025 11:30 AM EST Office Visit [facility] [address] [place] [phone] Haydee Cates, EDWARD [address] [place] [address] [address] [place] [phone] 02/28/2026 3:20 PM EDT Appointment Radiology Department - [address] [phone] Health Maintenance Due Date Last Done Comments Diabetes: Annual Foot Exam 1983 HIV Screening 10/09/2022 RSV Immunization Adult Patients (1 - Risk 50-74 years 1-dose series) 2023 Zoster Vaccines (2 of 2) 03/24/2024 01/28/2024 Cervical Cancer Screening: Pap Smear 05/22/2024 05/22/2021, 11/10/2019 COVID-19 Vaccine ( season) 2025 01/28/2024, 09/14/2022, 04/01/2021, Additional history exists Hepatitis B Vaccines (2 of 2 - CpG 2-dose series) 09/05/2025 08/08/2025 Diabetes: Blood Sugar Control Test (HGBA1C) 11/25/2025 05/25/2025, 02/22/2025, 06/05/2024 Diabetes: Annual Urine Albumin-Creatinine Ratio (uACR) 02/22/2026 02/22/2025 Social Influencers of Health Screening 05/18/2026 05/18/2025 Diabetes: Annual Retina Eye Exam 09/24/2026 09/24/2025 Diabetes: Annual GFR (Glomerular Filtration Rate) 10/10/2026 10/10/2025, 05/25/2025, 02/22/2025, Additional history exists Hypertension/CHF/CAD Annual BMP Blood Test 10/10/2026 10/10/2025, 05/25/2025, 02/22/2025, Additional history exists Breast Cancer Screening 02/27/2027 02/28/20, 02/23/2025, 03/27/2023, Additional history exists Cholesterol Screening (Lipid Panel) 10/10/2030 10/10/2025, 10/10/2025, 10/10/2025, Additional history exists DTaP,Tdap,and Td Vaccines (4 - Td or Tdap) 01/27/2034 01/28/2024, 03/09/2022, 08/22/2009 Colorectal Cancer Screening: Colonoscopy 02/13/2034 02/14/2024 Pneumococcal Vaccine: 50+ Years Completed 09/18/2024, 09/01/2012 Hepatitis C Screening Completed 02/22/2025 Depression Screening Completed 06/29/2025 Influenza Vaccine Completed 08/08/2025, , 09/14/2022, Additional history exists HIB Vaccines Aged Out No longer eligi [...] week 12 Care Plan Impaired Tissue No Bibiana Bryant RN Quit using tobacco (cigarettes, smokeless, etc) [...] with ulcer of right lower extremity (CODE) ([facility] V24, [facility] V28) Non-pressure chronic ulcer of other part of right lower leg with fat layer exposed (CMS[facility] V24, [facility] V28) WOUND CARE PROCEDURE Routine 10/18/2025 9:27 AM EST Chronic venous hypertension (idiopathic) with ulcer of right lower extremity (CODE) (CMS/HCC V24, CMS/HCC V28) Non-pressure chronic ulcer of other part of right lower leg with fat layer exposed (CMS/HCC V24, CMS/HCC V28) WOUND CARE PROCEDURE Routine 10/11/2025 10:10 AM EST Chronic venous hypertension (idiopathic) with ulcer of right lower extremity (CODE) (CMS/HCC V24, CMS/HCC V28) Non-pressure chronic ulcer of other part of right lower leg with fat layer exposed (CMS/HCC V24, CMS/HCC V28) DEBRIDEMENT Routine 10/11/2025 9:15 AM EST Chronic venous hypertension (idiopathic) with ulcer of right lower extremity (CODE) (CMS/HCC V24, CMS/HCC V28) Non-pressure chronic ulcer of other part of right lower leg with fat layer exposed (CMS/HCC V24, CMS/HCC V28) B-TYPE NATRIURETIC PEPTIDE Routine 10/10/2025 7:59 AM EST Coronary artery disease involving coronary bypass graft of marshall heart without angina pectoris TRIGLYCERIDES Routine 10/10/2025 7:58 AM EST Coronary artery disease involving coronary bypass graft of marshall heart without angina pectoris LDL CHOLESTEROL, DIRECT Routine 10/10/2025 7:58 AM EST Coronary artery disease involving coronary bypass graft of marshall heart without angina pectoris CHOLESTEROL, TOTAL Routine 10/10/2025 7: 58 AM EST Coronary artery disease involving coronary bypass graft of marshall heart without angina pectoris HDL CHOLESTEROL Routine 10/10/2025 7:58 AM EST Coronary artery disease involving coronary bypass graft of marshall heart without angina pectoris COMPREHENSIVE METABOLIC PANEL Routine 10/10/2025 7:58 AM EST Coronary artery disease involving coronary bypass graft of marshall heart without angina pectoris WOUND CARE PROCEDURE Routine 09/21/2025 9:27 AM EST Chronic venous hypertension (idiopathic) with ulcer of right lower extremity (CODE) (CMS/HCC V24, CMS/HCC V28) Non-pressure chronic ulcer of other part of right lower leg with fat layer exposed (CMS/HCC V24, CMS/HCC V28) Non-pressure chronic ulcer right lower leg, limited to breakdown skin (CMS/HCC V24, CMS/HCC V28) DEBRIDEMENT Routine 09/21/2025 9:00 AM EST Chronic venous hypertension (idiopathic) with ulcer of right lower extremity (CODE) (CMS/HCC V24, CMS/HCC V28) Non-pressure chronic ulcer of other part of right lower leg with fat layer exposed (CMS/HCC V24, CMS/HCC V28) DEBRIDEMENT Routine 09/21/2025 9:00 AM EST Chronic venous hypertension (idiopathic) with ulcer of right lower extremity (CODE) (CMS/HCC V24, CMS/HCC V28) Non-pressure chronic ulcer right lower leg, limited to breakdown skin (CMS/HCC V24, CMS/HCC V28) ECG 12-LEAD Routine 09/14/2025 1:03 PM EST PAF (paroxysmal atrial fibrillation) (CMS/HCC V24, CMS/HCC V28) WOUND CARE PROCEDURE Routine 09/13/2025 9:39 AM EST Chronic venous hypertension (idiopathic) with ulcer of right lower extremity (CODE) (CMS/HCC V24, CMS/HCC V28) Non-pressure chronic ulcer of other part of right lower leg with fat layer exposed (CMS/HCC V24, CMS/HCC V28) DEBRIDEMENT Routine 09/13/2025 9:15 AM EST Chronic venous hypertension (idiopathic) with ulcer of right lower extremity (CODE) (CMS/HCC V24, CMS/HCC V28) Non-pressure chronic ulcer of other part of right lower leg with fat layer exposed (CMS/HCC V24, CMS/HCC V28) DEBRIDEMENT Routine 09/13/2025 9:15 AM EST Chronic venous hypertension (idiopathic) with ulcer of right lower extremity (CODE) (CMS/HCC V24, CMS/HCC V28) Non-pressure chronic ulcer of other part of right lower leg with fat layer exposed (CMS/HCC V24, CMS/HCC V28) WOUND CARE PROCEDURE Routine 09/06/2025 9:17 AM EST Chronic venous hypertension (idiopathic) with ulcer of right lower extremity (CODE) (CMS/HCC V24, CMS/HCC V28) Non-pressure chronic ulcer of other part of right lower leg with fat layer exposed (CMS/HCC V24, CMS/HCC V28) DEBRIDEMENT Routine 09/06/2025 8:30 AM EST Chronic venous hypertension (idiopathic) with ulcer of right lower extremity (CODE) (CMS/HCC V24, CMS/HCC V28) Non-pressure chronic ulcer of other part of right lower leg with fat layer exposed (CMS/HCC V24, CMS/HCC V28) DEBRIDEMENT Routine 09/06/2025 8:30 AM EST Chronic venous hypertension (idiopathic) with ulcer of right lower extremity (CODE) (CMS/HCC V24, CMS/HCC V28) Non-pressure chronic ulcer of other part of right lower leg with fat layer exposed (CMS/HCC V24, CMS/HCC V28) WOUND CARE PROCEDURE Routine 08/31/2025 11:23 AM EDT Chronic venous hypertension (idiopathic) with ulcer of right lower extremity (CODE) (CMS/HCC V24, CMS/HCC V28) Non-pressure chronic ulcer of other part of right lower leg with fat layer exposed (CMS/HCC V24, CMS/HCC V28) DEBRIDEMENT Routine 08/31/2025 10:30 AM EDT Chronic venous hypertension (idiopathic) with ulcer of right lower extremity (CODE) (CMS/HCC V24, CMS/HCC V28) Non-pressure chronic ulcer of other part of right lower leg with fat layer exposed (CMS/HCC V24, CMS/HCC V28) DEBRIDEMENT Routine 08/31/2025 10:30 AM EDT Chronic venous hypertension (idiopathic) with ulcer of right lower extremity (CODE) (CMS/HCC V24, CMS/HCC V28) Non-pressure chronic ulcer of other part of right lower leg with fat layer exposed (CMS/HCC V24, CMS/HCC V28) WOUND CARE PROCEDURE Routine 08/24/2025 11:00 AM EDT Chronic venous hypertension (idiopathic) with ulcer of bilateral lower extremity (CODE) (CMS/HCC V24, CMS/HCC V28) Non-pressure chronic ulcer of other part of right lower leg with fat layer exposed (CMS/HCC V24, CMS/HCC V28) DEBRIDEMENT Routine 08/24/2025 10:30 AM EDT Chronic venous hypertension (idiopathic) with ulcer of bilateral lower extremity (CODE) (CMS/HCC V24, CMS/HCC V28) Non-pressure chronic ulcer of other part of right lower leg with fat layer exposed (CMS/HCC V24, CMS/HCC V28) DEBRIDEMENT Routine 08/24/2025 10:30 AM EDT Chronic venous hypertension (idiopathic) with ulcer of bilateral lower extremity (CODE) (CMS/HCC V24, CMS/HCC V28) Non-pressure chronic ulcer of other part of right lower leg with fat layer exposed (CMS/HCC V24, CMS/HCC V28) WOUND CARE PROCEDURE Routine 08/17/2025 10:25 AM EDT Chronic venous hypertension (idiopathic) with ulcer of bilateral lower extremity (CODE) (CMS/HCC V24, CMS/HCC V28) Non-pressure chronic ulcer of other part of right lower leg with fat layer exposed (CMS/HCC V24, CMS/HCC V28) DEBRIDEMENT Routine 08/17/2025 10:00 AM EDT Chronic venous hypertension (idiopathic) with ulcer of bilateral lower extremity (CODE) (CMS/HCC V24, CMS/HCC V28) Non-pressure chronic ulcer of other part of right lower leg with fat layer exposed (CMS/HCC V24, CMS/HCC V28) DEBRIDEMENT Routine 08/17/2025 10:00 AM EDT Chronic venous hypertension (idiopathic) with ulcer of bilateral lower extremity (CODE) (CMS/HCC V24, CMS/HCC V28) Non-pressure chronic ulcer of other part of right lower leg with fat layer exposed (CMS/HCC V24, CMS/HCC V28) DEBRIDEMENT Routine 08/09/2025 9:30 AM EDT Chronic venous hypertension (idiopathic) with ulcer of bilateral lower extremity (CODE) (CMS/HCC V24, CMS/HCC V28) Non-pressure chronic ulcer of other part of left lower leg limited to breakdown of skin (CMS/HCC V24, CMS/HCC V28) DEBRIDEMENT Routine 08/09/2025 9:30 AM EDT Chronic venous hypertension (idiopathic) with ulcer of bilateral lower extremity (CODE) (CMS/HCC V24, CMS/HCC V28) Non-pressure chronic ulcer of other part of right lower leg with fat layer exposed (CMS/HCC V24, CMS/HCC V28) DEBRIDEMENT Routine 08/09/2025 9:30 AM EDT Chronic venous hypertension (idiopathic) with ulcer of bilateral lower extremity (CODE) (CMS/HCC V24, CMS/HCC V28) Non-pressure chronic ulcer of other part of right lower leg with fat layer exposed (CMS/HCC V24, CMS/HCC V28) DEBRIDEMENT Routine 08/02/2025 11:30 AM EDT Chronic venous hypertension (idiopathic) with ulcer of bilateral lower extremity (CMS/HCC V24, CMS/HCC V28) Non-pressure chronic ulcer of right lower leg with fat layer exposed (CMS/HCC V24, CMS/HCC V28) DEBRIDEMENT Routine 08/02/2025 11:30 AM EDT Chronic venous hypertension (idiopathic) with ulcer of bilateral lower extremity (CMS/HCC V24, CMS/HCC V28) Non-pressure chronic ulcer of right lower leg with fat layer exposed (CMS/HCC V24, CMS/HCC V28) DEBRIDEMENT Routine 07/26/2025 11:00 AM EDT Chronic venous hypertension (idiopathic) with ulcer of bilateral lower extremity (CMS/HCC V24, CMS/HCC V28) Non-pressure chronic ulcer of right lower leg with fat layer exposed (CMS/HCC V24, CMS/HCC V28) DEBRIDEMENT Routine 07/26/2025 11:00 AM EDT Chronic venous hypertension (idiopathic) with ulcer of bilateral lower extremity (CMS/HCC V24, CMS/HCC V28) Non-pressure chronic ulcer of right lower leg with fat layer exposed (CMS/HCC V24, CMS/HCC V28) HEMOGLOBIN A1C Routine [...] EDT Need for hepatitis C screening test PAP SMEAR Routine 05/22/2021 from Last 3 Months or Most Recently Relevant to Health Maintenance Results * Wound Care Procedure Venous Ulcer Leg Right;Lower;Anterior (10/11/2025 10:10 AM EST) Edgardo Carson MD - 10/11/2025 10:10 AM EST Edgardo Luo MD 10/11/2025 10:49 AM Wound Care Procedure Venous Ulcer Leg Right;Lower;Anterior Date/Time: 10/11/2025 10:10 AM Performed by: Ana Brown RN Authorized by: Edgardo Luo MD Associated wounds: Wound Venous Ulcer 06/29/25 Leg Right;Lower;Anterior Consent: Consent obtained: Verbal Consent given by: Patient Risks, benefits, and alternatives were discussed: yes Risks discussed: Infection and pain Alternatives discussed: Delayed treatment Woodruff protocol: Procedure explained and questions answered to patient or proxy's satisfaction: yes Relevant documents present and verified: yes Patient identity confirmed: Verbally with patient Sedation: Sedation type: None Anesthesia: Anesthesia method: None Procedure details: Indications: open wounds Wound location: Leg Leg location: R lower leg Wound age (days): >14 Dressing: Dressing applied: Unna's boot Post-procedure details: Procedure completion: Tolerated us Edgardo Luo MD IN CLINIC/BEDSIDE ORDERAB LES Final Result * Debridement Venous Ulcer Right;Lower;Anterior Leg (10/11/2025 9:15 AM EST) Edgardo Carson MD - 10/11/2025 9:15 AM EST Edgardo Luo MD 10/11/2025 10:49 AM Debridement Venous Ulcer Right;Lower;Anterior Leg Performed by: Edgardo Luo MD Authorized by: Edgardo Luo MD Associated wounds: Wound Venous Ulcer 06/29/25 Leg Right;Lower;Anterior Consent: Consent obtained: Verbal Consent given by: Patient Risks discussed: Yes Time out: Immediately prior to the procedure a time out was called Debridement Details: Performed by: Physician Type: surgical Level: subcutaneous tissue Pain control: Lidocaine 4% Pain control administration: topical anesthesia Severity of Tissue Pre Debridement: Fat layer exposed Severity of Tissue Post Debridement: Fat layer exposed Time taken: 10/11/2025 10:01 AM Length (cm): 2.2 Width (cm): 1.1 Depth (cm): 0.1 Area (cm^2): 1.9 Time taken: 10/11/2025 10:02 AM Length (cm): 2.2 Width (cm): 1.3 Depth (cm): 0.2 Percent Debrided (%): 100 Surface Area (cm^2): 2.25 Area Debrided (cm^2): 2.25 Volume (cm^3): 0.3 Tissue and other material debrided: dermis, epidermis and subcutaneous tissue Devitalized tissue debrided: slough Instrument: Curette Amount of bleeding: small Hemostasis obtained with: Pressure Procedural pain: 0 Post-procedural pain: 0 Response to treatment: Procedure was tolerated well us Edgardo Luo MD IN CLINIC/BEDSIDE ORDERAB LES Final Result * B-type natriuretic peptide (10/10/2025 7:59 AM EST) B-Type Natriuretic Peptide 38.7 0.0 - 100.0 pg/mL [facility] Comment:[employer] [facility] methodology Blood Venous blood specimen / Unknown 10/10/2025 7:59 AM EST 10/10/2025 Narrative [facility] 1 - 10/11/2025 8:08 AM EST Performed at: - [facility] [id number] Speech Therapist: Angelica Silverman MD, Phone: [phone] Haydee Bartevert TRIM OPERATOR LAB BLOOD ORDERABLES Final R esult Performing Organization Address City/[facility]/ZIP Co de Phone Number [facility] 1 * Triglycerides (10/10/2025 7:58 AM EST) [facility] Triglycerides 80 0 - 149 mg/dL [facility] 1 Blood Venous blood specimen / Unknown 10/10/2025 7:58 AM EST 10/10/2025 Narrative [facility] 1 - 10/10/2025 7:07 PM EST Performed at: - [facility] [address], [address], [place], [place] [id number] Speech Therapist: David Nichole MD, Phone: [phone] Haydee Cates NP LAB BLOOD ORDERABLES Final R esult [facility] * LDL cholesterol, direct (10/10/2025 7:58 AM EST) Pathologist [facility] LDL Chol. (Direct) 54 0 - 99 mg/dL [facility] 1 Blood Venous blood specimen / Unknown 10/10/2025 7:58 AM EST 10/10/2025 Narrative [facility] 1 - 10/11/2025 1:06 AM EST Performed at: - [facility] [address], [address], [place], [place] [id number] Speech Therapist: David Nichole MD, Phone: [phone] Haydee Cates TRIM OPERATOR LAB BLOOD ORDERABLES Final R esult Performing Organization Address [facility] de Phone Number [facility] 1 * (ABNORMAL) HDL cholesterol (10/10/2025 7:58 AM EST) Pathologist [facility] HDL Cholesterol 32(L) >39 mg/dL [facility] 1 Blood Venous blood specimen / Unknown 10/10/2025 7:58 AM EST 10/10/2025 Narrative [facility] 1 - 10/10/2025 7:07 PM EST Performed at: 01 - [facility] [address], [address], [place], [place] [id number] Speech Therapist: David Nichole MD, Phone: [phone] Haydee Cates TRIM OPERATOR LAB BLOOD ORDERABLES Final R [facility] Performing Organization Address [facility] de Phone Number [facility] 1 * Cholesterol, total (10/10/2025 7:58 AM EST) [facility] Cholesterol Total 100 100 - 199 mg/dL [facility] 1 Blood Venous blood specimen / Unknown 10/10/2025 7:58 AM EST 10/10/2025 Narrative [facility] 1 - 10/10/2025 7:07 PM EST Performed at: 01 - [facility] [address], [address], [place], [place] [id number] Speech Therapist: David Nichole MD, Phone: [phone] Haydee Cates TRIM OPERATOR LAB BLOOD ORDERABLES Final R [facility] Performing Organization Address [facility] Co de Phone Number [facility] * (ABNORMAL) Comprehensive metabolic panel (10/10/2025 7:58 AM EST) Glucose 148(H) 70 - 99 mg/dL [facility] 1 Blood Urea Nitrogen (BUN) 16 6 - 24 mg/dL [facility] 1 Creatinine 0.96 0.57 - 1.00 mg/dL [facility] 1 eGFR 71 >59 mL/min/1. 73 [facility] 1 BUN/Creatinine Ratio 17 9 - 23 [facility] 1 Sodium 140 134 - 144 mmol/L [facility] 1 Potassium 4.5 3.5 - 5.2 mmol/L [facility] 1 Chloride 104 96 - 106 mmol/L [facility] 1 Carbon Dioxide 29 20 - 29 mmol/L [facility] 1 Calcium 9.2 8.7 - 10.2 mg/dL [facility] 1 Protein Total 6.8 6.0 - 8.5 g/dL [facility] 1 Albumin 3.8 3.8 - 4.9 g/dL [facility] 1 Globulin Total 3.0 1.5 - 4.5 g/dL [facility] 1 Bilirubin Total 0.4 0.0 - 1.2 mg/dL [facility] 1 Alkaline Phosphatase 143(H) 49 - 135 IU/L [facility] 1 Aspartate aminotransferase (AST) 23 0 - 40 IU/L [facility] 1 Alanine Aminotransferase (ALT) 24 0 - 32 IU/L [facility] 1 Blood Venous blood specimen / Unknown 10/10/2025 7:58 AM EST 10/10/2025 Narrative [facility] 1 - 10/10/2025 6:07 PM EST Performed at: - [facility] [place] [address], [address], [place], [place] [id number] Speech Therapist: David Nichole MD, Phone: [phone] Haydee Cates TRIM OPERATOR LAB BLOOD ORDERABLES Final R esult [facility] * Wound Care Procedure 2 Wounds Associated (09/21/2025 9:27 AM EST) Narrative Edgardo Luo MD - 09/21/2025 9:27 AM EST Edgardo Luo MD 09/21/2025 10:46 AM Wound Care Procedure 2 Wounds Associated Date/Time: 09/21/2025 9:27 AM Performed by: Serenity Urias RN Authorized by: Edgardo Luo MD Associated wounds: Wound Venous Ulcer 06/29/25 Leg Right;Lower;Anterior Wound Venous Ulcer 06/29/25 Leg Right;Medial;Lower Consent: Consent obtained: Verbal Consent given by: Patient Risks, benefits, and alternatives were discussed: yes Risks discussed: Infection and pain Alternatives discussed: Delayed treatment Woodruff protocol: Procedure explained and questions answered to patient or proxy's satisfaction: yes Relevant documents present and verified: yes Patient identity confirmed: Verbally with patient Sedation: Sedation type: None Anesthesia: Anesthesia method: None Procedure details: Indications: open wounds Wound location: Leg Leg location: R lower leg Wound age (days): >14 Dressing: Dressing applied: Unna's boot Post-procedure details: Procedure completion: Tolerated Edgardo Luo MD IN CLINIC/BEDSIDE ORDERAB LES Final Result * Debridement Venous Ulcer (Cluster ) Right;Medial;Lower Leg (09/21/2025 9:00 AM EST) Edgardo Carson MD - 09/21/2025 9:00 AM EST Edgardo Luo MD 09/21/2025 10:46 AM Debridement Venous Ulcer (Cluster ) Right;Medial;Lower Leg Performed by: Edgardo Luo MD Authorized by: Edgardo Luo MD Associated wounds: Wound Venous Ulcer 06/29/25 Leg Right;Medial;Lower Consent: Consent obtained: Verbal Consent given by: Patient Risks discussed: Yes Time out: Immediately prior to the procedure a time out was called Debridement Details: Performed by: Physician Type: conservative sharp Pain control: Lidocaine 4% Pain control administration: topical anesthesia Severity of Tissue Pre Debridement: Limited to breakdown of skin Severity of Tissue Post Debridement: Limited to breakdown of skin Time taken: 09/21/2025 9:03 AM Length (cm): 0.2 Width (cm): 0.2 Depth (cm): 0.1 Area (cm^2): 0.03 Time taken: 09/21/2025 9:04 AM Length (cm): 0.2 Width (cm): 0.2 Depth (cm): 0.1 Percent Debrided (%): 100 Surface Area (cm^2): 0.03 Area Debrided (cm^2): 0.03 Volume (cm^3): 0 Tissue and other material debrided: dermis and epidermis Devitalized tissue debrided: exudate and slough Instrument: Curette Amount of bleeding: small Hemostasis obtained with: Pressure Procedural pain: 0 Post-procedural pain: 0 Response to treatment: Procedure was tolerated well Edgardo Luo MD IN CLINIC/BEDSIDE ORDERAB LES Final Result * Debridement Venous Ulcer Right;Lower;Anterior Leg (09/21/2025 9:00 AM EST) Edgardo Carson MD - 09/21/2025 9:00 AM EST Edgardo Luo MD 09/21/2025 10:46 AM Debridement Venous Ulcer Right;Lower;Anterior Leg Performed by: Edgardo Luo MD Authorized by: Edgardo Luo MD Associated wounds: Wound Venous Ulcer 06/29/25 Leg Right;Lower;Anterior Consent: Consent obtained: Verbal Consent given by: Patient Risks discussed: Yes Time out: Immediately prior to the procedure a time out was called Debridement Details: Performed by: Physician Type: conservative sharp Pain control: Lidocaine 4% Pain control administration: topical anesthesia Severity of Tissue Pre Debridement: Fat layer exposed Severity of Tissue Post Debridement: Fat layer exposed Time taken: 09/21/2025 9:02 AM Length (cm): 3 Width (cm): 1.8 Depth (cm): 0.1 Area (cm^2): 4.24 Time taken: 09/21/2025 9:03 AM Length (cm): 3 Width (cm): 1.9 Depth (cm): 0.2 Percent Debrided (%): 90 Surface Area (cm^2): 4.48 Area Debrided (cm^2): 4.03 Volume (cm^3): 0.6 Tissue and other material debrided: dermis and epidermis Devitalized tissue debrided: biofilm, exudate, fibrin and slough Instrument: Curette Amount of bleeding: small Hemostasis obtained with: Pressure Procedural pain: 0 Post-procedural pain: 0 Response to treatment: Procedure was tolerated well us Edgardo Luo MD IN CLINIC/BEDSIDE ORDERAB LES Final Result * ECG 12 lead (09/14/2025 1:03 PM EST) Ventricular Rate ECG 84 BPM GEMUSE Atrial Rate 84 BPM GEMUSE P-R Interval 162 ms GEMUSE QRS Duration 84 ms GEMUSE Q-T Interval 364 ms GEMUSE QTc 430 ms GEMUSE P Wave Spencer 70 degrees GEMUSE R Spencer 99 degrees GEMUSE T Spencer 84 degrees GEMUSE ECG Interpretation Normal sinus rhythm Rightward axis Low voltage QRS Borderline ECG When compared with ECG of 13-SEP-2024 13:16, No significant change was found Confirmed by Brent AMBROSIO JAMES ([id number]) on 09/14/2025 4:14:24 PM AGNES 09/14/2025 11:0 5 AM EST 09/14/2025 4:14 PM EST us Haydee Cates TRIM OPERATOR ECG ORDERABLES Edited Resul t - Final AGNES * Wound Care Procedure 2 Wounds Associated (09/13/2025 9:39 AM EST) Edgardo Carson MD - 09/13/2025 9:39 AM EST Edgardo Luo MD 09/13/2025 9:56 AM Wound Care Procedure 2 Wounds Associated Date/Time: 09/13/2025 9:39 AM Performed by: Bibiana Bryant RN Authorized by: Edgardo Luo MD Associated wounds: Wound Venous Ulcer 06/29/25 Leg Right;Lateral;Lower Wound Venous Ulcer 06/29/25 Leg Right;Medial;Lower Consent: Consent obtained: Verbal Consent given by: Patient Risks, benefits, and alternatives were discussed: yes Risks discussed: Infection and pain Alternatives discussed: Delayed treatment Woodruff protocol: Procedure explained and questions answered to patient or proxy's satisfaction: yes Relevant documents present and verified: yes Patient identity confirmed: Verbally with patient Sedation: Sedation type: None Anesthesia: Anesthesia method: None Procedure details: Indications: open wounds Wound location: Leg Leg location: R lower leg Wound age (days): >14 Dressing: Dressing applied: Unna's boot Post-procedure details: Procedure completion: Tolerated us Edgardo Luo MD IN CLINIC/BEDSIDE ORDERAB LES Final Result * Debridement Venous Ulcer (Cluster ) Right;Medial;Lower Leg (09/13/2025 9:15 AM EST) Edgardo Carson MD - 09/13/2025 9:15 AM EST Edgardo Luo MD 09/13/2025 9:56 AM Debridement Venous Ulcer (Cluster ) Right;Medial;Lower Leg Performed by: Edgardo Luo MD Authorized by: Edgardo Luo MD Associated wounds: Wound Venous Ulcer 06/29/25 Leg Right;Medial;Lower Consent: Consent obtained: Verbal Consent given by: Patient Risks discussed: Yes Time out: Immediately prior to the procedure a time out was called Debridement Details: Performed by: Physician Type: surgical Level: subcutaneous tissue Pain control: Lidocaine 4% Pain control administration: topical anesthesia Severity of Tissue Pre Debridement: Fat layer exposed Severity of Tissue Post Debridement: Fat layer exposed Time taken: 09/13/2025 9:27 AM Length (cm): 0.5 Width (cm): 0.7 Depth (cm): 0.1 Area (cm^2): 0.27 Time taken: 09/13/2025 9:28 AM Length (cm): 0.6 Width (cm): 0.7 Depth (cm): 0.1 Percent Debrided (%): 100 Surface Area (cm^2): 0.42 Area Debrided (cm^2): 0.42 Volume (cm^3): 0.04 Tissue and other material debrided: dermis, epidermis and subcutaneous tissue Devitalized tissue debrided: slough Instrument: Curette Amount of bleeding: small Hemostasis obtained with: Pressure Procedural pain: 0 Post-procedural pain: 0 Response to treatment: Procedure was tolerated well us Edgardo Luo MD IN CLINIC/BEDSIDE ORDERAB LES Final Result * Debridement Venous Ulcer Right;Lateral;Lower Leg (09/13/2025 9:15 AM EST) Edgardo Carson MD - 09/13/2025 9:15 AM EST Edgardo Luo MD 09/13/2025 9:56 AM Debridement Venous Ulcer Right;Lateral;Lower Leg Performed by: Edgardo Luo MD Authorized by: Edgardo Luo MD Associated wounds: Wound Venous Ulcer 06/29/25 Leg Right;Lateral;Lower Consent: Consent obtained: Verbal Consent given by: Patient Risks discussed: Yes Time out: Immediately prior to the procedure a time out was called Debridement Details: Performed by: Physician Type: surgical Level: subcutaneous tissue Pain control: Lidocaine 4% Pain control administration: topical anesthesia Severity of Tissue Pre Debridement: Fat layer exposed Severity of Tissue Post Debridement: Fat layer exposed Time taken: 09/13/2025 9:28 AM Length (cm): 3.1 Width (cm): 1.9 Depth (cm): 0.1 Area (cm^2): 4.63 Time taken: 09/13/2025 9:29 AM Length (cm): 3.1 Width (cm): 2 Depth (cm): 0.2 Percent Debrided (%): 100 Surface Area (cm^2): 6.2 Area Debrided (cm^2): 6.2 Volume (cm^3): 1.24 Tissue and other material debrided: dermis, epidermis and subcutaneous tissue Devitalized tissue debrided: slough Instrument: Curette Amount of bleeding: small Hemostasis obtained with: Pressure Procedural pain: 0 Post-procedural pain: 0 Response to treatment: Procedure was tolerated well us Edgardo Luo MD IN CLINIC/BEDSIDE ORDERAB LES Final Result * Wound Care Procedure 2 Wounds Associated (09/06/2025 9:17 AM EST) Edgardo Carson MD - 09/06/2025 9:17 AM EST Edgardo Luo MD 09/06/2025 9:36 AM Wound Care Procedure 2 Wounds Associated Date/Time: 09/06/2025 9:17 AM Performed by: Bibiana Bryant RN Authorized by: Edgardo Luo MD Associated wounds: Wound Venous Ulcer 06/29/25 Leg Right;Lateral;Lower Wound Venous Ulcer 06/29/25 Leg Right;Medial;Lower Consent: Consent obtained: Verbal Consent given by: Patient Risks, benefits, and alternatives were discussed: yes Risks discussed: Infection and pain Alternatives discussed: Delayed treatment Woodruff protocol: Procedure explained and questions answered to patient or proxy's satisfaction: yes Relevant documents present and verified: yes Patient identity confirmed: Verbally with patient Sedation: Sedation type: None Anesthesia: Anesthesia method: None Procedure details: Indications: open wounds Wound location: Leg Leg location: R lower leg Wound age (days): >14 Dressing: Dressing applied: Unna's boot Post-procedure details: Procedure completion: Tolerated Edgardo Luo MD IN CLINIC/BEDSIDE ORDERAB LES Final Result * Debridement Venous Ulcer (Cluster ) Right;Medial;Lower Leg (09/06/2025 8:30 AM EST) Edgardo Carson MD - 09/06/2025 8:30 AM EST Edgardo Luo MD 09/06/2025 9:36 AM Debridement Venous Ulcer (Cluster ) Right;Medial;Lower Leg Performed by: Edgardo Luo MD Authorized by: Edgardo Luo MD Associated wounds: Wound Venous Ulcer 06/29/25 Leg Right;Medial;Lower Consent: Consent obtained: Verbal Consent given by: Patient Risks discussed: Yes Time out: Immediately prior to the procedure a time out was called Debridement Details: Performed by: Physician Type: surgical Level: subcutaneous tissue Pain control: Lidocaine 4% Pain control administration: topical anesthesia Severity of Tissue Pre Debridement: Fat layer exposed Severity of Tissue Post Debridement: Fat layer exposed Time taken: 09/06/2025 8:47 AM Length (cm): 0.7 Width (cm): 1 Depth (cm): 0.1 Area (cm^2): 0.55 Time taken: 09/06/2025 8:48 AM Length (cm): 0.8 Width (cm): 1 Depth (cm): 0.2 Percent Debrided (%): 100 Surface Area (cm^2): 0.8 Area Debrided (cm^2): 0.8 Volume (cm^3): 0.16 Tissue and other material debrided: dermis, epidermis and subcutaneous tissue Devitalized tissue debrided: slough Instrument: Curette Amount of bleeding: small Hemostasis obtained with: Pressure Procedural pain: 0 Post-procedural pain: 0 Response to treatment: Procedure was tolerated well us Edgardo Luo MD IN CLINIC/BEDSIDE ORDERAB LES Final Result * Debridement Venous Ulcer Right;Lateral;Lower Leg (09/06/2025 8:30 AM EST) Edgardo Carson MD - 09/06/2025 8:30 AM EST Edgardo Luo MD 09/06/2025 9:36 AM Debridement Venous Ulcer Right;Lateral;Lower Leg Performed by: Edgardo Luo MD Authorized by: Edgardo Luo MD Associated wounds: Wound Venous Ulcer 06/29/25 Leg Right;Lateral;Lower Consent: Consent obtained: Verbal Consent given by: Patient Risks discussed: Yes Time out: Immediately prior to the procedure a time out was called Debridement Details: Performed by: Physician Type: surgical Level: subcutaneous tissue Pain control: Lidocaine 4% Pain control administration: topical anesthesia Severity of Tissue Pre Debridement: Fat layer exposed Severity of Tissue Post Debridement: Fat layer exposed Time taken: 09/06/2025 8:48 AM Length (cm): 3.1 (Cluster of 2) Width (cm): 2.2 Depth (cm): 0.1 Area (cm^2): 5.36 Time taken: 09/06/2025 8:49 AM Length (cm): 3.2 Width (cm): 2.2 Depth (cm): 0.2 Percent Debrided (%): 100 Surface Area (cm^2): 7.04 Area Debrided (cm^2): 7.04 Volume (cm^3): 1.41 Tissue and other material debrided: dermis, epidermis and subcutaneous tissue Devitalized tissue debrided: slough Instrument: Curette Amount of bleeding: small Hemostasis obtained with: Pressure Procedural pain: 0 Post-procedural pain: 0 Response to treatment: Procedure was tolerated well us Edgardo Luo MD IN CLINIC/BEDSIDE ORDERAB LES Final Result * Wound Care Procedure 2 Wounds Associated (08/31/2025 11:23 AM EDT) Narrative Edgardo Luo MD - 08/31/2025 11:23 AM EDT Edgardo Luo MD 09/04/2025 12:48 PM Wound Care Procedure 2 Wounds Associated Date/Time: 08/31/2025 11:23 AM Performed by: Ana Brown RN Authorized by: MARY Winslow Associated wounds: Wound Venous Ulcer 06/29/25 Leg Right;Lateral;Lower Wound Venous Ulcer 06/29/25 Leg Right;Medial;Lower Consent: Consent obtained: Verbal Consent given by: Patient Risks, benefits, and alternatives were discussed: yes Risks discussed: Infection and pain Alternatives discussed: Delayed treatment Woodruff protocol: Procedure explained and questions answered to patient or proxy's satisfaction: yes Relevant documents present and verified: yes Patient identity confirmed: Verbally with patient Sedation: Sedation type: None Anesthesia: Anesthesia method: None Procedure details: Indications: open wounds Wound location: Leg Leg location: R lower leg Wound age (days): >14 Dressing: Dressing applied: Unna's boot Post-procedure details: Procedure completion: Tolerated us Bautista HERNANDEZ IN CLINIC/BEDSIDE ORDERABLE S Final Result * Debridement Venous Ulcer (Cluster ) Right;Medial;Lower Leg (08/31/2025 10:30 AM EDT) Narrative Edgardo Luo MD - 08/31/2025 10:30 AM EDT Edgardo Luo MD 09/04/2025 12:48 PM Debridement Venous Ulcer (Cluster ) Right;Medial;Lower Leg Performed by: MARY Winslow Authorized by: MARY Winslow Associated wounds: Wound Venous Ulcer 06/29/25 Leg Right;Medial;Lower Consent: Consent obtained: Verbal Consent given by: Patient Risks discussed: Yes Time out: Immediately prior to the procedure a time out was called Debridement Details: Performed by: PA Type: surgical Level: subcutaneous tissue Pain control: Lidocaine 4% Severity of Tissue Pre Debridement: Fat layer exposed Severity of Tissue Post Debridement: Fat layer exposed Time taken: 08/31/2025 11:00 AM Length (cm): 1 Width (cm): 0.8 Depth (cm): 0.1 Area (cm^2): 0.8 Time taken: 08/31/2025 11:01 AM Length (cm): 1 Width (cm): 0.8 Depth (cm): 0.1 Percent Debrided (%): 75 Surface Area (cm^2): 0.8 Area Debrided (cm^2): 0.6 Volume (cm^3): 0.08 Tissue and other material debrided: subcutaneous tissue Devitalized tissue debrided: biofilm and slough Instrument: Curette Amount of bleeding: none Hemostasis obtained with: Not applicable Procedural pain: 0 Post-procedural pain: 0 Response to treatment: Procedure was tolerated well Bautista HERNANDEZ IN CLINIC/BEDSIDE ORDERABLE S Final Result * Debridement Venous Ulcer Right;Lateral;Lower Leg (08/31/2025 10:30 AM EDT) Edgardo Carson MD - 08/31/2025 10:30 AM EDT Edgardo Luo MD 09/04/2025 12:48 PM Debridement Venous Ulcer Right;Lateral;Lower Leg Performed by: MARY Winslow Authorized by: MARY Winslow Associated wounds: Wound Venous Ulcer 06/29/25 Leg Right;Lateral;Lower Consent: Consent obtained: Verbal Consent given by: Patient Risks discussed: Yes Time out: Immediately prior to the procedure a time out was called Debridement Details: Performed by: MARY Type: surgical Level: subcutaneous tissue Pain control: Lidocaine 4% Severity of Tissue Pre Debridement: Fat layer exposed Severity of Tissue Post Debridement: Fat layer exposed Time taken: 08/31/2025 11:01 AM Length (cm): 3.2 Width (cm): 2 Depth (cm): 0.2 Area (cm^2): 5.03 Time taken: 08/31/2025 11:02 AM Length (cm): 3.2 Width (cm): 2 Depth (cm): 0.2 Percent Debrided (%): 75 Surface Area (cm^2): 6.4 Area Debrided (cm^2): 4.8 Volume (cm^3): 1.28 Tissue and other material debrided: subcutaneous tissue Devitalized tissue debrided: slough Instrument: Curette Amount of bleeding: none Hemostasis obtained with: Not applicable Procedural pain: 0 Post-procedural pain: 0 Response to treatment: Procedure was tolerated well us Bautista HERNANDEZ IN CLINIC/BEDSIDE ORDERABLE S Final Result * Wound Care Procedure 2 Wounds Associated (08/24/2025 11:00 AM EDT) Edgardo Carson MD - 08/24/2025 11:00 AM EDT Edgardo Luo MD 08/28/2025 9:14 AM Wound Care Procedure 2 Wounds Associated Date/Time: 08/24/2025 11:00 AM Performed by: Clarisa Triplett RN Authorized by: MARY Winslow Associated wounds: Wound Venous Ulcer 06/29/25 Leg Right;Medial;Lower Wound Venous Ulcer 06/29/25 Leg Right;Lateral;Lower Consent: Consent obtained: Verbal Consent given by: Patient Risks, benefits, and alternatives were discussed: yes Risks discussed: Infection and pain Alternatives discussed: Delayed treatment Woodruff protocol: Procedure explained and questions answered to patient or proxy's satisfaction: yes Relevant documents present and verified: yes Patient identity confirmed: Verbally with patient Sedation: Sedation type: None Anesthesia: Anesthesia method: None Procedure details: Indications: open wounds Wound location: Leg Leg location: R lower leg Wound age (days): >14 Dressing: Dressing applied: Unna's boot Post-procedure details: Procedure completion: Tolerated us Bautista HERNANDEZ IN CLINIC/BEDSIDE ORDERABLE S Final Result * Debridement Venous Ulcer (Cluster ) Right;Medial;Lower Leg (08/24/2025 10:30 AM EDT) Edgardo Carson MD - 08/24/2025 10:30 AM EDT Edgardo Luo MD 08/28/2025 9:14 AM Debridement Venous Ulcer (Cluster ) Right;Medial;Lower Leg Performed by: MARY Winslow Authorized by: MARY Winslow Associated wounds: Wound Venous Ulcer 06/29/25 Leg Right;Medial;Lower Consent: Consent obtained: Verbal Consent given by: Patient Risks discussed: Yes Time out: Immediately prior to the procedure a time out was called Debridement Details: Performed by: PA Type: surgical Level: subcutaneous tissue Pain control: Lidocaine 4% Severity of Tissue Pre Debridement: Fat layer exposed Severity of Tissue Post Debridement: Fat layer exposed Time taken: 08/24/2025 10:48 AM Length (cm): 1.2 Width (cm): 1.4 Depth (cm): 0.1 Area (cm^2): 1.32 Time taken: 08/24/2025 10:49 AM Length (cm): 1.2 Width (cm): 1.4 Depth (cm): 0.1 Percent Debrided (%): 100 Surface Area (cm^2): 1.68 Area Debrided (cm^2): 1.68 Volume (cm^3): 0.17 Tissue and other material debrided: dermis, epidermis and subcutaneous tissue Devitalized tissue debrided: biofilm and slough Instrument: Curette Amount of bleeding: none Hemostasis obtained with: Not applicable Procedural pain: 0 Post-procedural pain: 0 Response to treatment: Procedure was tolerated well Bautista HERNANDEZ IN CLINIC/BEDSIDE ORDERABLE S Final Result * Debridement Venous Ulcer Right;Lateral;Lower Leg (08/24/2025 10:30 AM EDT) Edgardo Carson MD - 08/24/2025 10:30 AM EDT Edgardo Luo MD 08/28/2025 9:14 AM Debridement Venous Ulcer Right;Lateral;Lower Leg Performed by: MARY Winslow Authorized by: MARY Winslow Associated wounds: Wound Venous Ulcer 06/29/25 Leg Right;Lateral;Lower Consent: Consent obtained: Verbal Consent given by: Patient Risks discussed: Yes Time out: Immediately prior to the procedure a time out was called Debridement Details: Performed by: MARY Type: surgical Level: subcutaneous tissue Pain control: Lidocaine 4% Severity of Tissue Pre Debridement: Fat layer exposed Severity of Tissue Post Debridement: Fat layer exposed Time taken: 08/24/2025 10:49 AM Length (cm): 3 (Cluster of 2) Width (cm): 2.2 Depth (cm): 0.2 Area (cm^2): 5.18 Time taken: 08/24/2025 10:50 AM Length (cm): 3 Width (cm): 2.2 Depth (cm): 0.2 Percent Debrided (%): 100 Surface Area (cm^2): 6.6 Area Debrided (cm^2): 6.6 Volume (cm^3): 1.32 Tissue and other material debrided: dermis, epidermis and subcutaneous tissue Devitalized tissue debrided: biofilm and slough Instrument: Curette Amount of bleeding: none Hemostasis obtained with: Not applicable Procedural pain: 0 Post-procedural pain: 0 Response to treatment: Procedure was tolerated well us Bautista HERNANDEZ IN CLINIC/BEDSIDE ORDERABLE S Final Result * Wound Care Procedure 2 Wounds Associated (08/17/2025 10:25 AM EDT) Edgardo Carson MD - 08/17/2025 10:25 AM EDT Edgardo Luo MD 08/22/2025 8:38 AM Wound Care Procedure 2 Wounds Associated Date/Time: 08/17/2025 10:25 AM Performed by: Clarisa Triplett RN Authorized by: MARY Winslow Associated wounds: Wound Venous Ulcer 06/29/25 Leg Right;Lateral;Lower Wound Venous Ulcer 06/29/25 Leg Right;Medial;Lower Consent: Consent obtained: Verbal Consent given by: Patient Risks, benefits, and alternatives were discussed: yes Risks discussed: Infection and pain Alternatives discussed: Delayed treatment Woodruff protocol: Procedure explained and questions answered to patient or proxy's satisfaction: yes Relevant documents present and verified: yes Test results available: yes Patient identity confirmed: Verbally with patient Sedation: Sedation type: None Anesthesia: Anesthesia method: None Procedure details: Indications: open wounds Wound location: Leg Leg location: R lower leg Wound age (days): >14 Dressing: Dressing: unna boot compression. Post-procedure details: Procedure completion: Tolerated us Bautista HERNANDEZ IN CLINIC/BEDSIDE ORDERABLE S Final Result * Debridement Venous Ulcer (Cluster ) Right;Medial;Lower Leg (08/17/2025 10:00 AM EDT) Edgardo Carson MD - 08/17/2025 10:00 AM EDT Edgardo Luo MD 08/22/2025 8:38 AM Debridement Venous Ulcer (Cluster ) Right;Medial;Lower Leg Performed by: MARY Winslow Authorized by: MARY Winslow Associated wounds: Wound Venous Ulcer 06/29/25 Leg Right;Medial;Lower Consent: Consent obtained: Verbal Consent given by: Patient Risks discussed: Yes Time out: Immediately prior to the procedure a time out was called Debridement Details: Performed by: MARY Type: surgical Level: subcutaneous tissue Pain control: Lidocaine 4% Severity of Tissue Pre Debridement: Fat layer exposed Severity of Tissue Post Debridement: Fat layer exposed Time taken: 08/17/2025 10:16 AM Length (cm): 1.3 Width (cm): 1.5 Depth (cm): 0.1 Area (cm^2): 1.53 Time taken: 08/17/2025 10:17 AM Length (cm): 1.3 Width (cm): 1.5 Depth (cm): 0.1 Percent Debrided (%): 75 Surface Area (cm^2): 1.95 Area Debrided (cm^2): 1.46 Volume (cm^3): 0.2 Tissue and other material debrided: subcutaneous tissue Devitalized tissue debrided: biofilm and slough Instrument: Curette Amount of bleeding: none Hemostasis obtained with: Not applicable Procedural pain: 3 Post-procedural pain: 0 Response to treatment: Procedure was tolerated well us Bautista Aguirre PA IN CLINIC/BEDSIDE ORDERABLE S Final Result * Debridement Venous Ulcer Right;Lateral;Lower Leg (08/17/2025 10:00 AM EDT) Edgardo Carson MD - 08/17/2025 10:00 AM EDT Edgardo Luo MD 08/22/2025 8:38 AM Debridement Venous Ulcer Right;Lateral;Lower Leg Performed by: MARY Winslow Authorized by: MARY Winslow Associated wounds: Wound Venous Ulcer 06/29/25 Leg Right;Lateral;Lower Consent: Consent obtained: Verbal Consent given by: Patient Risks discussed: Yes Time out: Immediately prior to the procedure a time out was called Debridement Details: Performed by: PA Type: surgical Level: subcutaneous tissue Pain control: Lidocaine 4% Severity of Tissue Pre Debridement: Fat layer exposed Severity of Tissue Post Debridement: Fat layer exposed Time taken: 08/17/2025 10:14 AM Length (cm): 2.5 Width (cm): 2.2 Depth (cm): 0.2 Area (cm^2): 4.32 Time taken: 08/17/2025 10:15 AM Length (cm): 2.5 Width (cm): 2.2 Depth (cm): 0.2 Percent Debrided (%): 75 Surface Area (cm^2): 5.5 Area Debrided (cm^2): 4.13 Volume (cm^3): 1.1 Tissue and other material debrided: subcutaneous tissue Devitalized tissue debrided: biofilm and slough Instrument: Curette Amount of bleeding: none Hemostasis obtained with: Not applicable Procedural pain: 3 Post-procedural pain: 0 Response to treatment: Procedure was tolerated well Bautista HERNANDEZ IN CLINIC/BEDSIDE ORDERABLE S Final Result * Debridement Venous Ulcer Left;Anterior;Lower Leg (08/09/2025 9:30 AM EDT) Edgardo Carson MD - 08/09/2025 9:30 AM EDT Edgardo Luo MD 08/17/2025 10:03 AM Debridement Venous Ulcer Left;Anterior;Lower Leg Performed by: Edgardo Luo MD Authorized by: Edgardo Luo MD Associated wounds: Wound Venous Ulcer 06/29/25 Leg Left;Anterior;Lower Consent: Consent obtained: Verbal Consent given by: Patient Risks discussed: Yes Time out: Immediately prior to the procedure a time out was called Debridement Details: Performed by: Physician Type: conservative sharp Pain control: Lidocaine 4% Pain control administration: topical anesthesia Severity of Tissue Pre Debridement: Limited to breakdown of skin Severity of Tissue Post Debridement: Limited to breakdown of skin Time taken: 08/09/2025 9:42 AM Length (cm): 0.6 Width (cm): 0.7 Depth (cm): 0.1 Area (cm^2): 0.42 Time taken: 08/09/2025 9:43 AM Length (cm): 0.6 Width (cm): 0.7 Depth (cm): 0.1 Percent Debrided (%): 100 Surface Area (cm^2): 0.42 Area Debrided (cm^2): 0.42 Volume (cm^3): 0.04 Tissue and other material debrided: dermis and epidermis Devitalized tissue debrided: callus, exudate and slough Instrument: Curette Amount of bleeding: small Hemostasis obtained with: Pressure Procedural pain: 0 Post-procedural pain: 0 Response to treatment: Procedure was tolerated well us Edgardo Luo MD IN CLINIC/BEDSIDE ORDERAB LES Final Result * Debridement Venous Ulcer (Cluster ) Right;Medial;Lower Leg (08/09/2025 9:30 AM EDT) Edgardo Carson MD - 08/09/2025 9:30 AM EDT Edgardo Luo MD 08/17/2025 10:03 AM Debridement Venous Ulcer (Cluster ) Right;Medial;Lower Leg Performed by: Edgardo Luo MD Authorized by: Edgardo Luo MD Associated wounds: Wound Venous Ulcer 06/29/25 Leg Right;Medial;Lower Consent: Consent obtained: Verbal Consent given by: Patient Risks discussed: Yes Time out: Immediately prior to the procedure a time out was called Debridement Details: Performed by: Physician Type: surgical Level: subcutaneous tissue Pain control: Lidocaine 4% Pain control administration: topical anesthesia Severity of Tissue Pre Debridement: Fat layer exposed Severity of Tissue Post Debridement: Fat layer exposed Time taken: 08/09/2025 9:43 AM Length (cm): 1.4 Width (cm): 1.8 Depth (cm): 0.1 Area (cm^2): 2.52 Time taken: 08/09/2025 9:44 AM Length (cm): 1.5 Width (cm): 1.8 Depth (cm): 0.1 Percent Debrided (%): 100 Surface Area (cm^2): 2.7 Area Debrided (cm^2): 2.7 Volume (cm^3): 0.27 Tissue and other material debrided: dermis, epidermis and subcutaneous tissue Devitalized tissue debrided: exudate, fibrin and slough Instrument: Curette Amount of bleeding: small Hemostasis obtained with: Pressure Procedural pain: 0 Post-procedural pain: 0 Response to treatment: Procedure was tolerated well Edgardo Luo MD IN CLINIC/BEDSIDE ORDERAB LES Final Result * Debridement Venous Ulcer Right;Lateral;Lower Leg (08/09/2025 9:30 AM EDT) Edgardo Carson MD - 08/09/2025 9:30 AM EDT Edgardo Luo MD 08/17/2025 10:03 AM Debridement Venous Ulcer Right;Lateral;Lower Leg Performed by: Edgardo Luo MD Authorized by: Edgardo Luo MD Associated wounds: Wound Venous Ulcer 06/29/25 Leg Right;Lateral;Lower Consent: Consent obtained: Verbal Consent given by: Patient Risks discussed: Yes Time out: Immediately prior to the procedure a time out was called Debridement Details: Performed by: Physician Type: surgical Level: subcutaneous tissue Pain control: Lidocaine 4% Pain control administration: topical anesthesia Severity of Tissue Pre Debridement: Fat layer exposed Severity of Tissue Post Debridement: Fat layer exposed Time taken: 08/09/2025 9:44 AM Length (cm): 4.5 (Cluster of 3) Width (cm): 3.1 Depth (cm): 0.1 Area (cm^2): 13.95 Time taken: 08/09/2025 9:45 AM Length (cm): 4.5 Width (cm): 3.2 Depth (cm): 0.2 Percent Debrided (%): 75 Surface Area (cm^2): 14.4 Area Debrided (cm^2): 10.8 Volume (cm^3): 2.88 Tissue and other material debrided: dermis, epidermis and subcutaneous tissue Devitalized tissue debrided: exudate, fibrin and slough Instrument: Curette Amount of bleeding: small Hemostasis obtained with: Pressure Procedural pain: 0 Post-procedural pain: 0 Response to treatment: Procedure was tolerated well Edgardo Luo MD IN CLINIC/BEDSIDE ORDERAB LES Final Result * Debridement Venous Ulcer (Cluster ) Right;Medial;Lower Leg (08/02/2025 11:30 AM EDT) Edgardo Carson MD - 08/02/2025 11:30 AM EDT Edgardo Luo MD 08/09/2025 11:16 AM Debridement Venous Ulcer (Cluster ) Right;Medial;Lower Leg Performed by: MARY Winslow Authorized by: MARY Winslow Associated wounds: Wound Venous Ulcer 06/29/25 Leg Right;Medial;Lower Consent: Consent obtained: Verbal Consent given by: Patient Risks discussed: Yes Time out: Immediately prior to the procedure a time out was called Debridement Details: Performed by: MARY Type: surgical Level: subcutaneous tissue Pain control: Lidocaine 4% Pain control administration: topical anesthesia Severity of Tissue Pre Debridement: Fat layer exposed Severity of Tissue Post Debridement: Fat layer exposed Time taken: 08/02/2025 11:38 AM Length (cm): 1.4 Width (cm): 2 Depth (cm): 0.1 Area (cm^2): 2.2 Time taken: 08/02/2025 11:39 AM Length (cm): 1.4 Width (cm): 2 Depth (cm): 0.1 Percent Debrided (%): 100 Surface Area (cm^2): 2.8 Area Debrided (cm^2): 2.8 Volume (cm^3): 0.28 Tissue and other material debrided: dermis, epidermis and subcutaneous tissue Devitalized tissue debrided: biofilm and slough Instrument: Curette Amount of bleeding: none Hemostasis obtained with: Not applicable Procedural pain: 4 Post-procedural pain: 0 Response to treatment: Procedure was tolerated well Bautista HERNANDEZ IN CLINIC/BEDSIDE ORDERABLE S Final Result * Debridement Venous Ulcer Right;Lateral;Lower Leg (08/02/2025 11:30 AM EDT) Edgardo Carson MD - 08/02/2025 11:30 AM EDT Edgardo Luo MD 08/09/2025 11:16 AM Debridement Venous Ulcer Right;Lateral;Lower Leg Performed by: MARY Winslow Authorized by: MARY Winslow Associated wounds: Wound Venous Ulcer 06/29/25 Leg Right;Lateral;Lower Consent: Consent obtained: Verbal Consent given by: Patient Risks discussed: Yes Time out: Immediately prior to the procedure a time out was called Debridement Details: Performed by: MARY Type: surgical Level: subcutaneous tissue Pain control: Lidocaine 4% Pain control administration: topical anesthesia Severity of Tissue Pre Debridement: Fat layer exposed Severity of Tissue Post Debridement: Fat layer exposed Time taken: 08/02/2025 11:40 AM Length (cm): 4.3 (Cluster of 2) Width (cm): 3.5 Depth (cm): 0.1 Area (cm^2): 11.82 Time taken: 08/02/2025 11:41 AM Length (cm): 4.3 Width (cm): 3.5 Depth (cm): 0.1 Percent Debrided (%): 100 Surface Area (cm^2): 15.05 Area Debrided (cm^2): 15.05 Volume (cm^3): 1.51 Tissue and other material debrided: dermis, epidermis and subcutaneous tissue Devitalized tissue debrided: biofilm and slough Instrument: Curette Amount of bleeding: none Hemostasis obtained with: Not applicable Procedural pain: 4 Post-procedural pain: 0 Response to treatment: Procedure was tolerated well us Bautista HERNANDEZ IN CLINIC/BEDSIDE ORDERABLE S Final Result * Debridement Venous Ulcer (Cluster ) Right;Medial;Lower Leg (07/26/2025 11:00 AM EDT) Edgardo Carson MD - 07/26/2025 11:00 AM EDT Edgardo Luo MD 08/09/2025 8:37 AM Debridement Venous Ulcer (Cluster ) Right;Medial;Lower Leg Performed by: MARY Winslow Authorized by: MARY Winslow Associated wounds: Wound Venous Ulcer 06/29/25 Leg Right;Medial;Lower Consent: Consent obtained: Verbal Consent given by: Patient Risks discussed: Yes Time out: Immediately prior to the procedure a time out was called Debridement Details: Performed by: MARY Type: surgical Level: subcutaneous tissue Pain control: Lidocaine 4% Severity of Tissue Pre Debridement: Fat layer exposed Severity of Tissue Post Debridement: Fat layer exposed Length (cm): 2.2 (Cluster of 3) Width (cm): 2.4 Depth (cm): 0.1 Area (cm^2): 5.28 Length (cm): 2.2 Width (cm): 2.4 Depth (cm): 0.1 Percent Debrided (%): 90 Surface Area (cm^2): 5.28 Area Debrided (cm^2): 4.75 Volume (cm^3): 0.53 Tissue and other material debrided: dermis, epidermis and subcutaneous tissue Devitalized tissue debrided: biofilm and slough Instrument: Curette Amount of bleeding: none Hemostasis obtained with: Not applicable Procedural pain: 0 Post-procedural pain: 0 Response to treatment: Procedure was tolerated well Bautista HERNANDEZ IN CLINIC/BEDSIDE ORDERABLE S Final Result * Debridement Venous Ulcer Right;Lateral;Lower Leg (07/26/2025 11:00 AM EDT) Edgardo Carson MD - 07/26/2025 11:00 AM EDT Edgardo Luo MD 08/09/2025 8:37 AM Debridement Venous Ulcer Right;Lateral;Lower Leg Performed by: MARY Winslow Authorized by: MARY Winslow Associated wounds: Wound Venous Ulcer 06/29/25 Leg Right;Lateral;Lower Consent: Consent obtained: Verbal Consent given by: Patient Risks discussed: Yes Time out: Immediately prior to the procedure a time out was called Debridement Details: Performed by: MARY Type: surgical Level: subcutaneous tissue Pain control: Lidocaine 4% Severity of Tissue Pre Debridement: Fat layer exposed Severity of Tissue Post Debridement: Fat layer exposed Length (cm): 4.7 (Cluster of 3) Width (cm): 3.8 Depth (cm): 0.1 Area (cm^2): 17.86 Length (cm): 4.7 Width (cm): 3.8 Depth (cm): 0.1 Percent Debrided (%): 100 Surface Area (cm^2): 17.86 Area Debrided (cm^2): 17.86 Volume (cm^3): 1.79 Tissue and other material debrided: dermis, epidermis and subcutaneous tissue Devitalized tissue debrided: biofilm and slough Instrument: Curette Amount of bleeding: none Hemostasis obtained with: Not applicable Procedural pain: 0 Post-procedural pain: 0 Response to treatment: Procedure was tolerated well us Bautista HERNANDEZ IN CLINIC/BEDSIDE ORDERABLE S Final Result * (ABNORMAL) Hemoglobin A1c (05/25/2025 10:29 AM EDT) Hemoglobin A1C 10.9(H) <6.5 % LAB CHEMISTRY METHOD 05/25/2025 2:30 PM EDT [facility] Mean Bld Glu Estim. 266 mg/dL LAB CHEMISTRY METHOD 05/25/2025 2:30 PM EDT [facility] Blood Venous blood specimen / Unknown Venipuncture / Unknown 05/25/2025 10:29 AM EDT 05/25/2025 10:29 AM EDT us Jennifer HERNANDEZ LAB BLOOD ORDERABLES Final Re sult [facility]) [facility] [address] [place] [address], [place] [phone] * MG Mammo Digital Diagnostic w Neto Right (02/27/2025 3:30 PM EDT) Anatomical Region Laterality Modality Breast Right Mammography 02/27/2025 3:32 PM EDT Impressions 02/27/2025 3:56 PM EDT 1. No mammographic evidence of malignancy 2. Scattered fibroglandular tissue Findings and recommendations were conveyed to the patient. BI-RADS CATEGORY: 2 - BENIGN RECOMMENDATION: Return to annual mammography. Return to annual mammography. Mammo Location: [facility], [address] [place] [address], [id number], . -------- FINAL REPORT -------- Dictated By: Mandi Desai Dictated Date: 02/27/2025 15:32 ET Assigned Physician: Mandi Desai Reviewed and Electronically Signed By: Mandi Desai Signed Date: 02/27/2025 15:56 ET Workstation ID: [id number] Transcribed By: Self Edit Transcribed Date: 02/27/2025 [...] in area of mammographic concern Procedure Note Mnadi Desai MD - 02/27/2025 RIGHTDIGITAL DIAGNOSTIC 3D [...] mammography. Return to annual mammography. Mammo Location: [facility], [address] [place] [address], [phone], . -------- FINAL REPORT -------- Dictated By: Mandi Desai Dictated Date: 02/27/2025 15:32 ET Assigned Physician: Mandi Desai Reviewed and Electronically Signed By: Mandi Desai Signed Date: 02/27/2025 15:56 ET Workstation ID: [id number] Transcribed By: Self Edit Transcribed Date: 02/27/2025 15:50 ET Mandi Newsome MD IMG BI PROCEDURE S Final Result * Microalbumin creatinine urine ratio (02/22/2025 12:29 PM EDT) Creatinine, Urine 68.0 mg/dL LAB CHEMISTRY METHOD 02/22/2025 4:12 PM EDT [facility] Microalb, Ur 11.2 0.0 - 29.0 mg/L LAB CHEMISTRY METHOD 02/22/2025 4:12 PM EDT [facility] Microalb/Creat Ratio 16 <30 mg/g creat LAB CHEMISTRY METHOD 02/22/2025 4:12 PM EDT [facility] Urine Urine specimen obtained by clean catch procedure / Unknown Non-blood Collection / Unknown 02/22/2025 12:29 PM EDT 02/22/2025 12:29 PM EDT Mandi Newsome MD LAB URINE ORDERA BLES Final Result [facility] [address] [place] [address], [place] [phone] * Hepatitis C antibody (02/22/2025 10:45 AM EDT) Hepatitis C Antibody Negative Negative LAB CHEMISTRY METHOD 02/22/2025 3:20 PM EDT [facility] Blood Venous blood specimen / Unknown Venipuncture / Unknown 02/22/2025 10:45 AM EDT 02/22/2025 10:45 AM EDT Mandi Newsome MD LAB BLOOD ORDERA BLES Final Result Performing Organization Address City/[facility]/ZIP Co de Phone Number [facility]) [facility] [address] [place] [address], [place] [phone] * Pap smear (05/22/2021) 05/22/2021 Narrative HISTORICAL TESTING LAB RESULTING AGENCY - 05/26/2021 12:40 PM EDT [id number] THINPREP PAP, IMAGED: NEGATIVE FOR SQUAMOUS INTRAEPITHELIAL [...] PAP HX NEG [Z12.4, Z01.419] Millie Ramirez CNM LAB CYTOLOGY ORDERABLES Final [...] Onset Date Last Indicated MRSA 01/30/2025 07/13/2025 Insurance [facility] Advance Directives Documents on File Type Date Recorded Patient Economic Analyst Expl anation Health Care Decision (hx) 04/21/2021 [...] DIRECTIVE Health Care Decision (hx) 04/21/2021 AD LMA DIRECTIVE Health Care Decision (hx) 04/21/2021 AD [...] (hx) 04/21/2021 AD LAM DIRECTIVE Care Teams Setup Operator Relationship Specialty Start Date End Date Mandi Newsome MD [address] [place] [address] PCP - General Internal Medicine 05/18/22
--- OUTSIDE RECORDS SUMMARY | 2025-10-19 11:50 | XMS_ITS | Encounter Summary ---
Author Organization [facility] Prior to 09/01/2024 Address [address] [place] [address] Care Team Providers Care Supervisor Grounds Name Role Phone Lorelei Richards MD Primary Care Provider Unavailable Michael Martinez MD Primary Care Provider Lorelei Aguiar MD Primary Care Provider Unavailable Michael Martinez MD Primary Care Provider Ethel Cuenca DNP Unavailable [phone] Yan Handy MD Unavailable [phone] Shree Castro MD Unavailable Mandi Newsome MD Primary Care Provider + Haydee Cates NP Unavailable [phone] Encounter Details Date Type Department Care Team Description 01/09/2011 Electric Tape Slitter Report Medical Records [address] [place] [id number] Keri Palomo MD Social History Tobacco Use Types Packs/Day Years Used Date Smoking Tobacco: Never Alcohol Use Standard Drinks/Week Comments [...] filedocumented in this encounter Care Teams Supervisor Grounds Relationship Specialty Start Date End Date Lorelei Richards MD PCP - General 01/11/07 08/25/11 Michael Martinez MD PCP - General Internal Medicine 08/26/11 08/31/11 Belkis-Lorelei David MD PCP - General Internal Medicine 09/01/11 10/15/11 Michael Martinez MD PCP - General Internal Medicine 10/16/11 05/17/22 Mandi Newsome MD [address] [place] [address] PCP - General Internal Medicine 05/18/22 Ethel Avilez DNP Specialist Cardiology 06/03/21 08/03/21 Yan Handy MD Specialist Cardiology 08/04/21 08/04/21 Shree Castro MD [address] [place] [address] [address] [place] [address] [place] [employer] Officer Cardiovascular Disease 09/08/21 Haydee Cates NP [address] [place] [address] Nurse Practitioner Cardiology 04/28/22 documented as of this encounter
--- OUTSIDE RECORDS SUMMARY | 2025-10-19 11:50 | XMS_ITS | Encounter Summary ---
Author Organization [facility] Prior to 09/01/2024 Address [address] [place] [address] Care Team Providers Care Back Tender Pulp Drier Name Role Phone Shree Castro MD Unavailable [phone] Mandi Newsome MD Primary Care Provider + Haydee Cates NP Unavailable [phone] Encounter Details Date Type Department Care Team Description 09/30/2023 Orders Only Medical Records [address] [place] [address] Flaquito Sanchez MD Social History Tobacco Use Types Packs/Day [...] Recorded In the last 10 days, have felicitas u been in contact with someone who was confirmed or suspected to have Coronavirus/COVID-19? No / Unsure 09/14/2023 8:54 AM EST documented as of this encounter Plan of Treatment Not on file documented as of this encounter Procedures Procedure Name Priority Date/Time Associated Diagnosis Comments OUTSIDE LAB Routine 08/19/2023 OUTSIDE VASCULAR STUDY Routine 08/18/2023 OUTSIDE EKG Routine 08/17/2023 OUTSIDE PLAIN FILM Routine 08/17/2023 documented in this encounter Results * OUTSIDE LAB (08/19/2023) [facility] * OUTSIDE VASCULAR STUDY (08/18/2023) Flaquito Sanchez MD CARDIOLOGY * OUTSIDE PLAIN FILM (08/17/2023) [facility] RADIOLOGY * OUTSIDE EKG (08/17/2023) [facility] CARDIOLOGY documented in this encounter Visit Diagnoses Not on filedocumented in this encounter Care Teams Back Tender Pulp Drier Relationship Specialty Start Date End Date Mandi Newsome MD [address] [place] [address] [phone] PCP - General Internal Medicine 05/18/22 Shree Castro MD [address] [place] [address] [address] [place] [address] Die Equipment Operator Cardiovascular Disease 09/08/21 Haydee Cates NP [address] [place] [address] Nurse Practitioner Cardiology 04/28/22 documented as of this encounter
--- OUTSIDE RECORDS SUMMARY | 2025-10-19 11:50 | XMS_ITS | Clinical Summary ---
Author Organization [facility] Prior to 03/31/[address] [place] [address] Care Team Providers Care Contact Lens Curve Grinder Name Role Phone Mandi Newsome MD Primary [...] age to complete this topic Care Teams Contact Lens Curve Grinder Relationship Specialty Start Date End Date Mandi Newsome MD [address] [place] [address] PCP - General 06/16/24
--- OUTSIDE RECORDS SUMMARY | 2025-10-19 11:50 | XMS_ITS | Encounter Summary ---
Author Organization [facility] Address [address] [facility] [address] [place] [address] Phone Care Team Providers Care Ibm Websphere Commerce Consultant Name Role Phone Mandi Newsome MD Primary Care Pr ovider Encounter Details Date Type Department Care Team ([facility] st Contact Info) Description 09/25/2025 Prep for Surgery [facility] [address] [place] [address] Phillip Selby MD [address] [place] [address] [email or web address] NVG (neovascular glaucoma), right, stage unspecified (Primary Dx) Social History Tobacco Use Types [...] Visit [facility] [address] [address] Latha Smith MD [address] [place] [address] [email or web address] [facility] documented as of this encounter Goals Goal Patient Goal Type Associated Problems Recent Progress Patient-Stated? Author Autogenera jess Goal Care Plan Autogenerated Problem No Polly Kohli RN documented as of this encounter Visit Diagnoses Diagnosis NVG (neovascular glaucoma), right, stage unspecified- Primary documented in this encounter Additional Health Concerns Active Problems Noted Date Diagnosed Date Autogenerated Problem 09/25/2025 documented as of this encounter Care Teams Ibm Websphere Commerce Consultant Relationship Specialty Start Date End Date Mandi Newsome MD [address] [place] [phone] PCP - General 09/24/25 documented as of this encounter Additional Source Comments The information contained in this document represents components of the legal health record. It is not the complete legal health record.[facility]
--- OUTSIDE RECORDS SUMMARY | 2025-10-19 11:50 | XMS_ITS | Encounter Summary ---
Author Organization [facility] Address [address] [facility] [address] [place] [address] Phone Care Team Providers Care Seating Upholsterer Name Role Phone Mandi Newsome MD Primary Care Pr ovider Encounter Details Date Type Department Care Team ([facility] st Contact Info) Description 09/25/2025 Procedure Pass [facility] PERIOP DEPT [address] [place] [address] Social History Tobacco Use Types Packs/Day Years [...] [facility] [address] [place] [address] Latha Smith MD [address] [place] [address] [email or web address]. [facility] documented as of this encounter Goals Goal Patient Goal Type Associated Problems Recent Progress Patient-Stated? Author Autogenera jess Goal Care Plan Autogenerated Problem No Polly Kohli RN documented as of this encounter Visit Diagnoses Not on filedocumented in this encounter Additional Health Concerns Active Problems Noted Date Diagnosed Date Autogenerated Problem 09/25/2025 documented as of this encounter Care Teams Seating Upholsterer Relationship Specialty Start Date End Date Mandi Newsome MD [address] [place] [phone] PCP - General 09/24/25 documented as of this encounter Additional Source Comments The information contained in this document represents components of the legal health record. It is not the complete legal health record.[facility]
--- OUTSIDE RECORDS SUMMARY | 2025-10-19 11:50 | XMS_ITS | Encounter Summary ---
Author Organization [facility] Prior to 09/01/2024 Address [address] [place] [address] Care Team Providers Care Service Line Layer Name Role Phone Lorelei Richards MD Primary Care Provider Unavailable Michael Martinez MD Primary Care Provider Lorelei Aguiar MD Primary Care Provider Unavailable Michael Martinez MD Primary Care Provider Ethel Cuenca DNP Unavailable [phone] Yan Handy MD Unavailable [phone] Shree Castro MD Unavailable [phone] Mandi Newsome MD Primary Care Provider + Haydee Cates NP Unavailable [phone] Encounter Details Date Type Department Care Team Description 05/12/2011 Recovery Coach Report Medical Records [address] [place] [address] Molly Ewing MD Social History Tobacco Use Types Packs/Day [...] on filedocumented in this encounter Care Teams Service Line Layer Relationship Specialty Start Date End Date Lorelei Richards MD PCP - General 01/11/07 08/25/11 Michael Martinez MD PCP - General Internal Medicine 08/26/11 08/31/11 Belkis-Lorelei David MD PCP - General Internal Medicine 09/01/11 10/15/11 Audrey Martinez-MD Shekhar PCP - General Internal Medicine 10/16/11 05/17/22 Mandi Newsome MD [address] [place] [address] PCP - General Internal Medicine 05/18/22 Ethel Avilez DNP Specialist Cardiology 06/03/21 08/03/21 Yan Handy MD Specialist Cardiology 08/04/21 08/04/21 Shree Castro MD [address] [place] [address] [address] [place] [address] Drill Doctor Cardiovascular Disease 09/08/21 Haydee Cates NP [address] [place] [address] Nurse Practitioner Cardiology 04/28/22 documented as of this encounter
--- OUTSIDE RECORDS SUMMARY | 2025-10-19 11:50 | XMS_ITS | Encounter Summary ---
Author Organization [facility] Prior to 09/01/2024 Address [address] [place] [address] Care Team Providers Care Gas Meter Checker Name Role Phone Michael Martinez MD Primary Care Provider Ethel Cuenca DNP Unavailable [phone] Yan Handy MD Unavailable [phone] Shree Castro MD Unavailable [phone] Mandi Newsome MD Primary Care Provider + Haydee Cates CONSOLIDATION ACCOUNTANT Unavailable [phone] Encounter Details Date Type Department Care Team Description 06/25/2021 [facility] Director Report Medical Records [address] [place] [address] Angela Lott MD Social History Tobacco Use Types Packs/Day [...] PM EDT documented as of this encounter Plan of Treatment Not on file documented as of this encounter Visit Diagnoses Not on filedocumented in this encounter Care Teams Gas Meter Checker Relationship Specialty Start Date End Date Michael Martinez MD PCP - General Internal Medicine 10/16/11 05/17/22 Mandi Newsome MD [address] [place] [address] PCP - General Internal Medicine 05/18/22 Ethel Avilez DNP Specialist Cardiology 06/03/21 08/03/21 Yan Handy MD Specialist Cardiology 08/04/21 08/04/21 Shree Castro MD [address] [place] [address] [address] [place] [address] Mill Labor Supervisor Cardiovascular Disease 09/08/21 Haydee Cates NP [address] [place] [address] Nurse Practitioner Cardiology 04/28/22 documented as of this encounter
--- OUTSIDE RECORDS SUMMARY | 2025-10-19 11:50 | XMS_ITS | Encounter Summary ---
Author Organization [facility] Prior to 09/01/2024 Address [address] [place] [address] Care Team Providers Care Labor Relations Manager Name Role Phone Shree Castro MD Unavailable [phone] Mandi Newsome MD Primary Care Provider + Haydee Cates NP Unavailable [phone] Encounter Details Date Type Department Care Team Description 10/07/2023 Puttying And Calking Supervisor Report Medical Records [address] [place] [address] Flaquito Sanchez MD Social History Tobacco Use [...] on filedocumented in this encounter Care Teams Labor Relations Manager Relationship Specialty Start Date End Date Mandi Newsome MD [address] [place] [address] [phone] PCP - General Internal Medicine 05/18/22 Shree Castro MD [address] [place] [address] [place] [address] Locum Tenens Psychiatrist Cardiovascular Disease 09/08/21 Haydee Cates NP [address] [place] [address] Nurse Practitioner Cardiology 04/28/22 documented as of this encounter
--- OUTSIDE RECORDS SUMMARY | 2025-10-19 11:50 | XMS_ITS | Encounter Summary ---
Author Organization [facility] Prior to 09/01/2024 Address [address] [place] [address] Care Team Providers Care International Organizer Name Role Phone Shree Castro MD Unavailable [phone] Mandi Newsome MD Primary Care Provider + Haydee Cates NP Unavailable [phone] Encounter Details Date Type Department Care Team Description 05/10/2023 Pt. Non Urgent Medical Question Adult Medicine [address] [address] Mandi Newsome MD [address] [place] [address] [phone] Social History Tobacco Use Types Packs/Day Years [...] Telephone Encounter - Rosamaria Mathew M.A. - 05/10/2023 10:14 AM EDTFrom: Gabriela Michael To: Angelito Newsome Sent: 05/10/2023 9:14 AM EDT Subject: [facility] services I still need there services. I received a letter that there services ended 01/19/24. Can't walk to much, can't go up and down stairs, can grab everything falls, can't reach with my left hand. My physical was change from today to 05/14/23 @11. documented in this encounter Plan of Treatment Not on file documented as of this encounter Visit Diagnoses Not on filedocumented in this encounter Care Teams International Organizer Relationship Specialty Start Date End Date Mandi Newsome MD [address] [place] [address] PCP - General Internal Medicine 05/18/22 Shree Castro MD [address] [place] [address] [address] [place] [address] Repertoire Manager Cardiovascular Disease 09/08/21 Haydee Cates NP [address] [place] [address] Nurse Practitioner Cardiology 04/28/22 documented as of this encounter
--- OUTSIDE RECORDS SUMMARY | 2025-10-19 11:50 | XMS_ITS | Encounter Summary ---
Author Organization [employer] [facility] Prior to 09/01/2024 Address [address] [place] [address] Care Team Providers Care Supervisor Cold Rolling Name Role Phone Lorelei Richards MD Primary Care Provider Unavailable Michael Martinez MD Primary Care Provider Lorelei Aguiar MD Primary Care Provider Unavailable Michael Martinez MD Primary Care Provider Ethel Cuenca DNP Unavailable [phone] Yan Handy MD Unavailable Shree Castro MD Unavailable [phone] Mandi Newsome MD Primary Care Provider + Haydee Cates NP Unavailable [phone] Encounter Details Date Type Department Care Team Description 07/11/2011 Hospital Medical Records [address] [place] [id number] [place] [address] Social History Tobacco Use Types Packs/Day Years [...] filedocumented in this encounter Care Teams Supervisor Cold Rolling Relationship Specialty Start Date End Date Lorelei Richards MD PCP - General 01/11/07 08/25/11 Michael Martinez MD PCP - General Internal Medicine 08/26/11 08/31/11 Belkis-Lorelei David MD PCP - General Internal Medicine 09/01/11 10/15/11 Audrey Martinez-MD Shekhar PCP - General Internal Medicine 10/16/11 05/17/22 Mandi Newsome MD [address] [place] [address] PCP - General Internal Medicine 05/18/22 Ethel Avilez DNP Specialist Cardiology 06/03/21 08/03/21 Yan Handy MD Specialist Cardiology 08/04/21 08/04/21 Shree Castro MD [address] [place] [address] [address] [place] [address] Machine Zipper Trimmer Cardiovascular Disease 09/08/21 Haydee Cates NP [address] [place] [address] Nurse Practitioner Cardiology 04/28/22 documented as of this encounter
--- OUTSIDE RECORDS SUMMARY | 2025-10-19 11:50 | XMS_ITS | Encounter Summary ---
Author Organization [employer] [facility] Prior to 09/01/2024 Address [address] [place] [address] Care Team Providers Care Product Safety Specialist Name Role Phone Michael Martinez MD Primary Care Provider Ethel Cuenca DNP Unavailable [phone] Yan Handy MD Unavailable [phone] Shree Castro MD Unavailable [phone] Mandi Newsome MD Primary Care Provider + Haydee Cates NP Unavailable [phone] Encounter Details Date Type Department Care Team Description 07/04/2021 [facility] Medical Records [address] [place] [address] Social History Tobacco Use Types Packs/Day Years [...] Date/Time Associated Diagnosis Comments OUTSIDE ECHO Routine 07/04/2021 OUTSIDE ECHO Routine 06/18/2021 documented in this encounter Results * OUTSIDE ECHO (07/04/2021) Provider Abstract CARDIOLOGY * OUTSIDE ECHO (06/18/2021) Provider Abstract CARDIOLOGY documented in this encounter Visit Diagnoses Not on filedocumented in this encounter Care Teams Product Safety Specialist Relationship Specialty Start Date End Date Michael Martinez MD PCP - General Internal Medicine 10/16/11 05/17/22 Mandi Newsome MD [address] [place] [address] PCP - General Internal Medicine 05/18/22 Ethel Avilez DNP Specialist Cardiology 06/03/21 08/03/21 Yan Handy MD Specialist Cardiology 08/04/21 08/04/21 Shree Castro MD [address] [place] [address] [address] [place] [address] Farmworker Egg Producing Farm Cardiovascular Disease 09/08/21 Haydee Cates NP [address] [place] [address] [phone] Nurse Practitioner Cardiology 04/28/22 documented as of this encounter
--- OUTSIDE RECORDS SUMMARY | 2025-10-19 11:50 | XMS_ITS | Encounter Summary ---
Author Organization [facility] Prior to 09/01/2024 Address [address] [place] [address] Care Team Providers Care Press Operator Name Role Phone Shree Castro MD Unavailable [phone] Mandi Newsome MD Primary Care Provider + Haydee Cates NP Unavailable [phone] Encounter Details Date Type Department Care Team Description 05/29/2023 Pt. Non Urgent Medical Question [facility] Medical [facility] [address] [phone] Enzo Shi DPM [address] [address] Social History Tobacco Use Types Packs/Day Years [...] suspected to have Coronavirus/COVID-19? No / Unsure 05/27/2023 10:53 AM EDT documented as of this encounter Plan of Treatment Not on file documented as of this encounter Visit Diagnoses Not on filedocumented in this encounter Care Teams Press Operator Relationship Specialty Start Date End Date Mandi Newsome MD [address] [place] [address] [place] [address] PCP - General Internal Medicine 05/18/22 Shree Castro MD [address] [place] [address] [address] [place] [address] Braille Typist Cardiovascular Disease 09/08/21 Haydee Cates, EDWARD [address] [place] [address] Nurse Practitioner Cardiology 04/28/22 documented as of this encounter
--- OUTSIDE RECORDS SUMMARY | 2025-10-19 11:50 | XMS_ITS | Encounter Summary ---
Author Organization [facility] Prior to 09/01/2024 Address [address] [place] [address] Care Team Providers Care Expeditionary Fighting Vehicle Crewman Name Role Phone Shree Castro MD Unavailable [phone] Mandi Newsome MD Primary Care Provider + Haydee Cates NP Unavailable [phone] Encounter Details Date Type Department Care Team Description 06/16/2023 Pt. Non Urgent Medical Question Adult Medicine [address] [address] Mandi Newsome MD [address] [place] [address] [phone] Social History Tobacco Use Types Packs/Day Years [...] encounter Miscellaneous Notes * Telephone Encounter - Clifton Quick - 06/16/2023 10:56 AM EDTFrom: Nika Rodriguez To: Angelito Newsome Sent: 06/16/2023 10:52 AM EDT Subject: Drink shake Good morning I'm having trouble eating don't get hungry our can't chew don't have my upper teeth to chew. Can you prescribe some nuthrient shake strawberry flavor? Thank you documented in this encounter Plan of Treatment Not on file documented as of this encounter Visit Diagnoses Not on filedocumented in this encounter Care Teams Expeditionary Fighting Vehicle Crewman Relationship Specialty Start Date End Date Mandi Newsome MD [address] [place] [address] PCP - General Internal Medicine 05/18/22 Shree Castro MD [address] [place] [address] [address] [place] [address] Director Of Slot Operations Cardiovascular Disease 09/08/21 Haydee Cates NP [address] [place] [address] Nurse Practitioner Cardiology 04/28/22 documented as of this encounter
--- OUTSIDE RECORDS SUMMARY | 2025-10-19 11:50 | XMS_ITS | Encounter Summary ---
Author Organization [employer] [facility] Prior to 09/01/2024 Address [address] [place] [address] Care Team Providers Care Mechanical Piping Designer Name Role Phone Michael Martinez MD Primary Care Provider Ethel Cuenca DNP Unavailable [phone] Yan Handy MD Unavailable [phone] Shree Castro MD Unavailable [phone] Mandi Newsome MD Primary Care Provider + Haydee Cates NP Unavailable Encounter Details Date Type Department Care Team Description 06/24/2021 [facility] Medical Records [address] [place] [address] BonnieangelaSania Social History Tobacco Use Types Packs/Day Years [...] on filedocumented in this encounter Care Teams Mechanical Piping Designer Relationship Specialty Start Date End Date Michael Martinez MD PCP - General Internal Medicine 10/16/11 05/17/22 Mandi Newsome MD [address] [place] [address] PCP - General Internal Medicine 05/18/22 Ethel Avilez DNP Specialist Cardiology 06/03/21 08/03/21 Yan Handy MD Specialist Cardiology 08/04/21 08/04/21 Shree Castro MD [address] [place] [address] [address] [place] [address] Laborer Laboratory Cardiovascular Disease 09/08/21 Haydee Cates NP [address] [place] [address] Nurse Practitioner Cardiology 04/28/22 documented as of this encounter
--- OUTSIDE RECORDS SUMMARY | 2025-10-19 11:50 | XMS_ITS | Encounter Summary ---
Author Organization [facility] Prior to 09/01/2024 Address [address] [place] [address] Care Team Providers Care Flight Superintendent Name Role Phone Michael Martinez MD Primary Care Provider Ethel Cuenca DNP Unavailable [phone] Yan Handy MD Unavailable [phone] Shree Castro MD Unavailable Mandi Newsome MD Primary Care Provider + Haydee Cates NP Unavailable Reason for Visit * Reason Comments E-prescribe Rx Request Encounter Details Date Type Department Care Team Description 06/20/2021 Refill Adult Medicine [address] [phone] Nubia Lopez PA [address] [place] [address] [phone] E-prescribe Rx Request Social History Tobacco Use [...] encounter Miscellaneous Notes * Telephone Encounter - Zhane Gtz - 06/23/2021 2:58 PM EDT Patient would like script to be: E-PRESCRIBED/FAXED TO PHARMACY WHEN WAS THE PATIENT'S LAST APPOINTMENT IN ADULT MEDICINE? 06/05/21 WHEN WAS THE LAST TIME THE PATIENT SAW THEIR PCP? 09/30/20 Does patient have an upcoming appointment? 06/26/21 (THE MEDICATION REQUESTED IS ON THE MED [...] N/A Patients current insurance carrier is: Payor: [employer] FFS / Plan: [employer] / Product Type: MEDICAID RISK documented in this encounter Plan of Treatment Not on file documented as of this encounter Visit Diagnoses Not on filedocumented in this encounter Care Teams Flight Superintendent Relationship Specialty Start Date End Date Michael Martinez MD PCP - General Internal Medicine 10/16/11 05/17/22 Mandi Newsome MD [address] [place] [address] PCP - General Internal Medicine 05/18/22 Ethel Avilez DNP Specialist Cardiology 06/03/21 08/03/21 Yan Handy MD Specialist Cardiology 08/04/21 08/04/21 Shree Castro MD [address] [place] [address] [address] [place] [address] Bottling Line Attendant Cardiovascular Disease 09/08/21 Haydee Cates NP [address] [place] [address] Nurse Practitioner Cardiology 04/28/22 documented as of this encounter
--- OUTSIDE RECORDS SUMMARY | 2025-10-19 11:50 | XMS_ITS | Encounter Summary ---
Author Organization [employer] [facility] Prior to 09/01/2024 Address [address] [place] [address] Care Team Providers Care Research Worker Encyclopedia Name Role Phone Michael Martinez MD Primary Care Provider Ethel Cuenca DNP Unavailable [phone] Yan Handy MD Unavailable [phone] Shree Castro MD Unavailable [phone] Mandi Newsome MD Primary Care Provider + Haydee Cates NP Unavailable [phone] Encounter Details Date Type Department Care Team Description 07/07/2021 Refill Adult Medicine [address] [phone] Katie Elliott PAKatiC Social History Tobacco Use Types Packs/Day Years [...] filedocumented in this encounter Care Teams Research Worker Encyclopedia Relationship Specialty Start Date End Date Michael Martinez MD PCP - General Internal Medicine 10/16/11 05/17/22 Mandi Newsome MD [address] [place] [address] [phone] PCP - General Internal Medicine 05/18/22 Ethel Avilez DNP Specialist Cardiology 06/03/21 08/03/21 Yan Handy MD Specialist Cardiology 08/04/21 08/04/21 Shree Castro MD [address] [place] [address] [address] [place] [address] Agricultural Equipment Operator Cardiovascular Disease 09/08/21 Haydee Cates NP [address] [place] [address] Nurse Practitioner Cardiology 04/28/22 documented as of this encounter
--- OUTSIDE RECORDS SUMMARY | 2025-10-19 11:50 | XMS_ITS | Encounter Summary ---
Author Organization [employer] [facility] Prior to 09/01/2024 Address [address] [place] [address] Care Team Providers Care Social Services Assistant Name Role Phone Shree Castro MD Unavailable [phone] Mandi Newsome MD Primary Care Provider + Haydee Cates NP Unavailable [phone] Encounter Details Date Type Department Care Team Description 10/04/2023 Orders Only Medical Records [address] [place] [id number] [facility] Social History Tobacco Use Types Packs/Day Years [...] Name Priority Date/Time Associated Diagnosis Comments OUTSIDE PLAIN FILM Routine 2023 documented in this encounter Results * OUTSIDE PLAIN FILM (2023) [facility] documented in this encounter Visit Diagnoses Not on filedocumented in this encounter Care Teams Social Services Assistant Relationship Specialty Start Date End Date OgMandi lee MD [address] [place] [address] PCP - General Internal Medicine 05/18/22 Shree Castro MD [address] [place] [address] [address] [place] [address] [employer] Cardiovascular Disease 09/08/21 Haydee Cates NP [address] [place] [address] Nurse Practitioner Cardiology 04/28/22 documented as of this encounter
== END 2025-10-19 11:08 | disposition home or self-care (01) ==
LOC: HO.ENCR 10:22
PROVIDERS: PCP Family Medicine; Visit Provider Physician Assistant Medical
DX: E11.65 Type 2 diabetes mellitus with hyperglycemia (principal); E78.2 Mixed hyperlipidemia; H40.9 Unspecified glaucoma

== ENCOUNTER → 2025-10-19 10:21 | Outpatient (BNVA) | payer OTHER, SELFPAY | PROVIDERS: PCP Family Medicine; Visit Provider Physician Assistant Medical | DX: E11.65 Type 2 diabetes mellitus with hyperglycemia (principal); E78.2 Mixed hyperlipidemia; E11.39 Type 2 diabetes mellitus with other diabetic ophthalmic complication; H40.9 Unspecified glaucoma; Z79.4 Long term (current) use of insulin; Z79.85 Long-term (current) use of injectable non-insulin antidiabetic drugs; Z79.899 Other long term (current) drug therapy | CPT/HCPCS: 82947; 83036; 99212 ==